=== PATIENT | female | born 1945 | race Caucasian/White ===

== ENCOUNTER → 2016-12-29 | Outpatient (CLI) | payer BC ==
[~2016-12-29] MED LIST: ALBUAER2 INH; ALL180 PO; AMOX; AMOX875T PO; CALC500T83 PO; CHOL100027 PO; CLOT10TR2 MT; CYAN10004 PO; DMD20 PO; DXY100 PO; ENOX1INJ11 SQ; ENOX80IN SQ; FERR1TAB23 PO; GABA-112 PO; GABA1CAP PO; GFNSR600 PO; HYDR-5688 PO; INSDGIPEN SC; IPRA1AER2 INH; IPRASOL4 INH; LEVO75TA5 PO; LEVO88TA3 PO; LSX20 PO; LYSI500C4 PO; MAGNSUS5 PO; MAGNTAB4 PO; MOME100A INH; MOML PO; NORT25CA PO; NRT25 PO; NVLGI/PEN SC; NYSCR15 EXT; NYSS/ PO; OXGN; PANT40TA PO; POTA20TA13 PO; PRED10TA PO; PRT/40 PO; ROPI4TAB3 PO; ROPI4TAB4 PO; SENNTAB23 PO; SIMV-151 PO; SIMV20TA2 PO; SITA50TA5 PO; SITA50TA9 PO; SLWMEC PO; SNG10 PO; TORS20TA2 PO; TRIA1SPR4 NAE; VNTHFA/IN INH; WARF2TAB8 PO; lovenox
[2016-12-29 11:26] LABS: INR 2.8 (0.9-1.1); PROTHROMBIN TIME (PATIENT) 31.8 SECONDS (9.0-12.0)
[2016-12-29 11:32] LABS: ALT/SGPT 50 U/L (12-78); AST/SGOT 42 U/L (15-37); BLOOD UREA NITROGEN 18 mg/dl (7-18); BUN/CREATININE RATIO 17.9 (10-20); CALCIUM 9.8 mg/dl (8.5-10.1); CARBON DIOXIDE 27 mmol/L (21-32); CHLORIDE 104 mmol/L (98-107); GLUCOSE 125 mg/dl (70-99); POTASSIUM 3.4 mmol/L (3.5-5.1); SODIUM 142 mmol/L (136-145)
[2016-12-29 11:42] LABS: ALB/GLOB RATIO 1.1 (0.9-2); ALKALINE PHOSPHATASE 104 U/L (45-117)
[2016-12-29 13:48] LABS: URINE APPEARANCE TURBID (CLEAR); URINE BILIRUBIN NEG (NEG); URINE COLOR YELLOW; URINE EPITHELIAL CELL AUTO >30 /lpf (0-5); URINE NITRITE NEG (NEG); URINE SPECIFIC GRAVITY 1.022 (1.000-1.030); UROBILINOGEN NEG (NEG)
[2016-12-29 13:54] LABS: MANUAL MICROSCOPIC REQUIRED? NO; REVIEW REQ? YES
== END | disposition home or self-care (01) ==
LOC: C.LABBC 07:41
PROVIDERS: ATTEND Internal Medicine Geriatric Medicine
DX: Z86.72 Personal history of thrombophlebitis (principal); E87.6 Hypokalemia; E03.9 Hypothyroidism, unspecified; R39.9 Unspecified symptoms and signs involving the genitourinary system

== ENCOUNTER → 2016-12-31 | Outpatient (CLI) | payer BC ==
--- NOTE | 2016-12-31 08:40 | DIAGNOSTIC IMAGING REPORT ---
KUB CLINICAL HISTORY: R10.9 Abdominal pain dyspnea COMPARISON STUDY: No previous studies for comparison. FINDINGS: Nonobstructive bowel pattern. Postoperative changes low lumbar spine. Bile stimulator in position. IMPRESSION: No acute process. Electronically signed by: Iván Cuevas M.D. 12/31/2016 8:38 AM Dictated Date/Time: 12/31/2016 8:38 AM
== END | disposition home or self-care (01) ==
LOC: C.RADBC 08:17
PROVIDERS: ATTEND Internal Medicine Geriatric Medicine
DX: R10.9 Unspecified abdominal pain (principal)

== ENCOUNTER → 2017-01-02 | Outpatient (CLI) | payer BC ==
--- NOTE | 2017-01-02 10:48 | DIAGNOSTIC IMAGING REPORT ---
LEFT ANKLE 3 VIEWS CLINICAL HISTORY: Left ankle pain. FINDINGS: 3 views of the left ankle are obtained. No prior studies are available for comparison at the time of dictation. The skeletal structures are osteopenic. No fracture is seen. The ankle mortise is intact. Degenerative spurring is noted arising from the medial malleolus. There is a large plantar calcaneal enthesophyte. No joint effusion is identified. Mild soft tissue swelling is present around the ankle. Calcified phleboliths are seen in the distal calf. IMPRESSION: 1. Mild soft tissue swelling with no radiographic evidence of left ankle fracture. 2. Osteopenia mild degenerative change and heel spurs as above. Electronically signed by: Taz Guzman M.D. 01/02/2017 10:46 AM Dictated Date/Time: 01/02/2017 10:45 AM
== END | disposition home or self-care (01) ==
LOC: C.RADBC 10:26
PROVIDERS: ATTEND Internal Medicine Geriatric Medicine
DX: M25.572 Pain in left ankle and joints of left foot (principal); M79.89 Other specified soft tissue disorders; M85.872 Other specified disorders of bone density and structure, left ankle and foot; M77.32 Calcaneal spur, left foot

== ENCOUNTER → 2017-01-09 | Outpatient (CLI) | payer BC ==
--- NOTE | 2017-01-09 13:49 | DIAGNOSTIC IMAGING REPORT ---
RIGHT AXILLARY ULTRASOUND CLINICAL HISTORY: Right axillary lump. COMPARISON STUDY: Chest CT July 28, 2016 FINDINGS: No right axillary mass, enlarged lymph node or other sonographic abnormality was identified. IMPRESSION: No right axillary mass or enlarged lymph node identified. Clinical follow-up to ensure stability is recommended. If interval enlargement, repeat ultrasound is recommended. Electronically signed by: Ajay Hernandez M.D. 01/09/2017 1:48 PM Dictated Date/Time: 01/09/2017 1:44 PM
== END | disposition home or self-care (01) ==
LOC: C.ULTRBC 12:44
PROVIDERS: ATTEND Internal Medicine Geriatric Medicine
DX: R22.31 Localized swelling, mass and lump, right upper limb (principal)

== ENCOUNTER → 2017-01-18 | Outpatient (CLI) | payer BC ==
[2017-01-18 10:46] LABS: HEMATOCRIT 43.5 % (37-47); MEAN CELL VOLUME 89.1 fL (80-100); MEAN CORPUSCULAR HEMOGLOBIN 30.1 pg (25-34); MEAN CORPUSCULAR HGB CONC 33.8 g/dl (32-36); MEAN PLATELET VOLUME 10.4 fL (7.4-10.4); PLATELET COUNT 272 K/uL (130-400); RED BLOOD COUNT 4.88 M/uL (4.2-5.4)
[2017-01-18 10:54] LABS: URINE APPEARANCE CLEAR (CLEAR); URINE BILIRUBIN NEG (NEG); URINE COLOR YELLOW; URINE EPITHELIAL CELL AUTO >30 /lpf (0-5); URINE NITRITE NEG (NEG); URINE SPECIFIC GRAVITY 1.022 (1.000-1.030); UROBILINOGEN NEG (NEG)
[2017-01-18 11:02] LABS: ALT/SGPT 44 U/L (12-78); BLOOD UREA NITROGEN 16 mg/dl (7-18); BUN/CREATININE RATIO 17.1 (10-20); CALCIUM 10.2 mg/dl (8.5-10.1); CARBON DIOXIDE 27 mmol/L (21-32); CHLORIDE 101 mmol/L (98-107); CHOLESTEROL 177 mg/dl (0-200); CREATININE 0.96 mg/dl (0.60-1.20); GLUCOSE 76 mg/dl (70-99); POTASSIUM 3.5 mmol/L (3.5-5.1); SODIUM 140 mmol/L (136-145)
[2017-01-18 11:12] LABS: MANUAL MICROSCOPIC REQUIRED? NO; REVIEW REQ? NO
[2017-01-18 11:13] LABS: ALKALINE PHOSPHATASE 106 U/L (45-117); AST/SGOT 28 U/L (15-37); CHOLESTEROL/HDL RATIO 2.4; HDL CHOLESTEROL 73 mg/dl; LDL CHOLESTEROL CALCULATED 81 mg/dl; THYROID STIMULATING HORMONE 0.338 uIu/ml (0.300-4.500); TRIGLYCERIDES 114 mg/dl (0-150); VERY LOW DENSITY LIPOPROT CALC 23 mg/dl
[2017-01-18 11:24] LABS: BASO % 0.3 %; BASO ABS # 0.05 K/uL (0-0.2); COMPLETE YES; EOS % 0.8 %; IG% 0.9 %; LYMPH % 36.1 %; LYMPH ABS # 5.96 K/uL (1.2-3.4); MONO % 9.6 %; NEUT % 52.3 %
[2017-01-18 11:29] LABS: ESTIMATED AVERAGE GLUCOSE 235 mg/dl; HA1C FLAG Normal (Normal)
== END | disposition home or self-care (01) ==
LOC: C.LABBC 07:39
PROVIDERS: ATTEND Internal Medicine Geriatric Medicine
DX: R39.9 Unspecified symptoms and signs involving the genitourinary system (principal); E03.9 Hypothyroidism, unspecified; M19.90 Unspecified osteoarthritis, unspecified site; I10 Essential (primary) hypertension; K76.0 Fatty (change of) liver, not elsewhere classified; G47.33 Obstructive sleep apnea (adult) (pediatric); E11.65 Type 2 diabetes mellitus with hyperglycemia; E78.5 Hyperlipidemia, unspecified; E55.9 Vitamin D deficiency, unspecified; E53.8 Deficiency of other specified B group vitamins

== ENCOUNTER → 2017-02-08 | Outpatient (CLI) | payer BC ==
[2017-02-08 11:55] LABS: RATIO 34.6 mcg/mg (0-30.0)
[2017-02-08 12:04] LABS: URINE APPEARANCE CLEAR (CLEAR); URINE BILIRUBIN NEG (NEG); URINE COLOR YELLOW; URINE EPITHELIAL CELL AUTO >30 /lpf (0-5); URINE NITRITE NEG (NEG); URINE PH 7.5 (4.5-7.5); UROBILINOGEN NEG (NEG); ZZUR CULT IF INDIC CLEAN CATCH YES
[2017-02-08 12:09] LABS: MANUAL MICROSCOPIC REQUIRED? NO; REVIEW REQ? YES
== END | disposition home or self-care (01) ==
LOC: C.LABBC 08:02
PROVIDERS: ATTEND Nurse Practitioner Family
DX: R32 Unspecified urinary incontinence (principal)

== ENCOUNTER 2017-03-13 18:51 | Inpatient (IN) | payer BC, OTHER ==
[~2017-03-13] VITALS: Ht 149.9 cm; Wt 88.0 kg
[~2017-03-13 18:51] MED LIST changes: -ALL180 PO; -AMOX; -AMOX875T PO; -CALC500T83 PO; -CHOL100027 PO; -CLOT10TR2 MT; -CYAN10004 PO; -DMD20 PO; -DXY100 PO; -ENOX1INJ11 SQ; -FERR1TAB23 PO; -GABA-112 PO; -GFNSR600 PO; -HYDR-5688 PO; -INSDGIPEN SC; -IPRASOL4 INH; -LEVO88TA3 PO; -MOME100A INH; -MOML PO; -NRT25 PO; -NVLGI/PEN SC; -NYSCR15 EXT; -NYSS/ PO; -OXGN; -POTA20TA13 PO; -PRED10TA PO; -PRT/40 PO; -ROPI4TAB3 PO; -ROPI4TAB4 PO; -SENNTAB23 PO; -SIMV-151 PO; -SITA50TA5 PO; -SLWMEC PO; -SNG10 PO; -TORS20TA2 PO; -TRIA1SPR4 NAE; -VNTHFA/IN INH; -lovenox
[2017-03-13] MEDS ORDERED: ROPI4TAB3 PO (18:57)
[2017-03-13] MEDS ORDERED: ONDANSETRON INJ 2 MG/ML 2 ML VIAL IV STA (19:03)
[2017-03-13] MEDS ORDERED: MoRPHine SULFATE 4 MG/ML 1 ML CARP\\VIAL IV STA (19:03)
[2017-03-13] MEDS ORDERED: CEFTRIAXONE SOD INJ 1 GM ADDVIAL IV STA (19:03)
[2017-03-13] MEDS ORDERED: VANCOMYCIN INJ 1,000 MG in SODIUM CHLORIDE 0.9% 250ML 250 ML IV STA (19:03)
--- NOTE | 2017-03-13 19:06 | EMERGENCY ROOM VISIT NOTE ---
History Report prepared by Chaitanya: Mj Lauren Under the Supervision of: Dr. Dominguez Kelley M.D. First contact with patient: 18:58 Chief Complaint: LEG PAIN,LEG INJURY Stated Complaint: PAIN IN RIGHT ANKLE;DOC SENT TO ER History of Present Illness The patient is a 71 year old female who presents to the Emergency Room with complaints of persistent right lower leg pain that started two days ago. 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 She complains of the cut draining blood and clear fluid. Last night while she was sleeping, her right ankle swelled up. She complains of lower leg and foot pain. The patient takes Lasix every day. The patient denies shortness of breath different from baseline. Source of History: patient Onset: two days ago Position: leg (left lower leg) Timing: other (persistent) Associated Symptoms: No SOB Note: Other associated symptoms: ankle swelling, draining blood and clear fluid, lower leg and foot pain Review of Systems See HPI for pertinent positives & negatives. A total of 10 systems reviewed and were otherwise negative. Past Medical & Surgical Medical Problems: (1) Acute bronchitis (2) Altered mental status (3) Altered mental status (4) Benign essential hypertension (5) Blood in stool (6) Cellulitis of right lower extremity (7) Chronic bronchitis (8) Chronic recurrent sinusitis (9) Chronic sinusitis (10) COPD exacerbation (11) Deep venous thrombosis of lower extremity (12) Diabetes mellitus type 2 (13) Dizziness (14) Dyspnea (15) Hyperglycemia (16) Hyperlipidemia (17) Laceration (18) Near syncope (19) Obstructive sleep apnea syndrome (20) Orthostatic hypotension (21) POSSIBLE SEIZURE (22) Pulmonary embolism (23) Restless legs (24) SJOGRENS (25) SOB (shortness of breath) (26) SUBTHERAPEAUTIC INR (27) Supratherapeutic INR (28) Supratherapeutic INR (29) UTI (urinary tract infection) Family History Diabetes mellitus MOTHER Esophageal cancer FATHER FH: cancer FH: gallbladder disease Myocardial infarction MOTHER Social History Smoking Status: Never Smoker Alcohol Use: none Drug Use: none Marital Status: Housing Status: lives with family, lives with significant other Occupation Status: retired Current/Historical Medications Scheduled Calcium (Calcium), 1 TAB PO QPM Cholecalciferol (Vitamin D 1000 Unit), 2,000 INTER.UNIT PO BID Cyanocobalamin (Vitamin B-12 1000 Mcg), 1,000 MCG PO BID Ferrous Sulfate (Iron), 1 TAB PO QPM Gabapentin (Neurontin), 100 MG PO BID Insulin Aspart (Novolog Flexpen), 10 UNITS SC TIDM Insulin Glargine (Lantus Solostar), 18 UNITS SC HS Levothyroxine Sodium (Levothyroxine Sodium), 88 MCG PO DAILY Lysine (L-Lysine), 1 CAP PO QAM Magnesium Chloride (Slow-Mag Tab), 3 TABS PO QAM Magnesium Chloride (Slow-Mag Tab), 2 TABS PO QPM Montelukast Sod (Montelukast Sodium), 10 MG PO HS Nortriptyline (Pamelor), 25 MG PO HS Pantoprazole (Protonix), 40 MG PO QAM Potassium Chloride Microencaps (Potassium Chloride Er), 20 MEQ PO DAILY Ropinirole Hydrochloride (Requip), 4 MG PO HS Sennosides-Docusate Sodium (Stool Softener), 1 TAB PO HS Simvastatin (Zocor), 20 MG PO HS Sitagliptin-Metformin Hcl (Janumet), 1 TAB PO BID Torsemide (Torsemide), 20 MG PO BID Warfarin Sod (Jantoven), 2 MG PO mondays Warfarin Sod (Jantoven), 4 MG PO MONTHLY Warfarin Sod (Jantoven), 4 MG PO [id number] Scheduled PRN Albuterol Hfa (Ventolin Hfa), 2 PUFFS INH Q4 PRN for SOB/Wheezing Ipratropium-Albuterol (Duoneb), 1 TREATMENT INH QID PRN for SOB/Wheezing Magnesium Hydroxide (Milk Of Magnesia), 15 ML PO DAILY PRN for Constipation Mometasone Furoate-Formoterol (Dulera 100/5 Mcg), 2 PUFFS INH BID PRN for SOB/ Wheezing Allergies Coded Allergies: Prochlorperazine (Verified Allergy, Severe, EXTRAPYRAMIDAL S/E, 10/21/16) LOSS OF MUSCLE CONTROL/MUSCLE SPASMS TROUBLE BREATHING "EYES WOULD FLY OPEN AND I COULDN'T CLOSE THEM" Zolpidem (Verified Allergy, Severe, CONFUSION/MEMORY LOSS, 10/21/16) "FOR THREE DAYS I WAS IN OUTER SPACE" Carbamazepine (Verified Allergy, Intermediate, CONFUSION, 10/21/16) Duloxetine (Verified Allergy, Intermediate, LIGHTHEADEDNESS/DIZZINESS, ) Hydrochlorothiazide (Verified Allergy, Intermediate, LIGHTHEADEDNESS/ DIZZINESS, 10/21/16) Indigotindisulfonate (Verified Allergy, Intermediate, LIGHTHEADEDNESS/ DIZZINESS, 10/21/16) Levofloxacin (Verified Allergy, Mild, RASH, 10/21/16) also bloody diarrhea Clonazepam (Verified Allergy, Unknown, UNKNOWN, 10/21/16) Diclofenac (Verified Allergy, Unknown, UNKNOWN, 10/21/16) Hydromorphone (Verified Adverse Reaction, Intermediate, N/V AND NIGHTMARES , 10/21/16) Morphine (Verified Adverse Reaction, Intermediate, HYPOTENSION AND N/V, ) Cyclobenzaprine (Verified Adverse Reaction, Mild, N/V, 10/21/16) Lisinopril (Verified Adverse Reaction, Mild, N/V, 10/21/16) Naproxen (Verified Adverse Reaction, Mild, N/V, 10/21/16) Oxycodone (Verified Adverse Reaction, Mild, N/V, 10/21/16) Tramadol (Verified Adverse Reaction, Unknown, N/V AND ITCHING, 10/21/16) Physical Exam Vital Signs Date Time Temp Pulse Resp B/P Pulse Ox O2 Delivery O2 Flow Rate FiO2 03/13/17 20:10 87 18 139/74 93 Room Air 03/13/17 18:53 36.6 87 20 142/84 93 Room Air Physical Exam GENERAL: Patient is a healthy-appearing well-nourished HEAD: Normocephalic atraumatic EYES: Ocular movements intact pupils equal and react to light OROPHARYNX mucous membranes are moist no exudates present no erythema or edema present NECK: Supple no nuchal rigidity CHEST: Good equal expansion LUNGS: Clear and equal to auscultation CARDIAC: Normal S1 and S2 ABDOMEN: Soft nontender no guarding BACK: No CVA tenderness EXTREMITIES: Cellulitis extending up to right knee, involves right foot, appears to be extending from 2 inch by 2 inch contusion, there is a superficial laceration to the contusion that is openly leaking serous fluid. NEURO: Patient is following commands is answering questions appropriately. Alert and oriented x3 Cranial Nerves 2-12 grossly intact Medical Decision & Procedures ER Provider Diagnostic Interpretation: Radiology results as stated below per my review and radiologist interpretation: ULTRASOUND RIGHT VENOUS DOPP LOWER EXT UNILAT CLINICAL HISTORY: Right leg swelling COMPARISON STUDY: 10/21/2016 FINDINGS: Real-time and color flow Doppler imaging were performed. Flow was seen within the femoral, popliteal and calf veins with no intraluminal thrombus demonstrated. The saphenous vein is patent. IMPRESSION: No evidence of right lower extremity DVT. Electronically signed by: Brijesh Mendoza M.D. 03/13/2017 7:57 PM Dictated Date/Time: 03/13/2017 7:57 PM CHEST ONE VIEW PORTABLE CLINICAL HISTORY: Shortness of breath COMPARISON STUDY: 08/08/2016 FINDINGS: The cardiac and mediastinal contours are normal. There is no evidence of focal pulmonary consolidation. There is no evidence of failure. No pleural effusions are visualized.[ IMPRESSION: No active disease in the chest. Electronically signed by: Brijesh Mendoza M.D. 03/13/2017 7:35 PM Dictated Date/Time: 03/13/2017 7:34 PM Laboratory Results 03/13/17 19:21 Red Blood Count 4.48, Mean Corpuscular Volume 91.7, Mean Corpuscular Hemoglobin 30.8, Mean Corpuscular Hemoglobin Concent 33.6, Mean Platelet Volume 10.4, Neutrophils (%) (Auto) 48.0, Lymphocytes (%) (Auto) 37.5, Monocytes (%) (Auto) 10.7, Eosinophils (%) (Auto) 3.2, Basophils (%) (Auto) 0.4, Neutrophils # (Auto ) 5.17, Lymphocytes # (Auto) 4.04, Monocytes # (Auto) 1.15, Eosinophils # (Auto ) 0.35, Basophils # (Auto) 0.04 03/13/17 19:21 03/13/17 20:55 Test 03/13/17 19:21 03/13/17 20:55 White Blood Count 10.77 K/uL (4.8-10.8) Red Blood Count 4.48 M/uL (4.2-5.4) Hemoglobin 13.8 g/dL (12.0-16.0) Hematocrit 41.1 % (37-47) Mean Corpuscular Volume 91.7 fL (80-100) Mean Corpuscular Hemoglobin 30.8 pg (25-34) Mean Corpuscular Hemoglobin Concent 33.6 g/dl (32-36) Platelet Count 218 K/uL (130-400) Mean Platelet Volume 10.4 fL (7.4-10.4) Neutrophils (%) (Auto) 48.0 % Lymphocytes (%) (Auto) 37.5 % Monocytes (%) (Auto) 10.7 % Eosinophils (%) (Auto) 3.2 % Basophils (%) (Auto) 0.4 % Neutrophils # (Auto) 5.17 K/uL (1.4-6.5) Lymphocytes # (Auto) 4.04 K/uL (1.2-3.4) Monocytes # (Auto) 1.15 K/uL (0.11-0.59) Eosinophils # (Auto) 0.35 K/uL (0-0.5) Basophils # (Auto) 0.04 K/uL (0-0.2) RDW Standard Deviation 50.6 fL (36.4-46.3) RDW Coefficient of Variation 15.1 % (11.5-14.5) Immature Granulocyte % (Auto) 0.2 % Immature Granulocyte # (Auto) 0.02 K/uL (0.00-0.02) Anion Gap 10.0 mmol/L (3-11) Est Creatinine Clear Calc Drug Dose 49.6 ml/min Estimated GFR () 66.0 Estimated GFR (Non- 56.9 BUN/Creatinine Ratio 11.8 (10-20) Calcium Level 8.6 mg/dl (8.5-10.1) Total Bilirubin 0.9 mg/dl (0.2-1) Alanine Aminotransferase (ALT/SGPT) 30 U/L (12-78) Alkaline Phosphatase 104 U/L (45-117) Creatine Kinase MB 2.0 ng/ml (0.5-3.6) Creatine Kinase MB Ratio (0-3.0) Troponin I < 0.015 ng/ml (0-0.045) Pro-B-Type Natriuretic Peptide 121 pg/ml (0-900) Total Protein 7.0 gm/dl (6.4-8.2) Albumin 3.5 gm/dl (3.4-5.0) Lipase 63 U/L (73-393) Chemistry Specimen Hemolysis Prothrombin Time 39.6 SECONDS (9.0-12.0) Prothromb Time International Ratio 3.5 (0.9-1.1) Direct Bilirubin 0.2 mg/dl (0-0.2) Aspartate Amino Transf (AST/SGOT) 22 U/L (15-37) Total Creatine Kinase 147 U/L (26-192) Labs reviewed by ED physician. Medications Administered Medications (Trade) Dose Ordered Sig/Mick Route Start Time Stop Time Status Last Admin Dose Admin Ceftriaxone Sodium 1 gm 1 gm NOW STAT IV 03/13/17 19:03 03/13/17 19:08 DC 03/13/17 20:09 1 GM Vancomycin HCl/ Sodium Chloride (Vancomycin Inj/ Nss 250ml) 270 ml @ 125 mls/hr NOW STAT IV 03/13/17 19:03 03/13/17 21:12 DC 03/13/17 20:45 125 MLS/HR Ondansetron HCl (Zofran Inj) 4 mg NOW STAT IV 03/13/17 19:03 03/13/17 19:08 DC 03/13/17 20:08 4 MG Acetaminophen (Tylenol Tab) 650 mg Q4H PRN PO 03/13/17 21:45 04/12/17 21:44 03/13/17 22:55 650 MG ECG Indication: other Rate (beats per minute): 80 Rhythm: sinus rhythm Findings: no acute ischemic change, no ectopy ED Course 1856: Past medical records reviewed. The patient was evaluated in room C9. A complete history and physical examination was performed. 1902: Ordered Zofran Inj 4 mg IV, Morphine Sulfate 4 mg IV, Vancomycin HCl 1000 mg/ NSS 270 ml @ 125 mls/hr IV, Rocephin Inj 1 gm IV. 2045: At this time, I discussed the patient's case with Dr. Lainez - Hospitalist [facility] and he agreed to accept the patient for further evaluation. Medical Decision Differential diagnosis: Etiologies such as viral syndrome, otitis, pharyngitis, pneumonia, influenza, meningitis, urinary tract infection, sepsis, bacteremia, as well as others were entertained. This is a 71-year-old female who presents emergency department after a injury to her right silvestre. 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 Based on these findings the patient was pancultured up and started on antibiotics. She also has multiple comorbidities including COPD as well as CHF. She also slight elevation in her white blood count therefore discussed the case with the hospitalist service who agreed to admit the patient. Patient family were in agreement with the treatment plan. Consults Time Called: 2038 Consulting Physician: Dr. Lainez - [place] [facility] [place] Call: 2045 At this time, I discussed the patient's case with Dr. Lainez and he agreed to accept the patient for further evaluation. Impression Primary Impression: Cellulitis Scribe Attestation The scribe's documentation has been prepared under my direction and personally reviewed by me in its entirety. I confirm that the note above accurately reflects all work, treatment, procedures, and medical decision making performed by me. Departure Information Dispostion Being Evaluated By Hospitalist Referrals Omar Joshi M.D. (PCP) Problem Qualifiers Primary Impression: Cellulitis Site of cellulitis: extremity Site of cellulitis of extremity: lower extremity Laterality: right Qualified Codes: L03.115 - Cellulitis of right lower limb
[2017-03-13 19:35] LABS: BASO % 0.4 %; BASO ABS # 0.04 K/uL (0-0.2); COMPLETE YES; EOS % 3.2 %; HEMATOCRIT 41.1 % (37-47); IG% 0.2 %; LYMPH % 37.5 %; LYMPH ABS # 4.04 K/uL (1.2-3.4); MEAN CELL VOLUME 91.7 fL (80-100); MEAN CORPUSCULAR HEMOGLOBIN 30.8 pg (25-34); MEAN CORPUSCULAR HGB CONC 33.6 g/dl (32-36); MEAN PLATELET VOLUME 10.4 fL (7.4-10.4); MONO % 10.7 %; PLATELET COUNT 218 K/uL (130-400); RED BLOOD COUNT 4.48 M/uL (4.2-5.4); WHITE BLOOD COUNT 10.77 K/uL (4.8-10.8)
--- NOTE | 2017-03-13 19:37 | DIAGNOSTIC IMAGING REPORT ---
CHEST ONE VIEW PORTABLE CLINICAL HISTORY: Shortness of breath COMPARISON STUDY: 08/08/2016 FINDINGS: The cardiac and mediastinal contours are normal. There is no evidence of focal pulmonary consolidation. There is no evidence of failure. No pleural effusions are visualized.[ IMPRESSION: No active disease in the chest. Electronically signed by: Brijesh Mendoza M.D. 03/13/2017 7:35 PM Dictated Date/Time: 03/13/2017 7:34 PM
--- NOTE | 2017-03-13 19:59 | DIAGNOSTIC IMAGING REPORT ---
ULTRASOUND RIGHT VENOUS DOPP LOWER EXT UNILAT CLINICAL HISTORY: Right leg swelling COMPARISON STUDY: 10/21/2016 FINDINGS: Real-time and color flow Doppler imaging were performed. Flow was seen within the femoral, popliteal and calf veins with no intraluminal thrombus demonstrated. The saphenous vein is patent. IMPRESSION: No evidence of right lower extremity DVT. Electronically signed by: Brijesh Mendoza M.D. 03/13/2017 7:57 PM Dictated Date/Time: 03/13/2017 7:57 PM
[2017-03-13] MEDS ORDERED: LEVO88TA3 PO (20:01)
[2017-03-13] MEDS ORDERED: MOML PO (20:01)
[2017-03-13] MEDS ORDERED: DMD20 PO (20:01)
[2017-03-13] MEDS ORDERED: SLWMEC PO (20:01)
[2017-03-13] MEDS ORDERED: POTA20TA13 PO (20:01)
[2017-03-13 20:47] LABS: ALKALINE PHOSPHATASE 104 U/L (45-117); ALT/SGPT 30 U/L (12-78); BLOOD UREA NITROGEN 12 mg/dl (7-18); BUN/CREATININE RATIO 11.8 (10-20); CALCIUM 8.6 mg/dl (8.5-10.1); CARBON DIOXIDE 27 mmol/L (21-32); CHLORIDE 107 mmol/L (98-107); CREATININE 0.99 mg/dl (0.60-1.20); GLUCOSE 182 mg/dl (70-99); SODIUM 144 mmol/L (136-145)
[2017-03-13 21:16] LABS: INR 3.5 (0.9-1.1); PROTHROMBIN TIME (PATIENT) 39.6 SECONDS (9.0-12.0)
[2017-03-13 21:18] LABS: POTASSIUM 3.5 mmol/L (3.5-5.1)
[2017-03-13] MEDS ORDERED: GLUCOSE 40% GEL 15 GM TUBE PO PRN (21:45)
[2017-03-13] MEDS ORDERED: DEXTROSE 50% 50 ML SYR IV PRN (21:45)
[2017-03-13] MEDS ORDERED: ALBUT/IPRATROP 3MG/0.5MG NEB 3 ML VIAL INH PRN (21:45)
[2017-03-13] MEDS ORDERED: GLUCAGON FOR INJ 1 MG VIAL SQ PRN (21:45)
[2017-03-13] MEDS ORDERED: GLUCOSE 10 TABS/TUBE PO PRN (21:45)
[2017-03-13] MEDS ORDERED: ONDANSETRON INJ 2 MG/ML 2 ML VIAL IV PRN (21:45)
[2017-03-13] MEDS ORDERED: MAGNESIUM HYDROXIDE SUSP 30 ML UDC PO PRN (21:45)
[2017-03-13] MEDS ORDERED: ALBUTEROL HFA 8 GM INHALER INH PRN (21:45)
--- NOTE | 2017-03-13 21:45 | History and Physical ---
History & Physical Date & Time of Service: Mar 13, 2017 at 21:44 Chief Complaint: Pain In Right Ankle;Doc Sent To Er Primary Care Physician: Omar Joshi M.D. 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 Today she noticed progressive redness and pain, which caused her to present to the ED for assessment. Past Medical/Surgical History Medical Problems: (1) Acute bronchitis Status: Resolved (2) Altered mental status Status: Resolved (3) Altered mental status Status: Resolved (4) Benign essential hypertension Status: Chronic (5) Chronic bronchitis Status: Chronic (6) Chronic recurrent sinusitis Status: Chronic (7) Chronic sinusitis Status: Chronic (8) Deep venous thrombosis of lower extremity Status: Resolved (9) Diabetes mellitus type 2 Status: Chronic (10) Dizziness Status: Resolved (11) Hyperglycemia Status: Resolved (12) Hyperlipidemia Status: Chronic (13) Laceration Status: Resolved (14) Near syncope Status: Resolved (15) Obstructive sleep apnea syndrome Status: Chronic (16) Orthostatic hypotension Status: Resolved (17) POSSIBLE SEIZURE Status: Resolved (18) Pulmonary embolism Status: Resolved (19) Restless legs Status: Chronic (20) SJOGRENS Status: Resolved (21) SOB (shortness of breath) Status: Resolved (22) SUBTHERAPEAUTIC INR Status: Resolved (23) Supratherapeutic INR Status: Resolved (24) Supratherapeutic INR Status: Resolved (25) UTI (urinary tract infection) Status: Resolved Family History Diabetes mellitus MOTHER Esophageal cancer FATHER FH: cancer FH: gallbladder disease Myocardial infarction MOTHER Social History Smoking Status: Never Smoker Smokeless Tobacco Use: No Alcohol Use: none Drug Use: none Marital Status: Housing status: lives with family Occupational Status: retired Immunizations History of Influenza Vaccine: Yes Influenza Vaccine Date: Aug 27, 2013 History of Tetanus Vaccine?: No History of Pneumococcal: Yes Pneumococcal Date: Nov 27, 2009 History of Hepatitis B Vaccine: No Multi-Drug Resistant Organisms History of MDRO: No Allergies Coded Allergies: Prochlorperazine (Verified Allergy, Severe, EXTRAPYRAMIDAL S/E, 10/21/16) LOSS OF MUSCLE CONTROL/MUSCLE SPASMS TROUBLE BREATHING "EYES WOULD FLY OPEN AND I COULDN'T CLOSE THEM" Zolpidem (Verified Allergy, Severe, CONFUSION/MEMORY LOSS, 10/21/16) "FOR THREE DAYS I WAS IN OUTER SPACE" Carbamazepine (Verified Allergy, Intermediate, CONFUSION, 10/21/16) Duloxetine (Verified Allergy, Intermediate, LIGHTHEADEDNESS/DIZZINESS, ) Hydrochlorothiazide (Verified Allergy, Intermediate, LIGHTHEADEDNESS/ DIZZINESS, 10/21/16) Indigotindisulfonate (Verified Allergy, Intermediate, LIGHTHEADEDNESS/ DIZZINESS, 10/21/16) Levofloxacin (Verified Allergy, Mild, RASH, 10/21/16) also bloody diarrhea Clonazepam (Verified Allergy, Unknown, UNKNOWN, 10/21/16) Diclofenac (Verified Allergy, Unknown, UNKNOWN, 10/21/16) Hydromorphone (Verified Adverse Reaction, Intermediate, N/V AND NIGHTMARES , 10/21/16) Morphine (Verified Adverse Reaction, Intermediate, HYPOTENSION AND N/V, ) Cyclobenzaprine (Verified Adverse Reaction, Mild, N/V, 10/21/16) Lisinopril (Verified Adverse Reaction, Mild, N/V, 10/21/16) Naproxen (Verified Adverse Reaction, Mild, N/V, 10/21/16) Oxycodone (Verified Adverse Reaction, Mild, N/V, 10/21/16) Tramadol (Verified Adverse Reaction, Unknown, N/V AND ITCHING, 10/21/16) Home Medications Scheduled Calcium (Calcium), 1 TAB PO QPM Cholecalciferol (Vitamin D 1000 Unit), 2,000 INTER.UNIT PO BID Cyanocobalamin (Vitamin B-12 1000 Mcg), 1,000 MCG PO BID Ferrous Sulfate (Iron), 1 TAB PO QPM Gabapentin (Neurontin), 100 MG PO BID Insulin Aspart (Novolog Flexpen), 10 UNITS SC TIDM Insulin Glargine (Lantus Solostar), 18 UNITS SC HS Levothyroxine Sodium (Levothyroxine Sodium), 88 MCG PO DAILY Lysine (L-Lysine), 1 CAP PO QAM Magnesium Chloride (Slow-Mag Tab), 3 TABS PO QAM Magnesium Chloride (Slow-Mag Tab), 2 TABS PO QPM Montelukast Sod (Montelukast Sodium), 10 MG PO HS Nortriptyline (Pamelor), 25 MG PO HS Pantoprazole (Protonix), 40 MG PO QAM Potassium Chloride Microencaps (Potassium Chloride Er), 20 MEQ PO DAILY Ropinirole Hydrochloride (Requip), 4 MG PO HS Sennosides-Docusate Sodium (Stool Softener), 1 TAB PO HS Simvastatin (Zocor), 20 MG PO HS Sitagliptin-Metformin Hcl (Janumet), 1 TAB PO BID Torsemide (Torsemide), 20 MG PO BID Warfarin Sod (Jantoven), 2 MG PO mondays Warfarin Sod (Jantoven), 4 MG PO MONTHLY Warfarin Sod (Jantoven), 4 MG PO 6XWK Scheduled PRN Albuterol Hfa (Ventolin Hfa), 2 PUFFS INH Q4 PRN for SOB/Wheezing Ipratropium-Albuterol (Duoneb), 1 TREATMENT INH QID PRN for SOB/Wheezing Magnesium Hydroxide (Milk Of Magnesia), 15 ML PO DAILY PRN for Constipation Mometasone Furoate-Formoterol (Dulera 100/5 Mcg), 2 PUFFS INH BID PRN for SOB/ Wheezing Review of Systems The patient denies chest pain, palpitations, shortness of breath, cough, vision change, hearing change, sore throat, fevers, chills, sweats, weight change, fatigue, nausea, vomiting, abdominal pain, pelvic pain, blood in urine or stool , dysuria, urinary frequency or urgency, lightheadedness, dizziness, headache, memory loss, rash, imbalance, focal or generalized weakness, numbness or tingling in arms, arthralgias or myalgias, back or neck pain, night sweats, or allergy symptoms. The review of systems is otherwise negative other than for that already noted above, and at least 10 systems have been reviewed. Physical Exam Vital Signs Date Time Temp Pulse Resp B/P Pulse Ox O2 Delivery O2 Flow Rate FiO2 03/13/17 20:10 87 18 139/74 93 Room Air 03/13/17 18:53 36.6 87 20 142/84 93 Room Air The patient is awake, well-developed and adequately nourished, alert and oriented 3, normocephalic and atraumatic, lying in bed and in no acute distress. HEENT--PERRL, EOMI, mucous membranes and oropharynx normal. Neck--supple, no JVD or bruits, thyroid normal, trachea midline, no adenopathy. Heart--normal S1 and S2, no extra beats, no murmurs, rubs or gallops. Lungs--clear bilaterally with good air movement, no respiratory distress, no accessory muscle use. Abdomen--normal bowel sounds and soft, nontender and nondistended, no hernias or masses, no organomegaly. Extremities--no cyanosis, clubbing. There is bilaterally 1+ pretibial pitting Edema. There are good distal pulses b/l. Dermatologic--right silvestre a central laceration well opposed edges, with erythema from the knee to the ankle. Neurologic--cranial nerves II through XII grossly intact, motor and sensory examination normal. Rheumatologic--normal range of motion, nontender, muscles and joints. Psychiatric--normal affect. Diagnostics Laboratory Results Results Past 24 Hours Test 03/13/17 19:21 03/13/17 20:55 Range/Units White Blood Count 10.77 4.8-10.8 K/uL Red Blood Count 4.48 4.2-5.4 M/uL Hemoglobin 13.8 12.0-16.0 g/dL Hematocrit 41.1 37-47 % Mean Corpuscular Volume 91.7 80-100 fL Mean Corpuscular Hemoglobin 30.8 25-34 pg Mean Corpuscular Hemoglobin Concent 33.6 32-36 g/dl Platelet Count 218 130-400 K/uL Mean Platelet Volume 10.4 7.4-10.4 fL Neutrophils (%) (Auto) 48.0 % Lymphocytes (%) (Auto) 37.5 % Monocytes (%) (Auto) 10.7 % Eosinophils (%) (Auto) 3.2 % Basophils (%) (Auto) 0.4 % Neutrophils # (Auto) 5.17 1.4-6.5 K/uL Lymphocytes # (Auto) 4.04 1.2-3.4 K/uL Monocytes # (Auto) 1.15 0.11-0.59 K/uL Eosinophils # (Auto) 0.35 0-0.5 K/uL Basophils # (Auto) 0.04 0-0.2 K/uL RDW Standard Deviation 50.6 36.4-46.3 fL RDW Coefficient of Variation 15.1 11.5-14.5 % Immature Granulocyte % (Auto) 0.2 % Immature Granulocyte # (Auto) 0.02 0.00-0.02 K/uL Sodium Level 144 136-145 mmol/L Potassium Level 3.5 3.5-5.1 mmol/L Chloride Level 107 98-107 mmol/L Carbon Dioxide Level 27 21-32 mmol/L Anion Gap 10.0 3-11 mmol/L Blood Urea Nitrogen 12 7-18 mg/dl Creatinine 0.99 0.60-1.20 mg/dl Est Creatinine Clear Calc Drug Dose 49.6 ml/min Estimated GFR () 66.0 Estimated GFR (Non- 56.9 BUN/Creatinine Ratio 11.8 10-20 Random Glucose 182 70-99 mg/dl Calcium Level 8.6 8.5-10.1 mg/dl Total Bilirubin 0.9 0.2-1 mg/dl Direct Bilirubin 0.2 0-0.2 mg/dl Aspartate Amino Transf (AST/SGOT) 22 15-37 U/L Alanine Aminotransferase (ALT/SGPT) 30 12-78 U/L Alkaline Phosphatase 104 45-117 U/L Total Creatine Kinase 147 26-192 U/L Creatine Kinase MB 2.0 0.5-3.6 ng/ml Creatine Kinase MB Ratio 0-3.0 Troponin I < 0.015 0-0.045 ng/ml Pro-B-Type Natriuretic Peptide 121 0-900 pg/ml Total Protein 7.0 6.4-8.2 gm/dl Albumin 3.5 3.4-5.0 gm/dl Lipase 63 73-393 U/L Chemistry Specimen Hemolysis Prothrombin Time 39.6 9.0-12.0 SECONDS Prothromb Time International Ratio 3.5 0.9-1.1 Microbiology Results 03/13/17 Blood Culture, Received Pending 03/13/17 Blood Culture, Received Pending 03/13/17 Gram Stain, Received Pending 03/13/17 Wound Culture, Received Pending Diagnostic Radiology Patient Name: QUENTIN BUTT Unit Number: [id number] Dictated: 03/13/171956 Transcribed: 03/13/171956 ARG Printed Date/Time: [~ rep prt dt]/[~ rep prt tm] [~ rep ct labl] - [~ rep ct ivnm] [facility] [place] [address] Dictated: 03/13/171956 Transcribed: 03/13/171956 ARG Printed Date/Time: [~ rep prt dt]/[~ rep prt tm] [~ rep ct labl] - [~ rep ct ivnm] ULTRASOUND RIGHT VENOUS DOPP LOWER EXT UNILAT CLINICAL HISTORY: Right leg swelling COMPARISON STUDY: 10/21/2016 FINDINGS: Real-time and color flow Doppler imaging were performed. Flow was seen within the femoral, popliteal and calf veins with no intraluminal thrombus demonstrated. The saphenous vein is patent. IMPRESSION: No evidence of right lower extremity DVT. Electronically signed by: Brijesh Mendoza M.D. 03/13/2017 7:57 PM Dictated Date/Time: 03/13/2017 7:57 PM The status of this report is Signed. Draft = Not yet reviewed or approved by Radiologist. Signed = Reviewed and approved by Radiologist. <AttendingPhy></AttendingPhy> <FamilyPhy>Omar Joshi M.D.</FamilyPhy> < PrimaryPhy>Omar Joshi M.D.</PrimaryPhy> <UnitNumber>[id number]</UnitNumber > <VisitNumber>[id number]</VisitNumber> <PatientName>QUENTIN BUTT</ PatientName> <DateOfBirth>1945</DateOfBirth> <Location>[facility]</Location> < ServiceDate>03/13/17</ServiceDate> <MNE>ESINDI</MNE> <OrderingPhy>Dominguez Kelley MD</OrderingPhy> <OrderingPhyMNE>f rep ord dr paulson</OrderingPhyMNE> < DictatingPhyMNE>f rep dict dr paulson</DictatingPhyMNE> <CCListMNE>f rep ct nemoe</ CCListMNE> <AdmittingPhyMNE>f pt admit dr paulson</AdmittingPhyMNE> <AttendingPhyMNE >f pt attend dr paulson</AttendingPhyMNE> <ConsultingPhyMNE>f pt consult dr paulson</ConsultingPhyMNE> <FamilyPhyMNE>f pt fam dr paulson</FamilyPhyMNE> <OtherPhyMNE>f pt other dr paulson</OtherPhyMNE> < PrimaryPhyMNE>f pt prim care dr paulson</PrimaryPhyMNE> <ReferringPhyMNE>f pt referring dr paulson</ReferringPhyMNE> Patient Name: QUENTIN BUTT Unit Number: [id number] Dictated: 03/13/171933 Transcribed: 03/13/171933 ARG Printed Date/Time: [~ rep prt dt]/[~ rep prt tm] [~ rep ct labl] - [~ rep ct ivnm] [facility] [place] [place] [address] Dictated: 03/13/171933 Transcribed: 03/13/171933 ARG Printed Date/Time: [~ rep prt dt]/[~ rep prt tm] [~ rep ct labl] - [~ rep ct ivnm] [~ rep ct add3]] CHEST ONE VIEW PORTABLE CLINICAL HISTORY: Shortness of breath COMPARISON STUDY: 08/08/2016 FINDINGS: The cardiac and mediastinal contours are normal. There is no evidence of focal pulmonary consolidation. There is no evidence of failure. No pleural effusions are visualized.[ IMPRESSION: No active disease in the chest. Electronically signed by: Brijesh Mendoza M.D. 03/13/2017 7:35 PM Dictated Date/Time: 03/13/2017 7:34 PM The status of this report is Signed. Draft = Not yet reviewed or approved by Radiologist. Signed = Reviewed and approved by Radiologist. <AttendingPhy></AttendingPhy> <FamilyPhy>Omar Joshi M.D.</FamilyPhy> < PrimaryPhy>Omar Joshi M.D.</PrimaryPhy> <UnitNumber>[id number]</UnitNumber > <VisitNumber>[id number]</VisitNumber> <PatientName>QUENTIN BUTT</ PatientName> <DateOfBirth>1945</DateOfBirth> [facility] < ServiceDate>03/13/17</ServiceDate> <MNE>ESINDI</MNE> <OrderingPhy>Dominguez Kelley MD</OrderingPhy> <OrderingPhyMNE>f rep ord dr paulson</OrderingPhyMNE> < DictatingPhyMNE>f rep dict dr paulson</DictatingPhyMNE> <CCListMNE>f rep ct lorene</ CCListMNE> <AdmittingPhyMNE>f pt admit dr paulson</AdmittingPhyMNE> <AttendingPhyMNE >f pt attend dr paulson</AttendingPhyMNE> <ConsultingPhyMNE>f pt consult dr paulson</ConsultingPhyMNE> <FamilyPhyMNE>f pt fam dr paulson</FamilyPhyMNE> <OtherPhyMNE>f pt other dr paulson</OtherPhyMNE> < PrimaryPhyMNE>f pt prim care dr paulson</PrimaryPhyMNE> <ReferringPhyMNE>f pt referring dr paulson</ReferringPhyMNE> EKG EKG shows normal sinus rhythm at 80 bpm, PACs, no acute ST-T changes. Impression Assessment and Plan Right lower extremity cellulitis--the patient was admitted to the medical floor. She'll be placed on vancomycin IV and ceftriaxone IV. We'll follow clinical examination. Diabetes mellitus--continue Lantus insulin 18 units subcutaneous at bedtime, hold usual dosing of NovoLog flex pen, and place on Accu-Cheks before meals and at bedtime with NovoLog coverage scale. Hold Janumet 1 tablet by mouth twice a day. Pulmonary embolism/DVT history-continue warfarin 2 mg by mouth Mondays and 4 mg by mouth 6 times per week, hold for INR greater than 3. Hypothyroidism--continue levothyroxine sodium 88 g by mouth daily. Hypertension/chronic venous insufficiency--continue torsemide 20 mg by mouth twice a day, Slow-Mag 3 tablets by mouth every morning and 2 tablets by mouth every afternoon, and potassium chloride ER 20 mEq by mouth daily. Hypercholesterolemia--continue simvastatin 20 mg by mouth at bedtime. Restless leg syndrome--continue ropinirole 4 mg by mouth at bedtime. GERD--continue pantoprazole 40 mg by mouth every morning. Peripheral neuropathy/insomnia--continue nortriptyline 25 mg by mouth at bedtime and gabapentin 100 mg by mouth twice a day. Vitamin B-12 deficiency--continue supplement 1000 g by mouth twice a day. Chronic sinusitis/seasonality--continue montelukast sodium 10 mg by mouth at bedtime. Level of Care Med/Surg Advanced Directives Existing Advance Directive: No Existing Living Will: No Existing Power of Master Technician: No Resuscitation Status FULL RESUSCITATION VTE Prophylaxis VTE Risk Assessment Done? Y/N: Yes Risk Level: Moderate Given or contraindicated: SCD's
[2017-03-13] MEDS ORDERED: LACTOBACILLUS ACIDOPHILUS (FLORANEX) TAB PO ONE (22:23)
[2017-03-13] MEDS ORDERED: IPRASOL4 INH (22:40)
[2017-03-13 22:52] VITALS: BP 129/63; PULSE 81; TEMP 36.6; O2SAT 92; Ht 149.9 cm; Wt 88.0 kg
[2017-03-13] MEDS: ACETAMINOPHEN 325 MG TAB PO PRN (22:55)
--- NOTE | 2017-03-13 23:02 | Pharmacy Progress Note ---
Pharmacy Antibiotic Consult Date of Service: Mar 13, 2017. Pharmacy Dosing Scope Pharmacy is consulted to initiate vancomycin IV dosing therapy, order appropriate labs and adjust drug dose/frequency. Subjective The patient is a 71 year old female admitted on . Objective Height (Feet): 4 Height (Inches): 11.00 Weight (Kilograms): 88.000 Lab Results (24hrs): Laboratory Tests Test 03/13/17 19:21 BUN/Creatinine Ratio 11.8 Blood Urea Nitrogen 12 mg/dl Creatinine 0.99 mg/dl White Blood Count 10.77 K/uL Red Blood Count 4.48 M/uL Hemoglobin 13.8 g/dL Hematocrit 41.1 % Mean Corpuscular Volume 91.7 fL Mean Corpuscular Hemoglobin 30.8 pg Mean Corpuscular Hemoglobin Concent 33.6 g/dl Platelet Count 218 K/uL Mean Platelet Volume 10.4 fL Neutrophils (%) (Auto) 48.0 % Lymphocytes (%) (Auto) 37.5 % Monocytes (%) (Auto) 10.7 % Eosinophils (%) (Auto) 3.2 % Basophils (%) (Auto) 0.4 % Neutrophils # (Auto) 5.17 K/uL Lymphocytes # (Auto) 4.04 K/uL Monocytes # (Auto) 1.15 K/uL Eosinophils # (Auto) 0.35 K/uL Basophils # (Auto) 0.04 K/uL Assessment & Plan Assessment * 71 yo F w cellulitis 2nd injury to leg 2 days ago. On vancomycin and ceftriaxone. * Vancomycin 1 g given in ED (11.3 mg/kg) * Will continue with 1 g IV q14h ongoing with 1st dose as soon as she gets a room for a loading dose of ~ 22.6 mg/kg * Trough prior to 4th overall dose (counting 1st two 1g doses as a single loading dose) Plan * Vancomycin 1 g IV q14h * Trough ~ 03/15 @ 1730 Pharmacy will continue to follow and will adjust dose/frequency as necessary. Thank you
[2017-03-13 23:17] VITALS: BP 137/79; PULSE 84; TEMP 36.6; O2SAT 93
[2017-03-13] MEDS: VANCOMYCIN INJ 1,000 MG in SODIUM CHLORIDE 0.9% 250ML 250 ML IV SCH (23:39)
[2017-03-14] MEDS ORDERED: VANCOMYCIN CONSULT ACTIVE PRN (00:45)
[2017-03-14] MEDS: LEVOTHYROXINE 88 MCG TAB PO SCH (05:16)
[2017-03-14 05:54] LABS: BASO % 0.4 %; BASO ABS # 0.03 K/uL (0-0.2); COMPLETE YES; EOS % 4.2 %; HEMATOCRIT 40.5 % (37-47); IG% 0.2 %; LYMPH % 39.1 %; LYMPH ABS # 3.26 K/uL (1.2-3.4); MEAN CELL VOLUME 92.5 fL (80-100); MEAN CORPUSCULAR HEMOGLOBIN 30.4 pg (25-34); MEAN CORPUSCULAR HGB CONC 32.8 g/dl (32-36); MEAN PLATELET VOLUME 10.7 fL (7.4-10.4); MONO % 10.9 %; NEUT % 45.2 %; PLATELET COUNT 199 K/uL (130-400); RED BLOOD COUNT 4.38 M/uL (4.2-5.4); WHITE BLOOD COUNT 8.33 K/uL (4.8-10.8)
[2017-03-14 06:06] LABS: INR 3.1 (0.9-1.1); PARTIAL THROMBOPLASTIN RATIO 1.7; PROTHROMBIN TIME (PATIENT) 35.3 SECONDS (9.0-12.0)
[2017-03-14 06:25] LABS: BUN/CREATININE RATIO 14.3 (10-20); CALCIUM 8.2 mg/dl (8.5-10.1); CREATININE 0.87 mg/dl (0.60-1.20); MAGNESIUM 1.5 mg/dl (1.8-2.4); POTASSIUM 3.6 mmol/L (3.5-5.1)
[2017-03-14] MEDS: GABAPENTIN 100 MG CAP PO SCH ×2 (07:58→20:17)
[2017-03-14] MEDS: FERROUS GLUCONATE 324 MG TAB PO SCH (07:59)
[2017-03-14] MEDS: CYANOCOBALAMIN 500 MCG TAB (VIT B-12) PO SCH ×2 (07:59→20:15)
[2017-03-14] MEDS: CHOLECALCIFEROL 1000 INTER.UNIT TAB PO SCH ×2 (07:59→20:19)
[2017-03-14] MEDS: MAGNESIUM CHLORIDE 64MG DELAYED REL TAB PO SCH (08:00)
[2017-03-14] MEDS ORDERED: LYSINE PO SCH (08:00)
[2017-03-14] MEDS: POTASSIUM CHLORIDE 20 MEQ TABCR PO SCH (08:01)
[2017-03-14] MEDS: TORSEMIDE 20 MG TAB PO SCH ×2 (08:01→20:15)
[2017-03-14] MEDS: PANTOprazole SOD 40 MG TAB PO SCH (08:01)
[2017-03-14] MEDS: CALCIUM 600MG + VIT D 400 IU TAB PO SCH ×2 (08:01→20:16)
[2017-03-14] MEDS: LACTOBACILLUS ACIDOPHILUS (FLORANEX) TAB PO SCH ×3 (08:02→16:32)
[2017-03-14] MEDS: INSULIN ASPART 100 UNITS/ML 3 ML PEN SC SCH ×4 (08:08→20:26)
[2017-03-14] MEDS: ACETAMINOPHEN 325 MG TAB PO PRN (08:10)
[2017-03-14] MEDS ORDERED: MAGNESIUM SULFATE 1GM / D5W 1 GM in PREMIXED IN D5W 100 ML IV ONE (08:15)
[2017-03-14 08:27] VITALS: BP 110/71; PULSE 68; TEMP 36.5; O2SAT 93
[2017-03-14] MEDS ORDERED: PIPERACILL/TAZOBAC IV 4.5 GM in DEXTROSE 5% 100ML IV ONE (12:30)
[2017-03-14] MEDS ORDERED: PIPERACILL/TAZOBAC CONSULT ACTIVE PRN (12:30)
[2017-03-14] MEDS: VANCOMYCIN INJ 1,000 MG in SODIUM CHLORIDE 0.9% 250ML 250 ML IV SCH (13:53)
--- NOTE | 2017-03-14 14:26 | Progress Note ---
Subjective Date of Service: Mar 14, 2017. Subjective pt has great improvement in her redness of leg, less pain less swelling Problem List Medical Problems: (1) Abdominal pain Status: Acute (2) Cellulitis Status: Acute (3) Hypomagnesemia Status: Acute (4) Right foot pain Status: Acute (5) Right-sided chest wall pain Status: Acute Review of Systems Constitutional: No chills, No fever, No weakness Respiratory: No cough, No shortness of breath, No sputum Cardiac: No edema Abdomen: No diarrhea, No nausea, No pain, No vomiting Psychiatric: No anhedonism, No depression symptoms Skin: + new/changing skin lesions, + rash Objective Vital Signs Date Time Temp Pulse Resp B/P Pulse Ox O2 Delivery O2 Flow Rate FiO2 03/14/17 00:25 Room Air 03/13/17 23:17 36.6 84 18 137/79 93 Room Air 03/13/17 22:52 36.6 81 18 129/63 92 Room Air 03/13/17 21:53 36.6 81 18 129/63 92 Room Air 03/13/17 20:10 87 18 139/74 93 Room Air 03/13/17 18:53 36.6 87 20 142/84 93 Room Air Physical Exam General Appearance: WD/WN, + obese Neck: supple, no JVD Respiratory/Chest: chest non-tender, lungs clear, normal breath sounds Cardiovascular: regular rate, rhythm, no murmur Abdomen: normal bowel sounds, non tender, soft Extremities: no calf tenderness, + pedal edema, + swelling Neurologic/Psychiatric: alert, oriented x 3 Laboratory Results Last 24 Hours Test 03/13/17 19:21 03/13/17 20:55 03/14/17 05:15 White Blood Count 10.77 K/uL 8.33 K/uL Red Blood Count 4.48 M/uL 4.38 M/uL Hemoglobin 13.8 g/dL 13.3 g/dL Hematocrit 41.1 % 40.5 % Mean Corpuscular Volume 91.7 fL 92.5 fL Mean Corpuscular Hemoglobin 30.8 pg 30.4 pg Mean Corpuscular Hemoglobin Concent 33.6 g/dl 32.8 g/dl Platelet Count 218 K/uL 199 K/uL Mean Platelet Volume 10.4 fL 10.7 fL Neutrophils (%) (Auto) 48.0 % 45.2 % Lymphocytes (%) (Auto) 37.5 % 39.1 % Monocytes (%) (Auto) 10.7 % 10.9 % Eosinophils (%) (Auto) 3.2 % 4.2 % Basophils (%) (Auto) 0.4 % 0.4 % Neutrophils # (Auto) 5.17 K/uL 3.76 K/uL Lymphocytes # (Auto) 4.04 K/uL 3.26 K/uL Monocytes # (Auto) 1.15 K/uL 0.91 K/uL Eosinophils # (Auto) 0.35 K/uL 0.35 K/uL Basophils # (Auto) 0.04 K/uL 0.03 K/uL RDW Standard Deviation 50.6 fL 51.6 fL RDW Coefficient of Variation 15.1 % 15.1 % Immature Granulocyte % (Auto) 0.2 % 0.2 % Immature Granulocyte # (Auto) 0.02 K/uL 0.02 K/uL Sodium Level 144 mmol/L 145 mmol/L Potassium Level mmol/L 3.5 mmol/L 3.6 mmol/L Chloride Level 107 mmol/L 108 mmol/L Carbon Dioxide Level 27 mmol/L 29 mmol/L Anion Gap 10.0 mmol/L 8.0 mmol/L Blood Urea Nitrogen 12 mg/dl 12 mg/dl Creatinine 0.99 mg/dl 0.87 mg/dl Est Creatinine Clear Calc Drug Dose 49.6 ml/min 56.4 ml/min Estimated GFR () 66.0 77.1 Estimated GFR (Non- 56.9 66.6 BUN/Creatinine Ratio 11.8 14.3 Random Glucose 182 mg/dl 207 mg/dl Calcium Level 8.6 mg/dl 8.2 mg/dl Total Bilirubin 0.9 mg/dl Direct Bilirubin mg/dl 0.2 mg/dl Aspartate Amino Transf (AST/SGOT) U/L 22 U/L Alanine Aminotransferase (ALT/SGPT) 30 U/L Alkaline Phosphatase 104 U/L Total Creatine Kinase U/L 147 U/L Creatine Kinase MB 2.0 ng/ml Creatine Kinase MB Ratio Troponin I < 0.015 ng/ml Pro-B-Type Natriuretic Peptide 121 pg/ml Total Protein 7.0 gm/dl Albumin 3.5 gm/dl Lipase 63 U/L Chemistry Specimen Hemolysis Prothrombin Time 39.6 SECONDS 35.3 SECONDS Prothromb Time International Ratio 3.5 3.1 Activated Partial Thromboplast Time 44.3 SECONDS Partial Thromboplastin Ratio 1.7 Magnesium Level 1.5 mg/dl Assessment and Plan Right lower extremity cellulitis-- vancomycin IV and ceftriaxone IV. great improvement will change to zosyn in hopes of transition to augmentin, preliminary gram negative seen on culture Diabetes mellitus-- Lantus insulin 18 units hs, ssi, Hold Janumetm will resume at discharge, reasonable control here Pulmonary embolism/DVT history- 4 mg 6 times per week,2 mg on monday, hold for INR greater than 3. Hypothyroidism--appears clinically stable levothyroxine sodium 88 g Hypertension/chronic venous insufficiency- torsemide 20 mg by, Slow-Mag , and potassium chloride 20 Hypercholesterolemia-- simvastatin 20 mg . Restless leg syndrome-- well controlled ropinirole 4 mg by mouth at bedtime. GERD-- pantoprazole 40 mg Peripheral neuropathy/insomnia-- nortriptyline 25 mg, gabapentin 100 mg .
[2017-03-14 15:31] VITALS: BP 114/74; PULSE 64; TEMP 36.7; O2SAT 96
[2017-03-14] MEDS: WARFARIN SOD 4 MG TAB PO SCH (16:32)
[2017-03-14] MEDS: PIPERACILL/TAZOBAC IV 4.5 GM in DEXTROSE 5% 100ML IV SCH (17:51)
[2017-03-14 20:00] VITALS: O2SAT 96
[2017-03-14] MEDS ORDERED: CEFTRIAXONE SOD INJ 1 GM in DEXTROSE 5% ADD-VANTAGE 50ML 50 ML IV SCH (20:00)
[2017-03-14] MEDS ORDERED: DOCUSATE SODIUM/SENNA 50/8.6MG TAB PO SCH (21:00)
[2017-03-14] MEDS ORDERED: NORTRIPTYLINE HCL 25 MG CAP PO SCH (21:00)
[2017-03-14] MEDS ORDERED: MONTELUKAST SOD 10 MG TAB PO SCH (21:00)
[2017-03-14] MEDS ORDERED: INSULIN GLARGINE SOLOSTAR 100 UNITS/ML 3 ML PEN SC SCH (21:00)
[2017-03-14] MEDS ORDERED: ROPINIROLE HCL 1 MG TAB PO SCH (21:00)
[2017-03-14] MEDS ORDERED: MAGNESIUM CHLORIDE 64MG DELAYED REL TAB PO SCH (21:00)
[2017-03-14] MEDS ORDERED: SIMVASTATIN 20 MG TAB PO SCH (21:00)
[2017-03-14 23:11] VITALS: BP 129/75; PULSE 73; TEMP 36.4; O2SAT 95
[2017-03-15] VITALS: O2SAT 96
[2017-03-15] MEDS: PIPERACILL/TAZOBAC IV 4.5 GM in DEXTROSE 5% 100ML IV SCH ×2 (02:08→10:16)
[2017-03-15] MEDS: VANCOMYCIN INJ 1,000 MG in SODIUM CHLORIDE 0.9% 250ML 250 ML IV SCH (04:21)
[2017-03-15] MEDS: LEVOTHYROXINE 88 MCG TAB PO SCH (05:42)
[2017-03-15 06:19] LABS: BASO % 0.2 %; BASO ABS # 0.02 K/uL (0-0.2); COMPLETE YES; EOS % 3.4 %; HEMATOCRIT 42.2 % (37-47); IG% 0.2 %; LYMPH % 41.9 %; LYMPH ABS # 3.59 K/uL (1.2-3.4); MEAN CELL VOLUME 93.4 fL (80-100); MEAN CORPUSCULAR HEMOGLOBIN 29.4 pg (25-34); MEAN CORPUSCULAR HGB CONC 31.5 g/dl (32-36); MEAN PLATELET VOLUME 10.3 fL (7.4-10.4); MONO % 11.4 %; NEUT % 42.9 %; PLATELET COUNT 204 K/uL (130-400); RED BLOOD COUNT 4.52 M/uL (4.2-5.4); WHITE BLOOD COUNT 8.57 K/uL (4.8-10.8)
[2017-03-15 06:38] LABS: INR 2.4 (0.9-1.1); PARTIAL THROMBOPLASTIN RATIO 1.6; PROTHROMBIN TIME (PATIENT) 26.9 SECONDS (9.0-12.0)
[2017-03-15 07:10] VITALS: BP 117/74; PULSE 75; TEMP 36.6; O2SAT 93
[2017-03-15 07:18] LABS: BUN/CREATININE RATIO 8.6 (10-20); CALCIUM 8.7 mg/dl (8.5-10.1); CREATININE 1.1 mg/dl (0.60-1.20); MAGNESIUM 1.9 mg/dl (1.8-2.4); POTASSIUM 3.6 mmol/L (3.5-5.1)
[2017-03-15 07:45] VITALS: O2SAT 93
[2017-03-15] MEDS: CHOLECALCIFEROL 1000 INTER.UNIT TAB PO SCH (07:45)
[2017-03-15] MEDS: TORSEMIDE 20 MG TAB PO SCH (07:46)
[2017-03-15] MEDS: POTASSIUM CHLORIDE 20 MEQ TABCR PO SCH (07:46)
[2017-03-15] MEDS: CYANOCOBALAMIN 500 MCG TAB (VIT B-12) PO SCH (07:46)
[2017-03-15] MEDS: FERROUS GLUCONATE 324 MG TAB PO SCH (07:47)
[2017-03-15] MEDS: LACTOBACILLUS ACIDOPHILUS (FLORANEX) TAB PO SCH ×2 (07:47→12:48)
[2017-03-15] MEDS: PANTOprazole SOD 40 MG TAB PO SCH (07:47)
[2017-03-15] MEDS: CALCIUM 600MG + VIT D 400 IU TAB PO SCH (07:48)
[2017-03-15] MEDS: MAGNESIUM CHLORIDE 64MG DELAYED REL TAB PO SCH (07:48)
[2017-03-15] MEDS: GABAPENTIN 100 MG CAP PO SCH (07:49)
--- NOTE | 2017-03-15 08:34 | Discharge Instructions ---
Discharge Instructions Date of Service Mar 15, 2017. Admission Reason for Admission: Cellulitis Of Right Lower Extremity Discharge Discharge Diagnosis / Problem: diabetic leg cellulitis Discharge Goals Goal(s): Diagnostic testing, Therapeutic intervention Activity Recommendations Activity Limitations: resume your previous activity . Current Hospital Diet Patient's current hospital diet: AHA Diet (Heart Healthy) Discharge Diet Recommended Diet: Diabetes Type 2 Diet Pending Studies Studies pending at discharge: no Laboratory Results Hemoglobin A1c Test 01/18/17 07:43 Range/Units Estimated Average Glucose 235 mg/dl Hemoglobin A1c 9.8 H 4.5-5.6 % Lipid Panel Test 01/18/17 07:43 Range/Units Triglycerides Level 114 0-150 mg/dl Cholesterol Level 177 0-200 mg/dl HDL Cholesterol 73 mg/dl Cholesterol/HDL Ratio 2.4 LDL Cholesterol, Calculated 81 mg/dl Medical Emergencies . Who to Call and When: Medical Emergencies: If at any time you feel your situation is an emergency, please call 911 immediately. . Non-Emergent Contact Non-Emergency issues call your: Primary Care Provider Call Non-Emergent contact if: temperature is above 101, your pain is worsening . . "Provider Documentation" section prepared by Steven Velazquez. . VTE Core Measure Inpt VTE Proph given/why not?: Warfarin (Coumadin), SCD's
[2017-03-15] MEDS ORDERED: AMOX875T PO (08:35)
[2017-03-15] MEDS: INSULIN ASPART 100 UNITS/ML 3 ML PEN SC SCH ×2 (09:11→12:53)
[2017-03-15] MEDS ORDERED: HYDR-5688 PO (10:24)
[2017-03-15 12:12] VITALS: BP 117/74; PULSE 75; TEMP 36.6; O2SAT 93
--- NOTE | 2017-03-15 15:12 | Discharge Summary ---
Discharge Summary Date of Service Mar 15, 2017. Discharge Summary Admission Date: Mar 13, 2017 at 21:45 Discharge Date: Mar 15, 2017 Discharge Disposition: Home with services Principal Diagnosis: lower leg cellulitis in diabetic female Immunizations: Have You Had Influenza Vaccine: Yes Influenza Vaccine Date: Aug 27, 2013 History of Tetanus Vaccine?: No History of Pneumococcal: Yes Pneumococcal Date: Nov 27, 2009 History of Hepatitis B Vaccine: No Consultations: wound care nurse did see Medication Reconciliation New Medications: Amoxicillin & Pot Clavulanate (Augmentin 875-125 mg) 1 Tab Tab 875 MG PO BID for 12 Days, #24 TAB Hydrocodone/Acetaminophen 5MG/325MG ([place] 5MG/325MG) Tab 2 TABLETS PO Q6H PRN for Pain, #20 TAB Continued Medications: Albuterol Hfa (Ventolin Hfa) 200 Puffs/50475 Mcg Aers 2 PUFFS INH Q4 PRN for SOB/Wheezing, #1 INHALER Calcium (Calcium) 500 Mg Tab 1 TAB PO QPM Cholecalciferol (Vitamin D 1000 Unit) 1,000 Unit Cap 2000 INTER.UNIT PO BID Cyanocobalamin (Vitamin B-12 1000 Mcg) 1,000 Mcg Tab 1000 MCG PO BID, TAB Ferrous Sulfate (Iron) 325 Mg Tab 1 TAB PO QPM Gabapentin (Neurontin) 100 Mg Cap 100 MG PO BID, CAP Insulin Aspart (Novolog Flexpen) 100 Units/Ml Inj 10 UNITS SC TIDM Insulin Glargine (Lantus Solostar) 100 Unit/Ml Inj 18 UNITS SC HS Ipratropium-Albuterol (Duoneb) 3 Ml Nebu 1 TREATMENT INH QID PRN for SOB/Wheezing, INHA Levothyroxine Sodium (Levothyroxine Sodium) 88 Mcg Tab 88 MCG PO DAILY, #30 Lysine (L-Lysine) 500 Mg Cap 1 CAP PO QAM Magnesium Chloride (Slow-Mag Tab) 64 Mg Tabcr 3 TABS PO QAM, TAB Magnesium Chloride (Slow-Mag Tab) 64 Mg Tabcr 2 TABS PO QPM, TAB Magnesium Hydroxide (Milk Of Magnesia) 30 Ml Susp 15 ML PO DAILY PRN for Constipation, ML Mometasone Furoate-Formoterol (Dulera 100/5 Mcg) 1 Aer Aer 2 PUFFS INH BID PRN for SOB/Wheezing Montelukast Sod (Montelukast Sodium) 10 Mg Tab 10 MG PO HS Nortriptyline (Pamelor) 25 Mg Cap 25 MG PO HS Pantoprazole (Protonix) 40 Mg Tab 40 MG PO QAM Potassium Chloride Microencaps (Potassium Chloride Er) 20 Meq Tab 20 MEQ PO DAILY, #90 Ropinirole Hydrochloride (Requip) 4 Mg Tab 4 MG PO HS Sennosides-Docusate Sodium (Stool Softener) 1 Tab Tab 1 TAB PO HS Simvastatin (Zocor) 20 Mg Tab 20 MG PO HS Sitagliptin-Metformin Hcl (Janumet) 1 Tab Tab 1 TAB PO BID Torsemide (Torsemide) 20 Mg Tab 20 MG PO BID, #60 Warfarin Sod (Jantoven) 2 Mg Tab 2 MG PO mondays Warfarin Sod (Jantoven) 2 Mg Tab 4 MG PO MONTHLY Warfarin Sod (Jantoven) 2 Mg Tab 4 MG PO 6XWK, TAB TAKE ALL DAYS BUT MON Discharge Exam Review of Systems: Constitutional: No chills, No fever Respiratory: No cough, No sputum Cardiovascular: + edema, No chest pain, No orthopnea Abdomen: No nausea, No pain, No vomiting Musculoskeletal: + swelling, No joint pain, No muscle pain Genitourinary - Female: No dysuria, No urinary frequency Physical Exam: General Appearance: WD/WN, no apparent distress Neck: supple, no JVD Respiratory/Chest: chest non-tender, lungs clear, normal breath sounds Cardiovascular: regular rate, rhythm, no murmur Extremities: normal range of motion, + pedal edema, + swelling Neurologic/Psychiatric: alert, oriented x 3 Skin: + pertinent finding ( right lower leg) Hospital Course Right lower extremity cellulitis-- great improvement will change to augmentin, klebsiella seen on culture Diabetes mellitus-- Lantus insulin 18 units hs, ssi, restart Janumetm Pulmonary embolism/DVT history- 4 mg 6 times per week,2 mg on monday, Hypothyroidism--appears clinically stable levothyroxine sodium 88 g Hypertension/chronic venous insufficiency- torsemide 20 mg by, Slow-Mag , and potassium chloride 20 Hypercholesterolemia-- simvastatin 20 mg . Restless leg syndrome-- well controlled ropinirole 4 mg by mouth at bedtime. GERD-- pantoprazole 40 mg Peripheral neuropathy/insomnia-- nortriptyline 25 mg, gabapentin 100 mg . Total Time Spent: Greater than 30 minutes This includes examination of the patient, discharge planning, medication reconciliation, and communication with other providers. Discharge Instructions Please refer to the electronic Patient Visit Report (Discharge Instructions) for additional information.
[2017-03-15] MEDS: WARFARIN SOD 4 MG TAB PO SCH (16:52)
[2017-03-15] MEDS ORDERED: VANCOMYCIN TROUGH SCH (17:30)
[2017-03-20] MEDS ORDERED: WARFARIN SOD 2 MG TAB PO SCH (16:00)
[2017-03-21] MEDS ORDERED: CLOT10TR2 MT (08:37)
[2017-03-21] MEDS ORDERED: HYDR-5688 PO (08:44)
[2017-08-03] MEDS ORDERED: IPRA1AER2 INH (08:37)
[2017-08-03] MEDS ORDERED: SITA50TA5 PO (08:41)
[2017-08-03] MEDS ORDERED: OXGN (08:53)
[2017-08-03] MEDS ORDERED: WARF2TAB8 PO ×2 (11:53→20:01)
[2017-08-03] MEDS ORDERED: NVLGI/PEN SC (12:23)
[2017-08-03] MEDS ORDERED: FERR1TAB23 PO (12:23)
[2017-08-03] MEDS ORDERED: INSDGIPEN SC (12:23)
[2017-08-03] MEDS ORDERED: SENNTAB23 PO (12:23)
[2017-08-03] MEDS ORDERED: CYAN10004 PO (12:23)
[2017-08-03] MEDS ORDERED: CALC500T83 PO (12:23)
[2017-08-03] MEDS ORDERED: PANT40TA2 PO (18:49)
== END 2017-03-15 17:30 | disposition home health service (06) | DRG 603 ==
LOC: ENRESERVDT → ENRESERVTM → C.EDB 18:52 → C.4E 21:45
PROVIDERS: ADMIT Hospitalist; ATTEND Internal Medicine
DX: L03.115 Cellulitis of right lower limb (principal); I10 Essential (primary) hypertension; E78.00 Pure hypercholesterolemia, unspecified; E03.9 Hypothyroidism, unspecified; I87.2 Venous insufficiency (chronic) (peripheral); G25.81 Restless legs syndrome; K21.9 Gastro-esophageal reflux disease without esophagitis; G62.9 Polyneuropathy, unspecified; E83.42 Hypomagnesemia; Z79.01 Long term (current) use of anticoagulants; Z86.718 Personal history of other venous thrombosis and embolism; Z83.3 Family history of diabetes mellitus; Z86.711 Personal history of pulmonary embolism

== ENCOUNTER → 2017-04-05 | Outpatient (CLI) | payer BC ==
[~2017-04-05] MED LIST changes: -ALBUAER2 INH; +ALL180 PO; +AMOX; +AMOX875T PO; +CALC500T83 PO; +CHOL100027 PO; +CLOT10TR2 MT; +CYAN10004 PO; +DMD20 PO; +DXY100 PO; +ENOX1INJ11 SQ; -ENOX80IN SQ; +FERR1TAB23 PO; +GABA-112 PO; +GFNSR600 PO; +HYDR-5688 PO; +INSDGIPEN SC; +IPRASOL4 INH; +LEVO88TA3 PO; -LSX20 PO; -MAGNSUS5 PO; -MAGNTAB4 PO; +MOME100A INH; +NRT25 PO; +NVLGI/PEN SC; +NYSCR15 EXT; +NYSS/ PO; +OXGN; +PANT40TA2 PO; +POTA20TA13 PO; +PRED10TA PO; +ROPI4TAB3 PO; +ROPI4TAB4 PO; +SENNTAB23 PO; +SIMV-151 PO; +SITA50TA5 PO; -SITA50TA9 PO; +SLWMEC PO; +SNG10 PO; +TORS20TA2 PO; +TRAM-10 PO; +TRIA1SPR4 NAE; +VNTHFA/IN INH; +lovenox
[2017-04-05 17:45] LABS: BLOOD UREA NITROGEN 11 mg/dl (7-18); BUN/CREATININE RATIO 12.5 (10-20); CALCIUM 9.2 mg/dl (8.5-10.1); CARBON DIOXIDE 31 mmol/L (21-32); CHLORIDE 102 mmol/L (98-107); CREATININE 0.89 mg/dl (0.60-1.20); GLUCOSE 244 mg/dl (70-99); POTASSIUM 3.2 mmol/L (3.5-5.1); SODIUM 140 mmol/L (136-145)
== END | disposition home or self-care (01) ==
LOC: C.LABBC 15:34
PROVIDERS: ATTEND Physician Assistant
DX: I10 Essential (primary) hypertension (principal); E03.9 Hypothyroidism, unspecified

== ENCOUNTER 2017-04-14 06:20 | Observation (INO) | payer BC ==
[2017-03-21 08:48] VITALS: BMI 39.0
--- NOTE | 2017-03-21 09:27 | PAT Medication Instructions ---
Service Date Mar 21, 2017. Current Home Medication List Albuterol Hfa (Ventolin Hfa), 2 PUFFS INH Q4 PRN for SOB/Wheezing Calcium (Calcium), 1 TAB PO QPM Cholecalciferol (Vitamin D 1000 Unit), 2,000 INTER.UNIT PO QAM Clotrimazole (Mycelex), 10 MG MT 5XADAY Cyanocobalamin (Vitamin B-12 1000 Mcg), 1,000 MCG PO BID Ferrous Sulfate (Iron), 1 TAB PO QPM Gabapentin (Neurontin), 100 MG PO BID Hydrocodone/Acetaminophen 5MG/325MG ([place] 5MG/325MG), 1-2 TAB PO Q4-6H PRN for Pain Insulin Aspart (Novolog Flexpen), 10 UNITS SC TIDM Insulin Glargine (Lantus Solostar), 18 UNITS SC HS Ipratropium-Albuterol (Duoneb), 1 TREATMENT INH QID PRN for SOB/Wheezing Ipratropium-Albuterol (Combivent Respimat), 1 PUFFS INH Q8-12H Levothyroxine Sodium (Levothyroxine Sodium), 88 MCG PO QAM Lysine (L-Lysine), 1 CAP PO QAM Magnesium Chloride (Slow-Mag Tab), 3 TABS PO QAM Magnesium Chloride (Slow-Mag Tab), 2 TABS PO QPM Mometasone Furoate-Formoterol (Dulera 100/5 Mcg), 2 PUFFS INH BID PRN for SOB/ Wheezing Montelukast Sod (Montelukast Sodium), 10 MG PO HS Nortriptyline (Pamelor), 25 MG PO HS Oxygen (Oxygen), 2 LITERS NA HS Pantoprazole (Protonix), 40 MG PO QAM Potassium Chloride Microencaps (Potassium Chloride Er), 20 MEQ PO BID Ropinirole Hydrochloride (Requip), 4 MG PO HS Sennosides-Docusate Sodium (Stool Softener), 1 TAB PO PRN Simvastatin (Zocor), 20 MG PO HS Sitagliptin-Metformin Hcl (Janumet), 1 TAB PO BID Torsemide (Torsemide), 20 MG PO BID PRN for FLUID Warfarin Sod (Jantoven), 2 MG PO mondays Warfarin Sod (Jantoven), 4 MG PO 6XWK Medication Instructions For Your Scheduled Surgery - Hold the following medications per Joe Elizabeth's recommendations : Warfarin Sod (Jantoven) *to bridge with lovenox* - Hold the following medications 2 weeks prior to surgery: Lysine (L-Lysine), 1 CAP PO QAM - Hold the following medications 48 hours prior to surgery: Sitagliptin-Metformin Hcl (Janumet), 1 TAB PO BID - Hold the following medications the morning of surgery: Cholecalciferol (Vitamin D 1000 Unit), 2,000 INTER.UNIT PO QAM Cyanocobalamin (Vitamin B-12 1000 Mcg), 1,000 MCG PO BID Insulin Aspart (Novolog Flexpen), 10 UNITS SC TIDM Potassium Chloride Microencaps (Potassium Chloride Er), 20 MEQ PO BID Magnesium Chloride (Slow-Mag Tab), 3 TABS PO QAM Sennosides-Docusate Sodium (Stool Softener), 1 TAB PO PRN Torsemide (Torsemide), 20 MG PO BID PRN for FLUID - Take the following medications the morning of surgery with a sip of water OTHERWISE NOTHING TO EAT OR DRINK AFTER MIDNIGHT: Gabapentin (Neurontin), 100 MG PO BID Hydrocodone/Acetaminophen 5MG/325MG ([place] 5MG/325MG), 1-2 TAB PO Q4-6H PRN for Pain (may take if needed up to 4 hours prior to surgery) Albuterol Hfa (Ventolin Hfa), 2 PUFFS INH Q4 PRN for SOB/Wheezing (use if needed ; BRING TO HOSPITAL) Ipratropium-Albuterol (Duoneb), 1 TREATMENT INH QID PRN for SOB/Wheezing Ipratropium-Albuterol (Combivent Respimat), 1 PUFFS INH Q8-12H Pantoprazole (Protonix), 40 MG PO QAM Mometasone Furoate-Formoterol (Dulera 100/5 Mcg), 2 PUFFS INH BID PRN for SOB/ Wheezing Levothyroxine Sodium (Levothyroxine Sodium), 88 MCG PO QAM - Take the following medications as scheduled the night before surgery: Ferrous Sulfate (Iron), 1 TAB PO QPM Calcium (Calcium), 1 TAB PO QPM Gabapentin (Neurontin), 100 MG PO BID Simvastatin (Zocor), 20 MG PO HS Magnesium Chloride (Slow-Mag Tab), 2 TABS PO QPM Insulin Glargine (Lantus Solostar), 18 UNITS SC HS Cyanocobalamin (Vitamin B-12 1000 Mcg), 1,000 MCG PO BID Insulin Aspart (Novolog Flexpen), 10 UNITS SC TIDM Hydrocodone/Acetaminophen 5MG/325MG ([place] 5MG/325MG), 1-2 TAB PO Q4-6H PRN for Pain Albuterol Hfa (Ventolin Hfa), 2 PUFFS INH Q4 PRN for SOB/Wheezing Ipratropium-Albuterol (Duoneb), 1 TREATMENT INH QID PRN for SOB/Wheezing Ipratropium-Albuterol (Combivent Respimat), 1 PUFFS INH Q8-12H Montelukast Sod (Montelukast Sodium), 10 MG PO HS Nortriptyline (Pamelor), 25 MG PO HS Mometasone Furoate-Formoterol (Dulera 100/5 Mcg), 2 PUFFS INH BID PRN for SOB/ Wheezing Potassium Chloride Microencaps (Potassium Chloride Er), 20 MEQ PO BID Sennosides-Docusate Sodium (Stool Softener), 1 TAB PO PRN Torsemide (Torsemide), 20 MG PO BID PRN for FLUID - Do not take the evening prior to surgery: Ropinirole Hydrochloride (Requip), 4 MG PO HS If you have any questions please call us at [phone] or [phone] or [phone]
[2017-03-21 10:23] LABS: BASO % 0.3 %; BASO ABS # 0.03 K/uL (0-0.2); COMPLETE YES; EOS % 1.7 %; IG% 0.3 %; LYMPH % 26.4 %; LYMPH ABS # 2.48 K/uL (1.2-3.4); MEAN CELL VOLUME 93.1 fL (80-100); MEAN CORPUSCULAR HEMOGLOBIN 30.4 pg (25-34); MEAN CORPUSCULAR HGB CONC 32.6 g/dl (32-36); MONO % 12.2 %; NEUT % 59.1 %; PLATELET COUNT 236 K/uL (130-400); RED BLOOD COUNT 4.94 M/uL (4.2-5.4)
[2017-03-21 10:49] LABS: INR 3.4 (0.9-1.1); PARTIAL THROMBOPLASTIN RATIO 1.8; PROTHROMBIN TIME (PATIENT) 38.1 SECONDS (9.0-12.0)
[2017-03-21 10:57] LABS: BUN/CREATININE RATIO 7.2 (10-20); CALCIUM 9.7 mg/dl (8.5-10.1); CREATININE 0.87 mg/dl (0.60-1.20); POTASSIUM 3.2 mmol/L (3.5-5.1)
--- NOTE | 2017-04-13 12:04 | HISTORY & PHYSICAL EXAMINATION ---
DATE OF ADMISSION: 04/14/2017 CHIEF COMPLAINT: Left shoulder pain. HISTORY OF PRESENT ILLNESS: Landy is a pleasant 71-year-old female who has been dealing with a several-month history of increasing left shoulder pain. It has become quite severe. She is unable to sleep at night and unable to do simple activities away from her body. MRI of her shoulder has shown a medium-sized rotator cuff tear. After failing conservative treatment, she has elected to proceed with arthroscopy. PAST MEDICAL HISTORY: Significant for hypertension, hyperlipidemia, COPD, insulin-dependent diabetes, hypothyroidism, anemia. MEDICATIONS: Include calcium, clotrimazole, Combivent, Dulera, fluconazole, gabapentin, Imdur, iron, Jantoven, Janumet, Lantus, Synthroid, l-lysine, Singulair, nortriptyline, NovoLog pen, Protonix, potassium, ropinirole, simvastatin, torsemide, Ventolin, vitamin B12, and vitamin D. ALLERGIES: INCLUDE AMBIEN, CLONAZEPAM, COMPAZINE, CYMBALTA, DICLOFENAC, DILAUDID, LISINOPRIL, LOSARTAN, MORPHINE, NAPROSYN, PERCOCET, TEGRETOL AND ULTRAM. FAMILY HISTORY: Noncontributory. SOCIAL HISTORY: She ambulates independently. She denies any tobacco, alcohol or IV drug abuse. REVIEW OF SYSTEMS: She complains of shoulder pain. All other pertinent review of systems are negative. PHYSICAL EXAMINATION: GENERAL: She is awake, alert and oriented x3. She is in no apparent distress. She is very pleasant. HEENT: Pupils equal, round and reactive to light. Extraocular movements intact. Oral mucosa is pink and moist. HEART: Regular rate per radial pulse. LUNGS: Nydia symmetrically bilaterally with no audible breath sounds. ABDOMEN: Soft, nontender, nondistended. MUSCULOSKELETAL: On physical examination of the right shoulder, she has decreased range of motion, about 120 degrees of forward elevation and 120 degrees of abduction. She has 4/5 muscle strength to full can testing and 4/5 muscle strength with external rotation. She has diffuse tenderness throughout the shoulder. Most of her pain is located in the subacromial space. She has less pain over the anterior glenohumeral joint line. She also has a lot of pain in the area of the AC joint. IMAGING: MRI of the left shoulder with radiology interpretation does show a medium-sized rotator cuff tear of the entire supraspinatus without retraction. IMPRESSION: Medium-sized rotator cuff tear of the left shoulder. PLAN: We will proceed with a left shoulder arthroscopy to include medium rotator cuff repair, biceps tenotomy, and distal clavicle resection. Postoperatively, she will be given an arm sling and discharged to home on oral pain medications and postoperative instructions.
[~2017-04-14] VITALS: Ht 149.9 cm; Wt 87.2 kg
[2017-04-14] VITALS (18 sets, daily range): BP systolic 93–147; BP diastolic 45–79; PULSE 65–92; TEMP 36.4–36.9; O2SAT 91–100; Ht 149.9 cm; Wt 87.2 kg
[~2017-04-14 06:20] MED LIST changes: -ALL180 PO; -AMOX; -AMOX875T PO; -CALC500T83 PO; +CEFAZOLIN 2000 MG/60 ML D5W 60 ML IV SCH; -CHOL100027 PO; -CYAN10004 PO; -DXY100 PO; -ENOX1INJ11 SQ; -FERR1TAB23 PO; -GABA-112 PO; -GFNSR600 PO; -INSDGIPEN SC; -IPRA1AER2 INH; +LACTATED RINGER'S 1000ML 1,000 ML IV SCH; +LACTATED RINGER'S 1000ML IV SCH; -LEVO75TA5 PO; -MOME100A INH; -NRT25 PO; -NVLGI/PEN SC; -NYSCR15 EXT; -NYSS/ PO; -OXGN; -PANT40TA2 PO; -PRED10TA PO; -ROPI4TAB4 PO; -SENNTAB23 PO; -SIMV-151 PO; -SITA50TA5 PO; -SNG10 PO; -TORS20TA2 PO; -TRAM-10 PO; -TRIA1SPR4 NAE; -VNTHFA/IN INH; -WARF2TAB8 PO; -lovenox
--- NOTE | 2017-04-14 06:28 | History & Physical Bridge Note ---
H&P Re-Evaluation Bridge Note: I have examined the patient, reviewed the History & Physical and in the interval since the performance of the History & Physical I have noted the following changes of clinical significance: No changes noted
[2017-04-14] MEDS ORDERED: ONDANSETRON INJ 2 MG/ML 2 ML VIAL ONE (07:13)
[2017-04-14] MEDS ORDERED: LIDOCAINE HCL 2% 2 ML VIAL (20MG/ML) ONE (07:13)
[2017-04-14] MEDS ORDERED: PROPOFOL IV EMULSION 10 MG/ML 20 ML VIAL IV ONE ×2 (07:13→09:38)
[2017-04-14] MEDS ORDERED: MIDAZOLAM HCL 1 MG/ML 2ML VIAL ONE (07:13)
[2017-04-14] MEDS ORDERED: NEOSTIGMINE METHYLSULFATE 5 MG/5 ML SYR ONE (07:13)
[2017-04-14] MEDS ORDERED: ROCURONIUM BROMIDE 10 MG/ML 5 ML VIAL ONE (07:13)
[2017-04-14] MEDS ORDERED: FENTANYL CITRATE INJ 50 MCG/1 ML 2 ML VIAL ONE ×2 (07:13→09:31)
[2017-04-14] MEDS ORDERED: GLYCOPYRROLATE INJ 0.2 MG/ML VIAL ONE (07:13)
[2017-04-14 07:17] LABS: INR 1.2 (0.9-1.1); PARTIAL THROMBOPLASTIN RATIO 1.2; PROTHROMBIN TIME (PATIENT) 13.3 SECONDS (9.0-12.0)
[2017-04-14] MEDS ORDERED: BUPIVACAINE/EPINEPHRINE 0.5% MPF 1:200,000 30 ML VIAL ONE (07:18)
[2017-04-14] MEDS ORDERED: BUPIVACAINE/EPINEPHRINE 0.25% 1:200,000 30 ML VIAL ONE (07:18)
[2017-04-14] MEDS ORDERED: ROPIVACAINE 0.5% 5 MG/ML 30 ML VIAL ONE (07:19)
[2017-04-14] MEDS ORDERED: lovenox (07:30)
[2017-04-14] MEDS ORDERED: AMOX (07:41)
[2017-04-14] MEDS ORDERED: ALBUTEROL 0.083% NEBU SOLN 3 ML VIAL INH STA (08:06)
[2017-04-14] MEDS ORDERED: ONDANSETRON INJ 2 MG/ML 2 ML VIAL IV PRN ×3 (08:30→13:30)
[2017-04-14] MEDS ORDERED: EpHEDrine SULFATE INJ 50 MG/ML AMP IV PRN (08:30)
[2017-04-14] MEDS ORDERED: ATROPINE SULFATE 0.1 MG/ML 5ML SYR IV PRN (08:30)
--- NOTE | 2017-04-14 10:33 | [facility] Post Operative Brief Note ---
Immediate Operative Summary Operative Date April 14, 2017. Pre-Operative Diagnosis Left shoulder full thickness rotator cuff tear Post-Operative Diagnosis Left shoulder full thickness rotator cuff tear Procedure(s) Performed Left Shoulder Arthroscopy Medium Rotator Cuff Repair Surgeon Dr. Alonso Ortega Lining Inserter Surgeon(s) Venkatesh WILSON Estimated Blood Loss 5ML Findings as above Specimens none Complication(s) None Disposition Recovery Room / PACU
[2017-04-14] MEDS ORDERED: HYDR-5688 PO (10:36)
[2017-04-14] MEDS ORDERED: SODIUM CHLORIDE 0.9% 1000ML 1,000 ML IV SCH (10:40)
--- NOTE | 2017-04-14 10:40 | Discharge Instructions ---
Discharge Instructions Date of Service April 14, 2017. Admission Reason for Admission: Left Shoulder Full Thickness Rotator Cuff Tear Discharge Discharge Diagnosis / Problem: SAME ABOVE Discharge Goals Goal(s): Decrease discomfort, Improve function Activity Recommendations Activity Limitations: as noted below Shower/Bathe: tomorrow . Instructions / Follow-Up Instructions / Follow-Up MEDICATIONS: * Resume previous medications unless instructed otherwise by your surgeon. * Always take pain medication on a full stomach or with food to avoid upset stomach. * Do not drink alcohol or drive while taking narcotics. * Ibuprofen or Tylenol may be taken if narcotic not needed. SPECIAL CARE INSTRUCTIONS: __ None _X_ Keep extremity elevated and iced x 48 hours; apply ice 20-30 minutes 8-10 times/day. May remove at night. __ Sling __24 hrs/day __ Remove at night _X_ Shoulder Immobilizer (MAY REMOVE AFTER 48 HOURS ONLY TO SHOWER AND FOR THERAPY) _X_ 24 hrs/day __ Remove at night _X_ Dressing __ Maintain until seen in office, may shower with plastic over site _X_ Remove dressings in 24-48 hours and then may shower _X_ Cover incisions with band-aids after showering __ Do not remove steri-strips Call physician if chills or temperature rises above 102 degrees or pain unrelieved by prescribed pain medications at . . Current Hospital Diet Patient's current hospital diet: Discharge Diet Recommended Diet: Regular Diet Procedures Procedures Performed: Left Shoulder Arthroscopy Medium Rotator Cuff Repair Pending Studies Studies pending at discharge: no Laboratory Results Hemoglobin A1c Test 01/18/17 07:43 Range/Units Estimated Average Glucose 235 mg/dl Hemoglobin A1c 9.8 H 4.5-5.6 % Lipid Panel Test 01/18/17 07:43 Range/Units Triglycerides Level 114 0-150 mg/dl Cholesterol Level 177 0-200 mg/dl HDL Cholesterol 73 mg/dl Cholesterol/HDL Ratio 2.4 LDL Cholesterol, Calculated 81 mg/dl Work Instructions Return To Work: after follow-up Lifting Limitations: NO LIFTING WITH LEFT ARM Medical Emergencies . Who to Call and When: Medical Emergencies: If at any time you feel your situation is an emergency, please call 911 immediately. . Non-Emergent Contact Non-Emergency issues call your: Primary Care Provider Call Non-Emergent contact if: you have a fever, temperature is above 101.5 . "Provider Documentation" section prepared by Mejia Martinez. . VTE Core Measure Inpt VTE Proph given/why not?: Savgae Lucia, SCD's
[2017-04-14] MEDS ORDERED: HYDROCODONE/ACETAMOPHEN 5/325MG TAB PO PRN (10:45)
[2017-04-14] MEDS: FENTANYL CITRATE INJ 50 MCG/1 ML 2 ML VIAL IV PRN ×2 (10:50→10:55)
[2017-04-14] MEDS ORDERED: ALBUTEROL 0.083% NEBU SOLN 3 ML VIAL INH ONE (11:15)
--- NOTE | 2017-04-14 11:15 | Anesthesiology Progress Note ---
Anesthesia Post Op Note Date & Time April 14, 2017 at 11:15 Vital Signs Pain Intensity: 3 Vital Signs Past 12 Hours Date Time Temp Pulse Resp B/P Pulse Ox O2 Delivery O2 Flow Rate FiO2 04/14/17 11:05 36.6 79 14 112/46 100 Nasal Cannula 3 04/14/17 10:55 80 14 130/57 100 Mask 6 04/14/17 10:45 89 14 117/58 98 Mask 6 04/14/17 10:36 36.9 89 14 130/57 100 Mask 10 04/14/17 08:22 81 16 96 Room Air 04/14/17 07:11 36.8 92 20 147/74 91 Room Air Notes Mental Status: alert / awake / arousable, participated in evaluation Pt Amnestic to Procedure: Yes Nausea / Vomiting: adequately controlled Pain: adequately controlled Airway Patency, RR, SpO2: stable & adequate BP & HR: stable & adequate Hydration State: stable & adequate Anesthetic Complications: no major complications apparent
[2017-04-14] MEDS: HYDROCODONE/ACETAMOPHEN 5/325MG TAB PO PRN (11:47)
--- NOTE | 2017-04-14 12:38 | DIAGNOSTIC IMAGING REPORT ---
CHEST ONE VIEW PORTABLE CLINICAL HISTORY: shortness of breath COMPARISON STUDY: 03/13/2017 FINDINGS: The heart is at the upper limits of normal in size. There is mild central vascular prominence which is likely accentuated due to the patient's body habitus. There is no lobar consolidation. There are no pleural effusions.[ IMPRESSION: Mild vascular prominence without evidence of overt failure. No evidence of focal pulmonary consolidation Electronically signed by: Brijesh Mendoza M.D. 04/14/2017 12:37 PM Dictated Date/Time: 04/14/2017 12:36 PM
[2017-04-14] MEDS ORDERED: METOCLOPRAMIDE HCL INJ 5 MG/ML 2 ML VIAL IV PRN (13:30)
[2017-04-14] MEDS ORDERED: ALBUTEROL HFA 8 GM INHALER INH PRN (13:30)
[2017-04-14] MEDS ORDERED: MoRPHine SULFATE 2 MG/ML CARP IV PRN (13:30)
[2017-04-14] MEDS ORDERED: TORSEMIDE 20 MG TAB PO PRN (13:30)
[2017-04-14] MEDS ORDERED: ALBUT/IPRATROP 3MG/0.5MG NEB 3 ML VIAL INH PRN (13:30)
[2017-04-14] MEDS ORDERED: NALOXONE HCL 0.4 MG/1 ML VIAL/CARP IV PRN (13:30)
[2017-04-14] MEDS ORDERED: DOCUSATE SODIUM/SENNA 50/8.6MG TAB PO PRN (13:30)
[2017-04-14] MEDS ORDERED: IV FLUIDS COMPLETED PRN (14:45)
--- NOTE | 2017-04-14 16:08 | OPERATIVE REPORT ---
DATE OF OPERATION: 04/14/2017 POSTOPERATIVE DIAGNOSES: Severe external impingement with biceps tendinopathy, AC joint arthritis and a medium sized rotator cuff tear of the left shoulder with some chondromalacia of the glenohumeral joint. POSTOPERATIVE DIAGNOSES: Same. PROCEDURE: Left shoulder diagnostic arthroscopy with extensive debridement, distal clavicle resection, acromioplasty, medium size rotator cuff repair and biceps tenotomy. SURGEON: Dr. Alonso Ortega. ASSISTANT PROFESSOR OF GEOGRAPHY: Venkatesh Martinez PA-C, whose assistance was necessary for positioning the arm and helping with instrumentation. ANESTHESIA: General with left interscalene nerve block. COMPLICATIONS: None. CONDITION: Stable to PACU. INDICATIONS: Landy is a 71-year-old female who presented to my office with a rather severe left shoulder pain. MRI and clinical examination were diagnostic for rotator cuff tear. We discussed arthritis in her shoulder as well, which she elected to proceed with arthroscopy. DESCRIPTION OF PROCEDURE: On 04/14/2015, she arrived at [facility] for the above procedure. She was seen in the preoperative holding area and the operative extremity was identified and signed. She was given a preoperative antibiotic and a left interscalene nerve block. She was taken back to the operating room, laid on the table in supine position and put under general anesthesia. She was then put into the beachchair position. The left shoulder was prepped and draped in sterile fashion. Time-out was done and the patient and operative extremity was properly identified. A scope was introduced in the posterior portal. Diagnostic arthroscopy showed grade 3 and grade 4 chondral changes throughout the entire humeral head and the glenoid. This was more arthritis than I was expecting to find. There was no osteophyte formation. The biceps tendon was frayed and there was a tear of the entire supraspinatus. The infraspinatus, teres minor and subscapularis were all checked and intact. An anterior portal was made. A shaver was used to do a debridement of the intraarticular structures and to complete a chondroplasty on the humeral head and the glenoid. The biceps tendon was arthroscopically tenotomized. The scope was then put into the subacromial space. A lateral portal was made. A shaver was used to do a complete subacromial and subdeltoid bursectomy. An ablator was used to tease the coracoacromial ligament off the undersurface of the acromion and a 5-0 shaan was used to complete an acromioplasty of a very large Bigliani type III acromion. A shaver was used to remove any excess debris. Attention was turned to the distal clavicle. There was significant arthritis at the distal clavicle. A 5-0 shaan was then used to resect the distal 7 mm from the clavicle. Complete resection was checked under direct visualization. Attention was then turned to the rotator cuff. An additional anterolateral portal was made and Kady cannulas were placed in each of the lateral portals. The tuberosity was prepared with a ring curette and a microfracture. The rotator cuff was then fixed with an Arthrex SpeedBridge configuration using 4.75 mm BioComposite SwiveLock suture anchors and FiberTapes. This gave a nice knotless SpeedBridge repair. Multiple pictures were taken. The scope was put back into the glenohumeral joint and the articular margin of the rotator cuff had been restored. Pictures were taken. Arthroscopic instruments were removed from the shoulder. Portal sites were closed with 3-0 nylon. She was then placed in a soft dressing and an abduction arm sling. She was then extubated, transferred to a litter and taken to the postanesthesia care unit in stable condition. She tolerated the procedure well. I attest to the content of the Intraoperative Record and any orders documented therein. Any exceptio ns are noted below.
[2017-04-14] MEDS: IPRATROPIUM BROMIDE/ALBUTEROL respimat INH INH SCH (18:51)
[2017-04-14] MEDS: POTASSIUM CHLORIDE INJ 10 MEQ in SODIUM CHLORIDE 0.9% 1000ML 1,000 ML IV SCH (18:53)
[2017-04-14] MEDS: ACETAMINOPHEN IV 1,000 MG in EMPTY BAG 0 ML IV SCH ×2 (18:53→19:45)
[2017-04-14] MEDS: KETOROLAC TROMETHAMINE 15 MG/ML VIAL IV. SCH ×2 (18:54→19:45)
[2017-04-14] MEDS: NORTRIPTYLINE HCL 25 MG CAP PO SCH (21:12)
[2017-04-14] MEDS: ROPINIROLE HCL 1 MG TAB PO SCH (21:12)
[2017-04-14] MEDS: GABAPENTIN 100 MG CAP PO SCH (21:13)
[2017-04-14] MEDS: MONTELUKAST SOD 10 MG TAB PO SCH (21:13)
[2017-04-14] MEDS: MAGNESIUM CHLORIDE 64MG DELAYED REL TAB PO SCH (21:13)
[2017-04-14] MEDS: SIMVASTATIN 20 MG TAB PO SCH (21:13)
[2017-04-14] MEDS: POTASSIUM CHLORIDE 20 MEQ TABCR PO SCH (21:13)
[2017-04-14] MEDS: CYANOCOBALAMIN 500 MCG TAB (VIT B-12) PO SCH (21:13)
[2017-04-14] MEDS: INSULIN GLARGINE SOLOSTAR 100 UNITS/ML 3 ML PEN SC SCH (21:16)
[2017-04-14] MEDS: INSULIN ASPART 100 UNITS/ML 3 ML PEN SC SCH (22:00)
[2017-04-15] VITALS (7 sets, daily range): BP systolic 110–122; BP diastolic 62–82; PULSE 68–85; TEMP 36.5–36.9; O2SAT 90–97
[2017-04-15] MEDS: KETOROLAC TROMETHAMINE 15 MG/ML VIAL IV. SCH ×5 (00:22→23:30)
[2017-04-15] MEDS: ACETAMINOPHEN IV 1,000 MG in EMPTY BAG 0 ML IV SCH (00:26)
[2017-04-15] MEDS: HYDROCODONE/ACETAMOPHEN 5/325MG TAB PO PRN ×3 (00:26→16:05)
[2017-04-15] MEDS: POTASSIUM CHLORIDE INJ 10 MEQ in SODIUM CHLORIDE 0.9% 1000ML 1,000 ML IV SCH ×2 (04:29→13:29)
[2017-04-15] MEDS: LEVOTHYROXINE 88 MCG TAB PO SCH (05:02)
[2017-04-15] MEDS ORDERED: FLUCONAZOLE 50 MG TAB PO ONE (08:45)
--- NOTE | 2017-04-15 09:20 | PROGRESS NOTE ---
DATE: 04/15/2017 DATE: 04/15/2017. CHIEF COMPLAINT: Status post left shoulder rotator cuff repair postop day #1. PROGRESS: Landy was seen and examined at bedside today. She was sitting up comfortably in bed and eating her breakfast. She was not having too much pain. She was having complaints of incontinence. She says she is unable to void and she had to be straight cathed this morning. She is very anxious and concerned about returning to home because she does not have anyone capable of caring for her. PHYSICAL EXAMINATION: LEFT SHOULDER: The dressing is clean and dry. She is wearing her abduction arm sling. Her radial, median and ulnar nerves were checked and intact at her wrist. LABORATORY DATA: She has a glucose of 144. Her vital signs are all stable on room air. She has been voiding on her own, but then she had to be straight cathed this morning for 473. IMPRESSIONS: 1. Status post left rotator cuff repair. Postop day #1. 2. Postoperative urinary retention. PLAN: With regards to her shoulder, she is doing fairly well. She will probably get more pain as the day goes by. She has [place] written for pain as well as IV morphine if necessary. With regards to her urinary retention, it is likely due to the anesthesia. She has already voided on her own, but she had some retention that needed a straight cath. She has a history of UTIs in the past. I will give her Diflucan 100 mg 1 time dose. She is very anxious about going home if she is not able to urinate on her own because she is unable to cath herself. She would feel better staying today and going home tomorrow. I will see her tomorrow morning and likely discharge her to home.
[2017-04-15] MEDS: POTASSIUM CHLORIDE 20 MEQ TABCR PO SCH ×2 (09:29→20:29)
[2017-04-15] MEDS: GABAPENTIN 100 MG CAP PO SCH ×2 (09:29→20:28)
[2017-04-15] MEDS: IPRATROPIUM BROMIDE/ALBUTEROL respimat INH INH SCH ×2 (09:29→16:05)
[2017-04-15] MEDS: CYANOCOBALAMIN 500 MCG TAB (VIT B-12) PO SCH ×2 (09:30→20:29)
[2017-04-15] MEDS: MAGNESIUM CHLORIDE 64MG DELAYED REL TAB PO SCH ×2 (09:30→20:28)
[2017-04-15] MEDS: PANTOprazole SOD 40 MG TAB PO SCH (09:30)
[2017-04-15] MEDS: CHOLECALCIFEROL 1000 INTER.UNIT TAB PO SCH (09:31)
[2017-04-15] MEDS: INSULIN ASPART 100 UNITS/ML 3 ML PEN SC SCH ×4 (09:33→20:23)
[2017-04-15] MEDS ORDERED: NURSING VERBAL MED ORDER ONE ×2 (14:45→15:15)
[2017-04-15] MEDS ORDERED: MICONAZOLE NITRATE POWDER 43 GM EXT PRN (15:00)
[2017-04-15] MEDS ORDERED: WARFARIN SOD 2 MG TAB PO SCH (16:00)
[2017-04-15] MEDS: NORTRIPTYLINE HCL 25 MG CAP PO SCH (20:29)
[2017-04-15] MEDS: SIMVASTATIN 20 MG TAB PO SCH (20:29)
[2017-04-15] MEDS: ROPINIROLE HCL 1 MG TAB PO SCH (20:29)
[2017-04-15] MEDS: MONTELUKAST SOD 10 MG TAB PO SCH (20:29)
[2017-04-15] MEDS: INSULIN GLARGINE SOLOSTAR 100 UNITS/ML 3 ML PEN SC SCH (20:32)
[2017-04-16] MEDS: HYDROCODONE/ACETAMOPHEN 5/325MG TAB PO PRN ×2 (01:35→08:53)
[2017-04-16] MEDS: KETOROLAC TROMETHAMINE 15 MG/ML VIAL IV. SCH (05:29)
[2017-04-16] MEDS: LEVOTHYROXINE 88 MCG TAB PO SCH (05:29)
[2017-04-16 06:50] LABS: INR 1.2 (0.9-1.1); PROTHROMBIN TIME (PATIENT) 12.6 SECONDS (9.0-12.0)
[2017-04-16 07:22] VITALS: BP 113/72; PULSE 76; TEMP 36.7; O2SAT 96
[2017-04-16] MEDS: IPRATROPIUM BROMIDE/ALBUTEROL respimat INH INH SCH (08:50)
[2017-04-16] MEDS: PANTOprazole SOD 40 MG TAB PO SCH (08:51)
[2017-04-16] MEDS: POTASSIUM CHLORIDE 20 MEQ TABCR PO SCH (08:51)
[2017-04-16] MEDS: CHOLECALCIFEROL 1000 INTER.UNIT TAB PO SCH (08:52)
[2017-04-16] MEDS: MAGNESIUM CHLORIDE 64MG DELAYED REL TAB PO SCH (08:52)
[2017-04-16] MEDS: INSULIN ASPART 100 UNITS/ML 3 ML PEN SC SCH (08:58)
[2017-04-16] MEDS: CYANOCOBALAMIN 500 MCG TAB (VIT B-12) PO SCH (09:14)
[2017-04-16] MEDS: GABAPENTIN 100 MG CAP PO SCH (09:14)
--- NOTE | 2017-04-16 10:46 | PROGRESS NOTE ---
DATE: 04/16/2017 CHIEF COMPLAINT: Status post left shoulder arthroscopy post day #2. PROGRESS: Landy is seen and examined at bedside today. Overall, she is feeling better. She is not having too much pain in the shoulder. She is voiding on her own. She has no other complaints. PHYSICAL EXAMINATION: LEFT SHOULDER: The dressing is clean and dry. She is wearing a sling as instructed. She is neurovascularly intact. IMPRESSION: 1. Status post left shoulder arthroscopy post day #1. 2. Postoperative urinary retention. PLAN: At this point, she is doing better. She is voiding on her own and is no longer requiring a straight cath. She has home health set up for her upon discharge. Discharge her to home later this morning.
[2017-04-16 10:51] VITALS: BP 113/72; PULSE 76; TEMP 36.7; O2SAT 96
--- NOTE | 2017-04-16 13:05 | DISCHARGE SUMMARY ---
DISCHARGE DIAGNOSES: 1. Medium sized rotator cuff tear of the left shoulder. 2. Postoperative urinary retention. PROCEDURE: Left shoulder arthroscopy and rotator cuff repair on 04/14/[address] Alonso Ortega. DISCHARGE INSTRUCTIONS: 1. [place] 5/325 every 6 hours as needed for pain. 2. A left arm sling for 4 weeks. 3. Follow up with Dr. Ortega in 2 weeks. 4. Call the office of Dr. Ortega with any questions or concerns. 5. Albuterol 2 puffs every 4 hours as needed. 6. Calcium 1 tab at night. 7. Vitamin D 2000 units daily. 8. Mycelex 10 mg 5 a day. 9. Vitamin B12 at 1000 mg twice a day. 10. Iron 1 tab daily. 11. Neurontin 100 mg twice a day. 12. NovoLog 10 units three times a day. 13. Lantus 18 units at night. 14. DuoNeb treatment four times a day as needed. 15. Combivent one puff every 8-12 hours. 16. Synthroid 88 mcg daily. 17. Lysine 1 tab daily. 18. Magnesium 64 mg tabs two tabs at night. 19. Dulera two puffs twice a day as needed. 20. Singulair 10 mg at night. 21. Pamelor 25 mg at night. 22. Oxygen 2 liters at night. 23. Protonix 40 mg daily. 24. Potassium 20 mg daily. 25. Requip 4 mg at night. 26. Stool softeners, Senokot 1 tab as needed. 27. Zocor 20 mg daily. 28. Janumet 1 tab twice a day. 29. Torsemide 20 mg twice a day as needed. 30. Coumadin 2 mg on Mondays and 4 mg every other day of the week. HOSPITAL COURSE: Landy is a 71-year-old female who presented to my office with complaints of left shoulder pain. MRI and clinical examination were diagnostic for medium rotator cuff tear. After failing conservative treatment, she elected to undergo arthroscopic repair. Given her list of medical issues, she was done at the hospital. On 04/14/2017, she arrived at [facility] and underwent a left shoulder arthroscopy without complications. Postoperatively, she was discharged to general orthopedic floor. She stayed mostly for pain control and for concerns that the family was unable to take care of her. On postop day #1, her shoulder was actually feeling okay, but it was complicated by urinary retention. She was requiring a straight cath and did not feel comfortable going home. She stayed in the hospital on postop day #1. On postop day #2, she was feeling better. She was voiding on her own and no longer requiring catheterization. She has home health set up at home for home care needs. She was discharged to home with oral pain medications and the above instructions. HUSSEIN
[2017-04-17] MEDS ORDERED: WARFARIN SOD 2 MG TAB PO SCH (16:00)
[2017-04-17] MEDS ORDERED: AMOX875T PO (18:56)
[2017-04-17] MEDS ORDERED: NRT25 PO (18:56)
[2017-04-17] MEDS ORDERED: ENOX1INJ11 SQ (18:56)
[2017-08-03] MEDS ORDERED: IPRA1AER2 INH (08:37)
[2017-08-03] MEDS ORDERED: SITA50TA5 PO (08:41)
[2017-08-03] MEDS ORDERED: OXGN (08:53)
[2017-08-03] MEDS ORDERED: WARF2TAB8 PO ×2 (11:53→20:01)
[2017-08-03] MEDS ORDERED: SENNTAB23 PO (12:23)
[2017-08-03] MEDS ORDERED: NVLGI/PEN SC (12:23)
[2017-08-03] MEDS ORDERED: FERR1TAB23 PO (12:23)
[2017-08-03] MEDS ORDERED: INSDGIPEN SC (12:23)
[2017-08-03] MEDS ORDERED: CYAN10004 PO (12:23)
[2017-08-03] MEDS ORDERED: CALC500T83 PO (12:23)
[2017-08-03] MEDS ORDERED: PANT40TA2 PO (18:49)
== END 2017-04-16 11:48 | disposition home or self-care (01) ==
LOC: ENRESERVTM → C.ACU 06:20 → C.3E 06:40 → EDBEDREQ 13:52
PROVIDERS: ADMIT Orthopaedic Surgery; ATTEND Orthopaedic Surgery
DX: M75.42 Impingement syndrome of left shoulder (principal); M75.22 Bicipital tendinitis, left shoulder; M19.012 Primary osteoarthritis, left shoulder; M75.102 Unspecified rotator cuff tear or rupture of left shoulder, not specified as traumatic; M94.212 Chondromalacia, left shoulder; N99.89 Other postprocedural complications and disorders of genitourinary system; E11.9 Type 2 diabetes mellitus without complications; E03.9 Hypothyroidism, unspecified; E78.5 Hyperlipidemia, unspecified; Z79.01 Long term (current) use of anticoagulants; I10 Essential (primary) hypertension; G47.33 Obstructive sleep apnea (adult) (pediatric); J44.9 Chronic obstructive pulmonary disease, unspecified; Z79.4 Long term (current) use of insulin; Z90.89 Acquired absence of other organs; Z98.890 Other specified postprocedural states; Z79.899 Other long term (current) drug therapy; Z68.39 Body mass index [BMI] 39.0-39.9, adult; E66.9 Obesity, unspecified; Z86.718 Personal history of other venous thrombosis and embolism

== ENCOUNTER 2017-04-17 17:10 | Emergency (ER) | payer BC ==
[~2017-04-17] VITALS: Ht 149.9 cm; Wt 99.0 kg
[~2017-04-17 17:10] MED LIST changes: +AMOX; -CEFAZOLIN 2000 MG/60 ML D5W 60 ML IV SCH; -LACTATED RINGER'S 1000ML 1,000 ML IV SCH; -LACTATED RINGER'S 1000ML IV SCH; +lovenox
[2017-04-17 17:26] VITALS: Ht 149.9 cm; Wt 99.0 kg
--- NOTE | 2017-04-17 18:06 | DIAGNOSTIC IMAGING REPORT ---
CHEST ONE VIEW PORTABLE CLINICAL HISTORY: lower leg swelling pain. Edema. COMPARISON STUDY: No previous studies for comparison. FINDINGS: Mild stable cardiomegaly. Diaphragms smooth. Lungs are clear. IMPRESSION: Mild stable cardiomegaly. Lungs currently are considered clear. Electronically signed by: Iván Cuevas M.D. 04/17/2017 6:04 PM Dictated Date/Time: 04/17/2017 6:04 PM
[2017-04-17 18:32] LABS: BASO % 0.3 %; BASO ABS # 0.03 K/uL (0-0.2); COMPLETE YES; EOS % 6.3 %; HEMATOCRIT 41.3 % (37-47); IG% 0.2 %; LYMPH % 37.8 %; MEAN CELL VOLUME 94.1 fL (80-100); MEAN CORPUSCULAR HEMOGLOBIN 30.1 pg (25-34); MEAN PLATELET VOLUME 10.6 fL (7.4-10.4); NEUT % 45.4 %; PLATELET COUNT 213 K/uL (130-400); RED BLOOD COUNT 4.39 M/uL (4.2-5.4); WHITE BLOOD COUNT 8.99 K/uL (4.8-10.8)
[2017-04-17 18:43] LABS: INR 1.3 (0.9-1.1); PROTHROMBIN TIME (PATIENT) 14.3 SECONDS (9.0-12.0)
[2017-04-17 18:52] LABS: ALT/SGPT 80 U/L (12-78); AST/SGOT 150 U/L (15-37); BLOOD UREA NITROGEN 10 mg/dl (7-18); CALCIUM 8.8 mg/dl (8.5-10.1); CARBON DIOXIDE 26 mmol/L (21-32); CHLORIDE 111 mmol/L (98-107); CREATININE 0.83 mg/dl (0.60-1.20); GLUCOSE 145 mg/dl (70-99); SODIUM 145 mmol/L (136-145)
[2017-04-17] MEDS ORDERED: ENOX1INJ11 SQ (18:56)
[2017-04-17] MEDS ORDERED: AMOX875T PO (18:56)
[2017-04-17] MEDS ORDERED: NRT25 PO (18:56)
[2017-04-17 18:57] LABS: ALKALINE PHOSPHATASE 202 U/L (45-117)
--- NOTE | 2017-04-17 19:30 | DIAGNOSTIC IMAGING REPORT ---
BILATERAL LOWER EXTREMITY VENOUS DOPPLER HISTORY: Pain. Edema. swelling bbl legs COMPARISON STUDY: None. FINDINGS: There is normal compressibility, flow, and augmentation within the bilateral lower extremity deep venous systems. Findings of chronic scarring involving the right femoral and popliteal veins. IMPRESSION: No DVT within the right or left lower extremity. Chronic venous scarring. Electronically signed by: Iván Cuevas M.D. 04/17/2017 7:29 PM Dictated Date/Time: 04/17/2017 7:21 PM
[2017-04-17 19:54] VITALS: TEMP 36.7
[2017-04-17 21:25] VITALS: BP 135/82; PULSE 84; O2SAT 95
--- NOTE | 2017-04-17 22:26 | EMERGENCY ROOM VISIT NOTE ---
History Report prepared by Chaitanya: Megan Padilla Under the Supervision of: Dr. Leonidas Mitchell D.O. First contact with patient: 17:31 Chief Complaint: SWELLING TO EXTREMITY Stated Complaint: BOTH LEGS & FEET SWOLLEN History of Present Illness The patient is a 71 year old female who presents to the Emergency Room with complaints of persistent leg swelling starting this morning. She was discharged from the hospital yesterday after having shoulder surgery. She is unable to walk because of the pain from the swelling. She denies any chest pain, SOB, nausea, vomiting, diarrhea, or dysuria. She is urinating normally but more frequently as she took an extra dose of her torsemide. She is on Coumadin after she had a DVT in 2010. She does normally have some swelling in her leg since the DVT. She denies any history of heart failure. She is taking Lovenox examination with her Coumadin as a bridge. Source of History: patient Onset: this morning Position: leg (bilateral) Quality: other (swelling) Timing: other (persistent) Associated Symptoms: No SOB, No chest pain, No diarrhea, No nausea, No vomiting Note: Pt denies dysuria. Review of Systems See HPI for pertinent positives & negatives. A total of 10 systems reviewed and were otherwise negative. Past Medical & Surgical Medical Problems: (1) Acute bronchitis (2) Altered mental status (3) Altered mental status (4) Benign essential hypertension (5) Blood in stool (6) Cellulitis of right lower extremity (7) Chronic bronchitis (8) Chronic recurrent sinusitis (9) Chronic sinusitis (10) COPD exacerbation (11) Deep venous thrombosis of lower extremity (12) Diabetes mellitus type 2 (13) Dizziness (14) Dyspnea (15) Hyperglycemia (16) Hyperlipidemia (17) Laceration (18) Near syncope (19) Obstructive sleep apnea syndrome (20) Orthostatic hypotension (21) POSSIBLE SEIZURE (22) Pulmonary embolism (23) Restless legs (24) Rotator cuff tear (25) SJOGRENS (26) SOB (shortness of breath) (27) SUBTHERAPEAUTIC INR (28) Supratherapeutic INR (29) Supratherapeutic INR (30) UTI (urinary tract infection) Family History Diabetes mellitus MOTHER Esophageal cancer FATHER FH: cancer FH: gallbladder disease Myocardial infarction MOTHER Social History Smoking Status: Never Smoker Alcohol Use: none Drug Use: none Marital Status: Housing Status: lives with family, lives with significant other Occupation Status: retired Current/Historical Medications Scheduled Amoxicillin & Pot Clavulanate (Augmentin 875-125 mg), 1 TAB PO BID Calcium (Calcium), 1 TAB PO QPM Cholecalciferol (Vitamin D 1000 Unit), 2,000 INTER.UNIT PO QAM Clotrimazole (Mycelex), 10 MG MT 5XADAY Cyanocobalamin (Vitamin B-12 1000 Mcg), 1,000 MCG PO BID Enoxaparin Sodium (Lovenox), 1 DOSE SQ UD Ferrous Sulfate (Iron), 1 TAB PO QPM Gabapentin (Neurontin), 100 MG PO BID Insulin Aspart (Novolog Flexpen), 10 UNITS SC TIDM Insulin Glargine (Lantus Solostar), 18 UNITS SC HS Ipratropium-Albuterol (Combivent Respimat), 1 PUFFS INH Q8-12H Levothyroxine Sodium (Levothyroxine Sodium), 88 MCG PO QAM Lysine (L-Lysine), 1 CAP PO QAM Magnesium Chloride (Slow-Mag Tab), 2 TABS PO QPM Montelukast Sod (Montelukast Sodium), 10 MG PO HS Nortriptyline (Pamelor), 25 MG PO HS Oxygen (Oxygen), 2 LITERS NA HS Pantoprazole (Protonix), 40 MG PO QAM Potassium Chloride Microencaps (Potassium Chloride Er), 20 MEQ PO DAILY Ropinirole Hydrochloride (Requip), 4 MG PO HS Sennosides-Docusate Sodium (Stool Softener), 1 TAB PO PRN Simvastatin (Zocor), 20 MG PO HS Sitagliptin-Metformin Hcl (Janumet), 1 TAB PO BID Warfarin Sod (Jantoven), 2 MG PO MWF Warfarin Sod (Jantoven), 4 MG PO 4XWK Scheduled PRN Albuterol Hfa (Ventolin Hfa), 2 PUFFS INH Q4 PRN for SOB/Wheezing Hydrocodone/Acetaminophen 5MG/325MG ([place] 5MG/325MG), 1 TABLET PO Q6 PRN for Pain Ipratropium-Albuterol (Duoneb), 1 TREATMENT INH QID PRN for SOB/Wheezing Mometasone Furoate-Formoterol (Dulera 100/5 Mcg), 2 PUFFS INH BID PRN for SOB/ Wheezing Torsemide (Torsemide), 20 MG PO BID PRN for FLUID Allergies Coded Allergies: Prochlorperazine (Verified Allergy, Severe, EXTRAPYRAMIDAL S/E, 04/14/17) LOSS OF MUSCLE CONTROL/MUSCLE SPASMS TROUBLE BREATHING "EYES WOULD FLY OPEN AND I COULDN'T CLOSE THEM" Zolpidem (Verified Allergy, Severe, CONFUSION/MEMORY LOSS, 04/14/17) "FOR THREE DAYS I WAS IN OUTER SPACE" Carbamazepine (Verified Allergy, Intermediate, CONFUSION, 04/14/17) Duloxetine (Verified Allergy, Intermediate, LIGHTHEADEDNESS/DIZZINESS, ) Hydrochlorothiazide (Verified Allergy, Intermediate, LIGHTHEADEDNESS/ DIZZINESS, 04/14/17) Indigotindisulfonate (Verified Allergy, Intermediate, LIGHTHEADEDNESS/ DIZZINESS, 04/14/17) Levofloxacin (Verified Allergy, Mild, RASH, 04/14/17) also bloody diarrhea Clonazepam (Verified Allergy, Unknown, UNKNOWN, 04/14/17) Diclofenac (Verified Allergy, Unknown, NAUSEA AND VOMITING, 04/14/17) Losartan (Unverified Allergy, Unknown, ELEVATED CREATININE, 04/14/17) Hydromorphone (Verified Adverse Reaction, Intermediate, N/V AND NIGHTMARES , 04/14/17) Morphine (Verified Adverse Reaction, Intermediate, HYPOTENSION AND N/V, ) Cyclobenzaprine (Verified Adverse Reaction, Mild, N/V, 04/14/17) Lisinopril (Verified Adverse Reaction, Mild, N/V, 04/14/17) Naproxen (Verified Adverse Reaction, Mild, N/V, 04/14/17) Oxycodone (Verified Adverse Reaction, Mild, N/V, 04/14/17) Tramadol (Verified Adverse Reaction, Unknown, N/V AND ITCHING, 04/14/17) Physical Exam Vital Signs Date Time Temp Pulse Resp B/P Pulse Ox O2 Delivery O2 Flow Rate FiO2 04/17/17 21:25 84 16 135/82 95 04/17/17 19:54 36.7 77 16 145/84 97 Room Air 04/17/17 17:26 37.1 90 20 155/84 95 Room Air Physical Exam GENERAL: obese, sitting up in bed, disheveled, no acute distress EYE EXAM: normal conjunctiva OROPHARYNX: no exudate, no erythema, lips, buccal mucosa, and tongue normal and mucous membranes are moist NECK: supple, no nuchal rigidity, no adenopathy, non-tender, no JVD LUNGS: Clear to auscultation. Normal chest wall mechanics HEART: no murmurs, S1 normal and S2 normal ABDOMEN: abdomen soft, non-tender, normo-active bowel sounds, no masses, no rebound or guarding. BACK: Back is symmetrical on inspection and there is no deformity, no midline tenderness, no CVA tenderness. SKIN: no rashes and no bruising UPPER EXTREMITIES: Left upper extremity in shoulder immobilizer. LOWER EXTREMITIES: Pitting edema tracking up to hips. Able to ambulate without assist all in the room. NEURO EXAM: Normal sensorium, cranial nerves II-XII grossly intact Medical Decision & Procedures ER Provider Diagnostic Interpretation: Xray results as stated below per my and the radiologist's interpretation. Radiology results as stated below per my review and the radiologist's interpretation: CHEST ONE VIEW PORTABLE CLINICAL HISTORY: lower leg swelling pain. Edema. COMPARISON STUDY: No previous studies for comparison. FINDINGS: Mild stable cardiomegaly. Diaphragms smooth. Lungs are clear. IMPRESSION: Mild stable cardiomegaly. Lungs currently are considered clear. Electronically signed by: Iván Cuevas M.D. 04/17/2017 6:04 PM Dictated Date/Time: 04/17/2017 6:04 PM BILATERAL LOWER EXTREMITY VENOUS DOPPLER HISTORY: Pain. Edema. swelling bbl legs COMPARISON STUDY: None. FINDINGS: There is normal compressibility, flow, and augmentation within the bilateral lower extremity deep venous systems. Findings of chronic scarring involving the right femoral and popliteal veins. IMPRESSION: No DVT within the right or left lower extremity. Chronic venous scarring. Electronically signed by: Iván Cuevas M.D. 04/17/2017 7:29 PM Dictated Date/Time: 04/17/2017 7:21 PM Laboratory Results 04/17/17 18:20 Red Blood Count 4.39, Mean Corpuscular Volume 94.1, Mean Corpuscular Hemoglobin 30.1, Mean Corpuscular Hemoglobin Concent 32.0, Mean Platelet Volume 10.6, Neutrophils (%) (Auto) 45.4, Lymphocytes (%) (Auto) 37.8, Monocytes (%) (Auto) 10.0, Eosinophils (%) (Auto) 6.3, Basophils (%) (Auto) 0.3, Neutrophils # (Auto ) 4.07, Lymphocytes # (Auto) 3.40, Monocytes # (Auto) 0.90, Eosinophils # (Auto ) 0.57, Basophils # (Auto) 0.03 04/17/17 18:20 Test 04/17/17 18:20 White Blood Count 8.99 K/uL (4.8-10.8) Red Blood Count 4.39 M/uL (4.2-5.4) Hemoglobin 13.2 g/dL (12.0-16.0) Hematocrit 41.3 % (37-47) Mean Corpuscular Volume 94.1 fL (80-100) Mean Corpuscular Hemoglobin 30.1 pg (25-34) Mean Corpuscular Hemoglobin Concent 32.0 g/dl (32-36) Platelet Count 213 K/uL (130-400) Mean Platelet Volume 10.6 fL (7.4-10.4) Neutrophils (%) (Auto) 45.4 % Lymphocytes (%) (Auto) 37.8 % Monocytes (%) (Auto) 10.0 % Eosinophils (%) (Auto) 6.3 % Basophils (%) (Auto) 0.3 % Neutrophils # (Auto) 4.07 K/uL (1.4-6.5) Lymphocytes # (Auto) 3.40 K/uL (1.2-3.4) Monocytes # (Auto) 0.90 K/uL (0.11-0.59) Eosinophils # (Auto) 0.57 K/uL (0-0.5) Basophils # (Auto) 0.03 K/uL (0-0.2) RDW Standard Deviation 47.4 fL (36.4-46.3) RDW Coefficient of Variation 13.9 % (11.5-14.5) Immature Granulocyte % (Auto) 0.2 % Immature Granulocyte # (Auto) 0.02 K/uL (0.00-0.02) Prothrombin Time 14.3 SECONDS (9.0-12.0) Prothromb Time International Ratio 1.3 (0.9-1.1) Anion Gap 8.0 mmol/L (3-11) Est Creatinine Clear Calc Drug Dose 63.4 ml/min Estimated GFR () 81.7 Estimated GFR (Non- 70.4 BUN/Creatinine Ratio 12.0 (10-20) Calcium Level 8.8 mg/dl (8.5-10.1) Total Bilirubin 0.9 mg/dl (0.2-1) Direct Bilirubin 0.3 mg/dl (0-0.2) Aspartate Amino Transf (AST/SGOT) 150 U/L (15-37) Alanine Aminotransferase (ALT/SGPT) 80 U/L (12-78) Alkaline Phosphatase 202 U/L (45-117) Troponin I < 0.015 ng/ml (0-0.045) Pro-B-Type Natriuretic Peptide 471 pg/ml (0-900) Total Protein 6.6 gm/dl (6.4-8.2) Albumin 3.1 gm/dl (3.4-5.0) Acetaminophen Level 5 ug/ml (10-30) Laboratory results per my review. ECG Indication: other (edema) Rate (beats per minute): 70 Rhythm: sinus rhythm Findings: other (T-wave flattening inferior leads, normal axis, normal interval ) Comparison ECG Date: 14-Apr-2017 Change: EKG appears improved. ED Course ED COURSE: Vital signs were reviewed and showed normal vitals. The patients medical record was reviewed The above diagnostic studies were performed and reviewed. ED treatments and interventions as stated above. 1735: The patient was evaluated in room C11B. A complete history and physical examination was performed. 1926: I reevaluated the patient. She is ambulating to the bathroom. She reports she is only taking 1 pain pill every 6 hours and has not taken any Tylenol. 2044: I discussed the patient's case with Dr. Saleh, [facility] - Gastroenterology. He believes the patient's symptoms are most likely due to anesthesia and she can follow up as an outpatient. He agrees with the patient being discharged home. 2046: Upon reevaluation, the patient is resting comfortably. She notes that she still has a couple days of Lovenox left. I discussed my findings with the patient and she understands and agrees with the treatment plan. Based on the patients age, coexisting illnesses, exam and lab findings the decision to treat as an outpatient was made. The patient remained stable while under my care. The patient appeared well at the time of discharge. Medical Decision Differential diagnosis: Etiologies such as DVT, musculoskeletal, infection, joint effusion, trauma, lymphedema, idiopathic, CHF, as well as others were entertained. Patient is a 71-year-old female who was just discharged from the hospital following a rotator cuff surgery. She was discharged yesterday who presents today with swelling in her legs which has worsened since yesterday. Swelling is bilateral. She denies any chest pain, shortness breath or abdominal pain. She is currently on Coumadin with a Lovenox bridge. CBC along with BMP was unremarkable. AST and ALTs were slightly elevated at 150 an 80. T bilirubin was normal. Direct bilirubin was elevated by 0.1. Troponin was negative. BNP was unremarkable. Tylenol was 5. She is only taken her pain medication every 6 hours which has Tylenol in it. She has taken no additional Tylenol. With her transaminitis I discussed this with GI. I favor that this is likely secondary to the anesthesia which I agree with. Duplex of the lower extremities were negative. Based on her symptoms I do feel this is most likely secondary to the fluid that she received intravenously while in the hospital. I encouraged her to double up on her furosemide for the next 2 days and follow- up with her PCP in 3 days. Patient was able to ambulate in the room and was discharged follow-up. Discussed with Pt concerning signs and symptoms to watch out for. Pt was instructed to follow up with their PCP and discussed with the patient their option to return to the ED at anytime for persistent or worsening symptoms. The appropriate anticipatory guidance and out-patient management, including indications for return to the emergency department, were explained at length to the patient and understood. Consults Time Called: 2041 Consulting Physician: Dr. Saleh, [facility] - Gastroenterology Returned Call: [phone] I discussed the patient's case with him. He believes the patient's symptoms are most likely due to anesthesia and she can follow up as an outpatient. He agrees with the patient being discharged home. Impression Primary Impression: Bilateral lower extremity edema Additional Impression: Transaminitis Scribe Attestation The scribe's documentation has been prepared under my direction and personally reviewed by me in its entirety. I confirm that the note above accurately reflects all work, treatment, procedures, and medical decision making performed by me. Departure Information Dispostion Home / Self-Care Referrals Omar Joshi M.D. (PCP) Forms HOME CARE DOCUMENTATION FORM, IMPORTANT VISIT INFORMATION, WORK / SCHOOL INSTRUCTIONS Patient Instructions ED Leg Swelling Bilateral, [facility] Additional Instructions Please follow up with your primary care doctor with in the next 24 hours. Any worsening of your symptoms, please return to the ED immediately. This includes chest pain, shortness of breath, passing out, difficulty breathing lying flat or any other concerning signs or symptoms from your standpoint. Please have your liver function test checked within 5 days by your primary care doctor. Please try to remain as active as possible and elevate legs when resting. On Monday and Monday of this week I would double your torsemide and following this follow up with your primary care doctor to help decrease the fluid in your legs. Problem Qualifiers
[2017-08-03] MEDS ORDERED: IPRA1AER2 INH (08:37)
[2017-08-03] MEDS ORDERED: SITA50TA5 PO (08:41)
[2017-08-03] MEDS ORDERED: OXGN (08:53)
[2017-08-03] MEDS ORDERED: WARF2TAB8 PO ×2 (11:53→20:01)
[2017-08-03] MEDS ORDERED: INSDGIPEN SC (12:23)
[2017-08-03] MEDS ORDERED: FERR1TAB23 PO (12:23)
[2017-08-03] MEDS ORDERED: SENNTAB23 PO (12:23)
[2017-08-03] MEDS ORDERED: NVLGI/PEN SC (12:23)
[2017-08-03] MEDS ORDERED: CYAN10004 PO (12:23)
[2017-08-03] MEDS ORDERED: CALC500T83 PO (12:23)
[2017-08-03] MEDS ORDERED: PANT40TA2 PO (18:49)
== END 2017-04-17 21:20 | disposition home or self-care (01) ==
LOC: C.EDB 17:11 → C.EDC 21:20
DX: R60.0 Localized edema (principal); R74.0 Nonspecific elevation of levels of transaminase and lactic acid dehydrogenase [LDH]; I10 Essential (primary) hypertension; J32.9 Chronic sinusitis, unspecified; J44.9 Chronic obstructive pulmonary disease, unspecified; E11.9 Type 2 diabetes mellitus without complications; E78.5 Hyperlipidemia, unspecified; G47.33 Obstructive sleep apnea (adult) (pediatric); Z86.711 Personal history of pulmonary embolism; Z79.899 Other long term (current) drug therapy; G25.81 Restless legs syndrome; E66.9 Obesity, unspecified; Z79.01 Long term (current) use of anticoagulants; Z79.4 Long term (current) use of insulin; Z86.718 Personal history of other venous thrombosis and embolism; Z83.3 Family history of diabetes mellitus; Z80.0 Family history of malignant neoplasm of digestive organs; Z82.49 Family history of ischemic heart disease and other diseases of the circulatory system

== ENCOUNTER → 2017-04-28 | Outpatient (CLI) | payer BC ==
[~2017-04-28] MED LIST changes: +ALL180 PO; -AMOX; +AMOX875T PO; +CALC500T83 PO; +CHOL100027 PO; +CYAN10004 PO; +DXY100 PO; +ENOX1INJ11 SQ; +FERR1TAB23 PO; +GABA-112 PO; +GFNSR600 PO; +INSDGIPEN SC; +IPRA1AER2 INH; +LEVO75TA5 PO; +MOME100A INH; +NRT25 PO; +NVLGI/PEN SC; +NYSCR15 EXT; +NYSS/ PO; +OXGN; +PANT40TA2 PO; +PRED10TA PO; +ROPI4TAB4 PO; +SENNTAB23 PO; +SIMV-151 PO; +SITA50TA5 PO; +SNG10 PO; +TORS20TA2 PO; +TRAM-10 PO; +TRIA1SPR4 NAE; +VNTHFA/IN INH; +WARF2TAB8 PO; -lovenox
[2017-04-28 11:21] LABS: URINE APPEARANCE CLOUDY (CLEAR); URINE BILIRUBIN NEG (NEG); URINE COLOR DK YELLOW; URINE EPITHELIAL CELL AUTO >30 /lpf (0-5); URINE NITRITE NEG (NEG); URINE SPECIFIC GRAVITY 1.018 (1.000-1.030); UROBILINOGEN NEG (NEG); ZZUR CULT IF INDIC CLEAN CATCH YES
[2017-04-28 11:30] LABS: MANUAL MICROSCOPIC REQUIRED? NO; REVIEW REQ? YES
[2017-04-28 11:38] LABS: ESTIMATED AVERAGE GLUCOSE 223 mg/dl; HA1C FLAG Normal (Normal)
== END | disposition home or self-care (01) ==
LOC: C.LABBC 07:52
PROVIDERS: ATTEND Internal Medicine Geriatric Medicine
DX: Z00.00 Encounter for general adult medical examination without abnormal findings (principal); R39.9 Unspecified symptoms and signs involving the genitourinary system; E11.9 Type 2 diabetes mellitus without complications

== ENCOUNTER → 2017-05-03 | Outpatient (CLI) | payer BC ==
[2017-05-03 14:32] LABS: BLOOD UREA NITROGEN 10 mg/dl (7-18); BUN/CREATININE RATIO 10.9 (10-20); CARBON DIOXIDE 27 mmol/L (21-32); CHLORIDE 107 mmol/L (98-107); CREATININE 0.88 mg/dl (0.60-1.20); GLUCOSE 133 mg/dl (70-99); MAGNESIUM 1.9 mg/dl (1.8-2.4); POTASSIUM 3.6 mmol/L (3.5-5.1); SODIUM 143 mmol/L (136-145)
[2017-05-03 14:37] LABS: CALCIUM 9.7 mg/dl (8.5-10.1)
[2017-05-03 14:42] LABS: FERRITIN 45.5 ng/ml (8.0-388.0); THYROID STIMULATING HORMONE 0.153 uIu/ml (0.300-4.500)
--- NOTE | 2017-05-08 13:32 | CODING QUERY MEDICAL NECESSITY ---
CQSUPPORTING DIAGNOSIS NEEDED A supporting diagnosis is required for the test/procedure performed on this patient in order for us to be reimbursed by the patient's insurance. Please provide a supporting diagnosis for the following test/procedure listed below next to the test name along with your signature. *If there is no additional diagnosis for this patient that would support the following test/procedure please document that below next to the test/procedure. Test(s)/Procedure(s) that require a supporting diagnosis: DANE 05/03/17 HEPATITIS PANEL Provider Signature: Date: Thank you Jahaira Gtz Behalf Information Management Once completed, please kindly fax back to [phone] For questions please call [phone]
== END | disposition home or self-care (01) ==
LOC: C.LABBC 12:15
PROVIDERS: ATTEND Internal Medicine Geriatric Medicine
DX: E03.9 Hypothyroidism, unspecified (principal); E83.42 Hypomagnesemia; E11.9 Type 2 diabetes mellitus without complications; E87.6 Hypokalemia; R79.89 Other specified abnormal findings of blood chemistry; Z11.59 Encounter for screening for other viral diseases

== ENCOUNTER → 2017-05-10 | Outpatient (CLI) | payer BC ==
[2017-05-10 13:46] LABS: BASO % 0.5 %; BASO ABS # 0.05 K/uL (0-0.2); COMPLETE YES; EOS % 3.2 %; HEMATOCRIT 45.3 % (37-47); IG% 0.3 %; LYMPH % 43.1 %; LYMPH ABS # 4.33 K/uL (1.2-3.4); MEAN CELL VOLUME 93.4 fL (80-100); MEAN CORPUSCULAR HEMOGLOBIN 30.5 pg (25-34); MEAN CORPUSCULAR HGB CONC 32.7 g/dl (32-36); MEAN PLATELET VOLUME 11.6 fL (7.4-10.4); MONO % 12.3 %; NEUT % 40.6 %; PLATELET COUNT 254 K/uL (130-400); RED BLOOD COUNT 4.85 M/uL (4.2-5.4); WHITE BLOOD COUNT 10.05 K/uL (4.8-10.8)
[2017-05-10 14:22] LABS: BLOOD UREA NITROGEN 9 mg/dl (7-18); BUN/CREATININE RATIO 9.9 (10-20); CALCIUM 9.2 mg/dl (8.5-10.1); CARBON DIOXIDE 30 mmol/L (21-32); CHLORIDE 105 mmol/L (98-107); CREATININE 0.93 mg/dl (0.60-1.20); GLUCOSE 116 mg/dl (70-99); POTASSIUM 3.3 mmol/L (3.5-5.1); SODIUM 142 mmol/L (136-145)
== END | disposition home or self-care (01) ==
LOC: C.LABBC 10:18
PROVIDERS: ATTEND Internal Medicine Geriatric Medicine
DX: I10 Essential (primary) hypertension (principal); D64.9 Anemia, unspecified

== ENCOUNTER → 2017-06-01 | Outpatient (CLI) | payer BC ==
[~2017-06-01] MED LIST changes: +GADAVIST IV PRN; -PANT40TA2 PO; +PRT/40 PO; -TRAM-10 PO
--- NOTE | 2017-06-01 08:33 | DIAGNOSTIC IMAGING REPORT ---
ABDOMEN COMBO HISTORY: 71-year-old female presents for a follow-up exam of nonenhancing cystic lesions scattered throughout the pancreas. COMPARISON: MR of the abdomen 05/20/2016. TECHNIQUE: Multiplanar multisequence MRI of the abdomen was obtained both with and without the use of 9 mL Gadavist. FINDINGS: The imaged lung [place] appear clear. There is artifact in the lower thoracic and lumbar spine from with orthopedic hardware. This limits evaluation of the right kidney. Convex right curvature of the thoracolumbar junction is again noted. Imaged heart appears unremarkable. There are at least four T2 hyperintense circumscribed round lesions within the left hepatic lobe, largest of which measures up to 1.3 cm, unchanged from comparison without associated enhancement compatible with cysts. The smaller lesions are too small to characterize, however also likely reflect cysts. Bilateral kidneys and adrenal glands are within normal limits. Prior Cholecystectomy. The spleen also appears normal. There are multiple circumscribed T2 hyperintense non-enhancing subcentimeter lesions again seen scattered throughout the pancreas, the largest in the region of the pancreatic neck measuring 9 mm. Largest lesion within the pancreatic tail measures 6 mm. No significant change from comparison. There is moderate to severe background pancreatic atrophy. There is no biliary ductal dilatation. No aortic aneurysm. The soft tissues are unremarkable. IMPRESSION: 1. Stable exam with redemonstration of multiple circumscribed subcentimeter T2 hyperintense nonenhancing lesions throughout the pancreas, largest measuring up to 9 mm within the pancreatic neck. These suggest sidebranch intraductal papillary mucinous neoplasms. 2. Prior cholecystectomy. 3. Redemonstration of multiple hepatic cysts of the left hepatic lobe. Electronically signed by: Frankie Gaitan 06/01/2017 8:32 AM Dictated Date/Time: 06/01/2017 8:04 AM
[2017-06-01 11:19] LABS: BLOOD UREA NITROGEN 10 mg/dl (7-18); CREATININE 0.99 mg/dl (0.60-1.20); GLUCOSE 332 mg/dl (70-99)
[2017-06-01 11:20] LABS: ALT/SGPT 58 U/L (12-78); AST/SGOT 64 U/L (15-37); BUN/CREATININE RATIO 9.6 (10-20); CALCIUM 9.6 mg/dl (8.5-10.1); CARBON DIOXIDE 25 mmol/L (21-32); CHLORIDE 106 mmol/L (98-107); POTASSIUM 3.8 mmol/L (3.5-5.1); SODIUM 139 mmol/L (136-145)
[2017-06-01 11:22] LABS: ALKALINE PHOSPHATASE 162 U/L (45-117)
[2017-06-01 11:30] LABS: BETA-HYDROXYBUTYRATE 1.78 mg/dL (0.2-2.81); THYROID STIMULATING HORMONE 0.907 uIu/ml (0.300-4.500)
== END | disposition home or self-care (01) ==
LOC: C.MRIBC 06:35
PROVIDERS: ATTEND Internal Medicine Geriatric Medicine
DX: D49.0 Neoplasm of unspecified behavior of digestive system (principal); E03.9 Hypothyroidism, unspecified; R79.89 Other specified abnormal findings of blood chemistry; Z90.49 Acquired absence of other specified parts of digestive tract

== ENCOUNTER → 2017-06-08 | Outpatient (CLI) | payer BC ==
[~2017-06-08] MED LIST changes: -GADAVIST IV PRN
== END | disposition home or self-care (01) ==
LOC: C.LABBC 11:51
PROVIDERS: ATTEND Internal Medicine Geriatric Medicine
DX: E03.9 Hypothyroidism, unspecified (principal); E11.9 Type 2 diabetes mellitus without complications; E83.42 Hypomagnesemia; E87.6 Hypokalemia; R79.89 Other specified abnormal findings of blood chemistry

== ENCOUNTER → 2017-07-06 | Outpatient (CLI) | payer BC ==
[~2017-07-06] MED LIST changes: +TRAM-10 PO
[2017-07-06 11:32] LABS: URINE APPEARANCE CLEAR (CLEAR); URINE BILIRUBIN NEG (NEG); URINE COLOR YELLOW; URINE NITRITE NEG (NEG); URINE SPECIFIC GRAVITY 1.019 (1.000-1.030); UROBILINOGEN NEG (NEG)
[2017-07-06 11:37] LABS: MANUAL MICROSCOPIC REQUIRED? NO; REVIEW REQ? YES
== END | disposition home or self-care (01) ==
LOC: C.LABBC 07:59
PROVIDERS: ATTEND Internal Medicine Geriatric Medicine
DX: R39.9 Unspecified symptoms and signs involving the genitourinary system (principal)

== ENCOUNTER → 2017-07-11 | Outpatient (CLI) | payer BC ==
[2017-07-11 10:57] LABS: URINE APPEARANCE CLEAR (CLEAR); URINE BILIRUBIN NEG (NEG); URINE COLOR YELLOW; URINE NITRITE NEG (NEG); URINE SPECIFIC GRAVITY 1.015 (1.000-1.030); UROBILINOGEN NEG (NEG); ZZUR CULT IF INDIC CLEAN CATCH YES
[2017-07-11 11:03] LABS: MANUAL MICROSCOPIC REQUIRED? YES; REVIEW REQ? NO
[2017-07-11 11:13] LABS: URINE WBC >30 /hpf (0-5)
[2017-07-11 11:15] LABS: URINE RBC 0-4 /hpf (0-4)
[2017-07-11 11:16] LABS: URINE BACTERIA 1+ (NEG)
== END | disposition home or self-care (01) ==
LOC: C.LABBC 09:00
PROVIDERS: ATTEND Internal Medicine Geriatric Medicine
DX: R39.9 Unspecified symptoms and signs involving the genitourinary system (principal)

== ENCOUNTER → 2017-07-24 | Outpatient (CLI) | payer BC ==
[2017-07-24 14:20] LABS: ESTIMATED AVERAGE GLUCOSE 278 mg/dl; HA1C FLAG Normal (Normal)
[2017-07-24 14:40] LABS: RATIO 9.4 mcg/mg (0-30.0)
== END | disposition home or self-care (01) ==
LOC: C.LABBC 09:20
PROVIDERS: ATTEND Nurse Practitioner Family
DX: E11.65 Type 2 diabetes mellitus with hyperglycemia (principal)

== ENCOUNTER 2017-08-03 16:06 | Inpatient (IN) | payer BC, OTHER ==
[~2017-08-03] VITALS: Ht 149.9 cm; Wt 86.3 kg
[~2017-08-03 16:06] MED LIST changes: -ALL180 PO; -CHOL100027 PO; -DXY100 PO; -GABA-112 PO; -GFNSR600 PO; -LEVO75TA5 PO; -MOME100A INH; -NRT25 PO; -NYSCR15 EXT; -NYSS/ PO; -PRED10TA PO; -PRT/40 PO; -ROPI4TAB4 PO; -SIMV-151 PO; -SLWMEC PO; -SNG10 PO; -TORS20TA2 PO; -TRAM-10 PO; -TRIA1SPR4 NAE; -VNTHFA/IN INH
[2017-08-03] MEDS ORDERED: ACETAMINOPHEN 500 MG TAB PO STA (16:32)
[2017-08-03 16:46] LABS: BASO % 0.3 %; BASO ABS # 0.03 K/uL (0-0.2); COMPLETE YES; EOS % 1.3 %; HEMATOCRIT 45.7 % (37-47); IG% 0.3 %; LYMPH % 23.3 %; LYMPH ABS # 2.78 K/uL (1.2-3.4); MEAN CELL VOLUME 89.8 fL (80-100); MEAN CORPUSCULAR HEMOGLOBIN 29.1 pg (25-34); MEAN CORPUSCULAR HGB CONC 32.4 g/dl (32-36); MEAN PLATELET VOLUME 10.5 fL (7.4-10.4); NEUT % 61.8 %; PLATELET COUNT 209 K/uL (130-400); RED BLOOD COUNT 5.09 M/uL (4.2-5.4); WHITE BLOOD COUNT 11.92 K/uL (4.8-10.8)
[2017-08-03 16:53] LABS: BLOOD UREA NITROGEN 13 mg/dl (7-18); CALCIUM 9.6 mg/dl (8.5-10.1); CARBON DIOXIDE 26 mmol/L (21-32); CHLORIDE 102 mmol/L (98-107); CREATININE 0.97 mg/dl (0.60-1.20); GLUCOSE 217 mg/dl (70-99); POTASSIUM 4.2 mmol/L (3.5-5.1); SODIUM 136 mmol/L (136-145)
[2017-08-03 16:59] LABS: ALB/GLOB RATIO 0.9 (0.9-2); ALKALINE PHOSPHATASE 124 U/L (45-117); ALT/SGPT 44 U/L (12-78); AST/SGOT 31 U/L (15-37); CKMB/CK RATIO 0.8 (0-3.0)
[2017-08-03 17:01] LABS: INR 1.7 (0.9-1.1); PARTIAL THROMBOPLASTIN RATIO 1.6; PROTHROMBIN TIME (PATIENT) 18.4 SECONDS (9.0-12.0)
--- NOTE | 2017-08-03 17:16 | DIAGNOSTIC IMAGING REPORT ---
CHEST ONE VIEW PORTABLE HISTORY: EVALUATE RESPIRATORY DISTRESS.DYSPNEA COMPARISON: Chest 04/17/2017. FINDINGS: There are low lung volumes. No focal lung consolidations to suggest pneumonia. No evidence for pulmonary edema. The heart remains borderline enlarged. Question of a tiny left apical pleural reflection. This favors the overlapping rib rather than a tiny pneumothorax. IMPRESSION: Question of a tiny left apical pleural reflection which favors an overlapping rib. However, a tiny pneumothorax could also have a similar appearance. If the patient is complaining of left-sided chest pain then a follow-up PA and lateral view of the chest is recommended in one to 2 hours for confirmation. Electronically signed by: Link Pérez M.D. 08/03/2017 5:15 PM Dictated Date/Time: 08/03/2017 5:12 PM
[2017-08-03] MEDS ORDERED: SNG10 PO (17:33)
[2017-08-03] MEDS ORDERED: ALBUT/IPRATROP 3MG/0.5MG NEB 3 ML VIAL INH STA ×2 (17:33→18:17)
--- NOTE | 2017-08-03 18:09 | DIAGNOSTIC IMAGING REPORT ---
(CHEST) THORAX WITHOUT CT DOSE: 545.17 mGycm HISTORY: Abnormal chest x-ray. fever, cough, ? Apical pneumo Left TECHNIQUE: Multiaxial CT images of the chest were performed without contrast. A dose lowering technique was utilized adhering to the principles of ALARA. COMPARISON: Chest CT 07/28/2016. FINDINGS: The central airways are patent. No pleural effusions. No pneumothorax. Stable 2 mm nodule within the left upper lobe on image 70. Linear density at the lingula favor subsegmental atelectasis or scarring. This is also unchanged. Stable 3 mm subpleural nodule within the left lower lobe on image 211. Stable tiny nodular densities along the right major fissure. Small electronic stimulator device within the right lower thoracic erector spinae muscles. No suspicious lytic or blastic osseous lesions. The visualized adrenal glands and spleen are unremarkable. Stable 1.5 cm hypodense lesion within the left hepatic lobe. This likely represents a cyst. Stable 9 mm cyst within the neck of the pancreas. This is also likely benign given the stability. The heart is normal in size. Normal caliber thoracic aorta. No mediastinal or hilar lymphadenopathy. IMPRESSION: 1. No significant change compared the prior study. 2. No new focal lung consolidations to suggest pneumonia. 3. A few scattered tiny stable pulmonary nodules with the largest measuring 3 mm. These are also likely benign Electronically signed by: Link Pérez M.D. 08/03/2017 6:08 PM Dictated Date/Time: 08/03/2017 6:00 PM
[2017-08-03] MEDS ORDERED: CEFTRIAXONE SOD INJ 1 GM ADDVIAL IV STA (18:17)
[2017-08-03] MEDS ORDERED: LEVO75TA5 PO (18:49)
[2017-08-03] MEDS ORDERED: NRT25 PO (18:49)
[2017-08-03] MEDS ORDERED: PRT/40 PO (18:49)
[2017-08-03] MEDS ORDERED: SIMV-151 PO (18:49)
[2017-08-03] MEDS ORDERED: ROPI4TAB4 PO (18:49)
[2017-08-03] MEDS ORDERED: TORS20TA2 PO (19:11)
[2017-08-03] MEDS ORDERED: SLWMEC PO ×2 (19:11→20:01)
[2017-08-03] MEDS ORDERED: CHOL100027 PO (19:11)
[2017-08-03] MEDS ORDERED: GABA-112 PO (19:14)
[2017-08-03] MEDS ORDERED: NITROGLYCERIN 0.4 MG SL PER TAB CHARGE SL PRN (19:30)
--- NOTE | 2017-08-03 19:43 | History and Physical ---
History & Physical Date & Time of Service: Aug 03, 2017 at 19:43 Chief Complaint: Sob/Cough Primary Care Physician: Omar Joshi M.D. History of Present Illness Source: patient, hospital records The patient is a 72-year-old female with a PMH including COPD, pneumonia and chronic bronchitis who was brought to the emergency department via EMS due to a worsening illness that began with a sore throat 4 days ago, and then 3 days ago developed a bad cough with chest tightness, elevated temperature, shortness of breath, back pain and a bad headache. She has not had any recent travels or known sick exposures. Past Medical/Surgical History Medical Problems: (1) Acute bronchitis Status: Resolved (2) Altered mental status Status: Resolved (3) Altered mental status Status: Resolved (4) Benign essential hypertension Status: Chronic (5) Chronic bronchitis Status: Chronic (6) Chronic recurrent sinusitis Status: Chronic (7) Chronic sinusitis Status: Chronic (8) Deep venous thrombosis of lower extremity Status: Resolved (9) Diabetes mellitus type 2 Status: Chronic (10) Dizziness Status: Resolved (11) Hyperglycemia Status: Resolved (12) Hyperlipidemia Status: Chronic (13) Laceration Status: Resolved (14) Near syncope Status: Resolved (15) Obstructive sleep apnea syndrome Status: Chronic (16) Orthostatic hypotension Status: Resolved (17) POSSIBLE SEIZURE Status: Resolved (18) Pulmonary embolism Status: Resolved (19) Restless legs Status: Chronic (20) SJOGRENS Status: Resolved (21) SOB (shortness of breath) Status: Resolved (22) SUBTHERAPEAUTIC INR Status: Resolved (23) Supratherapeutic INR Status: Resolved (24) Supratherapeutic INR Status: Resolved (25) UTI (urinary tract infection) Status: Resolved Family History Diabetes mellitus MOTHER Esophageal cancer FATHER FH: cancer FH: gallbladder disease Myocardial infarction MOTHER Social History Smoking Status: Never Smoker Smokeless Tobacco Use: No Alcohol Use: none Drug Use: none Marital Status: Housing status: lives with family Occupational Status: retired Immunizations History of Influenza Vaccine: Yes Influenza Vaccine Date: Aug 27, 2013 History of Tetanus Vaccine?: No History of Pneumococcal: Yes Pneumococcal Date: Nov 27, 2009 History of Hepatitis B Vaccine: No Multi-Drug Resistant Organisms History of MDRO: No Allergies Coded Allergies: Prochlorperazine (Verified Allergy, Severe, EXTRAPYRAMIDAL S/E, 5/19/17) LOSS OF MUSCLE CONTROL/MUSCLE SPASMS TROUBLE BREATHING "EYES WOULD FLY OPEN AND I COULDN'T CLOSE THEM" Zolpidem (Verified Allergy, Severe, CONFUSION/MEMORY LOSS, 04/14/17) "FOR THREE DAYS I WAS IN OUTER SPACE" Carbamazepine (Verified Allergy, Intermediate, CONFUSION, 04/14/17) Duloxetine (Verified Allergy, Intermediate, LIGHTHEADEDNESS/DIZZINESS, ) Hydrochlorothiazide (Verified Allergy, Intermediate, LIGHTHEADEDNESS/ DIZZINESS, 04/14/17) Indigotindisulfonate (Verified Allergy, Intermediate, LIGHTHEADEDNESS/ DIZZINESS, 04/14/17) Levofloxacin (Verified Allergy, Mild, RASH, 04/14/17) also bloody diarrhea Clonazepam (Verified Allergy, Unknown, UNKNOWN, 04/14/17) Diclofenac (Verified Allergy, Unknown, NAUSEA AND VOMITING, 04/14/17) Losartan (Unverified Allergy, Unknown, ELEVATED CREATININE, 04/14/17) Hydromorphone (Verified Adverse Reaction, Intermediate, N/V AND NIGHTMARES , 04/14/17) Morphine (Verified Adverse Reaction, Intermediate, HYPOTENSION AND N/V, ) Cyclobenzaprine (Verified Adverse Reaction, Mild, N/V, 04/14/17) Lisinopril (Verified Adverse Reaction, Mild, N/V, 04/14/17) Naproxen (Verified Adverse Reaction, Mild, N/V, 04/14/17) Oxycodone (Verified Adverse Reaction, Mild, N/V, 04/14/17) Tramadol (Verified Adverse Reaction, Unknown, N/V AND ITCHING, 04/14/17) Home Medications Scheduled Calcium (Calcium), 500 MG PO QPM Cholecalciferol (Vitamin D 1000 Unit), 2,000 INTER.UNIT PO QAM Cyanocobalamin (Vitamin B-12 1000 Mcg), 1,000 MCG PO BID Ferrous Sulfate (Iron), 325 MG PO QPM Gabapentin (Neurontin), 100 MG PO BID Home O2 Therapy (Oxygen), 2 LITERS NA HS Insulin Aspart (Novolog Flexpen), 10 UNITS SC TIDM Insulin Glargine (Lantus Solostar), 23 UNITS SC HS Levothyroxine Sodium (Levothyroxine Sodium), 75 MCG PO QAM Magnesium Chloride (Slow-Mag Tab), 128 MG PO QPM Magnesium Chloride (Slow-Mag Tab), 192 MG PO QAM Mometasone Furoate-Formoterol (Dulera 100/5 Mcg), 2 PUFFS INH BID Montelukast Sod (Montelukast Sodium), 10 MG PO HS Nortriptyline HCl (Nortriptyline HCl), 25 MG PO HS Pantoprazole (Pantoprazole Sodium), 40 MG PO QAM Ropinirole Hydrochloride (Requip), 4 MG PO HS Sennosides-Docusate Sodium (Stool Softener), 1 TAB PO DAILY Simvastatin (Simvastatin), 20 MG PO HS Sitagliptin-Metformin Hcl (Janumet), 1 TAB PO BID Warfarin Sod (Jantoven), 6 MG PO 2XWK Warfarin Sod (Jantoven), 4 MG PO 5XWK Scheduled PRN Albuterol Hfa (Ventolin Hfa), 2 PUFFS INH Q4H PRN for SOB/Wheezing Ipratropium-Albuterol (Combivent Respimat), 1 PUFF INH Q8-12H PRN for Shortness of Breath Torsemide (Demadex), 20 MG PO BID PRN for Fluid Retention Review of Systems The patient denies chest pain, palpitations, lower extremity swelling, vision change, hearing change, chills, sweats, weight change, fatigue, nausea, vomiting , diarrhea or constipation, abdominal pain, pelvic pain, blood in urine, dysuria , urinary frequency or urgency, lightheadedness, dizziness, memory loss, rash, abnormal bruising or bleeding, imbalance, focal or generalized weakness, numbness or tingling in arms or legs, generalized arthralgias or myalgias, neck pain, night sweats. The review of systems is otherwise negative other than for that already noted above, and at least 10 systems have been reviewed. Physical Exam Vital Signs Date Time Temp Pulse Resp B/P (MAP) Pulse Ox O2 Delivery O2 Flow Rate FiO2 08/03/17 18:32 36.8 94 149/74 93 Nasal Cannula 2.0 08/03/17 17:31 101 150/53 95 Room Air 08/03/17 16:48 92 Nasal Cannula 2.0 08/03/17 16:48 105 90 Room Air 9/7/17 16:24 97 08/03/17 16:22 93 Room Air 08/03/17 16:15 38.2 105 33 169/72 95 Room Air 08/03/17 16:15 95 Room Air The patient is awake, well-developed and adequately nourished, alert and oriented 3, normocephalic and atraumatic, looks mildly acutely ill, ihsan cheeks, lying in bed and in no acute distress. HEENT--PERRL, EOMI, mucous membranes and oropharynx dry. Neck--supple, no JVD or bruits, thyroid normal, trachea midline, no adenopathy. Heart--normal S1 and S2, no extra beats, no murmurs, rubs or gallops. Lungs--diffuse wheezes bilaterally with a few coarse breath sounds, no respiratory distress, no accessory muscle use. Abdomen--normal bowel sounds and soft, nontender and nondistended, no hernias or masses, no organomegaly. Extremities--no cyanosis, clubbing or edema. There are good distal pulses b/l. Dermatologic--normal skin turgor, normal color, warm and dry, no abnormal lymph nodes, no rash. Neurologic--cranial nerves II through XII grossly intact. Rheumatologic--normal range of motion, nontender, muscles and joints. Psychiatric--normal affect. Diagnostics Laboratory Results Results Past 24 Hours Test 08/03/17 15:41 Range/Units White Blood Count 11.92 4.8-10.8 K/uL Red Blood Count 5.09 4.2-5.4 M/uL Hemoglobin 14.8 12.0-16.0 g/dL Hematocrit 45.7 37-47 % Mean Corpuscular Volume 89.8 80-100 fL Mean Corpuscular Hemoglobin 29.1 25-34 pg Mean Corpuscular Hemoglobin Concent 32.4 32-36 g/dl Platelet Count 209 130-400 K/uL Mean Platelet Volume 10.5 7.4-10.4 fL Neutrophils (%) (Auto) 61.8 % Lymphocytes (%) (Auto) 23.3 % Monocytes (%) (Auto) 13.0 % Eosinophils (%) (Auto) 1.3 % Basophils (%) (Auto) 0.3 % Neutrophils # (Auto) 7.36 1.4-6.5 K/uL Lymphocytes # (Auto) 2.78 1.2-3.4 K/uL Monocytes # (Auto) 1.55 0.11-0.59 K/uL Eosinophils # (Auto) 0.16 0-0.5 K/uL Basophils # (Auto) 0.03 0-0.2 K/uL RDW Standard Deviation 49.9 36.4-46.3 fL RDW Coefficient of Variation 15.2 11.5-14.5 % Immature Granulocyte % (Auto) 0.3 % Immature Granulocyte # (Auto) 0.04 0.00-0.02 K/uL Prothrombin Time 18.4 9.0-12.0 SECONDS Prothromb Time International Ratio 1.7 0.9-1.1 Activated Partial Thromboplast Time 42.4 21.0-31.0 SECONDS Partial Thromboplastin Ratio 1.6 Sodium Level 136 136-145 mmol/L Potassium Level 4.2 3.5-5.1 mmol/L Chloride Level 102 98-107 mmol/L Carbon Dioxide Level 26 21-32 mmol/L Anion Gap 8.0 3-11 mmol/L Blood Urea Nitrogen 13 7-18 mg/dl Creatinine 0.97 0.60-1.20 mg/dl Est Creatinine Clear Calc Drug Dose 50.5 ml/min Estimated GFR () 67.2 Estimated GFR (Non- 57.9 BUN/Creatinine Ratio 13.0 10-20 Random Glucose 217 70-99 mg/dl Calcium Level 9.6 8.5-10.1 mg/dl Total Bilirubin 0.9 0.2-1 mg/dl Aspartate Amino Transf (AST/SGOT) 31 15-37 U/L Alanine Aminotransferase (ALT/SGPT) 44 12-78 U/L Alkaline Phosphatase 124 45-117 U/L Total Creatine Kinase 119 26-192 U/L Creatine Kinase MB 1.0 0.5-3.6 ng/ml Creatine Kinase MB Ratio 0.8 0-3.0 Troponin I < 0.015 0-0.045 ng/ml Pro-B-Type Natriuretic Peptide 70 0-900 pg/ml Total Protein 7.6 6.4-8.2 gm/dl Albumin 3.5 3.4-5.0 gm/dl Globulin 4.1 2.5-4.0 gm/dl Albumin/Globulin Ratio 0.9 0.9-2 Microbiology Results 08/03/17 Blood Culture, Received Pending 08/03/17 Blood Culture, Received Pending Diagnostic Radiology Patient Name: QUENTIN BUTT Unit Number: [id number] Dictated: 08/03/171711 Transcribed: 08/03/171711 [facility] Printed Date/Time: [~ rep prt dt]/[~ rep prt tm] [~ rep ct labl] - [~ rep ct ivnm] [facility] [place] [place] [address] Dictated: 08/03/171711 Transcribed: 08/03/171711 [facility] Printed Date/Time: [~ rep prt dt]/[~ rep prt tm] [~ rep ct labl] - [~ rep ct ivnm] [~ rep ct add3]] CHEST ONE VIEW PORTABLE HISTORY: EVALUATE RESPIRATORY DISTRESS.DYSPNEA COMPARISON: Chest 04/17/2017. FINDINGS: There are low lung volumes. No focal lung consolidations to suggest pneumonia. No evidence for pulmonary edema. The heart remains borderline enlarged. Question of a tiny left apical pleural reflection. This favors the overlapping rib rather than a tiny pneumothorax. IMPRESSION: Question of a tiny left apical pleural reflection which favors an overlapping rib. However, a tiny pneumothorax could also have a similar appearance. If the patient is complaining of left-sided chest pain then a follow-up PA and lateral view of the chest is recommended in one to 2 hours for confirmation. Electronically signed by: Link Pérez M.D. 08/03/2017 5:15 PM Dictated Date/Time: 08/03/2017 5:12 PM The status of this report is Signed. Draft = Not yet reviewed or approved by Radiologist. Signed = Reviewed and approved by Radiologist. <AttendingPhy></AttendingPhy> <FamilyPhy>Omar Joshi M.D.</FamilyPhy> < PrimaryPhy>Omar Joshi M.D.</PrimaryPhy> <UnitNumber>[id number]</UnitNumber > <VisitNumber>[id number]</VisitNumber> <PatientName>QUENTIN BUTT</ PatientName> <DateOfBirth>1945</DateOfBirth> <Location>[facility]</Location> < ServiceDate>08/03/17</ServiceDate> <MNE>ESINDI</MNE> <OrderingPhy>Ivan Seymour MD</OrderingPhy> <OrderingPhyMNE>f rep ord dr paulson</OrderingPhyMNE> < DictatingPhyMNE>f rep dict dr paulson</DictatingPhyMNE> <CCListMNE>f rep ct mnjoelle</ CCListMNE> <AdmittingPhyMNE>f pt admit dr paulson</AdmittingPhyMNE> <AttendingPhyMNE >f pt attend dr paulson</AttendingPhyMNE> <ConsultingPhyMNE>f pt consult dr paulson</ConsultingPhyMNE> <FamilyPhyMNE>f pt fam dr paulson</FamilyPhyMNE> <OtherPhyMNE>f pt other dr paulson</OtherPhyMNE> < PrimaryPhyMNE>f pt prim care dr paulson</PrimaryPhyMNE> <ReferringPhyMNE>f pt referring dr paulson</ReferringPhyMNE> Patient Name: QUENTIN BUTT Unit Number: [id number] Dictated: 08/03/171799 Transcribed: 08/03/17 1800 [facility] Printed Date/Time: [~ rep prt dt]/[~ rep prt tm] [~ rep ct labl] - [~ rep ct ivnm] [facility] [place] [address] Dictated: 08/03/171799 Transcribed: 08/03/17 1800 [facility] Printed Date/Time: [~ rep prt dt]/[~ rep prt tm] [~ rep ct labl] - [~ rep ct ivnm] (CHEST) THORAX WITHOUT CT DOSE: 545.17 mGycm HISTORY: Abnormal chest x-ray. fever, cough, ? Apical pneumo Left TECHNIQUE: Multiaxial CT images of the chest were performed without contrast. A dose lowering technique was utilized adhering to the principles of ALARA. COMPARISON: Chest CT 07/28/2016. FINDINGS: The central airways are patent. No pleural effusions. No pneumothorax. Stable 2 mm nodule within the left upper lobe on image 70. Linear density at the lingula favor subsegmental atelectasis or scarring. This is also unchanged. Stable 3 mm subpleural nodule within the left lower lobe on image 211. Stable tiny nodular densities along the right major fissure. Small electronic stimulator device within the right lower thoracic erector spinae muscles. No suspicious lytic or blastic osseous lesions. The visualized adrenal glands and spleen are unremarkable. Stable 1.5 cm hypodense lesion within the left hepatic lobe. This likely represents a cyst. Stable 9 mm cyst within the neck of the pancreas. This is also likely benign given the stability. The heart is normal in size. Normal caliber thoracic aorta. No mediastinal or hilar lymphadenopathy. IMPRESSION: 1. No significant change compared the prior study. 2. No new focal lung consolidations to suggest pneumonia. 3. A few scattered tiny stable pulmonary nodules with the largest measuring 3 mm. These are also likely benign Electronically signed by: Link Pérez M.D. 08/03/2017 6:08 PM Dictated Date/Time: 08/03/2017 6:00 PM The status of this report is Signed. Draft = Not yet reviewed or approved by Radiologist. Signed = Reviewed and approved by Radiologist. <AttendingPhy></AttendingPhy> <FamilyPhy>Omar Joshi M.D.</FamilyPhy> < PrimaryPhy>Omar Joshi M.D.</PrimaryPhy> <UnitNumber>[id number]</UnitNumber > <VisitNumber>[id number]</VisitNumber> <PatientName>QUENTIN BUTT</ PatientName> <DateOfBirth>1945</DateOfBirth> <Location>[facility]</Location> < ServiceDate>08/03/17</ServiceDate> <MNE>ESINDI</MNE> <OrderingPhy>Ivan Seymour MD</OrderingPhy> <OrderingPhyMNE>f rep ord dr paulson</OrderingPhyMNE> < DictatingPhyMNE>f rep dict dr paulson</DictatingPhyMNE> <CCListMNE>f rep ct nemoe</ CCListMNE> <AdmittingPhyMNE>f pt admit dr paulson</AdmittingPhyMNE> <AttendingPhyMNE >f pt attend dr paulson</AttendingPhyMNE> <ConsultingPhyMNE>f pt consult dr paulson</ConsultingPhyMNE> <FamilyPhyMNE>f pt fam dr paulson</FamilyPhyMNE> <OtherPhyMNE>f pt other dr paulson</OtherPhyMNE> < PrimaryPhyMNE>f pt prim care dr paulson</PrimaryPhyMNE> <ReferringPhyMNE>f pt referring dr paulson</ReferringPhyMNE> EKG EKG shows sinus tachycardia at 107 bpm, nonspecific ST-T changes in lateral leads. Impression Assessment and Plan COPD exacerbation/acute on chronic bronchitis-- Ceftriaxone 1 g IV daily. Pulmicort Respules 0.5 mg inhaled twice a day. Xopenex/Atrovent nebulizer every 6 hours while awake and every 2 hours when necessary. Nasal cannula 2 L of oxygen, titrated to keep pulse ox greater than or equal to 92%. Continue montelukast sodium 10 mg by mouth at bedtime. Hold Dulera. DVT right lower extremity-- Continue current warfarin dosing with serial PT/INR. Diabetes mellitus-- Continue Lantus 23 units subcutaneous at bedtime. Hold Janumet. Hyperlipidemia--continue simvastatin 20 mg by mouth at bedtime. GERD--continue pantoprazole 40 mg by mouth every morning. Hypothyroidism--continue levothyroxine sodium at 75 g by mouth every morning. Restless leg syndrome--continue Requip 4 mg by mouth at bedtime. GPN--continue gabapentin 100 mg by mouth twice a day and nortriptyline 25 mg by mouth at bedtime. Vitamin B12 deficiency--continue supplement 1000 g by mouth twice a day. Level of Care Telemetry Advanced Directives Existing Advance Directive: No Existing Living Will: No Existing Power of Pan Devulcanizer Helper: No Resuscitation Status FULL RESUSCITATION VTE Prophylaxis VTE Risk Assessment Done? Y/N: Yes Risk Level: Moderate Given or contraindicated: Warfarin (Coumadin) Social Service Consult None Apply
[2017-08-03] MEDS ORDERED: GLUCAGON FOR INJ 1 MG VIAL SQ PRN (19:45)
[2017-08-03] MEDS ORDERED: GLUCOSE 40% GEL 15 GM TUBE PO PRN (19:45)
[2017-08-03] MEDS ORDERED: ONDANSETRON INJ 2 MG/ML 2 ML VIAL IV PRN (19:45)
[2017-08-03] MEDS ORDERED: GLUCOSE 10 TABS/TUBE PO PRN (19:45)
[2017-08-03] MEDS ORDERED: DEXTROSE 50% 50 ML SYR IV PRN (19:45)
[2017-08-03] MEDS ORDERED: WARF2TAB8 PO (20:01)
[2017-08-03] MEDS ORDERED: VNTHFA/IN INH (20:01)
--- NOTE | 2017-08-03 20:07 | EMERGENCY ROOM VISIT NOTE ---
History Report prepared by Chaitanya: Nasir Schroeder Under the Supervision of: Dr. Ivan Seymour M.D. First contact with patient: 16:09 Stated Complaint: SOB/COUGH History of Present Illness The patient is a 72 year old female with a history of COPD, pneumonia, and chronic bronchitis who presents to the Emergency Room via EMS with complaints of a worsening illness that started 4 days ago. She says that she started off with a sore throat, and then 3 days ago, it settled into her chest with a bad cough as well as chest tightness. Per the nursing staff, the patient has had a fever. The patient notes that she has been a bit short of breath. She says that she had a really bad headache early this morning, so she took Tylenol. The patient states that her chest tightness is different than her tightness with COPD. She adds that she has back pain as well, which she does not have with bronchitis. She says that her symptoms worsened today, so she came here. Per the nursing staff, the patient's initial oxygen saturation was around 92%, and went up to 95% after being given a DuoNeb, albuterol, and Solu-Medrol. The patient says that she does follow up with a biomedical engineer. She notes that she has chronic blood in her stool due to internal hemorrhoids. The patient has a history of diverticulosis. She is on medication for blood pressure. Pt denies LOC, diaphoresis, visual changes, neck pain, nausea, vomiting, abdominal pain, melena, urinary symptoms, numbness, weakness, lymphadenopathy, rash, or other complaints. Source of History: patient, nursing staff Onset: 4 days ago Position: other (global - illness) Timing: worsening Modifying Factors (Relieving): other (breathing treatments) Associated Symptoms: + fevers, + headache, + sorethroat, + cough, + chest pain (tightness), + SOB, + back pain Review of Systems See HPI for pertinent positives and negatives. A total of ten systems were reviewed and were otherwise negative. Past Medical & Surgical Medical Problems: (1) Acute bronchitis (2) Altered mental status (3) Altered mental status (4) Benign essential hypertension (5) Blood in stool (6) Cellulitis of right lower extremity (7) Chronic bronchitis (8) Chronic recurrent sinusitis (9) Chronic sinusitis (10) COPD exacerbation (11) Deep venous thrombosis of lower extremity (12) Diabetes mellitus type 2 (13) Dizziness (14) Dyspnea (15) Hyperglycemia (16) Hyperlipidemia (17) Laceration (18) Near syncope (19) Obstructive sleep apnea syndrome (20) Orthostatic hypotension (21) POSSIBLE SEIZURE (22) Pulmonary embolism (23) Restless legs (24) Rotator cuff tear (25) SJOGRENS (26) SOB (shortness of breath) (27) SUBTHERAPEAUTIC INR (28) Supratherapeutic INR (29) Supratherapeutic INR (30) UTI (urinary tract infection) Family History Diabetes mellitus MOTHER Esophageal cancer FATHER FH: cancer FH: gallbladder disease Myocardial infarction MOTHER Social History Smoking Status: Never Smoker Alcohol Use: none Drug Use: none Marital Status: Housing Status: lives with family, lives with significant other Occupation Status: retired Current/Historical Medications Scheduled Calcium (Calcium), 500 MG PO QPM Cholecalciferol (Vitamin D 1000 Unit), 2,000 INTER.UNIT PO QAM Cyanocobalamin (Vitamin B-12 1000 Mcg), 1,000 MCG PO BID Ferrous Sulfate (Iron), 325 MG PO QPM Gabapentin (Neurontin), 100 MG PO BID Home O2 Therapy (Oxygen), 2 LITERS NA HS Insulin Aspart (Novolog Flexpen), 10 UNITS SC TIDM Insulin Glargine (Lantus Solostar), 23 UNITS SC HS Levothyroxine Sodium (Levothyroxine Sodium), 75 MCG PO QAM Magnesium Chloride (Slow-Mag Tab), 128 MG PO QPM Magnesium Chloride (Slow-Mag Tab), 192 MG PO QAM Mometasone Furoate-Formoterol (Dulera 100/5 Mcg), 2 PUFFS INH BID Montelukast Sod (Montelukast Sodium), 10 MG PO HS Nortriptyline HCl (Nortriptyline HCl), 25 MG PO HS Pantoprazole (Pantoprazole Sodium), 40 MG PO QAM Ropinirole Hydrochloride (Requip), 4 MG PO HS Sennosides-Docusate Sodium (Stool Softener), 1 TAB PO DAILY Simvastatin (Simvastatin), 20 MG PO HS Sitagliptin-Metformin Hcl (Janumet), 1 TAB PO BID Warfarin Sod (Jantoven), 6 MG PO 2XWK Warfarin Sod (Péreztoven), 4 MG PO 5XWK Scheduled PRN Albuterol Hfa (Ventolin Hfa), 2 PUFFS INH Q4H PRN for SOB/Wheezing Ipratropium-Albuterol (Combivent Respimat), 1 PUFF INH Q8-12H PRN for Shortness of Breath Torsemide (Demadex), 20 MG PO BID PRN for Fluid Retention Allergies Coded Allergies: Prochlorperazine (Verified Allergy, Severe, EXTRAPYRAMIDAL S/E, 04/14/17) LOSS OF MUSCLE CONTROL/MUSCLE SPASMS TROUBLE BREATHING "EYES WOULD FLY OPEN AND I COULDN'T CLOSE THEM" Zolpidem (Verified Allergy, Severe, CONFUSION/MEMORY LOSS, 04/14/17) "FOR THREE DAYS I WAS IN OUTER SPACE" Carbamazepine (Verified Allergy, Intermediate, CONFUSION, 04/14/17) Duloxetine (Verified Allergy, Intermediate, LIGHTHEADEDNESS/DIZZINESS, ) Hydrochlorothiazide (Verified Allergy, Intermediate, LIGHTHEADEDNESS/ DIZZINESS, 04/14/17) Indigotindisulfonate (Verified Allergy, Intermediate, LIGHTHEADEDNESS/ DIZZINESS, 04/14/17) Levofloxacin (Verified Allergy, Mild, RASH, 04/14/17) also bloody diarrhea Clonazepam (Verified Allergy, Unknown, UNKNOWN, 04/14/17) Diclofenac (Verified Allergy, Unknown, NAUSEA AND VOMITING, 04/14/17) Losartan (Unverified Allergy, Unknown, ELEVATED CREATININE, 04/14/17) Hydromorphone (Verified Adverse Reaction, Intermediate, N/V AND NIGHTMARES , 04/14/17) Morphine (Verified Adverse Reaction, Intermediate, HYPOTENSION AND N/V, ) Cyclobenzaprine (Verified Adverse Reaction, Mild, N/V, 04/14/17) Lisinopril (Verified Adverse Reaction, Mild, N/V, 04/14/17) Naproxen (Verified Adverse Reaction, Mild, N/V, 04/14/17) Oxycodone (Verified Adverse Reaction, Mild, N/V, 04/14/17) Tramadol (Verified Adverse Reaction, Unknown, N/V AND ITCHING, 04/14/17) Physical Exam Vital Signs Date Time Temp Pulse Resp B/P (MAP) Pulse Ox O2 Delivery O2 Flow Rate FiO2 08/03/17 18:32 36.8 94 149/74 93 Nasal Cannula 2.0 08/03/17 17:31 101 150/53 95 Room Air 08/03/17 16:48 92 Nasal Cannula 2.0 08/03/17 16:48 105 90 Room Air 08/03/17 16:24 97 08/03/17 16:22 93 Room Air 08/03/17 16:15 38.2 105 33 169/72 95 Room Air 08/03/17 16:15 95 Room Air Physical Exam GENERAL: Awake, alert, mildly ill-appearing, in no distress HENT: Normocephalic, atraumatic. Oropharynx unremarkable. EYES: Normal conjunctiva. Sclera non-icteric. NECK: Supple. No nuchal rigidity. FROM. No JVD. RESPIRATORY: Scant wheezing. CARDIAC: Tachycardic rate, normal rhythm. Extremities warm and well perfused. Pulses equal. ABDOMEN: Soft, non-distended. No tenderness to palpation. No rebound or guarding. No masses. RECTAL: Deferred. MUSCULOSKELETAL: Chest examination reveals no tenderness. The back is symmetrical on inspection without obvious abnormality. There is no CVA tenderness to palpation. No joint edema. LOWER EXTREMITIES: Calves are equal size bilaterally and non-tender. Trace lower extremity edema. No discoloration. NEURO: Normal sensorium. No sensory or motor deficits noted. SKIN: No rash or jaundice noted. Medical Decision & Procedures ER Provider Diagnostic Interpretation: Radiology results as stated below per my review and radiologist interpretation: CHEST ONE VIEW PORTABLE HISTORY: EVALUATE RESPIRATORY DISTRESS.DYSPNEA COMPARISON: Chest 04/17/2017. FINDINGS: There are low lung volumes. No focal lung consolidations to suggest pneumonia. No evidence for pulmonary edema. The heart remains borderline enlarged. Question of a tiny left apical pleural reflection. This favors the overlapping rib rather than a tiny pneumothorax. IMPRESSION: Question of a tiny left apical pleural reflection which favors an overlapping rib. However, a tiny pneumothorax could also have a similar appearance. If the patient is complaining of left-sided chest pain then a follow-up PA and lateral view of the chest is recommended in one to 2 hours for confirmation. Electronically signed by: Link Pérez M.D. 08/03/2017 5:15 PM Dictated Date/Time: 08/03/2017 5:12 PM (CHEST) THORAX WITHOUT CT DOSE: 545.17 mGycm HISTORY: Abnormal chest x-ray. fever, cough, ? Apical pneumo Left TECHNIQUE: Multiaxial CT images of the chest were performed without contrast. A dose lowering technique was utilized adhering to the principles of ALARA. COMPARISON: Chest CT 07/28/2016. FINDINGS: The central airways are patent. No pleural effusions. No pneumothorax. Stable 2 mm nodule within the left upper lobe on image 70. Linear density at the lingula favor subsegmental atelectasis or scarring. This is also unchanged. Stable 3 mm subpleural nodule within the left lower lobe on image 211. Stable tiny nodular densities along the right major fissure. Small electronic stimulator device within the right lower thoracic erector spinae muscles. No suspicious lytic or blastic osseous lesions. The visualized adrenal glands and spleen are unremarkable. Stable 1.5 cm hypodense lesion within the left hepatic lobe. This likely represents a cyst. Stable 9 mm cyst within the neck of the pancreas. This is also likely benign given the stability. The heart is normal in size. Normal caliber thoracic aorta. No mediastinal or hilar lymphadenopathy. IMPRESSION: 1. No significant change compared the prior study. 2. No new focal lung consolidations to suggest pneumonia. 3. A few scattered tiny stable pulmonary nodules with the largest measuring 3 mm. These are also likely benign Electronically signed by: Lnik Pérez M.D. 08/03/2017 6:08 PM Dictated Date/Time: 08/03/2017 6:00 PM Laboratory Results 08/03/17 15:41 Red Blood Count 5.09, Mean Corpuscular Volume 89.8, Mean Corpuscular Hemoglobin 29.1, Mean Corpuscular Hemoglobin Concent 32.4, Mean Platelet Volume 10.5, Neutrophils (%) (Auto) 61.8, Lymphocytes (%) (Auto) 23.3, Monocytes (%) (Auto) 13.0, Eosinophils (%) (Auto) 1.3, Basophils (%) (Auto) 0.3, Neutrophils # (Auto ) 7.36, Lymphocytes # (Auto) 2.78, Monocytes # (Auto) 1.55, Eosinophils # (Auto ) 0.16, Basophils # (Auto) 0.03 08/03/17 15:41 Test 08/03/17 15:41 White Blood Count 11.92 K/uL (4.8-10.8) Red Blood Count 5.09 M/uL (4.2-5.4) Hemoglobin 14.8 g/dL (12.0-16.0) Hematocrit 45.7 % (37-47) Mean Corpuscular Volume 89.8 fL (80-100) Mean Corpuscular Hemoglobin 29.1 pg (25-34) Mean Corpuscular Hemoglobin Concent 32.4 g/dl (32-36) Platelet Count 209 K/uL (130-400) Mean Platelet Volume 10.5 fL (7.4-10.4) Neutrophils (%) (Auto) 61.8 % Lymphocytes (%) (Auto) 23.3 % Monocytes (%) (Auto) 13.0 % Eosinophils (%) (Auto) 1.3 % Basophils (%) (Auto) 0.3 % Neutrophils # (Auto) 7.36 K/uL (1.4-6.5) Lymphocytes # (Auto) 2.78 K/uL (1.2-3.4) Monocytes # (Auto) 1.55 K/uL (0.11-0.59) Eosinophils # (Auto) 0.16 K/uL (0-0.5) Basophils # (Auto) 0.03 K/uL (0-0.2) RDW Standard Deviation 49.9 fL (36.4-46.3) RDW Coefficient of Variation 15.2 % (11.5-14.5) Immature Granulocyte % (Auto) 0.3 % Immature Granulocyte # (Auto) 0.04 K/uL (0.00-0.02) Prothrombin Time 18.4 SECONDS (9.0-12.0) Prothromb Time International Ratio 1.7 (0.9-1.1) Activated Partial Thromboplast Time 42.4 SECONDS (21.0-31.0) Partial Thromboplastin Ratio 1.6 Anion Gap 8.0 mmol/L (3-11) Est Creatinine Clear Calc Drug Dose 50.5 ml/min Estimated GFR () 67.2 Estimated GFR (Non- 57.9 BUN/Creatinine Ratio 13.0 (10-20) Calcium Level 9.6 mg/dl (8.5-10.1) Total Bilirubin 0.9 mg/dl (0.2-1) Aspartate Amino Transf (AST/SGOT) 31 U/L (15-37) Alanine Aminotransferase (ALT/SGPT) 44 U/L (12-78) Alkaline Phosphatase 124 U/L (45-117) Total Creatine Kinase 119 U/L (26-192) Creatine Kinase MB 1.0 ng/ml (0.5-3.6) Creatine Kinase MB Ratio 0.8 (0-3.0) Troponin I < 0.015 ng/ml (0-0.045) Pro-B-Type Natriuretic Peptide 70 pg/ml (0-900) Total Protein 7.6 gm/dl (6.4-8.2) Albumin 3.5 gm/dl (3.4-5.0) Globulin 4.1 gm/dl (2.5-4.0) Albumin/Globulin Ratio 0.9 (0.9-2) Laboratory results reviewed by me Medications Administered Medications (Trade) Dose Ordered Sig/Mick Route Start Time Stop Time Status Last Admin Dose Admin Acetaminophen (Tylenol Tab) 1,000 mg NOW STAT PO 08/03/17 16:32 08/03/17 16:35 DC 08/03/17 16:46 1,000 MG Albuterol/ Ipratropium (Duoneb) 3 ml NOW STAT INH 08/03/17 17:33 08/03/17 17:35 DC 08/03/17 18:04 3 ML Ceftriaxone Sodium (Rocephin Inj) 1 gm NOW STAT IV 08/03/17 18:17 08/03/17 18:18 DC 08/03/17 18:29 1 GM Albuterol/ Ipratropium (Duoneb) 3 ml NOW STAT INH 08/03/17 18:17 08/03/17 18:18 DC 08/03/17 18:48 3 ML ECG Indication: SOB/dyspnea Rate (beats per minute): 107 Rhythm: sinus tachycardia Findings: no acute ischemic change, no ectopy, other (poor R-wave progression) ED Course 161: The patient was evaluated in room B3B. A complete history and physical exam was performed. 1632: Ordered Tylenol Tab 1000 mg PO. 173: Ordered Duoneb 3 ml INH. 1740: I reevaluated the patient and she feels great. 1816: Ordered Rocephin Inj 1 gm IV. 182: I reevaluated the patient and she still has increased work of breathing and her temperature is now 98.7. With the patient's increased work of breathing , her fever, and blood work, I talked to her about staying in the hospital for further evaluation, and she agrees. The patient will be evaluated for further treatment. 1824: I discussed the patient with Dr. Osorio Tinsley school librarian - she will evaluate the patient for further treatment. Medical Decision Prior records/ancillary studies reviewed. Triage Nursing notes reviewed and agree them. The patient's history was concerning for shortness of breath. Differential diagnosis: Etiologies such as pneumonia, COPD, reactive airway disease, CHF, cardiac ischemia, pulmonary embolism, pneumothorax, musculoskeletal, infections, gastrointestinal, as well as others were entertained. Physical examination: As above wheezing. Tachycardia. ER treatment provided: oral Tylenol DuoNeb 2 IV Rocephin On reassessment the patient felt better. Diagnostic interpretation by me: The electrocardiogram was negative for pathologic change. The labs revealed a mild leukocytosis. Lactate negative. Chemistry panel cardiac markers unremarkable. Imaging studies: Chest x-ray and CT scan as above. The patient has continued increased work of breathing. She is feeling somewhat better. Her wheezing has improved. I suspect she has a bronchitis causing a COPD exacerbation. Given her increased work or breathing and Tonya of 4 nebulizer treatments further evaluation and management in the hospital is necessary. Consultation: A consultation was placed with the hospitalist. The case was discussed and diagnostics were reviewed. The patient was evaluated in the ER for further treatment. Medication Reconcilliation Current Medication List: was personally reviewed by me Blood Pressure Screening Patient's blood pressure: Elevated blood pressure Referred to school librarian. Consults Time Called: 1821 Consulting Physician: Dr. Osorio Tinsley school librarian Returned Call: 1824 (in person) I discussed the patient with Dr. Osorio Tinsley school librarian - she will evaluate the patient for further treatment. Impression Primary Impression: COPD exacerbation Additional Impressions: Fever SOB (shortness of breath) Scribe Attestation The scribe's documentation has been prepared under my direction and personally reviewed by me in its entirety. I confirm that the note above accurately reflects all work, treatment, procedures, and medical decision making performed by me. Departure Information Dispostion Being Evaluated By Hospitalist Referrals Omar Joshi M.D. (PCP) Problem Qualifiers
[2017-08-03 20:25] LABS: URINE APPEARANCE CLOUDY (CLEAR); URINE BILIRUBIN NEG (NEG); URINE COLOR YELLOW; URINE EPITHELIAL CELL AUTO >30 /lpf (0-5); URINE NITRITE NEG (NEG); URINE PH 6.5 (4.5-7.5); URINE SPECIFIC GRAVITY 1.026 (1.000-1.030); UROBILINOGEN NEG (NEG)
[2017-08-03 20:35] LABS: MANUAL MICROSCOPIC REQUIRED? NO; REVIEW REQ? YES
[2017-08-03 20:54] VITALS: BP 151/73; PULSE 87; TEMP 36.7; O2SAT 96; BMI 39.0
[2017-08-03] MEDS ORDERED: LEVALBUTEROL/IPRATROPIUM NEB INH SCH (21:00)
[2017-08-03] MEDS: CYANOCOBALAMIN 500 MCG TAB (VIT B-12) PO SCH (21:31)
[2017-08-03] MEDS: SIMVASTATIN 20 MG TAB PO SCH (21:32)
[2017-08-03] MEDS: GABAPENTIN 100 MG CAP PO SCH (21:32)
[2017-08-03] MEDS: ROPINIROLE HCL 1 MG TAB PO SCH (21:32)
[2017-08-03] MEDS: MONTELUKAST SOD 10 MG TAB PO SCH (21:33)
[2017-08-03] MEDS: NORTRIPTYLINE HCL 25 MG CAP PO SCH (21:33)
[2017-08-03] MEDS: MAGNESIUM CHLORIDE 64MG DELAYED REL TAB PO SCH (21:33)
[2017-08-03] MEDS: GUAIFENESIN 600 MG TABCR PO SCH (21:34)
[2017-08-03] MEDS: CALCIUM 600MG + VIT D 400 IU TAB PO SCH (21:34)
[2017-08-03] MEDS: WARFARIN SOD 4 MG TAB PO SCH (21:36)
[2017-08-03] MEDS: FERROUS SULFATE 325 MG TAB PO SCH (21:37)
[2017-08-03] MEDS: ACETAMINOPHEN 325 MG TAB PO PRN (21:40)
[2017-08-03] MEDS: INSULIN GLARGINE SOLOSTAR 100 UNITS/ML 3 ML PEN SC SCH (21:47)
[2017-08-03] MEDS: INSULIN ASPART 100 UNITS/ML 3 ML PEN SC SCH (21:47)
[2017-08-03] MEDS ORDERED: MOME100A INH (22:40)
[2017-08-03 23:45] VITALS: BP 158/75; PULSE 82; TEMP 36.4; O2SAT 97
[2017-08-04] VITALS (15 sets, daily range): BP systolic 96–168; BP diastolic 64–82; PULSE 71–88; TEMP 36.5–36.7; O2SAT 93–97; Ht 149.9 cm; Wt 86.3 kg
[2017-08-04] MEDS ORDERED: NURSING VERBAL MED ORDER ONE ×3 (01:30→10:45)
[2017-08-04] MEDS ORDERED: INSULIN ASPART 100 UNITS/ML 3 ML PEN SC STA (01:45)
[2017-08-04] MEDS: IPRATROPIUM BROMIDE NEB SOLN 0.02% 2.5 ML VIAL INH SCH ×4 (02:00→20:15)
[2017-08-04] MEDS: LEVALBUTEROL 1.25MG/0.5ML NEB INH SCH ×4 (02:00→20:15)
[2017-08-04 03:27] LABS: BASO % 0.1 %; BASO ABS # 0.01 K/uL (0-0.2); COMPLETE YES; HEMATOCRIT 41.2 % (37-47); IG% 0.4 %; LYMPH % 11.8 %; LYMPH ABS # 1.38 K/uL (1.2-3.4); MEAN CELL VOLUME 88.6 fL (80-100); MEAN CORPUSCULAR HEMOGLOBIN 29.5 pg (25-34); MEAN CORPUSCULAR HGB CONC 33.3 g/dl (32-36); MONO % 2.7 %; PLATELET COUNT 188 K/uL (130-400); RED BLOOD COUNT 4.65 M/uL (4.2-5.4); WHITE BLOOD COUNT 11.69 K/uL (4.8-10.8)
[2017-08-04 03:37] LABS: INR 1.4 (0.9-1.1); PARTIAL THROMBOPLASTIN RATIO 1.6; PROTHROMBIN TIME (PATIENT) 15.5 SECONDS (9.0-12.0)
[2017-08-04 03:45] LABS: BLOOD UREA NITROGEN 18 mg/dl (7-18); BUN/CREATININE RATIO 15.2 (10-20); CALCIUM 9.2 mg/dl (8.5-10.1); CARBON DIOXIDE 21 mmol/L (21-32); CHLORIDE 105 mmol/L (98-107); GLUCOSE 312 mg/dl (70-99); POTASSIUM 3.9 mmol/L (3.5-5.1); SODIUM 137 mmol/L (136-145)
[2017-08-04 03:56] LABS: BETA-HYDROXYBUTYRATE 1.06 mg/dL (0.2-2.81); CKMB/CK RATIO 1.5 (0-3.0)
[2017-08-04] MEDS: ACETAMINOPHEN 325 MG TAB PO PRN (04:00)
[2017-08-04] MEDS: LEVOTHYROXINE 75 MCG TAB PO SCH (05:52)
[2017-08-04] MEDS: TRAMADOL HCL 50 MG TAB PO PRN ×2 (05:53→23:28)
[2017-08-04] MEDS: BUDESONIDE 0.5 MG/2 ML VIAL (PULMICORT) INH SCH ×2 (07:17→20:16)
[2017-08-04] MEDS: DOCUSATE SODIUM/SENNA 50/8.6MG TAB PO SCH (07:58)
[2017-08-04] MEDS: PANTOprazole SOD 40 MG TAB PO SCH (07:59)
[2017-08-04] MEDS: CHOLECALCIFEROL 1000 INTER.UNIT TAB PO SCH (07:59)
[2017-08-04] MEDS: GABAPENTIN 100 MG CAP PO SCH ×2 (07:59→21:02)
[2017-08-04] MEDS: CYANOCOBALAMIN 500 MCG TAB (VIT B-12) PO SCH ×2 (07:59→21:02)
[2017-08-04] MEDS: GUAIFENESIN 600 MG TABCR PO SCH ×2 (07:59→21:03)
[2017-08-04] MEDS: MAGNESIUM CHLORIDE 64MG DELAYED REL TAB PO SCH ×2 (07:59→21:04)
[2017-08-04] MEDS: INSULIN ASPART 100 UNITS/ML 3 ML PEN SC SCH ×4 (08:05→21:09)
[2017-08-04] MEDS ORDERED: NYSTATIN POWDER 15GM BTL EXT PRN (10:45)
[2017-08-04 12:40] LABS: CKMB/CK RATIO 1.9 (0-3.0)
--- NOTE | 2017-08-04 12:40 | CONSULTATION REPORT ---
DATE OF CONSULTATION: 08/04/2017 DATE OF CONSULTATION: 08/04/2017 This patient was seen in room 238, bed 1. REASON FOR CONSULTATION: COPD exacerbation. HISTORY OF PRESENT ILLNESS: The patient is a 72-year-old female well known to myself and our service having followed her for several years for chronic bronchitis, COPD, stable pulmonary nodules, history of DVT with PE. The patient started developing respiratory symptoms about 6-7 days ago. She started with a sore throat. The sore throat progressed into a cough. She states that she did have increasing shortness of breath as well but it was not too bad. She eventually went to urgent care after about 3-4 days and was told that it was probably viral and to do [id number] conservative treatment. The patient states that she remained stable for another 2-3 days and then states yesterday she progressively got much worse. The cough became very harsh. She is coughing up a very thick yellow mucus. She has not had any hemoptysis with this. She states that she is wheezing more. She is more short of breath. She is using her oxygen at home, but it does not seem to be helping. She has been using her nebulizer and inhalers at home, but again she did not seem to be providing much relief. She did contact the office yesterday to come in for an acute outpatient, unfortunately there were some difficulties with according travel to the office so she ended up just going to the Emergency Room. The patient reports that she has felt fevers for several days. She has no documented temperature. She denies any chills. She denies any sweats. She states that her ribs are sore from coughing. She has no true chest pain. She has some soreness in the ribs. She also reports that she has a rash on her right breast that has been there for about 2 weeks or so. She states it is burning sensation. She has not had any blisters with it. She states that it actually does seem to be improving. She states it has not spread around into her back. It is just under the right breast. Otherwise, she denies any other problems. She denies any nausea or vomiting. She states her appetite is normal. She is not having any difficulty swallowing. She has not had any diarrhea. She denies any voiding difficulties. She states that she does void frequently, but there is no burning. There is no hesitancy or urgency. She denies any difficulties with increased swelling in her legs. She states her legs do swell, but it is no different than her normal. She denies any numbness, tingling or weakness in her legs. There is no redness or soreness. Of note, is that she did have a steroid knee injection about 2 weeks ago by orthopedics. She states that she had no difficulty with this and is doing well. She is on chronic anticoagulation and does get her INR checked regularly and her most recent INRs have been borderline subtherapeutic in the 1.7-2.0 range. She does note that her sugars have been increased in the 300-400 range, but she feels that it is from a combination of having the knee injection and being sick as well. In the ER, she did have a chest x-ray done which was essentially unremarkable. She also had a CAT scan of her chest done which showed stable pulmonary nodules. No other abnormalities. She was started on Rocephin on admission, she was also started on pulmonary toilet in the form of DuoNeb every 6 hours. She has not been placed on any steroids yet. No other concerns or problems at this time. PAST MEDICAL HISTORY: Includes COPD, stable pulmonary nodules, chronic bronchitis, nocturnal hypoxia, hypertension, chronic sinusitis, history of DVT. She is on chronic anticoagulation, history of PE, type 2 diabetes, hyperlipidemia, near syncopal episodes of unknown etiology, obstructive sleep apnea, restless leg syndrome, Sjogren's, recurrent UTIs, hypothyroidism, TMJ. PAST SURGICAL HISTORY: Includes bronchoscopy, sinus surgery, appendectomy, cholecystectomy, colonoscopy, D&C, lumbar fusion, hysterectomy. FAMILY HISTORY: Includes diabetes mellitus, esophageal cancer, gallbladder disease and myocardial infarction. SOCIAL HISTORY: The patient is a lifelong nonsmoker, nondrinker. She is . She is retired and lives in the area, does not travel. HOME MEDICATIONS: Include calcium 500 mg nightly, vitamin D 2000 international units in the morning, vitamin B12 1000 mcg p.o. b.i.d., ferrous sulfate 325 mg nightly, gabapentin 100 mg b.i.d., oxygen 2 liters via nasal cannula at bedtime, NovoLog FlexPen 10 units subcutaneously t.i.d., Lantus 23 units subcutaneous at bedtime, levothyroxine 75 mcg in the morning, Slow-Mag 128 mg in the p.m., 192 in the a.m., Dulera 2 puffs b.i.d., Singulair 10 mg nightly, Nortriptyline 25 mg daily, pantoprazole 40 mg in a.m., Requip 4 mg nightly, Senokot 1 tablet daily, simvastatin 20 mg nightly, Janumet 1 tablet b.i.d., Coumadin as directed, albuterol HFA 2 puffs q. 4 hours as needed, Combivent Respimat 1 puff 3-4 times daily as needed, Torsemide 20 mg twice daily as needed. ALLERGIES: PROCHLORPERAZINE, ZOLPIDEM, CARBAMAZEPINE, DULOXETINE, HYDROCHLOROTHIAZIDE, LEVOFLOXACIN, CLONAZEPAM, DICLOFENAC, LOSARTAN, HYDROMORPHONE, MORPHINE, CYCLOBENZAPRINE, LISINOPRIL, NAPROXEN, OXYCODONE, AND TRAZODONE. REVIEW OF SYSTEMS: As above, otherwise unremarkable. PHYSICAL EXAMINATION: GENERAL: The patient is a 72-year-old female lying in bed in no acute distress. She is alert and oriented x3. Mood is good. Affect is good. She does have a very harsh barky cough. She is able to complete sentences without difficulty. No exhibited respiratory distress. She is alert and oriented x3. Mood is good. Affect is good. VITAL SIGNS: Temp 36.5, pulse 71, respirations 18, blood pressure is 125/75, pulse ox 93-94% on 3 liters. HEAD, EYES, EARS, NOSE, AND THROAT: Normocephalic, atraumatic. Pupils equal, round and reactive to light and accommodation. Extraocular movements are intact. Boyds moist gingival and buccal mucosa. No evidence of any plaques or erythema. NECK: Short, thick. There is no mass, no adenopathy, no bruit, no JVD, or thyromegaly. CHEST: The patient has coarse breath sounds bilaterally. She does have wheezing bilaterally in the bases. No rale or rhonchi. CARDIOVASCULAR: Regular rate and rhythm. No murmurs, gallops or rubs. ABDOMEN: Obese, soft, nontender. No guarding, rigidity or organomegaly. CHEST WALL: The patient does have some tenderness to palpation over the lower ribcage. Most of it is in the cartilage between the ribs. ' SKIN: The patient has an approximately 2 cm x 4 cm oval under the right breast which is mildly erythematous, does not really appear to be moist. There are no vesicles, no pustules. EXTREMITIES: The patient has +1 edema bilaterally. No tenderness. No cyanosis or clubbing noted. NEUROLOGIC: Cranial nerves II through XII are intact. No focal deficit noted. LABORATORY DATA: Shows a white count of 11,000, H&H 13.7 and 41.2, platelets 188,000. INR this morning is 1.4, BUN 18, creatinine 1.2. Influenza negative for A and B. Urine culture is pending. Blood culture pending. IMAGING: As described above. Stable pulmonary nodules. No focal lung consolidations to suggest pneumonia. No significant change compared to the prior CT of 2016. IMPRESSION: This is a 72-year-old female who presented with acute exacerbation to her breathing. The patient does have known chronic bronchitis and COPD. This does appear to be an exacerbation of the chronic bronchitis with shortness of breath and hypoxia. At this time, patient is on Rocephin, which I agree with. I will start the patient on some Solu-Medrol. We will start her on 30 mg q. 8 hours to see how she does with this. We can adjust after 24 hours and reassessment. I want to make sure we are aggressively clearing secretions. The patient currently is on Xopenex and Atrovent q. 6 hours routinely. I think this is fine for right now. We may increase to q. 4 hours, but will be reevaluate in 24 hours. We may need to consider vibration vest although will hold off for right now. We will also order a sputum culture to evaluate. Otherwise, continue oxygen and maintain saturations of 90-95% range. We will continue to follow through hospitalization. Thank you for allowing us to participate in the care of this patient. HUSSEIN
--- NOTE | 2017-08-04 15:05 | Progress Note ---
Subjective Date of Service: Aug 04, 2017. Subjective Pt evaluation today including: conversation w/ patient, physical exam, chart review, lab review, review of studies, review of inpatient medication list Pt reports feeling about the same No worsening shortness of breath Productive cough of clear sputum Problem List Medical Problems: (1) Abdominal pain Status: Acute (2) Cellulitis Status: Acute (3) Fever Status: Acute (4) Hypomagnesemia Status: Acute (5) Right foot pain Status: Acute (6) Right-sided chest wall pain Status: Acute (7) Swelling of both lower extremities Status: Acute (8) Transaminitis Status: Acute Review of Systems Constitutional: No fever, No chills, No weight loss, No weakness, No fatigue Eyes: No worsening of vision, No eye pain, No redness, No discharge Respiratory: + cough, + sputum, + shortness of breath, No wheezing, No dyspnea on exertion Cardiac: No chest pain, No orthopnea, No PND, No edema, No claudication Abdomen: No pain, No nausea, No vomiting, No diarrhea, No constipation Musculoskeletal: No joint pain, No muscle pain, No swelling, No calf pain Female : No dysuria, No urinary frequency, No hematuria, No incontinence Neurologic: No memory loss, No paralysis, No weakness, No numbness/tingling Psychiatric: No depression symptoms, No anhedonism, No anxiety, No insomnia Endo: No fatigue, No excessive thirst Skin: No rash, No itch Objective Vital Signs Date Time Temp Pulse Resp B/P (MAP) Pulse Ox O2 Delivery O2 Flow Rate FiO2 08/04/17 14:08 81 18 96 Nasal Cannula 3.0 08/04/17 12:00 Nasal Cannula 08/04/17 11:28 36.6 82 19 146/75 (98) 95 Nasal Cannula 3.0 08/04/17 08:00 96/64 (75) 08/04/17 08:00 Nasal Cannula 08/04/17 07:17 85 18 93 Nasal Cannula 3.0 08/04/17 07:00 36.5 71 18 145/75 (98) 94 Nasal Cannula 3.0 08/04/17 04:00 93 Nasal Cannula 4.0 08/04/17 03:38 36.6 76 18 135/69 (91) 93 Nasal Cannula 4.0 08/04/17 02:03 77 16 97 Nasal Cannula 4.0 08/04/17 00:00 97 Nasal Cannula 4.0 08/03/17 23:45 36.4 82 20 158/75 (102) 97 Nasal Cannula 4.0 08/03/17 20:54 36.7 87 32 151/73 96 Nasal Cannula 4.0 08/03/17 19:18 175/96 08/03/17 19:06 97 32 94 08/03/17 19:02 171/75 08/03/17 18:45 149/74 08/03/17 18:36 96 39 95 08/03/17 18:32 149/74 08/03/17 18:32 36.8 94 149/74 93 Nasal Cannula 2.0 08/03/17 18:06 99 32 94 08/03/17 17:36 96 27 95 08/03/17 17:31 101 150/53 95 Room Air 08/03/17 17:26 150/53 08/03/17 17:06 100 27 94 08/03/17 16:48 92 Nasal Cannula 2.0 08/03/17 16:48 105 90 Room Air 08/03/17 16:36 100 23 91 08/03/17 16:24 97 08/03/17 16:22 93 Room Air 08/03/17 16:15 38.2 105 33 169/72 95 Room Air 08/03/17 16:15 95 Room Air 08/03/17 16:13 169/72 Physical Exam General Appearance: WD/WN, no apparent distress Eyes: normal inspection, PERRL, EOMI, sclerae normal Neck: supple, no adenopathy, thyroid normal, no JVD Respiratory/Chest: no accessory muscle use, + decreased breath sounds, + accessory muscle use, + wheezing Cardiovascular: no edema, no gallop, no JVD, no murmur Abdomen: normal bowel sounds, non tender, soft, no organomegaly Extremities: normal range of motion, non-tender, normal inspection, no pedal edema Neurologic/Psychiatric: no motor/sensory deficits, alert, normal mood/affect, oriented x 3 Laboratory Results Last 24 Hours Test 08/03/17 15:41 08/03/17 16:51 08/03/17 19:28 08/03/17 20:05 White Blood Count 11.92 K/uL Red Blood Count 5.09 M/uL Hemoglobin 14.8 g/dL Hematocrit 45.7 % Mean Corpuscular Volume 89.8 fL Mean Corpuscular Hemoglobin 29.1 pg Mean Corpuscular Hemoglobin Concent 32.4 g/dl Platelet Count 209 K/uL Mean Platelet Volume 10.5 fL Neutrophils (%) (Auto) 61.8 % Lymphocytes (%) (Auto) 23.3 % Monocytes (%) (Auto) 13.0 % Eosinophils (%) (Auto) 1.3 % Basophils (%) (Auto) 0.3 % Neutrophils # (Auto) 7.36 K/uL Lymphocytes # (Auto) 2.78 K/uL Monocytes # (Auto) 1.55 K/uL Eosinophils # (Auto) 0.16 K/uL Basophils # (Auto) 0.03 K/uL RDW Standard Deviation 49.9 fL RDW Coefficient of Variation 15.2 % Immature Granulocyte % (Auto) 0.3 % Immature Granulocyte # (Auto) 0.04 K/uL Prothrombin Time 18.4 SECONDS Prothromb Time International Ratio 1.7 Activated Partial Thromboplast Time 42.4 SECONDS Partial Thromboplastin Ratio 1.6 Sodium Level 136 mmol/L Potassium Level 4.2 mmol/L Chloride Level 102 mmol/L Carbon Dioxide Level 26 mmol/L Anion Gap 8.0 mmol/L Blood Urea Nitrogen 13 mg/dl Creatinine 0.97 mg/dl Est Creatinine Clear Calc Drug Dose 50.5 ml/min Estimated GFR () 67.2 Estimated GFR (Non- 57.9 BUN/Creatinine Ratio 13.0 Random Glucose 217 mg/dl Calcium Level 9.6 mg/dl Total Bilirubin 0.9 mg/dl Aspartate Amino Transf (AST/SGOT) 31 U/L Alanine Aminotransferase (ALT/SGPT) 44 U/L Alkaline Phosphatase 124 U/L Total Creatine Kinase 119 U/L Creatine Kinase MB 1.0 ng/ml Creatine Kinase MB Ratio 0.8 Troponin I < 0.015 ng/ml Pro-B-Type Natriuretic Peptide 70 pg/ml Total Protein 7.6 gm/dl Albumin 3.5 gm/dl Globulin 4.1 gm/dl Albumin/Globulin Ratio 0.9 Bedside Lactic Acid Venous 2.07 mmol/L Bedside Glucose 311 mg/dl Urine Color YELLOW Urine Appearance CLOUDY Urine pH 6.5 Urine Specific [place] 1.026 Urine Protein TRACE Urine Glucose (UA) 3+ Urine Ketones 1+ Urine Occult Blood NEG Urine Nitrite NEG Urine Bilirubin NEG Urine Urobilinogen NEG Urine Leukocyte Esterase SMALL Urine WBC (Auto) >30 /hpf Urine RBC (Auto) 0-4 /hpf Urine Hyaline Casts (Auto) 1-5 /lpf Urine Epithelial Cells (Auto) >30 /lpf Urine Bacteria (Auto) NEG Urine Renal Epithelial Cells /lpf Urine Yeast (Auto) BUDDING Test 08/03/17 20:39 08/03/17 20:41 08/03/17 23:59 08/04/17 03:16 Bedside Glucose 427 mg/dl 380 mg/dl 409 mg/dl White Blood Count 11.69 K/uL Red Blood Count 4.65 M/uL Hemoglobin 13.7 g/dL Hematocrit 41.2 % Mean Corpuscular Volume 88.6 fL Mean Corpuscular Hemoglobin 29.5 pg Mean Corpuscular Hemoglobin Concent 33.3 g/dl Platelet Count 188 K/uL Mean Platelet Volume 10.0 fL Neutrophils (%) (Auto) 85.0 % Lymphocytes (%) (Auto) 11.8 % Monocytes (%) (Auto) 2.7 % Eosinophils (%) (Auto) 0.0 % Basophils (%) (Auto) 0.1 % Neutrophils # (Auto) 9.94 K/uL Lymphocytes # (Auto) 1.38 K/uL Monocytes # (Auto) 0.31 K/uL Eosinophils # (Auto) 0.00 K/uL Basophils # (Auto) 0.01 K/uL RDW Standard Deviation 48.9 fL RDW Coefficient of Variation 15.2 % Immature Granulocyte % (Auto) 0.4 % Immature Granulocyte # (Auto) 0.05 K/uL Prothrombin Time 15.5 SECONDS Prothromb Time International Ratio 1.4 Activated Partial Thromboplast Time 41.5 SECONDS Partial Thromboplastin Ratio 1.6 Sodium Level 137 mmol/L Potassium Level 3.9 mmol/L Chloride Level 105 mmol/L Carbon Dioxide Level 21 mmol/L Anion Gap 11.0 mmol/L Blood Urea Nitrogen 18 mg/dl Creatinine 1.20 mg/dl Est Creatinine Clear Calc Drug Dose 40.2 ml/min Estimated GFR () 51.9 Estimated GFR (Non- 44.8 BUN/Creatinine Ratio 15.2 Random Glucose 312 mg/dl Calcium Level 9.2 mg/dl Magnesium Level 2.0 mg/dl Total Creatine Kinase 105 U/L Creatine Kinase MB 1.6 ng/ml Creatine Kinase MB Ratio 1.5 Troponin I < 0.015 ng/ml Beta-Hydroxybutyric Acid 1.06 mg/dL Test 08/04/17 03:55 08/04/17 06:52 08/04/17 08:00 08/04/17 11:17 Bedside Glucose 226 mg/dl 205 mg/dl 202 mg/dl Influenza Type A Antigen Neg for Influ A Influenza Type B Antigen Neg for Influ B Test 08/04/17 12:05 Total Creatine Kinase 96 U/L Creatine Kinase MB 1.8 ng/ml Creatine Kinase MB Ratio 1.9 Troponin I < 0.015 ng/ml Assessment and Plan COPD exacerbation/acute on chronic bronchitis-- Continue ceftriaxone 1 g IV daily. Mild leukocytosis noted Pulmicort Respules 0.5 mg inhaled twice a day. Xopenex/Atrovent nebulizer every 6 hours while awake and every 2 hours when necessary. Pulmonary consulted Nasal cannula 2 L of oxygen, titrated to keep pulse ox greater than or equal to 92%. Continue montelukast sodium 10 mg by mouth at bedtime. Hold Dulera. DVT right lower extremity-- Continue current warfarin dosing with serial PT/INR. Diabetes mellitus-- Continue Lantus 23 units subcutaneous at bedtime. Hold Janumet. Hyperlipidemia--continue simvastatin 20 mg by mouth at bedtime. GERD--continue pantoprazole 40 mg by mouth every morning. Hypothyroidism--continue levothyroxine sodium at 75 g by mouth every morning. Restless leg syndrome--continue Requip 4 mg by mouth at bedtime. GPN--continue gabapentin 100 mg by mouth twice a day and nortriptyline 25 mg by mouth at bedtime. Vitamin B12 deficiency--continue supplement 1000 g by mouth twice a day.
[2017-08-04] MEDS: WARFARIN SOD 6 MG TAB PO SCH (15:48)
[2017-08-04] MEDS: CEFTRIAXONE SOD INJ 1 GM in DEXTROSE 5% ADD-VANTAGE 50ML 50 ML IV SCH (17:31)
[2017-08-04] MEDS: MONTELUKAST SOD 10 MG TAB PO SCH (21:01)
[2017-08-04] MEDS: NORTRIPTYLINE HCL 25 MG CAP PO SCH (21:01)
[2017-08-04] MEDS: CALCIUM 600MG + VIT D 400 IU TAB PO SCH (21:02)
[2017-08-04] MEDS: SIMVASTATIN 20 MG TAB PO SCH (21:03)
[2017-08-04] MEDS: FERROUS SULFATE 325 MG TAB PO SCH (21:03)
[2017-08-04] MEDS: ROPINIROLE HCL 1 MG TAB PO SCH (21:04)
[2017-08-04] MEDS: INSULIN GLARGINE SOLOSTAR 100 UNITS/ML 3 ML PEN SC SCH (21:08)
[2017-08-05] VITALS (16 sets, daily range): BP systolic 109–169; BP diastolic 75–93; PULSE 65–92; TEMP 36.4–36.9; O2SAT 92–98
[2017-08-05] MEDS: IPRATROPIUM BROMIDE NEB SOLN 0.02% 2.5 ML VIAL INH SCH ×4 (01:49→19:41)
[2017-08-05] MEDS: LEVALBUTEROL 1.25MG/0.5ML NEB INH SCH ×4 (01:49→19:42)
[2017-08-05] MEDS ORDERED: COUGH DROP (SUGAR FREE) LOZ 24 LOZ/1 BOX ONE (04:51)
[2017-08-05] MEDS: LEVOTHYROXINE 75 MCG TAB PO SCH (04:54)
[2017-08-05] MEDS ORDERED: COUGH DROP (SUGAR FREE) LOZ 24 LOZ/1 BOX PO PRN (05:00)
[2017-08-05] MEDS ORDERED: NURSING DECISION MEDICATION ORDER SCH (05:00)
[2017-08-05 06:44] LABS: BASO % 0.1 %; BASO ABS # 0.02 K/uL (0-0.2); COMPLETE YES; EOS % 0.6 %; HEMATOCRIT 40.1 % (37-47); IG% 0.4 %; LYMPH % 25.4 %; LYMPH ABS # 3.79 K/uL (1.2-3.4); MEAN CELL VOLUME 89.1 fL (80-100); MEAN CORPUSCULAR HEMOGLOBIN 28.9 pg (25-34); MEAN CORPUSCULAR HGB CONC 32.4 g/dl (32-36); MEAN PLATELET VOLUME 9.8 fL (7.4-10.4); MONO % 11.3 %; NEUT % 62.2 %; PLATELET COUNT 195 K/uL (130-400); WHITE BLOOD COUNT 14.93 K/uL (4.8-10.8)
[2017-08-05 07:03] LABS: INR 1.7 (0.9-1.1); PARTIAL THROMBOPLASTIN RATIO 1.5
[2017-08-05] MEDS: BUDESONIDE 0.5 MG/2 ML VIAL (PULMICORT) INH SCH ×2 (07:03→19:42)
[2017-08-05 07:20] LABS: BUN/CREATININE RATIO 24.1 (10-20); CALCIUM 8.8 mg/dl (8.5-10.1)
[2017-08-05] MEDS: DOCUSATE SODIUM/SENNA 50/8.6MG TAB PO SCH (07:44)
[2017-08-05] MEDS: GABAPENTIN 100 MG CAP PO SCH ×2 (07:44→21:02)
[2017-08-05] MEDS: GUAIFENESIN 600 MG TABCR PO SCH ×2 (07:44→21:02)
[2017-08-05] MEDS: CHOLECALCIFEROL 1000 INTER.UNIT TAB PO SCH (07:44)
[2017-08-05] MEDS: CYANOCOBALAMIN 500 MCG TAB (VIT B-12) PO SCH ×2 (07:44→21:03)
[2017-08-05] MEDS: MAGNESIUM CHLORIDE 64MG DELAYED REL TAB PO SCH ×2 (07:45→21:05)
[2017-08-05] MEDS: PANTOprazole SOD 40 MG TAB PO SCH (07:45)
[2017-08-05] MEDS: INSULIN ASPART 100 UNITS/ML 3 ML PEN SC SCH ×4 (08:22→21:11)
[2017-08-05] MEDS: METHYLPREDNISOLONE IV 30 MG in SYRINGE 0 ML IV SCH ×3 (08:37→23:11)
--- NOTE | 2017-08-05 11:47 | Progress Note ---
Subjective Date of Service: Aug 05, 2017. Subjective Pt evaluation today including: conversation w/ patient, physical exam, chart review, lab review, review of studies, review of inpatient medication list Resting comfortably in bed States couldn't sleep last night due to room-mate No worsening chest pain or shortness of breath Cough productive of yellow sputum Problem List Medical Problems: (1) Abdominal pain Status: Acute (2) Cellulitis Status: Acute (3) Fever Status: Acute (4) Hypomagnesemia Status: Acute (5) Right foot pain Status: Acute (6) Right-sided chest wall pain Status: Acute (7) Swelling of both lower extremities Status: Acute (8) Transaminitis Status: Acute Review of Systems Constitutional: No fever, No chills, No sweats, No weakness ENT: No hearing loss, No unusual epistaxis, No nasal symptoms, No sore throat Respiratory: + cough, + sputum, + shortness of breath, + dyspnea at rest, No wheezing Cardiac: No chest pain, No orthopnea, No PND, No edema Abdomen: No pain, No nausea, No vomiting, No diarrhea Musculoskeletal: No joint pain, No muscle pain, No swelling, No calf pain Female : No dysuria, No urinary frequency, No hematuria, No incontinence Neurologic: No memory loss, No paralysis, No weakness, No numbness/tingling Psychiatric: No depression symptoms, No anhedonism, No anxiety, No insomnia Endo: No fatigue, No excessive thirst, No excessive urination Skin: No rash, No itch Objective Vital Signs Date Time Temp Pulse Resp B/P (MAP) Pulse Ox O2 Delivery O2 Flow Rate FiO2 08/05/17 11:43 36.9 79 18 152/80 (104) 96 3.0 08/05/17 08:00 95 Nasal Cannula 3.0 08/05/17 07:04 77 18 95 Nasal Cannula 3.0 08/05/17 06:59 36.8 73 20 169/93 (118) 96 Nasal Cannula 3.0 08/05/17 04:00 95 Nasal Cannula 4.0 08/05/17 04:00 20 97 Nasal Cannula 3.0 08/05/17 02:54 36.5 75 20 149/75 (99) 97 Nasal Cannula 3.0 08/05/17 01:49 88 18 97 Nasal Cannula 3.0 08/05/17 00:00 95 Nasal Cannula 4.0 08/04/17 23:58 36.6 88 20 155/74 (101) 97 Nasal Cannula 3.0 08/04/17 20:15 83 18 97 Nasal Cannula 4.0 08/04/17 20:00 94 Nasal Cannula 4.0 08/04/17 19:48 36.7 79 20 147/82 (103) 94 Nasal Cannula 4.0 08/04/17 16:00 96 Nasal Cannula 4.0 08/04/17 15:45 36.6 88 20 168/80 (109) 96 Nasal Cannula 4.0 08/04/17 14:08 81 18 96 Nasal Cannula 3.0 08/04/17 12:00 Nasal Cannula Physical Exam General Appearance: WD/WN, + mild distress Eyes: normal inspection, PERRL, EOMI, sclerae normal Neck: supple, no adenopathy, thyroid normal, no JVD Respiratory/Chest: chest non-tender, no accessory muscle use, + decreased breath sounds Cardiovascular: no edema, no gallop, no JVD, no murmur Abdomen: normal bowel sounds, non tender, soft, no organomegaly Extremities: normal range of motion, non-tender, normal inspection, no pedal edema Neurologic/Psychiatric: no motor/sensory deficits, alert, normal mood/affect, oriented x 3 Laboratory Results Last 24 Hours Test 08/04/17 12:05 08/04/17 16:33 08/04/17 20:31 08/05/17 05:59 Total Creatine Kinase 96 U/L Creatine Kinase MB 1.8 ng/ml Creatine Kinase MB Ratio 1.9 Troponin I < 0.015 ng/ml Bedside Glucose 125 mg/dl 182 mg/dl 151 mg/dl Test 08/05/17 06:17 White Blood Count 14.93 K/uL Red Blood Count 4.50 M/uL Hemoglobin 13.0 g/dL Hematocrit 40.1 % Mean Corpuscular Volume 89.1 fL Mean Corpuscular Hemoglobin 28.9 pg Mean Corpuscular Hemoglobin Concent 32.4 g/dl Platelet Count 195 K/uL Mean Platelet Volume 9.8 fL Neutrophils (%) (Auto) 62.2 % Lymphocytes (%) (Auto) 25.4 % Monocytes (%) (Auto) 11.3 % Eosinophils (%) (Auto) 0.6 % Basophils (%) (Auto) 0.1 % Neutrophils # (Auto) 9.29 K/uL Lymphocytes # (Auto) 3.79 K/uL Monocytes # (Auto) 1.68 K/uL Eosinophils # (Auto) 0.09 K/uL Basophils # (Auto) 0.02 K/uL RDW Standard Deviation 49.8 fL RDW Coefficient of Variation 15.4 % Immature Granulocyte % (Auto) 0.4 % Immature Granulocyte # (Auto) 0.06 K/uL Prothrombin Time 19.0 SECONDS Prothromb Time International Ratio 1.7 Activated Partial Thromboplast Time 39.1 SECONDS Partial Thromboplastin Ratio 1.5 Sodium Level 139 mmol/L Potassium Level 4.0 mmol/L Chloride Level 106 mmol/L Carbon Dioxide Level 27 mmol/L Anion Gap 6.0 mmol/L Blood Urea Nitrogen 24 mg/dl Creatinine 1.00 mg/dl Est Creatinine Clear Calc Drug Dose 48.5 ml/min Estimated GFR () 64.7 Estimated GFR (Non- 55.8 BUN/Creatinine Ratio 24.1 Random Glucose 159 mg/dl Calcium Level 8.8 mg/dl Magnesium Level 2.0 mg/dl Assessment and Plan COPD exacerbation/acute on chronic bronchitis-- Continue ceftriaxone 1 g IV daily. WBC 11-->14 Pulmicort Respules 0.5 mg inhaled twice a day. Started on solumedorl 30 mg IV q 8 hrs Xopenex/Atrovent nebulizer every 6 hours while awake and every 2 hours when necessary. Pulmonary consulted Nasal cannula 2 L of oxygen, titrated to keep pulse ox greater than or equal to 92%. Continue montelukast sodium 10 mg by mouth at bedtime. Hold Dulera. DVT right lower extremity-- Continue current warfarin dosing with serial PT/INR. Diabetes mellitus-- Continue Lantus 23 units subcutaneous at bedtime. Hold Janumet. Hyperlipidemia--continue simvastatin 20 mg by mouth at bedtime. GERD--continue pantoprazole 40 mg by mouth every morning. Hypothyroidism--continue levothyroxine sodium at 75 g by mouth every morning. Restless leg syndrome--continue Requip 4 mg by mouth at bedtime. GPN--continue gabapentin 100 mg by mouth twice a day and nortriptyline 25 mg by mouth at bedtime. Vitamin B12 deficiency--continue supplement 1000 g by mouth twice a day.
[2017-08-05] MEDS: WARFARIN SOD 4 MG TAB PO SCH (15:30)
[2017-08-05] MEDS: CEFTRIAXONE SOD INJ 1 GM in DEXTROSE 5% ADD-VANTAGE 50ML 50 ML IV SCH (17:49)
[2017-08-05] MEDS: TRAMADOL HCL 50 MG TAB PO PRN ×2 (18:26→23:11)
[2017-08-05] MEDS: ACETAMINOPHEN 325 MG TAB PO PRN (19:43)
--- NOTE | 2017-08-05 19:53 | Pulmonology Progress Note ---
Pulmonary Progress Note Date of Service Aug 05, 2017. Attending Dr. Hayward Subjective Patient notes she is having overall improvement respiratory status but continues to note dyspnea with exertion and intermittent productive cough Objective During our conversation the patient was doing well showing no signs of increased respiratory distress such as tachypnea or any accessory muscle use. She was able to sit up in in bed without any assistance. She was noting a history of sore throat prior to admission and did note that her grandson was recently treated for strep throat. She also noted she got a nasal or throat swallow up at [facility] on Monday when she was initially evaluated. VS: I/O: Temp: 36.9 RR: 18-24 SaO2: 92-90% FiO2: 3-4 L RESP: Mild rhonchi on the right lower lobe with minimal expiratory wheezing CARD: S1-S2 regular rate and rhythm ABD: Positive bowel sounds soft nontender EXT: 2+ pitting edema in the dependent regions Labs: WBC: 11K---15K PLT: 195K INR: 1.7 BUN: 24 Cr: 1.00 Radiology: Chest x-ray 08/03/2017: No signs of consolidative/infiltrative process CT chest 08/03/2017: No focal lung consolidation, small subpleural nodules largest 3 mm Medications: 1. Methylprednisolone 30 mg IV q.8 2. Ceftriaxone 1 g Q 24 hours 3. Warfarin 6 mg daily 4. Protonix 40 mg daily 5. Montelukast 10 mg daily 6. Mucinex 600 mg b.i.d. 7. Xopenex/Atrovent nebulizer q.6 hours 8. Budesonide 0.5 mg nebulized b.i.d. Spirometry 04/05/2017: Within normal limits Pulmonary function studies 03/03/2015: Spirometry: Within normal limits Bronchodilator: No significant response Lung volumes: Total lung capacity within normal limits but decreased residual volume at 31% Diffusion: Mildly reduced at 67% but corrected off alveolar volume to 118% Microbiology history: Expectorated sputum 06/19/2013: Normal randa Expectorated sputum 06/22/2013: Within normal limits Bronchial washing 06/26/2013: Normal randa Bronchial washing 02/16/2016: Normal growth Urine 01/13/2014: Enterococcus faecalis Urine 01/17/2014: Klebsiella pneumonia(ampicillin resistant) Urine 07/08/2016: Enterococcus faecalis Urine 02/08/2017: Vasquez well a/lactobacillus species Urine 01/18/2017: Lactobacillus species Right lower extremity leg ulcer 03/13/2017: Klebsiella oxytoca Cardiac echocardiogram 08/09/2016 LV: EF=60-65%, borderline left ventricular hypertrophy RV: Within normal limits Atria: Within normal limits Valves: Mild tricuspid regurgitation Grade 1 diastolic dysfunction Assessment & Plan 72-year-old female admitted for shortness of breath with bronchitic flare: 1. Sore throat: I have asked for the team to obtain the previous records of the throat are nasal swab performed of our patient Aureliano. Her history nor physical exam currently fit the diagnosis of strep throat but she does have sick contacts noted. Also she did have subjective fevers, and a headache ( which is her normal headache) as well as rhinitis associated with this cough. This time I will perform a swab for influenza a and B evaluation. She is not currently looking toxic in is responding well to her antibiotic treatment will not initiate respiratory isolation or Tamiflu at this time. 2. Hypoxia: Patient's pulmonary function test, previous microbiologic respiratory evaluations even bronchial washings and CT scans do not show signs of severe bronchitis. The patient has had a DVT PE in the past she also has bilateral lower extremity swelling. At this time I would like to have evaluate for possible other etiologies for hypoxia such as CTEPH or cardiac diastolic dysfunction At this time will order echocardiogram for initial evaluation. 3. ID: Patient currently being treated with ceftriaxone but no atypical coverage at this time will initiate azithromycin. 4. Chronic Bronchitis: Are patient has not had a bronchoscopy for re- evaluation of significant respiratory floor since 06/26/2013. As an outpatient we might consider perform bronchoscopy for further evaluation. 5. Chronic rhinitis: Patient has notable in severe chronic rhinitis which will continue exacerbated her cough. Will initiate on Flonase at this time. Data Medications: Current Inpatient Medications Medications (Trade) Dose Ordered Sig/Mick Route Start Time Stop Time Status Last Admin Dose Admin Acetaminophen (Tylenol Tab) 650 mg Q4H PRN PO 08/03/17 19:30 09/02/17 19:29 08/04/17 04:00 650 MG Nitroglycerin (Nitrostat Tab) 0.4 mg UD PRN SL 08/03/17 19:30 09/02/17 19:29 Cholecalciferol (Vitamin D Tab) 2,000 inter.unit QAM PO 08/04/17 09:00 09/03/17 08:59 08/05/17 07:44 2,000 INTER.UNIT Cyanocobalamin (Vitamin B-12 Tab) 1,000 mcg BID PO 08/03/17 21:00 09/02/17 20:59 08/05/17 07:44 1,000 MCG Gabapentin (Neurontin Cap) 100 mg BID PO 08/03/17 21:00 09/02/17 20:59 08/05/17 07:44 100 MG Insulin Glargine (Lantus Solostar Pen) 23 units HS SC 08/03/17 21:00 09/02/17 20:59 08/04/17 21:08 23 UNITS Levothyroxine Sodium (Synthroid Tab) 75 mcg DAILYBB PO 08/04/17 06:00 09/03/17 06:59 08/05/17 04:54 75 MCG Magnesium Chloride (Slow-Mag Tab) 128 mg QPM PO 08/03/17 21:00 09/02/17 20:59 08/04/17 21:04 128 MG Magnesium Chloride (Slow-Mag Tab) 192 mg QAM PO 08/04/17 09:00 09/03/17 08:59 08/05/17 07:45 192 MG Montelukast Sodium (Singulair Tab) 10 mg HS PO 08/03/17 21:00 09/02/17 20:59 08/04/17 21:01 10 MG Nortriptyline HCl (Pamelor Cap) 25 mg HS PO 08/03/17 21:00 09/02/17 20:59 08/04/17 21:01 25 MG Pantoprazole Sodium (Protonix Tab) 40 mg QAM PO 08/04/17 09:00 09/03/17 08:59 08/05/17 07:45 40 MG Ropinirole HCl (Requip Tab) 4 mg HS PO 08/03/17 21:00 09/02/17 20:59 08/04/17 21:04 4 MG Senna/Docusate Sodium (Senokot S Tab) 1 tab DAILY PO 08/04/17 09:00 09/03/17 08:59 08/05/17 07:44 1 TAB Simvastatin (Zocor Tab) 20 mg HS PO 08/03/17 21:00 09/02/17 20:59 08/04/17 21:03 20 MG Warfarin Sodium (Coumadin Tab) 4 mg SuTuWeThSa@1600 PO 08/03/17 19:30 09/02/17 19:29 08/05/17 15:30 4 MG Warfarin Sodium (Coumadin Tab) 6 mg MoFr@1600 PO 08/04/17 16:00 09/03/17 15:59 08/04/17 15:48 6 MG Calcium/Vitamin D (Caltrate Plus Tab) 1 tab QPM PO 08/03/17 21:00 09/02/17 20:59 08/04/17 21:02 1 TAB Ferrous Sulfate (Feosol Tab) 325 mg QPM PO 08/03/17 21:00 09/02/17 20:59 08/04/17 21:03 325 MG Ondansetron HCl (Zofran Inj) 4 mg Q6H PRN IV 08/03/17 19:45 09/02/17 19:44 Insulin Aspart (novoLOG ASPART) SLIDING SCALE If C... ACHS SC 08/03/17 21:00 09/02/17 20:59 08/05/17 16:15 10 UNITS Glucose (Glucose 40% Gel) UD PRN PO 08/03/17 19:45 09/02/17 19:44 Glucose (Glucose Chew Tab) 1 tabs UD PRN PO 08/03/17 19:45 09/02/17 19:44 Dextrose (Dextrose 50% 50ML Syringe) 50 ml UD PRN IV 08/03/17 19:45 09/02/17 19:44 Glucagon (Glucagon Inj) 1 mg UD PRN SQ 08/03/17 19:45 09/02/17 19:44 Ceftriaxone Sodium 1 gm/ Dextrose 50 ml @ 100 mls/hr Q24H IV 08/04/17 18:00 08/10/17 17:59 08/05/17 17:49 100 MLS/HR Guaifenesin (Mucinex Contr Rel Tab) 600 mg Q12 PO 08/03/17 21:00 09/02/17 20:59 08/05/17 07:44 600 MG Budesonide (Pulmicort Respules 0.5MG/ 2ML Neb Soln) 0.5 mg BIDR INH 08/03/17 20:00 09/02/17 19:59 08/05/17 19:42 0.5 MG Ipratropium [place] (Atrovent 0.02% 0.5MG/2.5ML Neb) 0.5 mg Q6R INH 08/03/17 21:00 09/02/17 20:59 08/05/17 19:41 0.5 MG Levalbuterol (Xopenex 1.25MG/ 0.5ML Neb) 1.25 mg Q6R INH 08/03/17 21:00 09/02/17 20:59 08/05/17 19:42 1.25 MG Tramadol HCl (Ultram Tab) 50 mg Q4H PRN PO 08/04/17 05:45 09/03/17 05:44 08/05/17 18:26 50 MG Nystatin (Mycostatin Powder) 1 appln BID PRN EXT 08/04/17 10:45 09/03/17 10:44 Menthol (Nice [place]ordo) 1 gordo PRN PRN PO 08/05/17 05:00 09/04/17 04:59 Methylprednisolone Sodium Succinate 30 mg/Syringe 0.48 ml @ 1.5 mls/min Q8H IV 08/05/17 08:00 09/04/17 07:59 08/05/17 15:30 1.5 MLS/MIN I & O: 24-Hour Column 08/06/17 07:59 Intake Total 895 ml Output Total 325 ml Balance 570 ml Vital Signs: Date Time Temp Pulse Resp B/P (MAP) Pulse Ox O2 Delivery O2 Flow Rate FiO2 08/05/17 19:42 36.6 76 20 145/80 (101) 94 Nasal Cannula 3.0 08/05/17 16:40 36.6 72 18 154/82 (106) 92 Nasal Cannula 3.0 08/05/17 16:02 36.9 83 24 109/77 (88) 98 Nasal Cannula 4.0 08/05/17 16:01 Nasal Cannula 3.0 08/05/17 14:49 92 96 08/05/17 14:11 83 18 98 Nasal Cannula 3.0 08/05/17 12:00 95 Nasal Cannula 3.0 08/05/17 11:43 36.9 79 18 152/80 (104) 96 3.0 08/05/17 08:00 95 Nasal Cannula 3.0 08/05/17 07:04 77 18 95 Nasal Cannula 3.0 08/05/17 06:59 36.8 73 20 169/93 (118) 96 Nasal Cannula 3.0 08/05/17 04:00 95 Nasal Cannula 4.0 08/05/17 04:00 20 97 Nasal Cannula 3.0 08/05/17 02:54 36.5 75 20 149/75 (99) 97 Nasal Cannula 3.0 08/05/17 01:49 88 18 97 Nasal Cannula 3.0 08/05/17 00:00 95 Nasal Cannula 4.0 08/04/17 23:58 36.6 88 20 155/74 (101) 97 Nasal Cannula 3.0 08/04/17 20:15 83 18 97 Nasal Cannula 4.0 08/04/17 20:00 94 Nasal Cannula 4.0 08/04/17 19:48 36.7 79 20 147/82 (103) 94 Nasal Cannula 4.0 Laboratory Results: Last 24 Hours Test 08/04/17 20:31 08/05/17 05:59 08/05/17 06:17 08/05/17 11:29 Bedside Glucose 182 mg/dl 151 mg/dl 107 mg/dl White Blood Count 14.93 K/uL Red Blood Count 4.50 M/uL Hemoglobin 13.0 g/dL Hematocrit 40.1 % Mean Corpuscular Volume 89.1 fL Mean Corpuscular Hemoglobin 28.9 pg Mean Corpuscular Hemoglobin Concent 32.4 g/dl Platelet Count 195 K/uL Mean Platelet Volume 9.8 fL Neutrophils (%) (Auto) 62.2 % Lymphocytes (%) (Auto) 25.4 % Monocytes (%) (Auto) 11.3 % Eosinophils (%) (Auto) 0.6 % Basophils (%) (Auto) 0.1 % Neutrophils # (Auto) 9.29 K/uL Lymphocytes # (Auto) 3.79 K/uL Monocytes # (Auto) 1.68 K/uL Eosinophils # (Auto) 0.09 K/uL Basophils # (Auto) 0.02 K/uL RDW Standard Deviation 49.8 fL RDW Coefficient of Variation 15.4 % Immature Granulocyte % (Auto) 0.4 % Immature Granulocyte # (Auto) 0.06 K/uL Prothrombin Time 19.0 SECONDS Prothromb Time International Ratio 1.7 Activated Partial Thromboplast Time 39.1 SECONDS Partial Thromboplastin Ratio 1.5 Sodium Level 139 mmol/L Potassium Level 4.0 mmol/L Chloride Level 106 mmol/L Carbon Dioxide Level 27 mmol/L Anion Gap 6.0 mmol/L Blood Urea Nitrogen 24 mg/dl Creatinine 1.00 mg/dl Est Creatinine Clear Calc Drug Dose 48.5 ml/min Estimated GFR () 64.7 Estimated GFR (Non- 55.8 BUN/Creatinine Ratio 24.1 Random Glucose 159 mg/dl Calcium Level 8.8 mg/dl Magnesium Level 2.0 mg/dl Test 08/05/17 16:35 Bedside Glucose 260 mg/dl
[2017-08-05] MEDS ORDERED: AZITHROMYCIN 250 MG TAB PO ONE (20:00)
[2017-08-05] MEDS: FLUTICASONE PROPIONATE NA SPR 16 GM BTL SCH (21:00)
[2017-08-05] MEDS: CALCIUM 600MG + VIT D 400 IU TAB PO SCH (21:01)
[2017-08-05] MEDS: NORTRIPTYLINE HCL 25 MG CAP PO SCH (21:02)
[2017-08-05] MEDS: FERROUS SULFATE 325 MG TAB PO SCH (21:02)
[2017-08-05] MEDS: ROPINIROLE HCL 1 MG TAB PO SCH (21:03)
[2017-08-05] MEDS: MONTELUKAST SOD 10 MG TAB PO SCH (21:03)
[2017-08-05] MEDS: SIMVASTATIN 20 MG TAB PO SCH (21:04)
[2017-08-05] MEDS: INSULIN GLARGINE SOLOSTAR 100 UNITS/ML 3 ML PEN SC SCH (21:10)
[2017-08-06] VITALS (9 sets, daily range): BP systolic 154–169; BP diastolic 80–83; PULSE 63–87; TEMP 36.4–36.5; O2SAT 94–98
[2017-08-06] MEDS: IPRATROPIUM BROMIDE NEB SOLN 0.02% 2.5 ML VIAL INH SCH ×4 (01:29→20:12)
[2017-08-06] MEDS: LEVALBUTEROL 1.25MG/0.5ML NEB INH SCH ×4 (01:29→20:12)
[2017-08-06] MEDS: LEVOTHYROXINE 75 MCG TAB PO SCH (06:03)
[2017-08-06 06:09] LABS: BASO % 0.1 %; BASO ABS # 0.01 K/uL (0-0.2); COMPLETE YES; HEMATOCRIT 43.1 % (37-47); IG% 0.5 %; LYMPH % 14.2 %; LYMPH ABS # 1.93 K/uL (1.2-3.4); MEAN CORPUSCULAR HEMOGLOBIN 28.1 pg (25-34); MEAN CORPUSCULAR HGB CONC 31.6 g/dl (32-36); MEAN PLATELET VOLUME 10.1 fL (7.4-10.4); MONO % 4.7 %; NEUT % 80.5 %; PLATELET COUNT 224 K/uL (130-400); RED BLOOD COUNT 4.84 M/uL (4.2-5.4); WHITE BLOOD COUNT 13.58 K/uL (4.8-10.8)
[2017-08-06 06:23] LABS: PARTIAL THROMBOPLASTIN RATIO 1.5
[2017-08-06 06:40] LABS: BUN/CREATININE RATIO 20.3 (10-20); CALCIUM 9.8 mg/dl (8.5-10.1); CREATININE 1.1 mg/dl (0.60-1.20); MAGNESIUM 2.5 mg/dl (1.8-2.4); POTASSIUM 4.5 mmol/L (3.5-5.1)
[2017-08-06] MEDS: BUDESONIDE 0.5 MG/2 ML VIAL (PULMICORT) INH SCH ×2 (07:16→20:12)
[2017-08-06] MEDS: METHYLPREDNISOLONE IV 30 MG in SYRINGE 0 ML IV SCH ×3 (08:16→23:16)
[2017-08-06] MEDS: PANTOprazole SOD 40 MG TAB PO SCH (08:22)
[2017-08-06] MEDS: INSULIN ASPART 100 UNITS/ML 3 ML PEN SC SCH ×4 (08:22→20:48)
[2017-08-06] MEDS: CYANOCOBALAMIN 500 MCG TAB (VIT B-12) PO SCH ×2 (08:23→20:40)
[2017-08-06] MEDS: DOCUSATE SODIUM/SENNA 50/8.6MG TAB PO SCH (08:23)
[2017-08-06] MEDS: CHOLECALCIFEROL 1000 INTER.UNIT TAB PO SCH (08:23)
[2017-08-06] MEDS: GABAPENTIN 100 MG CAP PO SCH ×2 (08:23→20:39)
[2017-08-06] MEDS: GUAIFENESIN 600 MG TABCR PO SCH ×2 (08:23→20:40)
[2017-08-06] MEDS: MAGNESIUM CHLORIDE 64MG DELAYED REL TAB PO SCH ×2 (08:24→20:40)
[2017-08-06] MEDS: FLUTICASONE PROPIONATE NA SPR 16 GM BTL SCH ×2 (08:24→20:40)
--- NOTE | 2017-08-06 13:40 | ECHOCARDIOGRAM REPORT ---
*NOTICE TO RECEIVING LIBERTARIAN AGENCY This information is strictly Confidential and protected under [place] law. [place] law prohibits you from making any further disclosure of this information unless further disclosure is expressly permitted by the written consent of the person to whom it pertains or is authorized by law. A general authorization for the release of medical or other information is not sufficient for this purpose. Hospital accepts no responsibility if the information is made available to any other person, INCLUDING THE PATIENT. Interpretation Summary * Name: QUENITN BUTT Study Date: 08/06/2017 09:34 AM BP: 154/80 mmHg * Patient Location: C.2T\S\S237\S\1 HR: 83 * : 1945 (M/d/yyy) Gender: Female Height: 59 in * Age: 72 yrs Ethnicity: [place] Weight: 194 lb * Ordering Physician: Steven Hayward * Referring Physician: Self, Referred * Performed By: Timothy Knutson RDCS * * Reason For Study: Subendocardial SC * BSA: 1.8 m2 * -- Conclusions -- * 1. Normal LV size. Borderline concentric LVH. * 2. Normal LV systolic function. LVEF 60-65%. No regional wall motion abnormalities. * 3. Normal RV size and function. * 4. No significant valvular pathology. * 5. Normal estimated RA and PA pressures. * 6. Compared with prior study on 08/09/2016: No significant changes. Procedure Details * A complete two-dimensional transthoracic echocardiogram was performed (2D, M-mode, Doppler and color flow Doppler). * The study was technically adequate. Left Ventricle * The left ventricle is grossly normal size. * There is borderline concentric left ventricular hypertrophy. * Ejection Fraction = 60-65%. * No regional wall motion abnormalities noted. Right Ventricle * The right ventricle is grossly normal size. * The right ventricular systolic function is normal as assessed by tricuspid annular plane systolic excursion (TAPSE) (normal >1.5 cm). Atria * Borderline left atrial enlargement. * Right atrial size is normal. * No ASD detected; PFO is not assessed. Mitral Valve * The mitral valve is grossly normal. * There is no mitral valve stenosis. * There is trace mitral regurgitation. Tricuspid Valve * The tricuspid valve is not well visualized, but is grossly normal. * There is no tricuspid stenosis. * There is trace tricuspid regurgitation. * Right ventricular systolic pressure is normal. Aortic Valve * The aortic valve opens well. * The aortic valve is trileaflet. * No hemodynamically significant valvular aortic stenosis. * There is no significant aortic regurgitation. Pulmonic Valve * The pulmonary valve is not well seen, but the Doppler examination is normal without significant regurgitation or stenosis. Great Vessels * The aortic root and proximal ascending aorta are normal sized. Pericardium/Pleural * There is no pericardial effusion. Great Vessels * Normal inferior vena cava size and collapsability with sniff indicates a normal right atrial pressure of 3 mmHg MMode 2D Measurements and Calculations IVSd 1.2 cm IVSs 1.6 cm LVIDd 4.7 cm LVIDs 2.6 cm LVPWd 0.99 cm LVPWs 1.6 cm IVS/LVPW 1.2 FS 43.3 % EDV(Teich) 100.0 ml ESV(Teich) 25.5 ml EF(Teich) 74.5 % EDV(cubed) 100.8 ml ESV(cubed) 18.4 ml EF(cubed) 81.8 % % IVS thick 29.2 % % LVPW thick 61.6 % LV mass(C)d 184.8 grams LV mass(C)dI 101.5 grams/m\S\2 LV mass(C)s 148.0 grams LV mass(C)sI 81.3 grams/m\S\2 SV(Teich) 74.5 ml SI(Teich) 40.9 ml/m\S\2 SV(cubed) 82.4 ml SI(cubed) 45.3 ml/m\S\2 Ao root diam 2.9 cm Ao root area 6.5 cm\S\2 LA dimension 3.7 cm asc Aorta Diam 3.2 cm LA/Ao 1.3 LVOT diam 1.9 cm LVOT area 3.0 cm\S\2 LVAd ap4 24.6 cm\S\2 LVLd ap4 7.9 cm EDV(MOD-sp4) 63.6 ml LVAs ap4 11.7 cm\S\2 LVLs ap4 6.1 cm ESV(MOD-sp4) 19.5 ml EF(MOD-sp4) 69.3 % LVAd ap2 25.6 cm\S\2 LVLd ap2 7.7 cm EDV(MOD-sp2) 70.1 ml LVAs ap2 12.4 cm\S\2 LVLs ap2 6.0 cm ESV(MOD-sp2) 21.4 ml EF(MOD-sp2) 69.5 % SV(MOD-sp4) 44.1 ml SI(MOD-sp4) 24.2 ml/m\S\2 SV(MOD-sp2) 48.7 ml SI(MOD-sp2) 26.8 ml/m\S\2 Doppler Measurements and Calculations MV E max rosales 78.3 cm/sec MV A max rosales 85.1 cm/sec MV E/A 0.92 MV dec time 0.27 sec Ao V2 max 166.1 cm/sec Ao max PG 11.0 mmHg Ao max PG (full) 3.8 mmHg LETY(V,A) 2.4 cm\S\2 LETY(V,D) 2.4 cm\S\2 LV V1 max PG 7.2 mmHg LV V1 max 134.3 cm/sec PA V2 max 129.2 cm/sec PA max PG 6.7 mmHg PA acc slope 774.4 cm/sec\S\2 PA acc time 0.12 sec PA pr(Accel) 26.7 mmHg
--- NOTE | 2017-08-06 13:51 | Progress Note ---
Subjective Date of Service: Aug 06, 2017. Subjective Pt evaluation today including: conversation w/ patient, physical exam, chart review, lab review, review of studies, review of inpatient medication list Reports shortness of breath about the same Decreased productive cough No fevers or chills No acute events overnight Problem List Medical Problems: (1) Abdominal pain Status: Acute (2) Cellulitis Status: Acute (3) Fever Status: Acute (4) Hypomagnesemia Status: Acute (5) Right foot pain Status: Acute (6) Right-sided chest wall pain Status: Acute (7) Swelling of both lower extremities Status: Acute (8) Transaminitis Status: Acute Review of Systems Constitutional: No fever, No chills, No sweats, No weight loss, No weakness Eyes: No worsening of vision, No eye pain, No redness, No discharge ENT: No hearing loss, No unusual epistaxis Respiratory: + cough, + shortness of breath, + dyspnea at rest, No sputum, No wheezing Cardiac: No chest pain, No orthopnea, No PND, No edema Abdomen: No pain, No nausea, No vomiting, No diarrhea Musculoskeletal: No joint pain, No muscle pain, No swelling, No calf pain Female : No dysuria, No urinary frequency, No hematuria, No incontinence Neurologic: No memory loss, No paralysis, No weakness, No numbness/tingling Psychiatric: No depression symptoms, No anhedonism, No anxiety, No insomnia Endo: No fatigue, No excessive thirst Skin: No rash, No itch Objective Vital Signs Date Time Temp Pulse Resp B/P (MAP) Pulse Ox O2 Delivery O2 Flow Rate FiO2 08/06/17 11:33 36.5 81 20 161/83 (109) 95 2.0 08/06/17 08:00 Nasal Cannula 3.0 Humidified Oxygen 08/06/17 07:47 36.5 82 18 169/82 (111) 95 2.0 08/06/17 07:15 83 18 94 Nasal Cannula 3.0 08/06/17 04:00 96 Nasal Cannula 3.0 08/06/17 03:41 36.4 71 18 154/80 (104) 96 Nasal Cannula 3.0 08/06/17 01:30 63 18 95 Nasal Cannula 3.0 08/05/17 23:59 Nasal Cannula 3.0 08/05/17 23:20 36.4 65 20 151/76 (101) 97 Nasal Cannula 3.0 08/05/17 20:00 95 Nasal Cannula 3.0 08/05/17 19:42 71 18 95 Nasal Cannula 3.0 08/05/17 19:42 36.6 76 20 145/80 (101) 94 Nasal Cannula 3.0 08/05/17 16:40 36.6 72 18 154/82 (106) 92 Nasal Cannula 3.0 08/05/17 16:02 36.9 83 24 109/77 (88) 98 Nasal Cannula 4.0 08/05/17 16:01 Nasal Cannula 3.0 08/05/17 14:49 92 96 08/05/17 14:11 83 18 98 Nasal Cannula 3.0 Physical Exam General Appearance: WD/WN, + mild distress Eyes: normal inspection, PERRL, EOMI, sclerae normal Neck: supple, no adenopathy, thyroid normal, no JVD, no carotid bruits Respiratory/Chest: chest non-tender, normal breath sounds, no respiratory distress, + wheezing Cardiovascular: no edema, no gallop, no JVD, no murmur Abdomen: normal bowel sounds, non tender, soft, no organomegaly Extremities: normal range of motion, non-tender, normal inspection, + pedal edema Neurologic/Psychiatric: no motor/sensory deficits, alert, normal mood/affect, oriented x 3 Laboratory Results Last 24 Hours Test 08/05/17 16:35 08/05/17 19:46 08/06/17 05:54 08/06/17 06:36 Bedside Glucose 260 mg/dl 265 mg/dl 265 mg/dl White Blood Count 13.58 K/uL Red Blood Count 4.84 M/uL Hemoglobin 13.6 g/dL Hematocrit 43.1 % Mean Corpuscular Volume 89.0 fL Mean Corpuscular Hemoglobin 28.1 pg Mean Corpuscular Hemoglobin Concent 31.6 g/dl Platelet Count 224 K/uL Mean Platelet Volume 10.1 fL Neutrophils (%) (Auto) 80.5 % Lymphocytes (%) (Auto) 14.2 % Monocytes (%) (Auto) 4.7 % Eosinophils (%) (Auto) 0.0 % Basophils (%) (Auto) 0.1 % Neutrophils # (Auto) 10.93 K/uL Lymphocytes # (Auto) 1.93 K/uL Monocytes # (Auto) 0.64 K/uL Eosinophils # (Auto) 0.00 K/uL Basophils # (Auto) 0.01 K/uL RDW Standard Deviation 49.2 fL RDW Coefficient of Variation 15.1 % Immature Granulocyte % (Auto) 0.5 % Immature Granulocyte # (Auto) 0.07 K/uL Prothrombin Time 22.0 SECONDS Prothromb Time International Ratio 2.0 Activated Partial Thromboplast Time 39.8 SECONDS Partial Thromboplastin Ratio 1.5 Sodium Level 136 mmol/L Potassium Level 4.5 mmol/L Chloride Level 103 mmol/L Carbon Dioxide Level 24 mmol/L Anion Gap 9.0 mmol/L Blood Urea Nitrogen 22 mg/dl Creatinine 1.10 mg/dl Est Creatinine Clear Calc Drug Dose 44.1 ml/min Estimated GFR () 57.7 Estimated GFR (Non- 49.8 BUN/Creatinine Ratio 20.3 Random Glucose 300 mg/dl Calcium Level 9.8 mg/dl Magnesium Level 2.5 mg/dl Test 08/06/17 11:18 Bedside Glucose 204 mg/dl Assessment and Plan Shortness of breath likely multifactorial, COPD exacerbation/acute on chronic bronchitis Continue ceftriaxone 1 g IV daily, added azithromycin for atypical coverage WBC 11-->14-->13 Pulmicort Respules 0.5 mg inhaled twice a day. Started on solumedrol 30 mg IV q 8 hrs Xopenex/Atrovent nebulizer every 6 hours while awake and every 2 hours when necessary. Pulmonary consulted Nasal cannula 2 L of oxygen, titrated to keep pulse ox greater than or equal to 92%. Continue montelukast sodium 10 mg by mouth at bedtime. Hold Dulera. ECHO ordered as well to eval other cardiac etiology of shortness of breath/edema DVT right lower extremity-- Continue current warfarin dosing with serial PT/INR. INR therapeutic Diabetes mellitus-- Continue Lantus 23 units subcutaneous at bedtime. Hold Janumet. Hyperlipidemia--continue simvastatin 20 mg by mouth at bedtime. GERD--continue pantoprazole 40 mg by mouth every morning. Hypothyroidism--continue levothyroxine sodium at 75 g by mouth every morning. Restless leg syndrome--continue Requip 4 mg by mouth at bedtime. GPN--continue gabapentin 100 mg by mouth twice a day and nortriptyline 25 mg by mouth at bedtime. Vitamin B12 deficiency--continue supplement 1000 g by mouth twice a day.
[2017-08-06] MEDS: ACETAMINOPHEN 325 MG TAB PO PRN (14:07)
--- NOTE | 2017-08-06 15:35 | Pulmonology Progress Note ---
Pulmonary Progress Note Date of Service Aug 06, 2017. Attending Dr. Hayward Subjective Patient notes she is not improved over last 24 hour via her pulmonary standards. She still notes episodes of coughing in shortness of breath. Objective During my interview the patient was sitting up in bed showing no signs of respiratory insufficiency and did not cough a single time. She also is not using accessory muscles are becoming tachypneic during speaking. She did continue to note dyspnea on exertion/dyspnea at rest. VS: I/O: -680cc Tmax: 36.5 RR: 18-20 SaO2: 94-96% FiO2: 2-3L RESP: Minimal rhonchi at the bases CARD: S1-S2 regular rate and rhythm ABD: Positive bowel sounds soft nontender EXT: 1+ pitting edema in the dependent regions Labs: WBC: 11K---15K14K PLT: 224K INR: 2.0 BUN: 22 Cr: 1.10 Influenza a and B: Negative Radiology: Chest x-ray 08/03/2017: No signs of consolidative/infiltrative process CT chest 08/03/2017: No focal lung consolidation, small subpleural nodules largest 3 mm Medications: 1. Methylprednisolone 30 mg IV q.8 2. Ceftriaxone 1 g Q 24 hours 3. Warfarin 6 mg daily 4. Protonix 40 mg daily 5. Montelukast 10 mg daily 6. Mucinex 600 mg b.i.d. 7. Xopenex/Atrovent nebulizer q.6 hours 8. Budesonide 0.5 mg nebulized b.i.d. Spirometry 04/05/2017: Within normal limits Pulmonary function studies 03/03/2015: Spirometry: Within normal limits Bronchodilator: No significant response Lung volumes: Total lung capacity within normal limits but decreased residual volume at 31% Diffusion: Mildly reduced at 67% but corrected off alveolar volume to 118% Microbiology history: Expectorated sputum 06/19/2013: Normal randa Expectorated sputum 06/22/2013: Within normal limits Bronchial washing 06/26/2013: Normal randa Bronchial washing 02/16/2016: Normal growth Urine 01/13/2014: Enterococcus faecalis Urine 01/17/2014: Klebsiella pneumonia(ampicillin resistant) Urine 07/08/2016: Enterococcus faecalis Urine 02/08/2017: Vsaquez well a/lactobacillus species Urine 01/18/2017: Lactobacillus species Right lower extremity leg ulcer 03/13/2017: Klebsiella oxytoca Cardiac echocardiogram 08/09/2016 LV: EF=60-65%, borderline left ventricular hypertrophy RV: Within normal limits Atria: Within normal limits Valves: Mild tricuspid regurgitation Grade 1 diastolic dysfunction Cardiac echocardiogram 08/06/2017 LV: EF=60-65%, borderline left ventricular hypertrophy RV: Within normal limits, TAPSE > 1.5cm Atria: Borderline left atrial enlargement Valves: trace tricuspid regurgitation Assessment & Plan 72-year-old female admitted for shortness of breath with bronchitic flare: 1. Sore Throat: Her influenza swab was negative and there does not appear to be a throat swab performed at [facility]. Of note the patient is not actively complaining of fevers, myalgias, headaches or sore throat at this time. Neither does her physical exam suggest acute pharyngitis. 2. Hypoxia: The etiology of this patient's hypoxemia appears to be out of proportion to her pulmonary function test as well as CT of the thorax and previous and recent echocardiograms. Reviewing the patient's 6 minutes walk study from 06/17/2011 there is no signs of desaturation and 6 minutes walk study performed 02/10/2016 also showed no desaturation but the study was discontinued prior to the 1st minute of ambulation secondary to poor patient tolerance. Once again the etiology is patient's hypoxemia is poorly understood at this time requires further evaluation as an outpatient. 3. ID: Patient doing well currently treated with ceftriaxone and azithromycin. She continues to progress suggest we discontinue the ceftriaxone and switch to Augmentin and continue the azithromycin for 5 day window. 4. Chronic Bronchitis: On physical exam as well as watching vital signs of patient does appear to be responding to the therapy nicely. At this time I will continue on her current methylprednisolone dosing but switch her to p.o. prednisone on 08/07/2017. Once again as an outpatient we may we addressed the issue of performing bronchoscopy for evaluation of chronic indolent infection. 5. Chronic rhinitis: Patient has notable in severe chronic rhinitis which will continue exacerbated her cough. Will initiate on Flonase at this time. Data Medications: Current Inpatient Medications Medications (Trade) Dose Ordered Sig/Mick Route Start Time Stop Time Status Last Admin Dose Admin Acetaminophen (Tylenol Tab) 650 mg Q4H PRN PO 08/03/17 19:30 09/02/17 19:29 08/06/17 14:07 650 MG Nitroglycerin (Nitrostat Tab) 0.4 mg UD PRN SL 08/03/17 19:30 09/02/17 19:29 Cholecalciferol (Vitamin D Tab) 2,000 inter.unit QAM PO 08/04/17 09:00 09/03/17 08:59 08/06/17 08:23 2,000 INTER.UNIT Cyanocobalamin (Vitamin B-12 Tab) 1,000 mcg BID PO 08/03/17 21:00 09/02/17 20:59 08/06/17 08:23 1,000 MCG Gabapentin (Neurontin Cap) 100 mg BID PO 08/03/17 21:00 09/02/17 20:59 08/06/17 08:23 100 MG Insulin Glargine (Lantus Solostar Pen) 23 units HS SC 08/03/17 21:00 09/02/17 20:59 08/05/17 21:10 23 UNITS Levothyroxine Sodium (Synthroid Tab) 75 mcg DAILYBB PO 08/04/17 06:00 09/03/17 06:59 08/06/17 06:03 75 MCG Magnesium Chloride (Slow-Mag Tab) 128 mg QPM PO 08/03/17 21:00 09/02/17 20:59 08/05/17 21:05 128 MG Magnesium Chloride (Slow-Mag Tab) 192 mg QAM PO 08/04/17 09:00 09/03/17 08:59 08/06/17 08:24 192 MG Montelukast Sodium (Singulair Tab) 10 mg HS PO 08/03/17 21:00 09/02/17 20:59 08/05/17 21:03 10 MG Nortriptyline HCl (Pamelor Cap) 25 mg HS PO 08/03/17 21:00 09/02/17 20:59 08/05/17 21:02 25 MG Pantoprazole Sodium (Protonix Tab) 40 mg QAM PO 08/04/17 09:00 09/03/17 08:59 08/06/17 08:22 40 MG Ropinirole HCl (Requip Tab) 4 mg HS PO 08/03/17 21:00 09/02/17 20:59 08/05/17 21:03 4 MG Senna/Docusate Sodium (Senokot S Tab) 1 tab DAILY PO 08/04/17 09:00 09/03/17 08:59 08/06/17 08:23 1 TAB Simvastatin (Zocor Tab) 20 mg HS PO 08/03/17 21:00 09/02/17 20:59 08/05/17 21:04 20 MG Warfarin Sodium (Coumadin Tab) 4 mg SuTuWeThSa@1600 PO 08/03/17 19:30 09/02/17 19:29 08/05/17 15:30 4 MG Warfarin Sodium (Coumadin Tab) 6 mg MoFr@1600 PO 08/04/17 16:00 09/03/17 15:59 08/04/17 15:48 6 MG Calcium/Vitamin D (Caltrate Plus Tab) 1 tab QPM PO 08/03/17 21:00 09/02/17 20:59 08/05/17 21:01 1 TAB Ferrous Sulfate (Feosol Tab) 325 mg QPM PO 08/03/17 21:00 09/02/17 20:59 08/05/17 21:02 325 MG Ondansetron HCl (Zofran Inj) 4 mg Q6H PRN IV 08/03/17 19:45 09/02/17 19:44 Insulin Aspart (novoLOG ASPART) SLIDING SCALE If C... ACHS SC 08/03/17 21:00 09/02/17 20:59 08/06/17 11:53 9 UNITS Glucose (Glucose 40% Gel) UD PRN PO 08/03/17 19:45 09/02/17 19:44 Glucose (Glucose Chew Tab) 1 tabs UD PRN PO 08/03/17 19:45 09/02/17 19:44 Dextrose (Dextrose 50% 50ML Syringe) 50 ml UD PRN IV 08/03/17 19:45 09/02/17 19:44 Glucagon (Glucagon Inj) 1 mg UD PRN SQ 08/03/17 19:45 09/02/17 19:44 Ceftriaxone Sodium 1 gm/ Dextrose 50 ml @ 100 mls/hr Q24H IV 08/04/17 18:00 08/10/17 17:59 08/05/17 17:49 100 MLS/HR Guaifenesin (Mucinex Contr Rel Tab) 600 mg Q12 PO 08/03/17 21:00 09/02/17 20:59 08/06/17 08:23 600 MG Budesonide (Pulmicort Respules 0.5MG/ 2ML Neb Soln) 0.5 mg BIDR INH 08/03/17 20:00 09/02/17 19:59 08/06/17 07:16 0.5 MG Ipratropium [place] (Atrovent 0.02% 0.5MG/2.5ML Neb) 0.5 mg Q6R INH 08/03/17 21:00 09/02/17 20:59 08/06/17 14:08 0.5 MG Levalbuterol (Xopenex 1.25MG/ 0.5ML Neb) 1.25 mg Q6R INH 08/03/17 21:00 09/02/17 20:59 08/06/17 14:08 1.25 MG Tramadol HCl (Ultram Tab) 50 mg Q4H PRN PO 08/04/17 05:45 09/03/17 05:44 08/05/17 23:11 50 MG Nystatin (Mycostatin Powder) 1 appln BID PRN EXT 08/04/17 10:45 09/03/17 10:44 Menthol (Nice Gordo) 1 gordo PRN PRN PO 08/05/17 05:00 09/04/17 04:59 Methylprednisolone Sodium Succinate 30 mg/Syringe 0.48 ml @ 1.5 mls/min Q8H IV 08/05/17 08:00 09/04/17 07:59 08/06/17 08:16 1.5 MLS/MIN Azithromycin (Zithromax Tab) 250 mg Q24H ONCE PO 08/06/17 20:00 08/06/17 20:01 Fluticasone Propionate (Flonase Nasal [place]) 1 sprays BID NA 08/05/17 21:00 09/04/17 20:59 08/06/17 08:24 1 SPRAYS I & O: 24-Hour Column 08/07/17 07:59 Intake Total 1050 ml Output Total 850 ml Balance 200 ml Vital Signs: Date Time Temp Pulse Resp B/P (MAP) Pulse Ox O2 Delivery O2 Flow Rate FiO2 08/06/17 14:10 87 18 96 Nasal Cannula 3.0 08/06/17 12:00 Nasal Cannula 3.0 Humidified Oxygen 08/06/17 11:33 36.5 81 20 161/83 (109) 95 2.0 08/06/17 08:00 Nasal Cannula 3.0 Humidified Oxygen 08/06/17 07:47 36.5 82 18 169/82 (111) 95 2.0 08/06/17 07:15 83 18 94 Nasal Cannula 3.0 08/06/17 04:00 96 Nasal Cannula 3.0 08/06/17 03:41 36.4 71 18 154/80 (104) 96 Nasal Cannula 3.0 08/06/17 01:30 63 18 95 Nasal Cannula 3.0 08/05/17 23:59 Nasal Cannula 3.0 08/05/17 23:20 36.4 65 20 151/76 (101) 97 Nasal Cannula 3.0 08/05/17 20:00 95 Nasal Cannula 3.0 08/05/17 19:42 71 18 95 Nasal Cannula 3.0 08/05/17 19:42 36.6 76 20 145/80 (101) 94 Nasal Cannula 3.0 08/05/17 16:40 36.6 72 18 154/82 (106) 92 Nasal Cannula 3.0 08/05/17 16:02 36.9 83 24 109/77 (88) 98 Nasal Cannula 4.0 08/05/17 16:01 Nasal Cannula 3.0 Laboratory Results: Last 24 Hours Test 08/05/17 16:35 08/05/17 19:46 08/06/17 05:54 08/06/17 06:36 Bedside Glucose 260 mg/dl 265 mg/dl 265 mg/dl White Blood Count 13.58 K/uL Red Blood Count 4.84 M/uL Hemoglobin 13.6 g/dL Hematocrit 43.1 % Mean Corpuscular Volume 89.0 fL Mean Corpuscular Hemoglobin 28.1 pg Mean Corpuscular Hemoglobin Concent 31.6 g/dl Platelet Count 224 K/uL Mean Platelet Volume 10.1 fL Neutrophils (%) (Auto) 80.5 % Lymphocytes (%) (Auto) 14.2 % Monocytes (%) (Auto) 4.7 % Eosinophils (%) (Auto) 0.0 % Basophils (%) (Auto) 0.1 % Neutrophils # (Auto) 10.93 K/uL Lymphocytes # (Auto) 1.93 K/uL Monocytes # (Auto) 0.64 K/uL Eosinophils # (Auto) 0.00 K/uL Basophils # (Auto) 0.01 K/uL RDW Standard Deviation 49.2 fL RDW Coefficient of Variation 15.1 % Immature Granulocyte % (Auto) 0.5 % Immature Granulocyte # (Auto) 0.07 K/uL Prothrombin Time 22.0 SECONDS Prothromb Time International Ratio 2.0 Activated Partial Thromboplast Time 39.8 SECONDS Partial Thromboplastin Ratio 1.5 Sodium Level 136 mmol/L Potassium Level 4.5 mmol/L Chloride Level 103 mmol/L Carbon Dioxide Level 24 mmol/L Anion Gap 9.0 mmol/L Blood Urea Nitrogen 22 mg/dl Creatinine 1.10 mg/dl Est Creatinine Clear Calc Drug Dose 44.1 ml/min Estimated GFR () 57.7 Estimated GFR (Non- 49.8 BUN/Creatinine Ratio 20.3 Random Glucose 300 mg/dl Calcium Level 9.8 mg/dl Magnesium Level 2.5 mg/dl Test 08/06/17 11:18 Bedside Glucose 204 mg/dl
[2017-08-06] MEDS: WARFARIN SOD 4 MG TAB PO SCH (16:03)
[2017-08-06] MEDS: CEFTRIAXONE SOD INJ 1 GM in DEXTROSE 5% ADD-VANTAGE 50ML 50 ML IV SCH (17:36)
[2017-08-06] MEDS ORDERED: AZITHROMYCIN 250 MG TAB PO ONE (20:00)
[2017-08-06] MEDS: ROPINIROLE HCL 1 MG TAB PO SCH (20:40)
[2017-08-06] MEDS: FERROUS SULFATE 325 MG TAB PO SCH (20:40)
[2017-08-06] MEDS: CALCIUM 600MG + VIT D 400 IU TAB PO SCH (20:40)
[2017-08-06] MEDS: MONTELUKAST SOD 10 MG TAB PO SCH (20:40)
[2017-08-06] MEDS: NORTRIPTYLINE HCL 25 MG CAP PO SCH (20:41)
[2017-08-06] MEDS: SIMVASTATIN 20 MG TAB PO SCH (20:41)
[2017-08-06] MEDS: INSULIN GLARGINE SOLOSTAR 100 UNITS/ML 3 ML PEN SC SCH (20:48)
[2017-08-06] MEDS: TRAMADOL HCL 50 MG TAB PO PRN (23:16)
[2017-08-07] VITALS (8 sets, daily range): BP systolic 135–174; BP diastolic 78–82; PULSE 69–95; TEMP 36.5–36.8; O2SAT 91–97
[2017-08-07] MEDS: IPRATROPIUM BROMIDE NEB SOLN 0.02% 2.5 ML VIAL INH SCH ×4 (02:09→20:02)
[2017-08-07] MEDS: LEVALBUTEROL 1.25MG/0.5ML NEB INH SCH ×4 (02:09→20:02)
[2017-08-07] MEDS: LEVOTHYROXINE 75 MCG TAB PO SCH (06:00)
[2017-08-07] MEDS: BUDESONIDE 0.5 MG/2 ML VIAL (PULMICORT) INH SCH ×2 (07:17→20:01)
[2017-08-07] MEDS: GUAIFENESIN 600 MG TABCR PO SCH ×2 (08:15→21:12)
[2017-08-07] MEDS: FLUTICASONE PROPIONATE NA SPR 16 GM BTL SCH ×2 (08:15→21:12)
[2017-08-07] MEDS: DOCUSATE SODIUM/SENNA 50/8.6MG TAB PO SCH (08:16)
[2017-08-07] MEDS: CHOLECALCIFEROL 1000 INTER.UNIT TAB PO SCH (08:17)
[2017-08-07] MEDS: MAGNESIUM CHLORIDE 64MG DELAYED REL TAB PO SCH ×2 (08:17→21:17)
[2017-08-07] MEDS: GABAPENTIN 100 MG CAP PO SCH ×2 (08:17→21:14)
[2017-08-07] MEDS: PANTOprazole SOD 40 MG TAB PO SCH (08:18)
[2017-08-07] MEDS: METHYLPREDNISOLONE IV 30 MG in SYRINGE 0 ML IV SCH (08:18)
[2017-08-07] MEDS: CYANOCOBALAMIN 500 MCG TAB (VIT B-12) PO SCH ×2 (08:18→21:20)
[2017-08-07] MEDS: INSULIN ASPART 100 UNITS/ML 3 ML PEN SC SCH ×4 (08:23→21:28)
[2017-08-07] MEDS ORDERED: AZITHROMYCIN 250 MG TAB PO ONE (10:43)
[2017-08-07] MEDS: WARFARIN SOD 6 MG TAB PO SCH (16:03)
[2017-08-07] MEDS: AMOXICILLIN/CLAVULANATE TAB 875 MG TAB PO SCH (16:58)
[2017-08-07] MEDS ORDERED: MAGIC MOUTHWASH PO SCH (17:15)
--- NOTE | 2017-08-07 18:30 | Progress Note ---
Subjective Date of Service: Aug 07, 2017. Subjective Pt evaluation today including: conversation w/ patient, physical exam, chart review, lab review Pain: mouth - irritation of lips PO Intake: normal Voiding: no voiding problems feels good "I want to go home tomorrow" dyspnea resolved minimal cough Problem List Medical Problems: (1) Abdominal pain Status: Acute (2) Cellulitis Status: Acute (3) Fever Status: Acute (4) Hypomagnesemia Status: Acute (5) Right foot pain Status: Acute (6) Right-sided chest wall pain Status: Acute (7) Swelling of both lower extremities Status: Acute (8) Transaminitis Status: Acute Review of Systems Constitutional: No fever Respiratory: No shortness of breath, No dyspnea on exertion Cardiac: No chest pain Abdomen: No pain Objective Vital Signs Date Time Temp Pulse Resp B/P (MAP) Pulse Ox O2 Delivery O2 Flow Rate FiO2 08/07/17 17:08 36.5 81 18 150/81 (104) 92 Room Air 08/07/17 14:02 95 16 97 Room Air 08/07/17 10:07 93 Room Air 08/07/17 08:55 36.6 91 161/81 (107) 93 Room Air 90 174/82 (112) 08/07/17 07:54 36.8 69 20 135/80 (98) 96 Room Air 08/07/17 07:17 80 18 93 Room Air 08/07/17 00:55 36.6 78 18 142/78 (99) 94 Room Air 08/07/17 00:01 Nasal Cannula 2.0 08/06/17 20:12 85 18 98 Nasal Cannula 3.0 08/06/17 20:00 Room Air 08/06/17 17:30 95 Room Air Physical Exam General Appearance: no apparent distress ENT: + pharyngeal erythema Neck: no JVD Respiratory/Chest: lungs clear, no respiratory distress, no accessory muscle use, + wheezing (scant b/l ) Cardiovascular: regular rate, rhythm, no gallop, no murmur Abdomen: normal bowel sounds, non tender, soft, no organomegaly Extremities: no pedal edema Neurologic/Psychiatric: alert, oriented x 3 Laboratory Results Last 24 Hours Test 08/06/17 20:46 08/07/17 07:35 08/07/17 11:49 08/07/17 16:43 Bedside Glucose 244 mg/dl 200 mg/dl 248 mg/dl 273 mg/dl Assessment and Plan 72yo female with: 1. acute hypoxic respiratory failure 2nd to COPD exacerbation - resolved. Cont oral prednisone taper & abx. nebs/inhalers. overall feels much better with stable O2 sats. 2. RLE DVT - cont coumadin, INR in am. 3. T2DM - glycemic control per pharmacy. Resume po meds at discharge. 4. GERD - PPI. 5. Hypothyroidism - cont synthroid. 6. restless legs - continue requip at HS. anticipate d/c home in AM Discharge planning: home
[2017-08-07] MEDS ORDERED: NURSING VERBAL MED ORDER ONE (19:00)
[2017-08-07] MEDS ORDERED: INSULIN ASPART 100 UNITS/ML 3 ML PEN SC ONE (19:15)
[2017-08-07] MEDS: DEXAMETHASONE CONC SOLN 3.75 MG, NYSTATIN SUSP 30 ML, DiphenhydrAMINE HCL SYRUP 300 MG,... PO SCH ×5 (21:11)
[2017-08-07] MEDS: FERROUS SULFATE 325 MG TAB PO SCH (21:13)
[2017-08-07] MEDS: CALCIUM 600MG + VIT D 400 IU TAB PO SCH (21:15)
[2017-08-07] MEDS: ROPINIROLE HCL 1 MG TAB PO SCH (21:16)
[2017-08-07] MEDS: SIMVASTATIN 20 MG TAB PO SCH (21:17)
[2017-08-07] MEDS: NORTRIPTYLINE HCL 25 MG CAP PO SCH (21:18)
[2017-08-07] MEDS: MONTELUKAST SOD 10 MG TAB PO SCH (21:19)
[2017-08-07] MEDS: INSULIN GLARGINE SOLOSTAR 100 UNITS/ML 3 ML PEN SC SCH (21:30)
[2017-08-08] VITALS (8 sets, daily range): BP systolic 136–157; BP diastolic 74–84; PULSE 65–84; TEMP 36.7; O2SAT 91–96
[2017-08-08] MEDS: LEVALBUTEROL 1.25MG/0.5ML NEB INH SCH ×3 (01:54→14:34)
[2017-08-08] MEDS: IPRATROPIUM BROMIDE NEB SOLN 0.02% 2.5 ML VIAL INH SCH ×3 (01:54→14:34)
[2017-08-08] MEDS: LEVOTHYROXINE 75 MCG TAB PO SCH (06:37)
[2017-08-08] MEDS: DEXAMETHASONE CONC SOLN 3.75 MG, NYSTATIN SUSP 30 ML, DiphenhydrAMINE HCL SYRUP 300 MG,... PO SCH ×15 (06:38→16:13)
[2017-08-08] MEDS: BUDESONIDE 0.5 MG/2 ML VIAL (PULMICORT) INH SCH (07:22)
[2017-08-08 07:37] LABS: INR 2.7 (0.9-1.1); PROTHROMBIN TIME (PATIENT) 30.1 SECONDS (9.0-12.0)
[2017-08-08 08:13] LABS: BUN/CREATININE RATIO 26.6 (10-20); CALCIUM 9.9 mg/dl (8.5-10.1); FERRITIN 138.6 ng/ml (8.0-388.0); POTASSIUM 3.3 mmol/L (3.5-5.1)
[2017-08-08] MEDS: CYANOCOBALAMIN 500 MCG TAB (VIT B-12) PO SCH (08:44)
[2017-08-08] MEDS: GABAPENTIN 100 MG CAP PO SCH (08:45)
[2017-08-08] MEDS: MAGNESIUM CHLORIDE 64MG DELAYED REL TAB PO SCH (08:45)
[2017-08-08] MEDS: GUAIFENESIN 600 MG TABCR PO SCH (08:46)
[2017-08-08] MEDS: PANTOprazole SOD 40 MG TAB PO SCH (08:46)
[2017-08-08] MEDS: AMOXICILLIN/CLAVULANATE TAB 875 MG TAB PO SCH ×2 (08:46→16:44)
[2017-08-08] MEDS: CHOLECALCIFEROL 1000 INTER.UNIT TAB PO SCH (08:46)
[2017-08-08] MEDS: FLUTICASONE PROPIONATE NA SPR 16 GM BTL SCH (08:47)
[2017-08-08] MEDS: DOCUSATE SODIUM/SENNA 50/8.6MG TAB PO SCH (08:47)
[2017-08-08] MEDS ORDERED: POTASSIUM CHLORIDE 10 MEQ TABCR PO STA (08:56)
[2017-08-08] MEDS: INSULIN ASPART 100 UNITS/ML 3 ML PEN SC SCH ×3 (09:00→17:49)
[2017-08-08] MEDS ORDERED: AZITHROMYCIN 250 MG TAB PO SCH (09:00)
[2017-08-08] MEDS ORDERED: TRIAMCINOLONE ACET NASAL SPRAY 10.8ML BTL NAE SCH (13:45)
[2017-08-08] MEDS ORDERED: FEXOFENADINE HCL 180 MG TAB PO SCH (13:45)
[2017-08-08] MEDS ORDERED: NYSTATIN CR 15 GM TUBE EXT SCH (14:00)
[2017-08-08] MEDS: WARFARIN SOD 4 MG TAB PO SCH (16:12)
[2017-08-08] MEDS ORDERED: TRIA1SPR4 NAE (16:47)
[2017-08-08] MEDS ORDERED: NYSCR15 EXT (16:47)
[2017-08-08] MEDS ORDERED: ALL180 PO (16:47)
[2017-08-08] MEDS ORDERED: NYSS/ PO (16:47)
[2017-08-08] MEDS ORDERED: DXY100 PO (16:47)
[2017-08-08] MEDS ORDERED: PRED10TA PO (16:47)
[2017-08-08] MEDS ORDERED: GFNSR600 PO (16:47)
--- NOTE | 2017-08-08 16:55 | Discharge Instructions ---
Discharge Instructions Date of Service Aug 08, 2017. Admission Reason for Admission: Copd Exacerbation Discharge Discharge Diagnosis / Problem: COPD exacerbation Discharge Goals Goal(s): Learn about illness, Diagnostic testing, Therapeutic intervention Activity Recommendations Activity Limitations: as noted below Take it easy over the next few days as you recover from your illness. No heavy exertional activities both indoors and outdoors. Can gradually build up your activity level in the next week. . Instructions / Follow-Up Instructions / Follow-Up From Dr. Trujillo - 1. for your COPD "exacerbation" / bronchitis do the following - * take a course of doxycycline 100mg twice daily for 4 more days; begin this TONIGHT * if you go out in the sun in the next 5 days cover up and use sunscreen as the doxycycline can cause a rash * take a course of prednisone; start this TOMORROW * use your inhaler (combivent or albuterol) every 6 hours SCHEDULED for the next 4-5 days as you recover from your illness * use mucinex (can purchase nqxh-urf-[id number]) every 12 hours as needed for cough 2. for sinus congestion - * use nasacort nasal spray - 2 squirts in each nostril once daily * use cvkq-dut-nlslmfb maribel (fexofenadine) 180mg once daily * also can use saline spray, etc 3. for rash under the right breast - * nystatin cream 3 times a day for 7-10 days 4. for gum irritation / sore throat - * nystatin solution - 5 ml 4 times a day for 10 days * recommend that you swish and swallow this 5. diabetes - * resume your metformin as previous * resume your prior lantus and novolog insulin regimen * note that your sugars may run higher for a few more days due to the prednisone you are on for the breathing * if your blood sugars run higher than 250 consistently please contact your family doctor for guidance * check blood sugars before meals & at bedtime 6. Check your INR at home TOMORROW. If you are 3 or higher please HOLD the warfarin (coumadin) and call your family doctor or coumadin provider for guidance. If it is 2-3 (in range) simply continue your coumadin dosing as previous. 7. Return to [facility] if - * you have fever over 100.4 degrees * you have worsening cough, shortness of breath, etc * you find yourself using your oxygen vlxqym-edh-ddwxp rather than just at night * you have blood sugars greater than 250 or more consistently * any other concerns 8. See your family doctor THIS WEEK as scheduled. Current Hospital Diet Patient's current hospital diet: Diabetes Type 2 Diet Discharge Diet Recommended Diet: Diabetes Type 2 Diet Procedures Procedures Performed: CAT scan of lungs showing no pneumonia Pending Studies Studies pending at discharge: no Laboratory Results Hemoglobin A1c Test 07/24/17 09:21 Range/Units Estimated Average Glucose 278 mg/dl Hemoglobin A1c 11.3 H 4.5-5.6 % Medical Emergencies . Who to Call and When: Medical Emergencies: If at any time you feel your situation is an emergency, please call 911 immediately. . Non-Emergent Contact Non-Emergency issues call your: Primary Care Provider Call Non-Emergent contact if: temperature is above 100.5, you have any medication questions . . "Provider Documentation" section prepared by Neri Trujillo. . VTE Core Measure Inpt VTE Proph given/why not?: Warfarin (Coumadin)
--- NOTE | 2017-08-15 11:05 | Discharge Summary ---
Discharge Summary Date of Service Aug 15, 2017. Discharge Summary Admission Date: Aug 03, 2017 at 19:35 Discharge Date: Aug 08, 2017 Discharge Disposition: Home Principal Diagnosis: acute hypoxic respiratory failure 2nd to COPD exacerbation Problems/Secondary Diagnoses: 1. RLE DVT 2. T2DM 3. thrush 4. chronic sinusitis 5. GERD 6. hypothyroidism 7. restless legs syndrome 8. CKD stage 2 9. hypokalemia 10. h/o Sjogren's syndrome 11. HTN 12. h/o GABY Immunizations: Have You Had Influenza Vaccine: Yes Influenza Vaccine Date: Aug 27, 2013 History of Tetanus Vaccine?: No History of Pneumococcal: Yes Pneumococcal Date: Nov 27, 2009 History of Hepatitis B Vaccine: No Procedures: 1. CT chest, noncontrast: IMPRESSION: 1. No significant change compared the prior study. 2. No new focal lung consolidations to suggest pneumonia. 3. A few scattered tiny stable pulmonary nodules with the largest measuring 3mm. These are also likely benign. 2. echocardiogram: * -- Conclusions -- * 1. Normal LV size. Borderline concentric LVH. * 2. Normal LV systolic function. LVEF 60-65%. No regional wall motion abnormalities. * 3. Normal RV size and function. * 4. No significant valvular pathology. * 5. Normal estimated RA and PA pressures. * 6. Compared with prior study on 08/09/2016: No significant changes. Consultations: pulmonary - STEVE Galicia PT, OT Medication Reconciliation New Medications: Doxycycline Hyclate (Doxycycline Hyclate) 100 Mg Cap 100 MG PO BID for 4 Days, #8 CAP 0 Refills Nystatin (Nystatin Suspension) 1 Ml Susp 5 ML PO QID for 10 Days, #200 ML 0 Refills swish & swallow Prednisone Tab (Prednisone) 10 Mg Tab 10 MG PO DIRECTED, #19 TAB 0 Refills start 08/09/17: take 4 tabs days 1/2, 3 tabs days 3/4, 2 tabs days 5/6, then 1 tab day 7, then stop. Take with food. Fexofenadine HCl (Fexofenadine HCl) 180 Mg Tab 180 MG PO QAM, #30 TAB 0 Refills can purchase yanr-zka-oxdikrc Guaifenesin Ext Rel (Mucinex Ext Rel) 600 Mg Tabcr 600 MG PO Q12 PRN for cough/congestion, #30 TABS 0 Refills can purchase vgez-oyv-lapptxx Nystatin (Nystatin) 45 Appln/15 Gm Cr 1 APPLN EXT TID, #1 TUBE 0 Refills apply to areas of irritation under right breast for 7-10 days Triamcinolone Acetonide (Nasal (Nasacort Allergy 24Hr) 55 Mcg/Act Spr 2 SPRAYS AMI DAILY, #1 INHALER 1 Refill Continued Medications: Albuterol Hfa (Ventolin Hfa) 200 Puffs/67789 Mcg Aers 2 PUFFS INH Q4H PRN for SOB/Wheezing, INHALER Calcium (Calcium) 500 Mg Tab 500 MG PO QPM Cholecalciferol (Vitamin D 1000 Unit) 1,000 Unit Cap 2000 INTER.UNIT PO QAM Cyanocobalamin (Vitamin B-12 1000 Mcg) 1,000 Mcg Tab 1000 MCG PO BID, TAB Ferrous Sulfate (Iron) 325 Mg Tab 325 MG PO QPM Gabapentin (Neurontin) 100 Mg Cap 100 MG PO BID, CAP Home O2 Therapy (Oxygen) Gas 2 LITERS NA HS Insulin Aspart (Novolog Flexpen) 100 Units/Ml Inj 10 UNITS SC TIDM Insulin Glargine (Lantus Solostar) 100 Unit/Ml Inj 23 UNITS SC HS Ipratropium-Albuterol (Combivent Respimat) 1 Aer Aer 1 PUFF INH Q8-12H PRN for Shortness of Breath, INH Levothyroxine Sodium (Levothyroxine Sodium) 75 Mcg Tab 75 MCG PO QAM Magnesium Chloride (Slow-Mag Tab) 64 Mg Tabcr 128 MG PO QPM, TAB Magnesium Chloride (Slow-Mag Tab) 64 Mg Tabcr 192 MG PO QAM, TAB Mometasone Furoate-Formoterol (Dulera 100/5 Mcg) 1 Aer Aer 2 PUFFS INH BID Montelukast Sod (Montelukast Sodium) 10 Mg Tab 10 MG PO HS Nortriptyline HCl (Nortriptyline HCl) 25 Mg Cap 25 MG PO HS Pantoprazole (Pantoprazole Sodium) 40 Mg Tab 40 MG PO QAM Ropinirole Hydrochloride (Requip) 4 Mg Tab 4 MG PO HS Sennosides-Docusate Sodium (Stool Softener) 1 Tab Tab 1 TAB PO DAILY Simvastatin (Simvastatin) 20 Mg Tab 20 MG PO HS Sitagliptin-Metformin Hcl (Janumet) 1 Tab Tab 1 TAB PO BID, TAB MG Torsemide (Demadex) 20 Mg Tab 20 MG PO BID PRN for Fluid Retention, TAB Warfarin Sod (Jantoven) 2 Mg Tab 6 MG PO 2XWK TAKE 6 MG EVERY MONDAY AND MONDAY OR OTHERWISE DIRECTED TO TAKE BY ANTICOAGULATION CLINIC/MD Warfarin Sod (Jantoven) 2 Mg Tab 4 MG PO 5XWK, TAB TAKE 4 MG EVERY MONDAY,MONDAY,MONDAY,MONDAY AND MONDAY OR OTHERWISE DIRECTED TO TAKE BY ANTICOAGULATION CLINIC/MD Discharge Exam Physical Exam: General Appearance: no apparent distress, + obese ENT: pharynx normal (resolved thrush) Neck: no JVD Respiratory/Chest: lungs clear, no respiratory distress, no accessory muscle use Cardiovascular: regular rate, rhythm, no gallop, no murmur, normal peripheral pulses Abdomen / GI: normal bowel sounds, non tender, soft, no organomegaly Extremities: no pedal edema Neurologic/Psychiatric: alert, normal mood/affect, oriented x 3 Skin: + pertinent finding (intertrigo under right breast ) Hospital Course HISTORY OF PRESENT ILLNESS: The patient is a 72-year-old female with a PMH including COPD, pneumonia and chronic bronchitis who was brought to the emergency department via EMS due to a worsening illness that began with a sore throat 4 days ago, and then 3 days ago developed a bad cough with chest tightness, elevated temperature, shortness of breath, back pain and a bad headache. She has not had any recent travels or known sick exposures. HOSPITAL COURSE: The patient was treated for her COPD exacerbation / acute hypoxic respiratory failure with steroids, antibiotics, nebs, and supportive care. Her respiratory status gradually improved with these measures and O2 was weaned off. CT chest failed to show pneumonia. Several tiny nodules were seen. She never had complicating CHF. Pulmonary was consulted who assisted in her management. She will complete a course of steroids and antibiotics after discharge. Other issues addressed while here included uncontrolled T2DM with episodes of hypoglycemia, allergies/sinus troubles, and thrush. All other medical problems remained stable while here. Total Time Spent: Greater than 30 minutes This includes examination of the patient, discharge planning, medication reconciliation, and communication with other providers. Discharge Instructions Please refer to the electronic Patient Visit Report (Discharge Instructions) for additional information. Follow-Up Gillian Nogueira PA-C on MondayAugust 11 at 11:00 am. Additional Copies To Omar Joshi M.D.; Joe Elizabeth PA-C
== END 2017-08-08 18:37 | disposition home or self-care (01) | DRG 190 ==
LOC: EDBD 16:06 → C.EDB 16:08 → C.2T 19:35 → ENRESERV 19:46 → C.2T 08-04 20:03 → ENRESERV 08-06 14:49 → C.MS2W 08-06 16:42
PROVIDERS: ADMIT Hospitalist; ATTEND Family Medicine
DX: J44.1 Chronic obstructive pulmonary disease with (acute) exacerbation (principal); I82.421 Acute embolism and thrombosis of right iliac vein; J96.01 Acute respiratory failure with hypoxia; B37.0 Candidal stomatitis; E11.21 Type 2 diabetes mellitus with diabetic nephropathy; I12.9 Hypertensive chronic kidney disease with stage 1 through stage 4 chronic kidney disease, or unspecified chronic kidney disease; G47.33 Obstructive sleep apnea (adult) (pediatric); M35.00 Sjogren syndrome, unspecified; Z79.4 Long term (current) use of insulin; G25.81 Restless legs syndrome; Z98.1 Arthrodesis status; E78.5 Hyperlipidemia, unspecified; K21.9 Gastro-esophageal reflux disease without esophagitis; E53.8 Deficiency of other specified B group vitamins; E83.42 Hypomagnesemia; R09.02 Hypoxemia; J02.9 Acute pharyngitis, unspecified; N18.2 Chronic kidney disease, stage 2 (mild)

== ENCOUNTER → 2017-08-28 | Outpatient (CLI) | payer BC ==
[~2017-08-28] MED LIST changes: +ALL180 PO; -AMOX875T PO; +CHOL100027 PO; -CLOT10TR2 MT; -DMD20 PO; +DXY100 PO; -ENOX1INJ11 SQ; +GABA-112 PO; -GABA1CAP PO; +GFNSR600 PO; -HYDR-5688 PO; -IPRASOL4 INH; +LEVO75TA5 PO; -LEVO88TA3 PO; -LYSI500C4 PO; +MOME100A INH; -NORT25CA PO; +NRT25 PO; +NYSCR15 EXT; +NYSS/ PO; -PANT40TA PO; -POTA20TA13 PO; +PRED10TA PO; +PRT/40 PO; -ROPI4TAB3 PO; +ROPI4TAB4 PO; +SIMV-151 PO; -SIMV20TA2 PO; +SLWMEC PO; +SNG10 PO; +TORS20TA2 PO; +TRIA1SPR4 NAE; +VNTHFA/IN INH
[2017-08-28 13:58] LABS: MANUAL MICROSCOPIC REQUIRED? NO; REVIEW REQ? YES; URINE APPEARANCE CLEAR (CLEAR); URINE BILIRUBIN NEG (NEG); URINE COLOR YELLOW; URINE EPITHELIAL CELL AUTO >30 /lpf (0-5); URINE NITRITE NEG (NEG); URINE SPECIFIC GRAVITY 1.021 (1.000-1.030); UROBILINOGEN NEG (NEG)
== END | disposition home or self-care (01) ==
LOC: C.LABBC 10:19
PROVIDERS: ATTEND Internal Medicine Geriatric Medicine
DX: R39.9 Unspecified symptoms and signs involving the genitourinary system (principal)

== ENCOUNTER → 2017-08-30 | Outpatient (CLI) | payer BC ==
[2017-08-30 14:13] LABS: URINE APPEARANCE CLEAR (CLEAR); URINE BILIRUBIN NEG (NEG); URINE COLOR YELLOW; URINE NITRITE NEG (NEG); URINE SPECIFIC GRAVITY 1.037 (1.000-1.030); UROBILINOGEN NEG (NEG)
[2017-08-30 14:25] LABS: MANUAL MICROSCOPIC REQUIRED? NO; REVIEW REQ? NO
== END ==
LOC: C.LABBC 11:50
PROVIDERS: ATTEND Internal Medicine Geriatric Medicine
DX: R39.9 Unspecified symptoms and signs involving the genitourinary system (principal)

== ENCOUNTER 2017-09-08 16:48 | Emergency (ER) | payer BC ==
[2017-09-08 16:52] VITALS: BP 162/68; PULSE 76; TEMP 36.8; O2SAT 95; Ht 149.9 cm
[2017-09-08] MEDS ORDERED: ACETAMINOPHEN 500 MG TAB PO STA (17:08)
--- NOTE | 2017-09-08 17:15 | EMERGENCY ROOM VISIT NOTE ---
ED Visit Note First contact with patient: 17:00 CHIEF COMPLAINT: Right Rib injury and left wrist contusion after fall HISTORY OF PRESENT ILLNESS: This 72-year-old female patient presents to the emergency department, ambulatory, from within the hospital, complaining of pain in the right ribs and left wrist after a mechanical fall from standing. The patient states about 30 minutes ago, she was walking to the bathroom, when she believes her foot got caught on the floor. She states she fell forward, landing on her right breast, but believes she had her left hand out to try to catch herself from the fall. There is increased pain with deep breathing or coughing. Attempting to sit up from a lying position is painful. Denies shortness of breath or coughing up blood. There is pain in the left wrist on the medial aspect. There is also an overlying contusion. Patient states she does have increased pain with movement of the wrist, however she does have full range of motion. The patient rates the pain as sharp and 9/10 at its worst. The patient has taken nothing relief of the pain. No previous fractures to the ribs or wrist. The patient denies any other injury. The patient denies any abdominal pain, nausea, or vomiting. REVIEW OF SYSTEMS: A 6 system review of systems was completed with positives and pertinent negatives listed in the HPI. ALLERGIES: Please see list. MEDICATIONS: Please see list. PMH: COPD, diabetes, hypothyroidism, restless leg syndrome, GERD, hyperlipidemia SOCIAL HISTORY: Lives locally with family. She denies drug, alcohol, tobacco use. PHYSICAL EXAM: VITALS: Vitals are noted on the nurse's note and reviewed by myself. Vital signs stable. GENERAL: This is a 72-year-old white female, in no acute distress, nondiaphoretic, well-developed well-nourished. LUNGS: Clear to auscultation and breath sounds equal, no wheezes, rales, or rhonchi. HEART: Heart sounds are regular without murmurs, ectopy, gallop, or rub. CHEST: The right chest wall is tender to palpation over the fourth through 10th ribs but there is no fracture crepitus and no ecchymosis. There is no tachypnea or dyspnea. ABDOMEN : Positive bowel sounds x 4. Normal tympanic percussion. Soft, nontender, without masses or organomegaly. No guarding or rebound tenderness. NEURO: Patient was alert and oriented to person place and time. MUSCULOSKELETAL: There is no deformity of the left wrist. There is tenderness and edema over the medial aspect of the left wrist. There is no snuff box tenderness. Range of motion is full, however painful. There is no tenderness of the elbow, hand or fingers. Research Methods Instructor strength 5/5. Radial pulse 2+. RADIOLOGY: X-Ray Right Ribs with PA Chest: R RIBS UNILATERAL WITH PA CHEST CLINICAL HISTORY: 72 years-old Female presenting with fall, right chest wall pain. TECHNIQUE: Frontal and oblique views of the right ribs as well as PA view of the chest were obtained. COMPARISON: Chest x-ray from 08/03/2017. FINDINGS: No displaced right rib fracture. Atherosclerosis of aortic arch. Cardiac silhouette mildly enlarged. Lungs and pleural spaces clear. Partially visualized posterior lumbar fusion hardware as well as a implanted stimulator device and multiple surgical clips. Degenerative changes of the spine. IMPRESSION: 1. No evidence of displaced right rib fracture. 2. No acute cardiopulmonary disease. 3. Mild cardiomegaly. Electronically signed by: Jesús Lambert M.D. 09/08/2017 5:46 PM Dictated Date/Time: 09/08/2017 5:44 PM X-Ray Left Wrist: LEFT WRIST 5 VIEWS CLINICAL HISTORY: Fall with left wrist injury. FINDINGS: 5 views of the left wrist are obtained. No prior studies are available for comparison at the time of dictation. The skeletal structures are osteopenic. There is a nonspecific ossific density seen along the dorsal aspect of the wrist at the level of the proximal carpal row. This is indeterminant and may represent an age indeterminant triquetral avulsion fracture. No additional findings are concerning for acute fracture. There is degenerative narrowing at the radiocarpal articulation. Moderate arthritic change is seen at the first tarsometatarsal joint with there is bony sclerosis, subchondral cyst rotation, and subluxation. Only mild arthritic change is seen throughout the remainder of the wrist. Mild soft tissue swelling is suggested. IMPRESSION: 1. There is an indeterminant ossific density seen along the dorsal aspect of the wrist. Age indeterminate triquetral avulsion is not excluded. Correlate for point tenderness at this site. 2. No additional findings are concerning for acute fracture. 3. Osteopenia and arthritic change as above. EMERGENCY DEPARTMENT COURSE: I examined the patient. The patient was given 1000 mg Tylenol by mouth. X-rays of the chest with right rib detail as well as x-ray of the left wrist was reviewed by myself and radiologist and show rib abnormality, however there is a possible triquetral fracture of the left wrist. Films were reviewed by Dr. Bailey, who also saw and evaluated the patient. The patient was placed in a wrist lacer splint and advised to follow-up with orthopedics. She was given a short course of tramadol to help with symptoms if needed at home. She was e encouraged to follow up with her PCP early next week as well as orthopedics next week. DIFFERENTIAL DIAGNOSIS: Contusion, fracture, pneumothorax, pleural effusion, hemothorax, scaphoid fracture, and others DIAGNOSIS: Rib contusion, left wrist contusion, possible triquetral fracture Problem List Medical Problems: (1) Acute bronchitis Status: Resolved (2) Altered mental status Status: Resolved (3) Altered mental status Status: Resolved (4) Benign essential hypertension Status: Chronic (5) Chronic bronchitis Status: Chronic (6) Chronic recurrent sinusitis Status: Chronic (7) Chronic sinusitis Status: Chronic (8) Deep venous thrombosis of lower extremity Status: Resolved (9) Diabetes mellitus type 2 Status: Chronic (10) Dizziness Status: Resolved (11) Hyperglycemia Status: Resolved (12) Hyperlipidemia Status: Chronic (13) Laceration Status: Resolved (14) Near syncope Status: Resolved (15) Obstructive sleep apnea syndrome Status: Chronic (16) Orthostatic hypotension Status: Resolved (17) POSSIBLE SEIZURE Status: Resolved (18) Pulmonary embolism Status: Resolved (19) Restless legs Status: Chronic (20) SJOGRENS Status: Resolved (21) SOB (shortness of breath) Status: Resolved (22) SUBTHERAPEAUTIC INR Status: Resolved (23) Supratherapeutic INR Status: Resolved (24) Supratherapeutic INR Status: Resolved (25) UTI (urinary tract infection) Status: Resolved Current/Historical Medications Scheduled Calcium (Calcium), 500 MG PO QPM Cholecalciferol (Vitamin D 1000 Unit), 2,000 INTER.UNIT PO QAM Cyanocobalamin (Vitamin B-12 1000 Mcg), 1,000 MCG PO BID Ferrous Sulfate (Iron), 325 MG PO QPM Gabapentin (Neurontin), 100 MG PO BID Home O2 Therapy (Oxygen), 2 LITERS NA HS Insulin Aspart (Novolog Flexpen), 10 UNITS SC TIDM Insulin Glargine (Lantus Solostar), 23 UNITS SC QAM Levothyroxine Sodium (Levothyroxine Sodium), 75 MCG PO QAM Magnesium Chloride (Slow-Mag Tab), 128 MG PO QPM Magnesium Chloride (Slow-Mag Tab), 192 MG PO QAM Mometasone Furoate-Formoterol (Dulera 100/5 Mcg), 2 PUFFS INH BID Montelukast Sod (Montelukast Sodium), 10 MG PO HS Nortriptyline HCl (Nortriptyline HCl), 25 MG PO HS Nystatin (Nystatin), 1 APPLN EXT TID Nystatin (Nystatin Suspension), 5 ML PO QID Pantoprazole (Pantoprazole Sodium), 40 MG PO QAM Ropinirole Hydrochloride (Requip), 4 MG PO HS Sennosides-Docusate Sodium (Stool Softener), 1 TAB PO DAILY Simvastatin (Simvastatin), 20 MG PO HS Sitagliptin-Metformin Hcl (Janumet), 1 TAB PO BID Triamcinolone Acetonide (Nasal (Nasacort Allergy 24Hr), 2 SPRAYS AMI DAILY Warfarin Sod (Jantoven), 6 MG PO 2XWK Warfarin Sod (Jantoven), 4 MG PO 5XWK Scheduled PRN Albuterol Hfa (Ventolin Hfa), 2 PUFFS INH Q4H PRN for SOB/Wheezing Ipratropium-Albuterol (Combivent Respimat), 1 PUFF INH Q8-12H PRN for Shortness of Breath Torsemide (Demadex), 20 MG PO BID PRN for Fluid Retention Tramadol (Ultram), 50 MG PO Q8H PRN for Pain Allergies Coded Allergies: Prochlorperazine (Verified Allergy, Severe, EXTRAPYRAMIDAL S/E, 09/08/17) LOSS OF MUSCLE CONTROL/MUSCLE SPASMS TROUBLE BREATHING "EYES WOULD FLY OPEN AND I COULDN'T CLOSE THEM" Zolpidem (Verified Allergy, Severe, CONFUSION/MEMORY LOSS, 09/08/17) "FOR THREE DAYS I WAS IN OUTER SPACE" Carbamazepine (Verified Allergy, Intermediate, CONFUSION, 09/08/17) Duloxetine (Verified Allergy, Intermediate, LIGHTHEADEDNESS/DIZZINESS, ) Hydrochlorothiazide (Verified Allergy, Intermediate, LIGHTHEADEDNESS/ DIZZINESS, 09/08/17) Indigotindisulfonate (Verified Allergy, Intermediate, LIGHTHEADEDNESS/ DIZZINESS, 09/08/17) Levofloxacin (Verified Allergy, Mild, RASH, 09/08/17) also bloody diarrhea Clonazepam (Verified Allergy, Unknown, UNKNOWN, 09/08/17) Diclofenac (Verified Allergy, Unknown, NAUSEA AND VOMITING, 09/08/17) Losartan (Unverified Allergy, Unknown, ELEVATED CREATININE, 09/08/17) Hydromorphone (Verified Adverse Reaction, Intermediate, N/V AND NIGHTMARES , 09/08/17) Morphine (Verified Adverse Reaction, Intermediate, HYPOTENSION AND N/V, ) Cyclobenzaprine (Verified Adverse Reaction, Mild, N/V, 09/08/17) Lisinopril (Verified Adverse Reaction, Mild, N/V, 09/08/17) Naproxen (Verified Adverse Reaction, Mild, N/V, 09/08/17) Oxycodone (Verified Adverse Reaction, Mild, N/V, 09/08/17) Tramadol (Verified Adverse Reaction, Unknown, N/V AND ITCHING, 04/14/17) Vital Signs Date Time Temp Pulse Resp B/P (MAP) Pulse Ox O2 Delivery O2 Flow Rate FiO2 09/08/17 16:52 36.8 76 18 162/68 95 Medications Administered Medications (Trade) Dose Ordered Sig/Mick Route Start Time Stop Time Status Last Admin Dose Admin Acetaminophen (Tylenol Tab) 1,000 mg NOW STAT PO 09/08/17 17:08 09/08/17 17:11 DC 09/08/17 17:44 1,000 MG Departure Information Impression Primary Impression: Fall Additional Impressions: Contusion of rib on right side Wrist contusion Fx triquetral, wrist-closed Dispostion Home / Self-Care Condition GOOD Prescriptions Tramadol (Ultram) 50 Mg Tab 50 MG PO Q8H Y for Pain, #9 TAB Prov: Gretta Williamson, CHELSIE 09/08/17 Referrals Omar Joshi M.D. (PCP) Alonso Ortega, DO Patient Instructions ED Contusion Chest Wall, ED Contusion Vs Minor Fx Rib, ED Fx Wrist General, [facility] Additional Instructions ORTHOPEDIC INSTRUCTIONS: Tramadol: Take 1 pills every eight hours as needed for breakthrough pain. Avoid alcohol, operating machinery or dangerous equipment, working on ladders or roofs, DRIVING, or situations where being under the influence may be dangerous. It is recommended to use an kffg-ory-[id number] stool softener such as Colace, 100mg twice daily while taking this medication to avoid constipation. Acetaminophen(Tylenol) may be used for fever or pain. Use 1000mg every six hours as needed. Avoid using more than 4000mg in a 24 hour period. Ice compresses for 20 minutes at a time four times daily for 2-3 days. Rest and elevate your injury. Wear the wrist splint for comfort. This is to help stabilize the wrist in case of a fracture. You should follow-up with orthopedics next week regarding re- check of the injury. To minimize your discomfort, you can hug a pillow while coughing or sneezing. Additionally, you should continue to force yourself to take nice, deep breaths. Full expansion of the lungs is necessary to prevent the accumulation of fluid in the lung tissue and development of pneumonia. Return to the ER immediately for any numbness, tingling, severe pain, extreme swelling in the extremity or as needed. Return to the Emergency Department if your current symptoms worsen despite treatment course outlined above, or if you develop any of the following symptoms : intractable pain despite aforementioned treatment course, development of a wet cough, bloody cough, fever, chills, or increased shortness of breath. Call [facility], [phone], in 1-2 days to arrange follow up for your injury. Follow-up with your primary care physician in 2 to 3 days for a recheck of your current condition. Problem Qualifiers Primary Impression: Fall Encounter type: initial encounter Qualified Codes: W19.XXXA - Unspecified fall, initial encounter Additional Impressions: Contusion of rib on right side Encounter type: initial encounter Qualified Codes: S20.211A - Contusion of right front wall of thorax, initial encounter Wrist contusion Encounter type: initial encounter Laterality: left Qualified Codes: S60.212A - Contusion of left wrist, initial encounter Fx triquetral, wrist-closed Encounter type: initial encounter Fracture alignment: nondisplaced Laterality: left Qualified Codes: S62.115A - Nondisplaced fracture of triquetrum [cuneiform] bone, left wrist, initial encounter for closed fracture
--- NOTE | 2017-09-08 17:48 | DIAGNOSTIC IMAGING REPORT ---
R RIBS UNILATERAL WITH PA CHEST CLINICAL HISTORY: 72 years-old Female presenting with fall, right chest wall pain. TECHNIQUE: Frontal and oblique views of the right ribs as well as PA view of the chest were obtained. COMPARISON: Chest x-ray from 08/03/2017. FINDINGS: No displaced right rib fracture. Atherosclerosis of aortic arch. Cardiac silhouette mildly enlarged. Lungs and pleural spaces clear. Partially visualized posterior lumbar fusion hardware as well as a implanted stimulator device and multiple surgical clips. Degenerative changes of the spine. IMPRESSION: 1. No evidence of displaced right rib fracture. 2. No acute cardiopulmonary disease. 3. Mild cardiomegaly. Electronically signed by: Jesús Lambert M.D. 09/08/2017 5:46 PM Dictated Date/Time: 09/08/2017 5:44 PM
--- NOTE | 2017-09-08 17:50 | DIAGNOSTIC IMAGING REPORT ---
LEFT WRIST 5 VIEWS CLINICAL HISTORY: Fall with left wrist injury. FINDINGS: 5 views of the left wrist are obtained. No prior studies are available for comparison at the time of dictation. The skeletal structures are osteopenic. There is a nonspecific ossific density seen along the dorsal aspect of the wrist at the level of the proximal carpal row. This is indeterminant and may represent an age indeterminant triquetral avulsion fracture. No additional findings are concerning for acute fracture. There is degenerative narrowing at the radiocarpal articulation. Moderate arthritic change is seen at the first tarsometatarsal joint with there is bony sclerosis, subchondral cyst rotation, and subluxation. Only mild arthritic change is seen throughout the remainder of the wrist. Mild soft tissue swelling is suggested. IMPRESSION: 1. There is an indeterminant ossific density seen along the dorsal aspect of the wrist. Age indeterminate triquetral avulsion is not excluded. Correlate for point tenderness at this site. 2. No additional findings are concerning for acute fracture. 3. Osteopenia and arthritic change as above. Electronically signed by: Taz Guzman M.D. 09/08/2017 5:49 PM Dictated Date/Time: 09/08/2017 5:45 PM
--- NOTE | 2017-09-08 18:09 | EMERGENCY ROOM VISIT NOTE ---
ED Visit Note First contact with patient: 17:00 Patient was seen by our PA/SEAWEED HARVESTER. I was involved in the patient's care and did evaluate the patient myself. I was involved in the care throughout the ER stay. The patient has a possible chip fracture to the wrist. No rib fracture or pneumothorax. She is being discharged with orthopedic follow-up and conservative care.
[2017-09-08] MEDS ORDERED: TRAM-10 PO (18:24)
== END 2017-09-08 18:48 | disposition home or self-care (01) ==
LOC: C.EDB 16:50 → C.EDD 18:48
DX: S20.211A Contusion of right front wall of thorax, initial encounter (principal); S60.212A Contusion of left wrist, initial encounter; S62.115A Nondisplaced fracture of triquetrum [cuneiform] bone, left wrist, initial encounter for closed fracture; E11.9 Type 2 diabetes mellitus without complications; E03.9 Hypothyroidism, unspecified; E78.5 Hyperlipidemia, unspecified; I10 Essential (primary) hypertension; G25.81 Restless legs syndrome; K21.9 Gastro-esophageal reflux disease without esophagitis; J44.9 Chronic obstructive pulmonary disease, unspecified; Z79.01 Long term (current) use of anticoagulants; Z79.4 Long term (current) use of insulin; Z79.899 Other long term (current) drug therapy; Z87.09 Personal history of other diseases of the respiratory system; W01.0XXA Fall on same level from slipping, tripping and stumbling without subsequent striking against object, initial encounter

== ENCOUNTER → 2017-10-24 | Outpatient (CLI) | payer BC ==
[~2017-10-24] MED LIST changes: -ALL180 PO; -DXY100 PO; -GFNSR600 PO; +PANT40TA2 PO; -PRED10TA PO; -PRT/40 PO; +TRAM-10 PO
--- NOTE | 2017-10-24 16:47 | DIAGNOSTIC IMAGING REPORT ---
CHEST 2 VIEWS ROUTINE CLINICAL HISTORY: CHRONIC OBSTRUCTIVE PULMONARY DISEASE COMPARISON STUDY: 08/03/2017 FINDINGS: The bones soft tissues and hemidiaphragms are normal. The cardiomediastinal silhouette is normal. The lungs are clear. The pulmonary vasculature is normal. IMPRESSION: Negative chest. The above report was generated using voice recognition software. It may contain grammatical, syntax or spelling errors. Electronically signed by: Iván Cuevas M.D. 10/24/2017 4:45 PM Dictated Date/Time: 10/24/2017 4:45 PM
== END | disposition home or self-care (01) ==
LOC: C.RAD1850 16:25
PROVIDERS: ATTEND Physician Assistant
DX: J44.9 Chronic obstructive pulmonary disease, unspecified (principal)

== ENCOUNTER → 2017-11-07 | Outpatient (CLI) | payer BC ==
[2017-11-07 16:52] LABS: HEMATOCRIT 47.9 % (37-47); MEAN CELL VOLUME 91.1 fL (80-100); MEAN CORPUSCULAR HEMOGLOBIN 30.2 pg (25-34); MEAN CORPUSCULAR HGB CONC 33.2 g/dl (32-36); MEAN PLATELET VOLUME 10.8 fL (7.4-10.4); PLATELET COUNT 246 K/uL (130-400); RED BLOOD COUNT 5.26 M/uL (4.2-5.4); WHITE BLOOD COUNT 18.33 K/uL (4.8-10.8)
[2017-11-07 17:02] LABS: INR 1.4 (0.9-1.1); PROTHROMBIN TIME (PATIENT) 14.7 SECONDS (9.0-12.0)
[2017-11-07 17:45] LABS: ALT/SGPT 77 U/L (12-78); AST/SGOT 46 U/L (15-37); BLOOD UREA NITROGEN 21 mg/dl (7-18); BUN/CREATININE RATIO 21.4 (10-20); CALCIUM 9.4 mg/dl (8.5-10.1); CARBON DIOXIDE 26 mmol/L (21-32); CHLORIDE 100 mmol/L (98-107); CHOLESTEROL 239 mg/dl (0-200); GLUCOSE 269 mg/dl (70-99); MAGNESIUM 1.8 mg/dl (1.8-2.4); POTASSIUM 3.9 mmol/L (3.5-5.1); SODIUM 132 mmol/L (136-145)
[2017-11-07 17:51] LABS: BASO % 0.2 %; BASO ABS # 0.03 K/uL (0-0.2); EOS % 0.6 %; IG% 0.6 %; LYMPH % 30.1 %; LYMPH ABS # 5.51 K/uL (1.2-3.4); MONO % 9.5 %
[2017-11-07 17:52] LABS: COMPLETE YES
[2017-11-07 17:53] LABS: ALB/GLOB RATIO 0.9 (0.9-2); ALKALINE PHOSPHATASE 127 U/L (45-117); CHOLESTEROL/HDL RATIO 3.1; HDL CHOLESTEROL 78 mg/dl; LDL CHOLESTEROL CALCULATED 132 mg/dl; TRIGLYCERIDES 147 mg/dl (0-150); VERY LOW DENSITY LIPOPROT CALC 29 mg/dl
[2017-11-08 08:24] LABS: ESTIMATED AVERAGE GLUCOSE 329 mg/dl; HA1C FLAG Normal (Normal)
== END | disposition home or self-care (01) ==
LOC: C.LABBC 14:43
PROVIDERS: ATTEND Physician Assistant
DX: E03.9 Hypothyroidism, unspecified (principal); I10 Essential (primary) hypertension; E78.5 Hyperlipidemia, unspecified; E11.65 Type 2 diabetes mellitus with hyperglycemia; E83.42 Hypomagnesemia; Z79.01 Long term (current) use of anticoagulants; Z51.81 Encounter for therapeutic drug level monitoring; E55.9 Vitamin D deficiency, unspecified; E53.8 Deficiency of other specified B group vitamins; R51 Headache

== ENCOUNTER 2017-12-04 12:27 | Inpatient (IN) | payer BC, OTHER ==
[~2017-12-04] VITALS: Ht 149.9 cm; Wt 85.2 kg
[2017-12-04] MEDS ORDERED: SODIUM CHLORIDE 0.9% 1000ML 500 ML IV STA (12:44)
--- NOTE | 2017-12-04 13:06 | DIAGNOSTIC IMAGING REPORT ---
CHEST ONE VIEW PORTABLE HISTORY: EVALUATE ALTERED MENTAL STATUS/WEAKNESS COMPARISON: Chest 10/24/2017. FINDINGS: The lungs are clear. Cardiac silhouette is normal in size. No pleural effusions. No pneumothorax. IMPRESSION: No acute process. Electronically signed by: Link Pérez M.D. 12/04/2017 1:05 PM Dictated Date/Time: 12/04/2017 1:03 PM
[2017-12-04] MEDS ORDERED: CEFTRIAXONE SOD INJ 1 GM ADDVIAL IV STA (13:34)
[2017-12-04 13:38] LABS: BASO % 0.2 %; BASO ABS # 0.02 K/uL (0-0.2); EOS % 0.9 %; EOS ABS # 0.12 K/uL (0-0.5); HEMATOCRIT 51.2 % (37-47); HEMOGLOBIN 17.6 g/dL (12.0-16.0); IG# 0.07 K/uL (0.00-0.02); LYMPH % 30.8 %; LYMPH ABS # 4.09 K/uL (1.2-3.4); MEAN CELL VOLUME 90.3 fL (80-100); MEAN CORPUSCULAR HGB CONC 34.4 g/dl (32-36); MEAN PLATELET VOLUME 11.3 fL (7.4-10.4); MONO % 10.6 %; NEUT ABS # 7.57 K/uL (1.4-6.5); PLATELET COUNT 192 K/uL (130-400); RED CELL DISTRIBUTION WIDTH CV 13.4 % (11.5-14.5); RED CELL DISTRIBUTION WIDTH SD 43.9 fL (36.4-46.3); WHITE BLOOD COUNT 13.27 K/uL (4.8-10.8)
[2017-12-04] MEDS ORDERED: SODIUM CHLORIDE 0.9% 1000ML 1,000 ML IV STA (13:44)
--- NOTE | 2017-12-04 13:54 | EMERGENCY ROOM VISIT NOTE ---
History Report prepared by Chaitanya: Megan Padilla Under the Supervision of: Dr. Taz Bailey M.D. First contact with patient: 12:35 Chief Complaint: OTHER COMPLAINT Stated Complaint: GEBERALIZED WEAKNESS History of Present Illness The patient is a 72 year old female who presents to the Emergency Room with complaints of persistent generalized weakness starting 2-3 days ago. The patient has also noticed some blood mixed in with her stool starting yesterday. She has noticed some pressure with urination. She has a history of UTIs. She is SOB, but not more than usual. She has a history of COPD. She denies any abdominal pain, fever, cough, nausea, or chest pain. She has not been eating or drinking well. She denies any recent falls. 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 4 days ago, her INR was 8.1. Her Coumadin was not adjusted. She denies any history of GI bleeds. She has a history of hemorrhoids , but they have not been bothering her recently. Source of History: patient Onset: 2-3 days ago Position: other (global) Quality: other (generalized weakness) Timing: other (persistent) Associated Symptoms: + hematochezia, + urinary symptoms, No fevers, No cough , No chest pain, No nausea, No abdominal pain Review of Systems See HPI for pertinent positives & negatives. A total of 10 systems reviewed and were otherwise negative. Past Medical & Surgical Medical Problems: (1) Acute bronchitis (2) Altered mental status (3) Altered mental status (4) Benign essential hypertension (5) Blood in stool (6) Cellulitis of right lower extremity (7) Chronic bronchitis (8) Chronic recurrent sinusitis (9) Chronic sinusitis (10) COPD exacerbation (11) Deep venous thrombosis of lower extremity (12) Diabetes mellitus type 2 (13) Dizziness (14) Dyspnea (15) Hyperglycemia (16) Hyperlipidemia (17) Laceration (18) Near syncope (19) Obstructive sleep apnea syndrome (20) Orthostatic hypotension (21) POSSIBLE SEIZURE (22) Pulmonary embolism (23) Restless legs (24) Rotator cuff tear (25) SJOGRENS (26) SOB (shortness of breath) (27) SUBTHERAPEAUTIC INR (28) Supratherapeutic INR (29) Supratherapeutic INR (30) Urinary tract infection (31) UTI (urinary tract infection) (32) Weakness Family History Diabetes mellitus MOTHER Esophageal cancer FATHER FH: cancer FH: gallbladder disease Myocardial infarction MOTHER Social History Smoking Status: Never Smoker Alcohol Use: none Drug Use: none Marital Status: Housing Status: lives with significant other Occupation Status: retired Current/Historical Medications Scheduled Calcium (Calcium), 500 MG PO QPM Cholecalciferol (Vitamin D 1000 Unit), 2,000 INTER.UNIT PO QAM Cyanocobalamin (Vitamin B-12 1000 Mcg), 1,000 MCG PO BID Ferrous Sulfate (Iron), 325 MG PO QPM Gabapentin (Neurontin), 100 MG PO BID Home O2 Therapy (Oxygen), 2 LITERS NA HS Insulin Aspart (Novolog Flexpen), 1 DOSE SC TIDM Insulin Glargine (Lantus Solostar), 23 UNITS SC QPM Levothyroxine Sodium (Levothyroxine Sodium), 75 MCG PO QAM Magnesium Chloride (Slow-Mag Tab), 128 MG PO QPM Magnesium Chloride (Slow-Mag Tab), 192 MG PO QAM Mometasone Furoate-Formoterol (Dulera 100/5 Mcg), 2 PUFFS INH BID Montelukast Sod (Montelukast Sodium), 10 MG PO HS Nortriptyline HCl (Nortriptyline HCl), 25 MG PO HS Pantoprazole (Pantoprazole Sodium), 40 MG PO QAM Ropinirole Hydrochloride (Requip), 4 MG PO HS Sennosides-Docusate Sodium (Stool Softener), 1 TAB PO DAILY Simvastatin (Simvastatin), 20 MG PO HS Sitagliptin-Metformin Hcl (Janumet), 1 TAB PO BID Warfarin Sod (Jantoven), 6 MG PO 2XWK Warfarin Sod (Jantoven), 4 MG PO 5XWK Scheduled PRN Albuterol Hfa (Ventolin Hfa), 2 PUFFS INH Q4H PRN for SOB/Wheezing Ipratropium-Albuterol (Combivent Respimat), 1 PUFF INH Q8-12H PRN for Shortness of Breath Torsemide (Demadex), 20 MG PO BID PRN for Fluid Retention Allergies Coded Allergies: Prochlorperazine (Verified Allergy, Severe, EXTRAPYRAMIDAL S/E, 12/04/17) LOSS OF MUSCLE CONTROL/MUSCLE SPASMS TROUBLE BREATHING "EYES WOULD FLY OPEN AND I COULDN'T CLOSE THEM" Zolpidem (Verified Allergy, Severe, CONFUSION/MEMORY LOSS, 12/04/17) "FOR THREE DAYS I WAS IN OUTER SPACE" Carbamazepine (Verified Allergy, Intermediate, CONFUSION, 12/04/17) Duloxetine (Verified Allergy, Intermediate, LIGHTHEADEDNESS/DIZZINESS, 12/04) Hydrochlorothiazide (Verified Allergy, Intermediate, LIGHTHEADEDNESS/ DIZZINESS, 12/04/17) Indigotindisulfonate (Verified Allergy, Intermediate, LIGHTHEADEDNESS/ DIZZINESS, 12/04/17) Levofloxacin (Verified Allergy, Mild, RASH, 12/04/17) also bloody diarrhea Clonazepam (Verified Allergy, Unknown, UNKNOWN, 12/04/17) Diclofenac (Verified Allergy, Unknown, NAUSEA AND VOMITING, 12/04/17) Losartan (Unverified Allergy, Unknown, ELEVATED CREATININE, 12/04/17) Hydromorphone (Verified Adverse Reaction, Intermediate, N/V AND NIGHTMARES , 12/04/17) Morphine (Verified Adverse Reaction, Intermediate, HYPOTENSION AND N/V, 12/04/17) Cyclobenzaprine (Verified Adverse Reaction, Mild, N/V, 12/04/17) Lisinopril (Verified Adverse Reaction, Mild, N/V, 12/04/17) Naproxen (Verified Adverse Reaction, Mild, N/V, 12/04/17) Oxycodone (Verified Adverse Reaction, Mild, N/V, 12/04/17) Tramadol (Verified Adverse Reaction, Unknown, N/V AND ITCHING, 12/04/17) Physical Exam Vital Signs Date Time Temp Pulse Resp B/P (MAP) Pulse Ox O2 Delivery O2 Flow Rate FiO2 12/04/17 15:19 69 20 150/73 95 Room Air 12/04/17 13:24 72 20 149/79 75 159/92 97 151/85 12/04/17 13:24 72 20 149/79 97 Room Air 12/04/17 12:48 97 Room Air 12/04/17 12:48 36.6 69 24 159/83 97 Room Air 12/04/17 12:45 70 Physical Exam GENERAL: Patient is in no acute distress. HEENT: No acute trauma, normocephalic atraumatic, mucous membranes moist, no nasal congestion, no scleral icterus. NECK: No stridor, no adenopathy, no meningismus, trachea is midline. LUNGS: Clear to auscultation bilaterally, no wheeze, no rhonchi, breath sounds equal. HEART: Without murmurs gallops or rubs, regular rate and rhythm. ABDOMEN: Soft, nontender, bowel sounds positive, no hernias, no peritonitis. RECTAL: No external areas of bleeding seen. No hemorrhoids. Brown stool heme negative. EXTREMITIES: No cyanosis or edema, full range of motion of all the joints without pain or difficulty, no signs for acute trauma. NEUROLOGIC: Oriented x 3, no acute motor or sensory deficits, no focal weakness. SKIN: No rash, no jaundice, no diaphoresis. Medical Decision & Procedures ER Provider Diagnostic Interpretation: X-ray results as stated below per interpretation by me and the radiologist: CHEST ONE VIEW PORTABLE HISTORY: EVALUATE ALTERED MENTAL STATUS/WEAKNESS COMPARISON: Chest 10/24/2017. FINDINGS: The lungs are clear. Cardiac silhouette is normal in size. No pleural effusions. No pneumothorax. IMPRESSION: No acute process. Electronically signed by: Link Pérez M.D. 12/04/2017 1:05 PM Dictated Date/Time: 12/04/2017 1:03 PM Orthostatic vital signs show increase in heart rate with standing consistent with dehydration. Laboratory Results 12/04/17 13:05 Red Blood Count 5.67, Mean Corpuscular Volume 90.3, Mean Corpuscular Hemoglobin 31.0, Mean Corpuscular Hemoglobin Concent 34.4, Mean Platelet Volume 11.3, Neutrophils (%) (Auto) 57.0, Lymphocytes (%) (Auto) 30.8, Monocytes (%) (Auto) 10.6, Eosinophils (%) (Auto) 0.9, Basophils (%) (Auto) 0.2, Neutrophils # (Auto ) 7.57, Lymphocytes # (Auto) 4.09, Monocytes # (Auto) 1.40, Eosinophils # (Auto ) 0.12, Basophils # (Auto) 0.02 12/04/17 13:05 Test 12/04/17 12:35 12/04/17 13:05 12/04/17 14:17 Urine Color YELLOW Urine Appearance CLOUDY (CLEAR) Urine pH 6.0 (4.5-7.5) Urine Specific [place] 1.039 (1.000-1.030) Urine Protein NEG (NEG) Urine Glucose (UA) 3+ (NEG) Urine Ketones NEG (NEG) Urine Occult Blood NEG (NEG) Urine Nitrite NEG (NEG) Urine Bilirubin NEG (NEG) Urine Urobilinogen NEG (NEG) Urine Leukocyte Esterase NEG (NEG) Urine WBC (Auto) >30 /hpf (0-5) Urine RBC (Auto) 5-10 /hpf (0-4) Urine Hyaline Casts (Auto) 0 /lpf (0-5) Urine Epithelial Cells (Auto) 20-30 /lpf (0-5) Urine Bacteria (Auto) 4+ (NEG) White Blood Count 13.27 K/uL (4.8-10.8) Red Blood Count 5.67 M/uL (4.2-5.4) Hemoglobin 17.6 g/dL (12.0-16.0) Hematocrit 51.2 % (37-47) Mean Corpuscular Volume 90.3 fL (80-100) Mean Corpuscular Hemoglobin 31.0 pg (25-34) Mean Corpuscular Hemoglobin Concent 34.4 g/dl (32-36) Platelet Count 192 K/uL (130-400) Mean Platelet Volume 11.3 fL (7.4-10.4) Neutrophils (%) (Auto) 57.0 % Lymphocytes (%) (Auto) 30.8 % Monocytes (%) (Auto) 10.6 % Eosinophils (%) (Auto) 0.9 % Basophils (%) (Auto) 0.2 % Neutrophils # (Auto) 7.57 K/uL (1.4-6.5) Lymphocytes # (Auto) 4.09 K/uL (1.2-3.4) Monocytes # (Auto) 1.40 K/uL (0.11-0.59) Eosinophils # (Auto) 0.12 K/uL (0-0.5) Basophils # (Auto) 0.02 K/uL (0-0.2) RDW Standard Deviation 43.9 fL (36.4-46.3) RDW Coefficient of Variation 13.4 % (11.5-14.5) Immature Granulocyte % (Auto) 0.5 % Immature Granulocyte # (Auto) 0.07 K/uL (0.00-0.02) Anion Gap 12.0 mmol/L (3-11) Est Creatinine Clear Calc Drug Dose 47.0 ml/min Estimated GFR () 64.0 Estimated GFR (Non- 55.2 BUN/Creatinine Ratio 12.9 (10-20) Calcium Level 9.5 mg/dl (8.5-10.1) Magnesium Level 1.8 mg/dl (1.8-2.4) Total Bilirubin 1.3 mg/dl (0.2-1) Aspartate Amino Transf (AST/SGOT) 29 U/L (15-37) Alanine Aminotransferase (ALT/SGPT) 41 U/L (12-78) Alkaline Phosphatase 113 U/L (45-117) Troponin I < 0.015 ng/ml (0-0.045) Total Protein 7.7 gm/dl (6.4-8.2) Albumin 3.9 gm/dl (3.4-5.0) Globulin 3.8 gm/dl (2.5-4.0) Albumin/Globulin Ratio 1.0 (0.9-2) Beta-Hydroxybutyric Acid 2.81 mg/dL (0.2-2.81) Thyroid Stimulating Hormone (TSH) 2.700 uIu/ml (0.300-4.500) Free Thyroxine 1.37 ng/dl (0.80-1.60) Prothrombin Time 26.3 SECONDS (9.0-12.0) Prothromb Time International Ratio 2.6 (0.9-1.1) Activated Partial Thromboplast Time 38.5 SECONDS (21.0-31.0) Partial Thromboplastin Ratio 1.5 Laboratory results reviewed by me. Medications Administered Medications (Trade) Dose Ordered Sig/Mick Route Start Time Stop Time Status Last Admin Dose Admin Sodium Chloride 500 ml @ 999 mls/hr Q31M STAT IV 12/04/17 12:44 12/04/17 13:14 DC 12/04/17 13:26 999 MLS/HR Ceftriaxone Sodium (Rocephin Inj) 1 gm NOW STAT IV 12/04/17 13:34 12/04/17 13:37 DC 12/04/17 13:44 1 GM Sodium Chloride 1,000 ml @ 999 mls/hr Q1H1M STAT IV 12/04/17 13:44 12/04/17 14:44 DC 12/04/17 13:47 999 MLS/HR Insulin Human Regular (novoLIN-R U-100 PER UNIT) 10 units NOW STAT IV 12/04/17 14:05 12/04/17 14:06 DC 12/04/17 14:15 10 UNITS ECG Indication: weakness Rate (beats per minute): 69 Rhythm: normal sinus Findings: no acute ischemic change, no ectopy ED Course 1237: The patient was evaluated in room A10. A complete history and physical exam was performed. 1244: NSS 500 ml @ 999 mls/hr IV. 1334: Rocephin Inj 1 gm IV. 1343: I reevaluated the patient. She is doing well. I updated her on the results. 1344: NSS 1000 ml @ 999 mls/hr IV. 1405: Insulin Human Regular 10 units IV. 1500: Upon reexamination the patient is resting comfortably. I discussed results and treatment plan with the patient. She verbalizes agreement and understanding. The patient will be evaluated for further management. 1505: I discussed the patient's case with DAN[facility] hospitalist. The patient will be evaluated for further management. Medical Decision Differential diagnoses considered include GI bleed, UTI, electrolyte imbalance, anemia, pneumonia, dehydration. There is a mild leukocytosis at 13,000, this could be consistent with infection. The patient's hemoglobin is high, likely consistent with dehydration. Renal panel testing shows evidence for hyperglycemia. There was no kidney failure. There was no hepatitis. The patient appeared to be in a euthyroid state. EKG shows a normal sinus rhythm, no acute ischemia. Cardiac enzyme testing times one is not consistent with acute cardiac injury. Chest film does not show pneumonia or CHF. Urinalysis does suggest infection. Urine culture is pending. The patient received IV saline, IV insulin. She was given IV ceftriaxone. She is resting comfortably. The patient is dehydrated and hyperglycemic with a white count elevation and a UTI. I suspect this has caused her fatigue and weakness. I do think a hospital stay is warranted. I spoke to the patient and case management. The on -call hospitalist was consulted. Medication Reconcilliation Current Medication List: was personally reviewed by me Blood Pressure Screening Patient's blood pressure: Elevated blood pressure Blood pressure disposition: Referred to PCP Consults Time Called: 1501 Consulting Physician: WHITNEY WestG hospitalist Returned Call: [phone] Discussed the patient's case. The patient will be evaluated for further management. Impression Primary Impression: Weakness Additional Impressions: Orthostasis Dehydration UTI (urinary tract infection) Scribe Attestation The scribe's documentation has been prepared under my direction and personally reviewed by me in its entirety. I confirm that the note above accurately reflects all work, treatment, procedures, and medical decision making performed by me. Departure Information Dispostion Being Evaluated By Hospitalist Referrals Omar Joshi M.D. (PCP) Patient Instructions My [facility] Problem Qualifiers
[2017-12-04 14:02] LABS: ALBUMIN 3.9 gm/dl (3.4-5.0); ALT/SGPT 41 U/L (12-78); AST/SGOT 29 U/L (15-37); BLOOD UREA NITROGEN 13 mg/dl (7-18); CALCIUM 9.5 mg/dl (8.5-10.1); CARBON DIOXIDE 25 mmol/L (21-32); CREATININE 1.01 mg/dl (0.60-1.20); GLUCOSE 384 mg/dl (70-99); POTASSIUM 3.7 mmol/L (3.5-5.1); SODIUM 134 mmol/L (136-145)
[2017-12-04] MEDS ORDERED: NovoLIN-R INSULIN PER UNIT CHARGE IV STA (14:05)
[2017-12-04 14:16] LABS: ALKALINE PHOSPHATASE 113 U/L (45-117); TOTAL PROTEIN 7.7 gm/dl (6.4-8.2)
[2017-12-04 14:40] LABS: INR 2.6 (0.9-1.1); PTT PATIENT 38.5 SECONDS (21.0-31.0)
[2017-12-04] MEDS ORDERED: GLUCOSE 10 TABS/TUBE PO PRN (15:45)
[2017-12-04] MEDS ORDERED: ENOXAPARIN 40 MG/0.4 ML SYR SQ SCH (15:45)
[2017-12-04] MEDS ORDERED: ALUMINUM/MAGNESIUM/SIMETH (MAALOX MAX) 30 ML UDC PO PRN (15:45)
[2017-12-04] MEDS ORDERED: GLUCAGON FOR INJ 1 MG VIAL SQ PRN (15:45)
[2017-12-04] MEDS ORDERED: GLUCOSE 40% GEL 15 GM TUBE PO PRN (15:45)
[2017-12-04] MEDS ORDERED: ONDANSETRON INJ 2 MG/ML 2 ML VIAL IV PRN (15:45)
[2017-12-04] MEDS ORDERED: POLYETHYLENE (MIRALAX) 17 GM PACK PO PRN (15:45)
[2017-12-04] MEDS ORDERED: MAGNESIUM HYDROXIDE SUSP 30 ML UDC PO PRN (15:45)
[2017-12-04] MEDS ORDERED: DEXTROSE 50% 50 ML SYR IV PRN (15:45)
[2017-12-04] MEDS ORDERED: IPRATROPIUM BROMIDE/ALBUTEROL respimat INH INH PRN (15:45)
[2017-12-04] MEDS ORDERED: ALBUTEROL HFA 8 GM INHALER INH PRN (15:45)
[2017-12-04 15:59] VITALS: O2SAT 95; BMI 37.9
--- NOTE | 2017-12-04 16:22 | History and Physical ---
History & Physical Date & Time of Service: Dec 04, 2017 at 15:56 Chief Complaint: Geberalized Weakness Primary Care Physician: Omar Joshi M.D. History of Present Illness Source: patient, clinic records, hospital records This is a 72 y/o female with a history of HTN, HLD, COPD, h/o chronic PE/DVT, DM II, hypothyroidism, CKD stage III, BALWINDER, RLS, fibromyalgia and radiculopathy who presented to the ED on 12/04 with generalized weakness and dysuria. The patient notes that she has been feeling generally weak and fatigued for the last 2-3 days. She also complains of dysuria, urinary frequency and urgency, and lower abdominal pressure while urinating. The patient also reports slightly decreased appetite at home. The patient has a history of chronic PE/ DVT for which she takes warfarin. Her last INR check on 11/30 was 8.1. She was instructed to hold her warfarin. She noted some hematochezia this morning. The patient denies fevers, chills, sweats, chest pain, palpitations, claudication, cough, wheezing, shortness of breath, nausea, vomiting, hematuria , urinary retention, paralysis, weakness, numbness and tingling. Past Medical/Surgical History Medical Problems: (1) Acute bronchitis Status: Resolved (2) Altered mental status Status: Resolved (3) Altered mental status Status: Resolved (4) Benign essential hypertension Status: Chronic (5) Chronic bronchitis Status: Chronic (6) Chronic recurrent sinusitis Status: Chronic (7) Chronic sinusitis Status: Chronic (8) Deep venous thrombosis of lower extremity Status: Resolved (9) Diabetes mellitus type 2 Status: Chronic (10) Dizziness Status: Resolved (11) Hyperglycemia Status: Resolved (12) Hyperlipidemia Status: Chronic (13) Laceration Status: Resolved (14) Near syncope Status: Resolved (15) Obstructive sleep apnea syndrome Status: Chronic (16) Orthostatic hypotension Status: Resolved (17) POSSIBLE SEIZURE Status: Resolved (18) Pulmonary embolism Status: Resolved (19) Restless legs Status: Chronic (20) SJOGRENS Status: Resolved (21) SOB (shortness of breath) Status: Resolved (22) SUBTHERAPEAUTIC INR Status: Resolved (23) Supratherapeutic INR Status: Resolved (24) Supratherapeutic INR Status: Resolved (25) UTI (urinary tract infection) Status: Resolved Family History Diabetes mellitus MOTHER Esophageal cancer FATHER FH: cancer FH: gallbladder disease Hypertension Myocardial infarction MOTHER Social History Smoking Status: Never Smoker Smokeless Tobacco Use: No Alcohol Use: none Drug Use: none Marital Status: Housing status: lives with significant other Occupational Status: retired Immunizations History of Influenza Vaccine: Yes Influenza Vaccine Date: Aug 27, 2013 History of Tetanus Vaccine?: No History of Pneumococcal: Yes Pneumococcal Date: Nov 27, 2009 History of Hepatitis B Vaccine: No Multi-Drug Resistant Organisms History of MDRO: No Allergies Coded Allergies: Prochlorperazine (Verified Allergy, Severe, EXTRAPYRAMIDAL S/E, 12/04/17) LOSS OF MUSCLE CONTROL/MUSCLE SPASMS TROUBLE BREATHING "EYES WOULD FLY OPEN AND I COULDN'T CLOSE THEM" Zolpidem (Verified Allergy, Severe, CONFUSION/MEMORY LOSS, 12/04/17) "FOR THREE DAYS I WAS IN OUTER SPACE" Carbamazepine (Verified Allergy, Intermediate, CONFUSION, 12/04/17) Duloxetine (Verified Allergy, Intermediate, LIGHTHEADEDNESS/DIZZINESS, 12/04) Hydrochlorothiazide (Verified Allergy, Intermediate, LIGHTHEADEDNESS/ DIZZINESS, 12/04/17) Indigotindisulfonate (Verified Allergy, Intermediate, LIGHTHEADEDNESS/ DIZZINESS, 12/04/17) Levofloxacin (Verified Allergy, Mild, RASH, 12/04/17) also bloody diarrhea Clonazepam (Verified Allergy, Unknown, UNKNOWN, 12/04/17) Diclofenac (Verified Allergy, Unknown, NAUSEA AND VOMITING, 12/04/17) Losartan (Unverified Allergy, Unknown, ELEVATED CREATININE, 12/04/17) Hydromorphone (Verified Adverse Reaction, Intermediate, N/V AND NIGHTMARES , 12/04/17) Morphine (Verified Adverse Reaction, Intermediate, HYPOTENSION AND N/V, 12/04/17) Cyclobenzaprine (Verified Adverse Reaction, Mild, N/V, 12/04/17) Lisinopril (Verified Adverse Reaction, Mild, N/V, 12/04/17) Naproxen (Verified Adverse Reaction, Mild, N/V, 12/04/17) Oxycodone (Verified Adverse Reaction, Mild, N/V, 12/04/17) Tramadol (Verified Adverse Reaction, Unknown, N/V AND ITCHING, 12/04/17) Home Medications Scheduled Calcium (Calcium), 500 MG PO QPM Cholecalciferol (Vitamin D 1000 Unit), 2,000 INTER.UNIT PO QAM Cyanocobalamin (Vitamin B-12 1000 Mcg), 1,000 MCG PO BID Ferrous Sulfate (Iron), 325 MG PO QPM Gabapentin (Neurontin), 100 MG PO BID Home O2 Therapy (Oxygen), 2 LITERS NA HS Insulin Aspart (Novolog Flexpen), 1 DOSE SC TIDM Insulin Glargine (Lantus Solostar), 25 UNITS SC QPM Levothyroxine Sodium (Levothyroxine Sodium), 75 MCG PO QAM Magnesium Chloride (Slow-Mag Tab), 128 MG PO QPM Magnesium Chloride (Slow-Mag Tab), 192 MG PO QAM Mometasone Furoate-Formoterol (Dulera 100/5 Mcg), 2 PUFFS INH BID Montelukast Sod (Montelukast Sodium), 10 MG PO HS Nitrofurantoin Monohyd Macrocr (Macrobid), 100 MG PO BID Nortriptyline HCl (Nortriptyline HCl), 25 MG PO HS Pantoprazole (Pantoprazole Sodium), 40 MG PO QAM Ropinirole Hydrochloride (Requip), 4 MG PO HS Sennosides-Docusate Sodium (Stool Softener), 1 TAB PO DAILY Simvastatin (Simvastatin), 20 MG PO HS Sitagliptin-Metformin Hcl (Janumet), 1 TAB PO BID Warfarin Sod (Jantoven), 6 MG PO 2XWK Warfarin Sod (Jantoven), 4 MG PO 5XWK Scheduled PRN Albuterol Hfa (Ventolin Hfa), 2 PUFFS INH Q4H PRN for SOB/Wheezing Ipratropium-Albuterol (Combivent Respimat), 1 PUFF INH Q8-12H PRN for Shortness of Breath Torsemide (Demadex), 20 MG PO BID PRN for Fluid Retention Review of Systems Constitutional: No fever, No chills, No sweats Eyes: No worsening of vision, No eye pain, No diplopia ENT: No hearing loss, No nasal symptoms, No trouble swallowing Respiratory: No cough, No wheezing, No shortness of breath Cardiovascular: No chest pain, No claudication, No palpitations Abdomen: +Lower abdominal pressure while urinating. Hematochezia. No nausea, No vomiting Musculoskeletal: No joint pain, No muscle pain, No swelling Genitourinary - Female: +Dysuria, urinary frequency, urinary urgency. No hematuria Neurologic: No paralysis, No weakness, No numbness/tingling Integumentary: No rash, No itch, No color change Physical Exam Vital Signs Date Time Temp Pulse Resp B/P (MAP) Pulse Ox O2 Delivery O2 Flow Rate FiO2 12/04/17 15:19 69 20 150/73 95 Room Air 12/04/17 13:24 72 20 149/79 75 159/92 97 151/85 12/04/17 13:24 72 20 149/79 97 Room Air 12/04/17 12:48 97 Room Air 12/04/17 12:48 36.6 69 24 159/83 97 Room Air 12/04/17 12:45 70 General appearance: +Obese. Well-developed, well-nourished, no apparent distress Head: Normocephalic, atraumatic Eyes: Normal inspection, PERRL, EOMI ENT: +Very dry oral mucosa. Normal ENT inspection, hearing grossly normal, pharynx normal Neck: Supple, no JVD, trachea midline Respiratory/Chest: Lungs clear to auscultation, normal breath sounds, no respiratory distress Cardiovascular: Regular rate & rhythm, no gallop, no murmur Abdomen/GI: +Suprapubic area TTP. Normal bowel sounds, soft Extremities/Musculoskeletal: Normal inspection, no calf tenderness, no pedal edema Neurological/Psych: Alert, normal mood/affect, oriented x 3 Skin: +Skin very dry. Normal color, warm/dry, no rash Diagnostics Laboratory Results Results Past 24 Hours Test 12/04/17 12:35 12/04/17 13:05 12/04/17 14:17 Range/Units Urine Color YELLOW Urine Appearance CLOUDY CLEAR Urine pH 6.0 4.5-7.5 Urine Specific [place] 1.039 1.000-1.030 Urine Protein NEG NEG Urine Glucose (UA) 3+ NEG Urine Ketones NEG NEG Urine Occult Blood NEG NEG Urine Nitrite NEG NEG Urine Bilirubin NEG NEG Urine Urobilinogen NEG NEG Urine Leukocyte Esterase NEG NEG Urine WBC (Auto) >30 0-5 /hpf Urine RBC (Auto) 5-10 0-4 /hpf Urine Hyaline Casts (Auto) 0 0-5 /lpf Urine Epithelial Cells (Auto) 20-30 0-5 /lpf Urine Bacteria (Auto) 4+ NEG White Blood Count 13.27 4.8-10.8 K/uL Red Blood Count 5.67 4.2-5.4 M/uL Hemoglobin 17.6 12.0-16.0 g/dL Hematocrit 51.2 37-47 % Mean Corpuscular Volume 90.3 80-100 fL Mean Corpuscular Hemoglobin 31.0 25-34 pg Mean Corpuscular Hemoglobin Concent 34.4 32-36 g/dl Platelet Count 192 130-400 K/uL Mean Platelet Volume 11.3 7.4-10.4 fL Neutrophils (%) (Auto) 57.0 % Lymphocytes (%) (Auto) 30.8 % Monocytes (%) (Auto) 10.6 % Eosinophils (%) (Auto) 0.9 % Basophils (%) (Auto) 0.2 % Neutrophils # (Auto) 7.57 1.4-6.5 K/uL Lymphocytes # (Auto) 4.09 1.2-3.4 K/uL Monocytes # (Auto) 1.40 0.11-0.59 K/uL Eosinophils # (Auto) 0.12 0-0.5 K/uL Basophils # (Auto) 0.02 0-0.2 K/uL RDW Standard Deviation 43.9 36.4-46.3 fL RDW Coefficient of Variation 13.4 11.5-14.5 % Immature Granulocyte % (Auto) 0.5 % Immature Granulocyte # (Auto) 0.07 0.00-0.02 K/uL Sodium Level 134 136-145 mmol/L Potassium Level 3.7 3.5-5.1 mmol/L Chloride Level 97 98-107 mmol/L Carbon Dioxide Level 25 21-32 mmol/L Anion Gap 12.0 3-11 mmol/L Blood Urea Nitrogen 13 7-18 mg/dl Creatinine 1.01 0.60-1.20 mg/dl Est Creatinine Clear Calc Drug Dose 47.0 ml/min Estimated GFR () 64.0 Estimated GFR (Non- 55.2 BUN/Creatinine Ratio 12.9 10-20 Random Glucose 384 70-99 mg/dl Calcium Level 9.5 8.5-10.1 mg/dl Magnesium Level 1.8 1.8-2.4 mg/dl Total Bilirubin 1.3 0.2-1 mg/dl Aspartate Amino Transf (AST/SGOT) 29 15-37 U/L Alanine Aminotransferase (ALT/SGPT) 41 12-78 U/L Alkaline Phosphatase 113 45-117 U/L Troponin I < 0.015 0-0.045 ng/ml Total Protein 7.7 6.4-8.2 gm/dl Albumin 3.9 3.4-5.0 gm/dl Globulin 3.8 2.5-4.0 gm/dl Albumin/Globulin Ratio 1.0 0.9-2 Beta-Hydroxybutyric Acid 2.81 0.2-2.81 mg/dL Thyroid Stimulating Hormone (TSH) 2.700 0.300-4.500 uIu/ml Free Thyroxine 1.37 0.80-1.60 ng/dl Prothrombin Time 26.3 9.0-12.0 SECONDS Prothromb Time International Ratio 2.6 0.9-1.1 Activated Partial Thromboplast Time 38.5 21.0-31.0 SECONDS Partial Thromboplastin Ratio 1.5 Microbiology Results 12/04/17 Blood Culture, Ordered Pending 12/04/17 Blood Culture, Ordered Pending 12/04/17 Urine Culture, Received Pending Diagnostic Radiology Reviewed the following studies and agree with interpretation as follows: CHEST ONE VIEW PORTABLE HISTORY: EVALUATE ALTERED MENTAL STATUS/WEAKNESS COMPARISON: Chest 10/24/2017. FINDINGS: The lungs are clear. Cardiac silhouette is normal in size. No pleural effusions. No pneumothorax. IMPRESSION: No acute process. EKG Reviewed EKG and agree with interpretation as follows: 69 bpm, NSR Impression Assessment and Plan 72 y/o female with a history of HTN, HLD, COPD, h/o chronic PE/DVT, DM II, hypothyroidism, CKD stage III, BALWINDER, RLS, fibromyalgia and radiculopathy who presented to the ED on 12/04 with generalized weakness and dysuria. Pt arrived afebrile, VSS. CXR no acute disease. EKG no ischemic changes. WBC 13.27. INR 2.6. Stool negative for occult blood per ED physician. BSG 384 on admission, given 10 units regular insulin in ED. Repeat BSG 270. Pt given 1.5L of NSS boluses in Rocephin in ED. Weakness, urinary tract infection -Admit to med/surg -UA positive for 4+ bacteria, urine culture pending -Will order blood cultures, although pt had already received abx in ED -Continue Rocephin 1 gm IV qd for now pending culture -NSS 1L bolus now, then NSS at 100 cc/hr -Check renal ultrasound to assess for pyelo -Pyridium contraindicated given CrCl <50 -Weakness likely secondary to UTI but will order PT/OT HTN, HLD--stable -Continue Zocor 20 mg PO hs COPD--stable, no exacerbation -Convert Dulera to Advair BID -Continue Singulair 10 mg PO qd and albuterol and Combivent prn H/o chronic PE/DVT--stable, recently had supratherapeutic INR at 8.1 on 11/30, now down to 2.6 on admission. Stool heme negative -Continue warfarin at 4 mg PO qd for now -Continue to monitor INR, adjust prn DM II--last HgbA1c was 13.1 on 11/07/17 -Hold Janumet -Lantus 23 units SC hs -Insulin sliding scale -Check BSGs q ac and qhs Hypothyroidism--stable -TSH 2.7 on admission -Continue Synthroid 75 mcg PO qd CKD stage III--stable -Creatinine at baseline 0.9-1.1 RLS -Continue Requip 4 mg PO hs Fibromyalgia, radiculopathy -Continue nortriptyline 25 mg PO hs, gabapentin 100 mg PO BID DVT prophylaxis -Warfarin therapeutic -FUAD hose and SCDs Code Status -Level I, FULL RESUSCITATION STATUS VTE Prophylaxis VTE Risk Assessment Done? Y/N: Yes Risk Level: Moderate Note Supervising Note Dr. Rucker I performed a history and physical examination on the patient. I reviewed above note and agree with it. I discussed plan with APC and patient. During my face to face encounter with the patient, I answered all of the patient's questions.
[2017-12-04 17:00] VITALS: BP 132/80; PULSE 66; TEMP 36.4; O2SAT 95
[2017-12-04] MEDS ORDERED: SODIUM CHLORIDE 0.9% 1000ML 1,000 ML IV SCH (17:30)
[2017-12-04] MEDS: WARFARIN SOD 4 MG TAB PO SCH (18:28)
--- NOTE | 2017-12-04 18:31 | DIAGNOSTIC IMAGING REPORT ---
ULTRASOUND KIDNEYS AND BLADDER CLINICAL HISTORY: Right costovertebral angle tenderness. COMPARISON STUDY: Abdominal CT dated 12/14/2015. TECHNIQUE: Real-time, grayscale, and color flow sonography of the kidneys and bladder is performed. Images are reviewed in the transverse and longitudinal planes. FINDINGS: Kidneys: The kidneys demonstrate cortical atrophy. The right kidney measures 8.7 x 4.2 x 4.3 cm and the left kidney measures 9.3 x 5.3 x 5.3 cm. There is no hydronephrosis. No shadowing renal calculi are identified. There is no sonographic evidence of contour deforming renal mass lesion. No perinephric fluid is identified. Bladder: The bladder is decompressed and grossly unremarkable. Ureteral jets were not seen. IMPRESSION: 1. The kidneys demonstrate cortical atrophy and are without hydronephrosis. 2. The bladder was decompressed and not well evaluated. Electronically signed by: Taz Guzman M.D. 12/04/2017 6:30 PM Dictated Date/Time: 12/04/2017 6:29 PM
[2017-12-04] MEDS ORDERED: INSULIN GLARGINE SOLOSTAR 100 UNITS/ML 3 ML PEN SC SCH (21:00)
[2017-12-04] MEDS: MAGNESIUM CHLORIDE 64MG DELAYED REL TAB PO SCH (21:05)
[2017-12-04] MEDS: SIMVASTATIN 20 MG TAB PO SCH (21:05)
[2017-12-04] MEDS: CYANOCOBALAMIN 500 MCG TAB (VIT B-12) PO SCH (21:05)
[2017-12-04] MEDS: ROPINIROLE HCL 1 MG TAB PO SCH (21:09)
[2017-12-04] MEDS: FLUTICASONE/SALMETEROL 100/50 (ADVAIR) 14 PUFF/1 INHALER INH SCH (21:10)
[2017-12-04] MEDS: NORTRIPTYLINE HCL 25 MG CAP PO SCH (21:10)
[2017-12-04] MEDS: MONTELUKAST SOD 10 MG TAB PO SCH (21:10)
[2017-12-04] MEDS: GABAPENTIN 100 MG CAP PO SCH (21:12)
[2017-12-04] MEDS: INSULIN ASPART 100 UNITS/ML 3 ML PEN SC SCH (21:15)
[2017-12-04] MEDS: SODIUM CHLORIDE 0.9% 1000ML 1,000 ML IV SCH (21:16)
[2017-12-05 00:45] VITALS: BP 151/83; PULSE 68; TEMP 36.7; O2SAT 93
[2017-12-05] MEDS: LEVOTHYROXINE 75 MCG TAB PO SCH (04:56)
[2017-12-05] MEDS: SODIUM CHLORIDE 0.9% 1000ML 1,000 ML IV SCH ×2 (04:57→13:34)
[2017-12-05 07:34] VITALS: BP 135/78; PULSE 69; TEMP 36.6; O2SAT 95
[2017-12-05 07:41] LABS: HEMOGLOBIN 14.9 g/dL (12.0-16.0); MEAN CELL VOLUME 91.8 fL (80-100); MEAN CORPUSCULAR HEMOGLOBIN 30.4 pg (25-34); MEAN CORPUSCULAR HGB CONC 33.1 g/dl (32-36); MEAN PLATELET VOLUME 11.2 fL (7.4-10.4); PLATELET COUNT 166 K/uL (130-400); RED CELL DISTRIBUTION WIDTH CV 13.7 % (11.5-14.5); RED CELL DISTRIBUTION WIDTH SD 45.4 fL (36.4-46.3); WHITE BLOOD COUNT 12.02 K/uL (4.8-10.8)
[2017-12-05 07:51] LABS: INR 1.8 (0.9-1.1)
[2017-12-05] MEDS: FLUTICASONE/SALMETEROL 100/50 (ADVAIR) 14 PUFF/1 INHALER INH SCH ×2 (09:29→21:10)
[2017-12-05] MEDS: GABAPENTIN 100 MG CAP PO SCH ×2 (09:30→21:12)
[2017-12-05] MEDS: CYANOCOBALAMIN 500 MCG TAB (VIT B-12) PO SCH ×2 (09:30→21:11)
[2017-12-05] MEDS: CHOLECALCIFEROL 1000 INTER.UNIT TAB PO SCH (09:30)
[2017-12-05] MEDS: PANTOprazole SOD 40 MG TAB PO SCH (09:30)
[2017-12-05] MEDS: MAGNESIUM CHLORIDE 64MG DELAYED REL TAB PO SCH ×2 (09:31→21:12)
[2017-12-05] MEDS: DOCUSATE SODIUM/SENNA 50/8.6MG TAB PO SCH (09:31)
[2017-12-05 09:34] LABS: CREATININE 0.89 mg/dl (0.60-1.20); POTASSIUM 3.7 mmol/L (3.5-5.1)
[2017-12-05] MEDS: INSULIN ASPART 100 UNITS/ML 3 ML PEN SC SCH ×4 (09:36→21:20)
--- NOTE | 2017-12-05 11:37 | Hospitalist Progress Note ---
Hospitalist Progress Note Date of Service Dec 05, 2017. Subjective Pt evaluation today including: conversation w/ patient, physical exam, chart review, lab review, review of studies, review of inpatient medication list Patient seen and evaluated. No acute events overnight. Growing E. coli in her urine. Reporting improvement in symptoms. Still feels weak but improving and was able to walk around the halls this AM. Reporting painful urination has resolved but still with some bladder pressure after urination. She denies abdominal pain but is mildly tender on palpation of b/l lower quadrants and more specifically in the suprapubic region. Constitutional: + weakness (improving), No fever, No chills Respiratory: No cough, No shortness of breath Cardiovascular: No chest pain Abdomen: + pain (suprapubic), No nausea, No vomiting, No diarrhea, No constipation, No GI bleeding Musculoskeletal: No swelling, No calf pain Female : No dysuria, No urinary frequency, No hematuria Heme: No abnormal bleeding/bruising Skin: No rash Medications Current Inpatient Medications Medications (Trade) Dose Ordered Sig/Mick Route Start Time Stop Time Status Last Admin Dose Admin Acetaminophen (Tylenol Tab) 650 mg Q4H PRN PO 12/04/17 15:45 01/03/18 15:44 Al Hydrox/Mg Hydrox/Simethicone (Maalox Max Susp) 15 ml Q4H PRN PO 12/04/17 15:45 01/03/18 15:44 12/05/17 10:42 15 ML Magnesium Hydroxide (Milk Of Magnesia Susp) 30 ml Q6H PRN PO 12/04/17 15:45 01/03/18 15:44 Polyethylene (Miralax Powder Packet) 17 gm DAILY PRN PO 12/04/17 15:45 01/03/18 15:44 Ondansetron HCl (Zofran Inj) 4 mg Q6H PRN IV 12/04/17 15:45 01/03/18 15:44 Albuterol (Ventolin Hfa Inhaler) 2 puffs Q4H PRN INH 12/04/17 15:45 01/03/18 15:44 Cholecalciferol (Vitamin D Tab) 2,000 inter.unit QAM PO 12/05/17 09:00 01/04/18 08:59 12/05/17 09:30 2,000 INTER.UNIT Cyanocobalamin (Vitamin B-12 Tab) 1,000 mcg BID PO 12/04/17 21:00 01/03/18 20:59 12/05/17 09:30 1,000 MCG Gabapentin (Neurontin Cap) 100 mg BID PO 12/04/17 21:00 01/03/18 20:59 12/05/17 09:30 100 MG Insulin Glargine (Lantus Solostar Pen) 23 units QPM SC 12/04/17 21:00 01/03/18 20:59 12/04/17 21:15 23 UNITS Albuterol/ Ipratropium (Combivent Respimat Inh) 1 puffs TID PRN INH 12/04/17 15:45 01/03/18 15:44 Levothyroxine Sodium (Synthroid Tab) 75 mcg DAILYBB PO 12/05/17 06:30 01/04/18 06:59 12/05/17 04:56 75 MCG Magnesium Chloride (Slow-Mag Tab) 128 mg QPM PO 12/04/17 21:00 01/03/18 20:59 12/04/17 21:05 128 MG Magnesium Chloride (Slow-Mag Tab) 192 mg QAM PO 12/05/17 09:00 01/04/18 08:59 12/05/17 09:31 192 MG Montelukast Sodium (Singulair Tab) 10 mg HS PO 12/04/17 21:00 01/03/18 20:59 12/04/17 21:10 10 MG Nortriptyline HCl (Pamelor Cap) 25 mg HS PO 12/04/17 21:00 01/03/18 20:59 12/04/17 21:10 25 MG Pantoprazole Sodium (Protonix Tab) 40 mg QAM PO 12/05/17 09:00 01/04/18 08:59 12/05/17 09:30 40 MG Ropinirole HCl (Requip Tab) 4 mg HS PO 12/04/17 21:00 01/03/18 20:59 12/04/17 21:09 4 MG Senna/Docusate Sodium (Senokot S Tab) 1 tab DAILY PO 12/05/17 09:00 01/04/18 08:59 12/05/17 09:31 1 TAB Simvastatin (Zocor Tab) 20 mg HS PO 12/04/17 21:00 01/03/18 20:59 12/04/17 21:05 20 MG Salmeterol Xinafoate/ Fluticasone (Advair Diskus 100/50 Inh) 1 puff BID INH 12/04/17 21:00 01/03/18 20:59 12/05/17 09:29 1 PUFF Warfarin Sodium (Coumadin Tab) 4 mg DAILY@16 PO 12/04/17 18:00 01/03/18 17:59 12/04/17 18:28 4 MG Ceftriaxone Sodium 1 gm/ Dextrose 50 ml @ 100 mls/hr Q24H IV 12/05/17 14:00 12/10/17 13:59 Insulin Aspart (novoLOG ASPART) SLIDING SCALE If C... ACHS SC 12/04/17 21:00 01/03/18 20:59 12/05/17 09:36 5 UNITS Glucose (Glucose 40% Gel) 15-30 GRAMS 15 GRAMS... UD PRN PO 12/04/17 15:45 01/03/18 15:44 Glucose (Glucose Chew Tab) 4-8 Tablets 4 Tabl... UD PRN PO 12/04/17 15:45 01/03/18 15:44 Dextrose (Dextrose 50% 50ML Syringe) 25-50ML OF 50% DW IV FOR... UD PRN IV 12/04/17 15:45 01/03/18 15:44 Glucagon (Glucagon Inj) 1 mg UD PRN SQ 12/04/17 15:45 01/03/18 15:44 Sodium Chloride 1,000 ml @ 100 mls/hr Q10H IV 12/04/17 17:30 01/03/18 17:29 12/05/17 04:57 100 MLS/HR Objective Vital Signs Date Time Temp Pulse Resp B/P (MAP) Pulse Ox O2 Delivery O2 Flow Rate FiO2 12/05/17 08:00 Room Air 12/05/17 07:34 36.6 69 18 135/78 (97) 95 Room Air 12/05/17 00:45 36.7 68 20 151/83 (105) 93 Room Air 12/05/17 00:00 Room Air 12/04/17 20:00 Room Air 12/04/17 17:00 95 Room Air 12/04/17 17:00 36.4 66 16 132/80 (97) 95 Room Air 12/04/17 15:59 95 Room Air 12/04/17 15:19 69 20 150/73 95 Room Air 12/04/17 13:24 72 20 149/79 75 159/92 97 151/85 12/04/17 13:24 72 20 149/79 97 Room Air 12/04/17 12:48 97 Room Air 12/04/17 12:48 36.6 69 24 159/83 97 Room Air 12/04/17 12:45 70 Physical Exam General Appearance: WD/WN, no apparent distress Eyes: sclerae normal ENT: hearing grossly normal Neck: supple, no JVD, trachea midline Respiratory/Chest: lungs clear, normal breath sounds, no respiratory distress, no accessory muscle use Cardiovascular: regular rate, rhythm, no gallop, no murmur Abdomen: normal bowel sounds, soft, + tenderness (reported with palpation of suprapubic region without guarding or rigidity) Neurologic/Psychiatric: alert, oriented x 3 Skin: normal color, warm/dry Laboratory Results Last 24 Hours Test 12/04/17 12:35 12/04/17 13:05 12/04/17 14:17 12/04/17 14:37 Urine Color YELLOW Urine Appearance CLOUDY Urine pH 6.0 Urine Specific [place] 1.039 Urine Protein NEG Urine Glucose (UA) 3+ Urine Ketones NEG Urine Occult Blood NEG Urine Nitrite NEG Urine Bilirubin NEG Urine Urobilinogen NEG Urine Leukocyte Esterase NEG Urine WBC (Auto) >30 /hpf Urine RBC (Auto) 5-10 /hpf Urine Hyaline Casts (Auto) 0 /lpf Urine Epithelial Cells (Auto) 20-30 /lpf Urine Bacteria (Auto) 4+ White Blood Count 13.27 K/uL Red Blood Count 5.67 M/uL Hemoglobin 17.6 g/dL Hematocrit 51.2 % Mean Corpuscular Volume 90.3 fL Mean Corpuscular Hemoglobin 31.0 pg Mean Corpuscular Hemoglobin Concent 34.4 g/dl Platelet Count 192 K/uL Mean Platelet Volume 11.3 fL Neutrophils (%) (Auto) 57.0 % Lymphocytes (%) (Auto) 30.8 % Monocytes (%) (Auto) 10.6 % Eosinophils (%) (Auto) 0.9 % Basophils (%) (Auto) 0.2 % Neutrophils # (Auto) 7.57 K/uL Lymphocytes # (Auto) 4.09 K/uL Monocytes # (Auto) 1.40 K/uL Eosinophils # (Auto) 0.12 K/uL Basophils # (Auto) 0.02 K/uL RDW Standard Deviation 43.9 fL RDW Coefficient of Variation 13.4 % Immature Granulocyte % (Auto) 0.5 % Immature Granulocyte # (Auto) 0.07 K/uL Sodium Level 134 mmol/L Potassium Level 3.7 mmol/L Chloride Level 97 mmol/L Carbon Dioxide Level 25 mmol/L Anion Gap 12.0 mmol/L Blood Urea Nitrogen 13 mg/dl Creatinine 1.01 mg/dl Est Creatinine Clear Calc Drug Dose 47.0 ml/min Estimated GFR () 64.0 Estimated GFR (Non- 55.2 BUN/Creatinine Ratio 12.9 Random Glucose 384 mg/dl Calcium Level 9.5 mg/dl Magnesium Level 1.8 mg/dl Total Bilirubin 1.3 mg/dl Aspartate Amino Transf (AST/SGOT) 29 U/L Alanine Aminotransferase (ALT/SGPT) 41 U/L Alkaline Phosphatase 113 U/L Troponin I < 0.015 ng/ml Total Protein 7.7 gm/dl Albumin 3.9 gm/dl Globulin 3.8 gm/dl Albumin/Globulin Ratio 1.0 Beta-Hydroxybutyric Acid 2.81 mg/dL Thyroid Stimulating Hormone (TSH) 2.700 uIu/ml Free Thyroxine 1.37 ng/dl Prothrombin Time 26.3 SECONDS Prothromb Time International Ratio 2.6 Activated Partial Thromboplast Time 38.5 SECONDS Partial Thromboplastin Ratio 1.5 Bedside Glucose 270 mg/dl Test 12/04/17 17:02 12/04/17 20:07 12/05/17 07:23 12/05/17 07:27 Bedside Glucose 211 mg/dl 267 mg/dl 227 mg/dl Prothrombin Time 18.8 SECONDS Prothromb Time International Ratio 1.8 Sodium Level 136 mmol/L Potassium Level 3.7 mmol/L Chloride Level 107 mmol/L Carbon Dioxide Level 21 mmol/L Anion Gap 8.0 mmol/L Blood Urea Nitrogen 13 mg/dl Creatinine 0.89 mg/dl Est Creatinine Clear Calc Drug Dose 53.3 ml/min Estimated GFR () 74.5 Estimated GFR (Non- 64.3 BUN/Creatinine Ratio 14.3 Random Glucose 244 mg/dl Calcium Level 9.0 mg/dl Test 12/05/17 07:28 White Blood Count 12.02 K/uL Red Blood Count 4.90 M/uL Hemoglobin 14.9 g/dL Hematocrit 45.0 % Mean Corpuscular Volume 91.8 fL Mean Corpuscular Hemoglobin 30.4 pg Mean Corpuscular Hemoglobin Concent 33.1 g/dl RDW Standard Deviation 45.4 fL RDW Coefficient of Variation 13.7 % Platelet Count 166 K/uL Mean Platelet Volume 11.2 fL Assessment and Plan 72 y/o female with a history of HTN, HLD, COPD, h/o chronic PE/DVT, DM II, hypothyroidism, CKD stage III, BALWINDER, RLS, fibromyalgia and radiculopathy who presented to the ED on 12/04 with generalized weakness and dysuria. Pt arrived afebrile, VSS. CXR no acute disease. EKG no ischemic changes. WBC 13.27. INR 2.6. Stool negative for occult blood per ED physician. BSG 384 on admission, given 10 units regular insulin in ED. Repeat BSG 270. Pt given 1.5L of NSS boluses in Rocephin in ED. Generalized Weakness with E. Coli UTI: - Final cx and sensitivities pending - reporting some improvement at this time and will continue Ceftriaxone and de-escalate pending cx - Will back down fluids to NSS at 75 mL/hr COPD without Exacerbation: STABLE - Convert Dulera to Advair BID - Continue Singulair 10 mg daily and Ventoloin/Combivent PRN H/O Chronic PE/DVT: STABLE - Recent supratherapeutic INR with Coumadin held - reinstituted on 12/04 with now INR 1.8 and will continue current dosing as likely will increase tomorrow - will need F/U with anticoagulation clinic on D/C - Continue warfarin 4 mg daily T2DM - IDDM - Uncontrolled with Hyperglycemia: A1c 13.1 - On admission glucose 300+ with a mildly elevated anion gap of 12 - current improving and anion gap WNL - Hold Janumet at this time - Will increase Lantus to 25 units SC HS and continue SSI with correction and carb coverage CKD stage III: Baseline 0.9-1.1 - Continue to monitor DVT Prophylaxis: Warfarin Code Status: FULL RESUSCITATION Disposition: PT/OT evaluations - Pending Cx and oral conversion - possible D/C 1-2 days Continued [facility] stay due to: multiple IV medications needed Discharge planning: home
[2017-12-05] MEDS ORDERED: CEFTRIAXONE SOD INJ 1 GM in DEXTROSE 5% ADD-VANTAGE 50ML 50 ML IV SCH (14:00)
[2017-12-05 14:06] VITALS: Ht 149.9 cm; Wt 85.2 kg
[2017-12-05 14:55] VITALS: BP 148/81; PULSE 75; TEMP 36.8; O2SAT 94
[2017-12-05 16:00] VITALS: O2SAT 94
[2017-12-05] MEDS: WARFARIN SOD 4 MG TAB PO SCH (16:09)
[2017-12-05] MEDS: MONTELUKAST SOD 10 MG TAB PO SCH (21:11)
[2017-12-05] MEDS: ROPINIROLE HCL 1 MG TAB PO SCH (21:12)
[2017-12-05] MEDS: NORTRIPTYLINE HCL 25 MG CAP PO SCH (21:13)
[2017-12-05] MEDS: SIMVASTATIN 20 MG TAB PO SCH (21:13)
[2017-12-05] MEDS: INSULIN GLARGINE SOLOSTAR 100 UNITS/ML 3 ML PEN SC SCH (21:21)
[2017-12-06] VITALS: BP 119/69; PULSE 63; TEMP 36.5; O2SAT 94
[2017-12-06] MEDS: SODIUM CHLORIDE 0.9% 1000ML 1,000 ML IV SCH (06:37)
[2017-12-06] MEDS: LEVOTHYROXINE 75 MCG TAB PO SCH (06:37)
[2017-12-06 06:58] VITALS: BP 144/82; PULSE 59; TEMP 36.6; O2SAT 97
[2017-12-06] MEDS: FLUTICASONE/SALMETEROL 100/50 (ADVAIR) 14 PUFF/1 INHALER INH SCH ×2 (07:52→20:25)
[2017-12-06] MEDS: GABAPENTIN 100 MG CAP PO SCH ×2 (07:52→20:27)
[2017-12-06] MEDS: CYANOCOBALAMIN 500 MCG TAB (VIT B-12) PO SCH ×2 (07:52→20:29)
[2017-12-06] MEDS: DOCUSATE SODIUM/SENNA 50/8.6MG TAB PO SCH (07:52)
[2017-12-06 07:53] LABS: HEMATOCRIT 42.4 % (37-47); HEMOGLOBIN 14.4 g/dL (12.0-16.0); MEAN CORPUSCULAR HEMOGLOBIN 30.9 pg (25-34); PLATELET COUNT 155 K/uL (130-400); RED CELL DISTRIBUTION WIDTH CV 13.6 % (11.5-14.5); RED CELL DISTRIBUTION WIDTH SD 45.2 fL (36.4-46.3)
[2017-12-06] MEDS: MAGNESIUM CHLORIDE 64MG DELAYED REL TAB PO SCH ×2 (07:53→20:26)
[2017-12-06] MEDS: CHOLECALCIFEROL 1000 INTER.UNIT TAB PO SCH (07:53)
[2017-12-06 08:02] LABS: INR 1.9 (0.9-1.1)
[2017-12-06] MEDS: INSULIN ASPART 100 UNITS/ML 3 ML PEN SC SCH ×4 (08:10→20:28)
[2017-12-06] MEDS: PANTOprazole SOD 40 MG TAB PO SCH (08:27)
[2017-12-06 08:28] LABS: CALCIUM 8.7 mg/dl (8.5-10.1); CREATININE 0.79 mg/dl (0.60-1.20); POTASSIUM 3.9 mmol/L (3.5-5.1)
[2017-12-06] MEDS ORDERED: SULFAMETHOXAZOLE/TRIMETHOPRIM DS 800/160MG TAB PO ONE (10:00)
[2017-12-06] MEDS: ERTAPENEM IV 1 GM in SODIUM CHLOR 0.9% AD-VAN 50ML 50 ML IV SCH (11:27)
--- NOTE | 2017-12-06 15:30 | Hospitalist Progress Note ---
Hospitalist Progress Note Date of Service Dec 06, 2017. (Catalina Montez PA-C) Subjective Pt evaluation today including: conversation w/ patient, physical exam, chart review, lab review, review of studies, review of inpatient medication list Patient seen and evaluated. Cx sensitivities show resistance to Ceftriaxone but clinically is improving and leukocytosis is resolved. Unfortunately most oral Abx are resistant who she has an allergy. Bactrim is an option but there is a concern for impact on Coumadin. Did switch to Ertapenem today and discussed with ID. Could still consider Bactrim with close INR f/u as a short course could be utilized with minimal effect. She states her urinary symptoms are almost completely resolved but still has mild pressure after urination. No abd pain/N/V. Reporting weakness is somewhat improved but not at baseline. Per PT she does ambulate better with a walker but patient states her home does not have space to maneuver a walker. Also states he would not be fully able to help her at home and is nervous about returning home. Was asking about possible SNF at [facility]. Also states her INR machine broke and she is awaiting a new one but currently does not have the ability to check her INR at home. Patient also reports intermittent R rib pain that is tender on palpation. She reports she sustained a fall "few weeks ago" and states this just comes and goes. Constitutional: + weakness, No fever, No chills Respiratory: No shortness of breath Cardiovascular: No chest pain Abdomen: No pain, No nausea, No vomiting (Catalina Montez PA-C) Objective Vital Signs Date Time Temp Pulse Resp B/P (MAP) Pulse Ox O2 Delivery O2 Flow Rate FiO2 12/06/17 08:00 Room Air 12/06/17 06:58 36.6 59 18 144/82 (102) 97 Room Air 12/06/17 00:00 Room Air 12/06/17 00:00 36.5 63 18 119/69 (86) 94 Room Air 12/05/17 16:00 94 Room Air (Catalina Montez PA-C) Laboratory Results Last 24 Hours Test 12/05/17 19:50 12/06/17 07:32 12/06/17 07:34 12/06/17 11:34 Bedside Glucose 251 mg/dl 215 mg/dl 298 mg/dl White Blood Count 10.80 K/uL Red Blood Count 4.66 M/uL Hemoglobin 14.4 g/dL Hematocrit 42.4 % Mean Corpuscular Volume 91.0 fL Mean Corpuscular Hemoglobin 30.9 pg Mean Corpuscular Hemoglobin Concent 34.0 g/dl RDW Standard Deviation 45.2 fL RDW Coefficient of Variation 13.6 % Platelet Count 155 K/uL Mean Platelet Volume 11.0 fL Prothrombin Time 19.2 SECONDS Prothromb Time International Ratio 1.9 Sodium Level 136 mmol/L Potassium Level 3.9 mmol/L Chloride Level 108 mmol/L Carbon Dioxide Level 20 mmol/L Anion Gap 8.0 mmol/L Blood Urea Nitrogen 13 mg/dl Creatinine 0.79 mg/dl Est Creatinine Clear Calc Drug Dose 60.1 ml/min Estimated GFR () 86.1 Estimated GFR (Non- 74.3 BUN/Creatinine Ratio 16.6 Random Glucose 258 mg/dl Calcium Level 8.7 mg/dl (Catalina Montez, PA-C) Assessment and Plan 72 y/o female with a history of HTN, HLD, COPD, h/o chronic PE/DVT, DM II, hypothyroidism, CKD stage III, BALWINDER, RLS, fibromyalgia and radiculopathy who presented to the ED on 12/04 with generalized weakness and dysuria. Pt arrived afebrile, VSS. CXR no acute disease. EKG no ischemic changes. WBC 13.27. INR 2.6. Stool negative for occult blood per ED physician. BSG 384 on admission, given 10 units regular insulin in ED. Repeat BSG 270. Pt given 1.5L of NSS boluses in Rocephin in ED. Generalized Weakness with E. Coli UTI: - Sensitivities show MDR including Rocephin - however appears some clinical improvement was obtained - Will convert to Ertapenem while in the hospital; Did discuss with ID that Bactrim could be used with attention to INR but a short course should be ok -- Currently patient reports her INR machine is broken at home COPD without Exacerbation: STABLE - Convert Dulera to Advair BID - Continue Singulair 10 mg daily and Ventolin/Combivent PRN H/O Chronic PE/DVT: STABLE - Recent supratherapeutic INR but remains subtherapeutic at this time - Continue warfarin 4 mg daily and trend INR especially if Bactrim to be utilized T2DM - IDDM - Uncontrolled with Hyperglycemia: A1c 13.1 - On admission glucose 300+ with a mildly elevated anion gap of 12 - current improving and anion gap WNL - Hold Janumet at this time - Will increase Lantus to 25 units SC HS and continue SSI with correction and carb coverage - likely increased Lantus on D/C CKD stage III: Baseline 0.9-1.1 - Continue to monitor DVT Prophylaxis: Warfarin Code Status: FULL RESUSCITATION Disposition: PT/OT evaluations - Patient is unsure about home return after hospital stay; states she does not know if her can help much when she returns - Ambulates better with a walker but reports her home is so narrow that a walker is hard to maneuver - Was curious about possibility of SNF - requesting Kristin Reardon [facility]ued [facility] stay due to: multiple IV medications needed Discharge planning: uncertain (Catalina Montez, PA-C) Attending Attestation: Pt seen/examined, chart reviewed, care plan d/w STEVE Montez. I agree w/ the menjivar components of her documentation. Pt still with poor appetite and dysuria. But no abd pain, fever, or chills. VSS no fever gen - obese, NAD neck - no JVD heart - RRR lungs - CTA b/l abd - soft, NT, ND, BS+ ext - no edema A/P: MDR e. coli UTI - change rocephin to ertapenem, then can ultimately transition to macrobid or bactrim. uncontrolled T2DM - adjust medications. CKD stage 3 - creatinine stable. h/o DVT/PE - cont daily INR checks and coumadin as is for now. dispo - SNF vs Home with HH Neri Trujillo MD (Neri Trujillo MD)
[2017-12-06 15:32] VITALS: BP 110/66; PULSE 83; TEMP 36.6; O2SAT 95
[2017-12-06 16:00] VITALS: O2SAT 95
[2017-12-06] MEDS: WARFARIN SOD 4 MG TAB PO SCH (16:33)
[2017-12-06] MEDS: INSULIN GLARGINE SOLOSTAR 100 UNITS/ML 3 ML PEN SC SCH (20:25)
[2017-12-06] MEDS: MONTELUKAST SOD 10 MG TAB PO SCH (20:26)
[2017-12-06] MEDS: ROPINIROLE HCL 1 MG TAB PO SCH (20:26)
[2017-12-06] MEDS: NORTRIPTYLINE HCL 25 MG CAP PO SCH (20:27)
[2017-12-06] MEDS: SIMVASTATIN 20 MG TAB PO SCH (20:28)
[2017-12-06] MEDS ORDERED: SULFAMETHOXAZOLE/TRIMETHOPRIM DS 800/160MG TAB PO SCH (21:00)
[2017-12-06 23:27] VITALS: BP 134/83; PULSE 70; TEMP 36.6; O2SAT 91
[2017-12-07] MEDS: ACETAMINOPHEN 325 MG TAB PO PRN (00:38)
[2017-12-07] MEDS: LEVOTHYROXINE 75 MCG TAB PO SCH (05:58)
[2017-12-07 07:05] VITALS: BP 154/85; PULSE 80; TEMP 36.7; O2SAT 94
[2017-12-07 07:32] LABS: HEMOGLOBIN 14.4 g/dL (12.0-16.0); MEAN CELL VOLUME 91.9 fL (80-100); MEAN CORPUSCULAR HEMOGLOBIN 30.8 pg (25-34); MEAN CORPUSCULAR HGB CONC 33.5 g/dl (32-36); MEAN PLATELET VOLUME 10.8 fL (7.4-10.4); PLATELET COUNT 151 K/uL (130-400); RED CELL DISTRIBUTION WIDTH SD 46.8 fL (36.4-46.3); WHITE BLOOD COUNT 11.13 K/uL (4.8-10.8)
[2017-12-07 07:36] LABS: INR 2.1 (0.9-1.1)
[2017-12-07 07:56] LABS: CALCIUM 8.7 mg/dl (8.5-10.1); CREATININE 0.82 mg/dl (0.60-1.20); POTASSIUM 3.7 mmol/L (3.5-5.1)
[2017-12-07] MEDS: CYANOCOBALAMIN 500 MCG TAB (VIT B-12) PO SCH ×2 (08:23→21:25)
[2017-12-07] MEDS: CHOLECALCIFEROL 1000 INTER.UNIT TAB PO SCH (08:23)
[2017-12-07] MEDS: FLUTICASONE/SALMETEROL 100/50 (ADVAIR) 14 PUFF/1 INHALER INH SCH ×2 (08:24→21:23)
[2017-12-07] MEDS: MAGNESIUM CHLORIDE 64MG DELAYED REL TAB PO SCH ×2 (08:24→21:24)
[2017-12-07] MEDS: GABAPENTIN 100 MG CAP PO SCH ×2 (08:24→21:26)
[2017-12-07] MEDS: PANTOprazole SOD 40 MG TAB PO SCH (08:24)
[2017-12-07] MEDS: DOCUSATE SODIUM/SENNA 50/8.6MG TAB PO SCH (08:25)
[2017-12-07] MEDS: INSULIN ASPART 100 UNITS/ML 3 ML PEN SC SCH ×4 (08:30→21:00)
[2017-12-07] MEDS: ERTAPENEM IV 1 GM in SODIUM CHLOR 0.9% AD-VAN 50ML 50 ML IV SCH (10:12)
[2017-12-07] MEDS ORDERED: ACETAMINOPHEN 500 MG TAB PO STA (14:03)
[2017-12-07] MEDS ORDERED: SENNA 8.6 MG TAB PO ONE (14:15)
[2017-12-07] MEDS: POLYETHYLENE (MIRALAX) 17 GM PACK PO SCH (14:30)
[2017-12-07] MEDS ORDERED: INSDGIPEN SC (14:50)
[2017-12-07] MEDS ORDERED: NITR-5 PO (14:50)
--- NOTE | 2017-12-07 14:53 | Discharge Instructions ---
Discharge Instructions Date of Service Dec 07, 2017. Admission Reason for Admission: Urinary Tract Infection, Weakness Discharge Discharge Diagnosis / Problem: E. Coli Urinary Tract Infection Discharge Goals Goal(s): Decrease discomfort, Improve function, Increase independence Activity Recommendations Activity Limitations: resume your previous activity . Instructions / Follow-Up Instructions / Follow-Up E. Coli Urinary Tract Infection: - Continue your Macrobid (this is your antibiotic) you will take this twice a day until all the pills are gone - Continue to stay hydrated. The best way to determine this is to keep your urine a light yellow color - Some ways to help prevent urinary tract infections is to make sure you stay dry if you use briefs/pads for incontinence and maintain good hygiene -- Can drink SUGAR FREE Cranberry juice if you like this to help Yeast Infection and Hemorrhoids/Pain with Bowel Movements: - You will be given a prescription for Diflucan to take as needed for further yeast issues while on antibiotics - Recommend to use Sitz baths daily x 5 days - A prescription will be given for Anusol cream to use on your rectum. Recommend to use every 6 hours Diabetes: - You A1c is 13 - this is an estimate of how your sugars run over the course of a 3 month period - this means on average your sugars run in the 300 range and higher - Good diabetes control will definitely help prevent infections (as bacteria likes sugar) - Maintain a low-carbohydrate diet. For drinks make sure these are SUGAR FREE. Be mindful that juice and soda that are not diet are extremely high in sugar that will make your diabetes harder to control - We did increase your Lantus (long acting insulin). Please take Lantus 30 units daily - TAKE YOUR SHORT ACTING INSULIN WITH 10 UNITS WITH BREAKFAST, LUNCH, AND DINNER History of DVT/Pulmonary Embolism: - HOLD YOUR COUMADIN TONIGHT then you may resume it on MONDAY and check your INR (Coumadin level) in next 2 days and have your Coumadin adjusted. You will be provided a prescription for this. Follow-Up Appointment: Follow up appt made at Dr. Joshi's office with Gillian Nogueira PA-C on MondayDecember 11 at 11:00 am. Current Hospital Diet Patient's current hospital diet: Diabetes Type 2 Diet, AHA Diet (Heart Healthy) Discharge Diet Recommended Diet: AHA Diet (Heart Healthy), Diabetes Type 2 Diet Pending Studies Studies pending at discharge: no Laboratory Results Hemoglobin A1c Test 11/07/17 14:48 Range/Units Estimated Average Glucose 329 mg/dl Hemoglobin A1c 13.1 H 4.5-5.6 % Lipid Panel Test 11/07/17 14:48 Range/Units Triglycerides Level 147 0-150 mg/dl Cholesterol Level 239 H 0-200 mg/dl HDL Cholesterol 78 mg/dl Cholesterol/HDL Ratio 3.1 LDL Cholesterol, Calculated 132 mg/dl Medical Emergencies . Who to Call and When: Medical Emergencies: If at any time you feel your situation is an emergency, please call 911 immediately. . Non-Emergent Contact Non-Emergency issues call your: Primary Care Provider Call Non-Emergent contact if: you have a fever, your pain is concerning you, you have any medication questions . . "Provider Documentation" section prepared by Catalina Montez. . VTE Core Measure Inpt VTE Proph given/why not?: Warfarin (Coumadin)
[2017-12-07 15:38] VITALS: BP 153/82; PULSE 72; TEMP 36.4; O2SAT 93
[2017-12-07] MEDS: WARFARIN SOD 4 MG TAB PO SCH (17:13)
--- NOTE | 2017-12-07 17:32 | Hospitalist Progress Note ---
Hospitalist Progress Note Date of Service Dec 07, 2017. (Catalina Montez PA-C) Subjective Pt evaluation today including: conversation w/ patient, physical exam, chart review, lab review, review of studies, review of inpatient medication list Patient seen and evaluated. No acute events overnight. Reporting some improvement with her weakness but reporting not at baseline. Has been doing well with PT and does not qualify for SNF. Discussed with her last night and he states she mostly lays in bed all day. He reports she had home PT services but would turn them away more than have them visit. He thinks she would benefit from SNF strictly to force her to participate. Patient concerned that she will not have the strength to go home as her cannot help her. Per case management note, daughter is concerned for both her parents due to cognitive decline and forgetfulness. Discussed with her daughter Sandra with patient consent. She is concerned that both her parents have some cognitive decline and is concerned about her overall functioning at home. She feels that her mother is not taking her medications as prescribed due to forgetfulness as her glucose and INRs have been out of control. Also states her diet at home consists of high sugars and regular soda and her sugars tend to trend in the 600s intermittently. Thinks home nursing may be beneficial and will discuss with case management for possible OOA assistance? Constitutional: + weakness (generalized - improving compared to yesterday), No fever, No chills Respiratory: No cough, No shortness of breath Abdomen: No pain, No nausea, No vomiting, No diarrhea, No constipation Female : + problem reported (mild bladder pressure after urination - minimal), No dysuria Heme: No abnormal bleeding/bruising (Catalina Montez, OSWALDC) Medications Current Inpatient Medications Medications (Trade) Dose Ordered Sig/Mick Route Start Time Stop Time Status Last Admin Dose Admin Acetaminophen (Tylenol Tab) 650 mg Q4H PRN PO 12/04/17 15:45 01/03/18 15:44 12/07/17 00:38 650 MG Al Hydrox/Mg Hydrox/Simethicone (Maalox Max Susp) 15 ml Q4H PRN PO 12/04/17 15:45 01/03/18 15:44 12/05/17 10:42 15 ML Magnesium Hydroxide (Milk Of Magnesia Susp) 30 ml Q6H PRN PO 12/04/17 15:45 01/03/18 15:44 Ondansetron HCl (Zofran Inj) 4 mg Q6H PRN IV 12/04/17 15:45 01/03/18 15:44 Albuterol (Ventolin Hfa Inhaler) 2 puffs Q4H PRN INH 12/04/17 15:45 01/03/18 15:44 Cholecalciferol (Vitamin D Tab) 2,000 inter.unit QAM PO 12/05/17 09:00 01/04/18 08:59 12/07/17 08:23 2,000 INTER.UNIT Cyanocobalamin (Vitamin B-12 Tab) 1,000 mcg BID PO 12/04/17 21:00 01/03/18 20:59 12/07/17 08:23 1,000 MCG Gabapentin (Neurontin Cap) 100 mg BID PO 12/04/17 21:00 01/03/18 20:59 12/07/17 08:24 100 MG Albuterol/ Ipratropium (Combivent Respimat Inh) 1 puffs TID PRN INH 12/04/17 15:45 01/03/18 15:44 Levothyroxine Sodium (Synthroid Tab) 75 mcg DAILYBB PO 12/05/17 06:30 01/04/18 06:59 12/07/17 05:58 75 MCG Magnesium Chloride (Slow-Mag Tab) 128 mg QPM PO 12/04/17 21:00 01/03/18 20:59 12/06/17 20:26 128 MG Magnesium Chloride (Slow-Mag Tab) 192 mg QAM PO 12/05/17 09:00 01/04/18 08:59 12/07/17 08:24 192 MG Montelukast Sodium (Singulair Tab) 10 mg HS PO 12/04/17 21:00 01/03/18 20:59 12/06/17 20:26 10 MG Nortriptyline HCl (Pamelor Cap) 25 mg HS PO 12/04/17 21:00 01/03/18 20:59 12/06/17 20:27 25 MG Pantoprazole Sodium (Protonix Tab) 40 mg QAM PO 12/05/17 09:00 01/04/18 08:59 1/11/18 08:24 40 MG Ropinirole HCl (Requip Tab) 4 mg HS PO 12/04/17 21:00 01/03/18 20:59 12/06/17 20:26 4 MG Senna/Docusate Sodium (Senokot S Tab) 1 tab DAILY PO 12/05/17 09:00 01/04/18 08:59 12/07/17 08:25 1 TAB Simvastatin (Zocor Tab) 20 mg HS PO 12/04/17 21:00 01/03/18 20:59 12/06/17 20:28 20 MG Salmeterol Xinafoate/ Fluticasone (Advair Diskus 100/50 Inh) 1 puff BID INH 12/04/17 21:00 01/03/18 20:59 12/07/17 08:24 1 PUFF Warfarin Sodium (Coumadin Tab) 4 mg DAILY@16 PO 12/04/17 18:00 01/03/18 17:59 12/06/17 16:33 4 MG Insulin Aspart (novoLOG ASPART) SLIDING SCALE If C... ACHS SC 12/04/17 21:00 01/03/18 20:59 12/07/17 13:32 7 UNITS Glucose (Glucose 40% Gel) 15-30 GRAMS 15 GRAMS... UD PRN PO 12/04/17 15:45 01/03/18 15:44 Glucose (Glucose Chew Tab) 4-8 Tablets 4 Tabl... UD PRN PO 12/04/17 15:45 01/03/18 15:44 Dextrose (Dextrose 50% 50ML Syringe) 25-50ML OF 50% DW IV FOR... UD PRN IV 12/04/17 15:45 01/03/18 15:44 Glucagon (Glucagon Inj) 1 mg UD PRN SQ 12/04/17 15:45 01/03/18 15:44 Insulin Glargine (Lantus Solostar Pen) 25 units QPM SC 12/05/17 21:00 01/03/18 20:59 12/06/17 20:25 25 UNITS Polyethylene (Miralax Powder Packet) 17 gm DAILY PO 12/07/17 14:30 01/03/18 14:29 Nitrofurantoin Macrocrystals (Macrobid Cap) 100 mg BID PO 12/08/17 09:00 12/12/17 23:00 (Catalina Montez PA-C) Objective Vital Signs Date Time Temp Pulse Resp B/P (MAP) Pulse Ox O2 Delivery O2 Flow Rate FiO2 12/07/17 16:00 Room Air 12/07/17 15:38 36.4 72 20 153/82 (105) 93 Room Air 12/07/17 08:00 Room Air 12/07/17 07:05 36.7 80 20 154/85 (108) 94 Room Air 12/07/17 00:00 Room Air 12/06/17 23:27 36.6 70 20 134/83 (100) 91 Room Air 12/06/17 20:00 Room Air (Catalina Montez PA-C) Physical Exam General Appearance: WD/WN, no apparent distress Eyes: sclerae normal ENT: hearing grossly normal Neck: supple, no JVD, trachea midline Respiratory/Chest: lungs clear, normal breath sounds, no respiratory distress, no accessory muscle use Cardiovascular: regular rate, rhythm, no gallop, no murmur Abdomen: normal bowel sounds, non tender, soft Extremities: no pedal edema, no calf tenderness Neurologic/Psychiatric: alert Skin: normal color, warm/dry (Catalina Montez PA-C) Laboratory Results Last 24 Hours Test 12/06/17 20:01 12/07/17 06:54 12/07/17 07:27 12/07/17 11:30 Bedside Glucose 164 mg/dl 205 mg/dl 222 mg/dl White Blood Count 11.13 K/uL Red Blood Count 4.68 M/uL Hemoglobin 14.4 g/dL Hematocrit 43.0 % Mean Corpuscular Volume 91.9 fL Mean Corpuscular Hemoglobin 30.8 pg Mean Corpuscular Hemoglobin Concent 33.5 g/dl RDW Standard Deviation 46.8 fL RDW Coefficient of Variation 14.0 % Platelet Count 151 K/uL Mean Platelet Volume 10.8 fL Prothrombin Time 22.1 SECONDS Prothromb Time International Ratio 2.1 Sodium Level 136 mmol/L Potassium Level 3.7 mmol/L Chloride Level 106 mmol/L Carbon Dioxide Level 22 mmol/L Anion Gap 8.0 mmol/L Blood Urea Nitrogen 15 mg/dl Creatinine 0.82 mg/dl Est Creatinine Clear Calc Drug Dose 57.9 ml/min Estimated GFR () 82.3 Estimated GFR (Non- 71.0 BUN/Creatinine Ratio 18.4 Random Glucose 234 mg/dl Calcium Level 8.7 mg/dl Test 12/07/17 16:08 Bedside Glucose 264 mg/dl (Catalina Montez, CHELSIE) Assessment and Plan 72 y/o female with a history of HTN, HLD, COPD, h/o chronic PE/DVT, DM II, hypothyroidism, CKD stage III, BALWINDER, RLS, fibromyalgia and radiculopathy who presented to the ED on 12/04 with generalized weakness and dysuria. Pt arrived afebrile, VSS. CXR no acute disease. EKG no ischemic changes. WBC 13.27. INR 2.6. Stool negative for occult blood per ED physician. BSG 384 on admission, given 10 units regular insulin in ED. Repeat BSG 270. Pt given 1.5L of NSS boluses in Rocephin in ED. Generalized Weakness with MDR E. Coli UTI: - Stop Ertapenem and continue Macrobid 100 mg BID to complete a 7 day course - finish course on 12/12 COPD without Exacerbation: STABLE - Convert Dulera to Advair BID - Continue Singulair 10 mg daily and Ventolin/Combivent PRN H/O Chronic PE/DVT: STABLE - Recent supratherapeutic INR prior to admission but is currently therapeutic - Continue warfarin 4 mg daily and trend INR T2DM - IDDM - Uncontrolled with Hyperglycemia: A1c 13.1 - On admission glucose 300+ with a mildly elevated anion gap of 12 - current improving and anion gap WNL - Hold Janumet at this time - Will increase Lantus to 28 units SC HS and continue SSI with correction and carb coverage - likely increased Lantus on D/C -- Discussed with daughter as patient has 600+ sugars at home as daughter reports she drink a lot of regular soda and daughter questions compliance with medications CKD stage III: Baseline 0.9-1.1 - Continue to monitor DVT Prophylaxis: Warfarin Code Status: FULL RESUSCITATION Disposition: PT/OT evaluations - Doing well with PT and would not qualify for SNF placement - Daughter reports concern for both her parents as they present with some progressive cognitive decline; in regards to her mother she thinks she is non- compliant with meds and sometimes possibly taking them wrong - resultant INR 8+ and glucose 600+; will get home nursing to see the patient and assist with medications and evaluation in the home. Discharge planning: home with home health (Catalina Montez, PA-C) Attending Attestation: Pt seen/examined, chart reviewed, care plan d/w STEVE Montez. I agree w/ the menjivar components of her documentation. Pt overall feeling better. no bowel movement in several days. c/o mild b/l flank pain. PT has cleared her for home. VSS no fever gen - obese, NAD neck - no JVD heart - RRR lungs - CTA b/l except for scant end-exp wheeze b/l abd - soft, NT, ND, BS+ ext - no edema A/P: MDR e. coli UTI - day #2 of ertapenem with clinical improvement/stability. Can likely transition to PO macrobid tomorrow and complete another 5 days of such. uncontrolled T2DM - improved but not at goal; agree w/ increase in lantus. CKD stage 3 - creatinine stable. h/o DVT/PE - cont daily INR checks; INR 2.1 today and at goal. dispo - home with HH/home PT Neri Trujillo MD (Neri Trujillo MD)
[2017-12-07] MEDS ORDERED: INSULIN GLARGINE SOLOSTAR 100 UNITS/ML 3 ML PEN SC SCH (21:00)
[2017-12-07] MEDS: ROPINIROLE HCL 1 MG TAB PO SCH (21:24)
[2017-12-07] MEDS: MONTELUKAST SOD 10 MG TAB PO SCH (21:24)
[2017-12-07] MEDS: SIMVASTATIN 20 MG TAB PO SCH (21:26)
[2017-12-07] MEDS: NORTRIPTYLINE HCL 25 MG CAP PO SCH (21:26)
[2017-12-07 23:09] VITALS: BP 125/68; PULSE 69; TEMP 36.4; O2SAT 96
[2017-12-08] MEDS: LEVOTHYROXINE 75 MCG TAB PO SCH (05:39)
[2017-12-08 07:51] VITALS: BP 149/78; PULSE 86; TEMP 36.6; O2SAT 93
[2017-12-08 07:52] LABS: INR 2.3 (0.9-1.1)
[2017-12-08 08:11] LABS: CALCIUM 9.2 mg/dl (8.5-10.1); CREATININE 0.83 mg/dl (0.60-1.20); POTASSIUM 3.9 mmol/L (3.5-5.1)
[2017-12-08] MEDS ORDERED: NITROFURANTOIN MONOHYDRATE 100 MG CAP PO SCH (09:00)
[2017-12-08] MEDS: FLUTICASONE/SALMETEROL 100/50 (ADVAIR) 14 PUFF/1 INHALER INH SCH (09:01)
[2017-12-08] MEDS: GABAPENTIN 100 MG CAP PO SCH (09:01)
[2017-12-08] MEDS: CHOLECALCIFEROL 1000 INTER.UNIT TAB PO SCH (09:02)
[2017-12-08] MEDS: CYANOCOBALAMIN 500 MCG TAB (VIT B-12) PO SCH (09:02)
[2017-12-08] MEDS: MAGNESIUM CHLORIDE 64MG DELAYED REL TAB PO SCH (09:02)
[2017-12-08] MEDS: DOCUSATE SODIUM/SENNA 50/8.6MG TAB PO SCH (09:02)
[2017-12-08] MEDS: PANTOprazole SOD 40 MG TAB PO SCH (09:02)
[2017-12-08] MEDS: POLYETHYLENE (MIRALAX) 17 GM PACK PO SCH (09:03)
[2017-12-08] MEDS: INSULIN ASPART 100 UNITS/ML 3 ML PEN SC SCH ×3 (09:07→17:25)
[2017-12-08] MEDS ORDERED: NVLGI/PEN SC (09:23)
[2017-12-08] MEDS ORDERED: INSDGIPEN SC (09:23)
[2017-12-08] MEDS: ACETAMINOPHEN 325 MG TAB PO PRN (11:23)
[2017-12-08] MEDS ORDERED: FLUC150T PO (13:51)
[2017-12-08] MEDS ORDERED: HYDR2.5C37 TOP (13:51)
[2017-12-08] MEDS ORDERED: FLUCONAZOLE 100 MG TAB PO ONE (14:00)
[2017-12-08 15:11] VITALS: BP 143/83; PULSE 86; TEMP 36.6; O2SAT 91
[2017-12-08] MEDS: WARFARIN SOD 4 MG TAB PO SCH (15:49)
[2017-12-08 16:27] VITALS: BP 143/83; PULSE 86; TEMP 36.6; O2SAT 91
--- NOTE | 2017-12-08 16:37 | Discharge Summary ---
Discharge Summary Date of Service Dec 08, 2017. Discharge Summary Admission Date: Dec 04, 2017 at 15:53 Discharge Date: Dec 08, 2017 Discharge Disposition: Home with services Principal Diagnosis: MDR E. Coli UTI Problems/Secondary Diagnoses: 1. HTN 2. HLD 3. COPD 4. H/O PE/DVT 5. T2DM, Uncontrolled - A1c 13 6. Hypothyroidism 7. CKD Stage III 8. 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 RLS 10. Fibromyalgia 11. candidal vaginitis 12. external hemorrhoid Immunizations: Have You Had Influenza Vaccine: Yes Influenza Vaccine Date: Aug 27, 2013 History of Tetanus Vaccine?: No History of Pneumococcal: Yes Pneumococcal Date: Nov 27, 2009 History of Hepatitis B Vaccine: No Procedures: CHEST ONE VIEW PORTABLE FINDINGS: The lungs are clear. Cardiac silhouette is normal in size. No pleural effusions. No pneumothorax. IMPRESSION: No acute process. ULTRASOUND KIDNEYS AND BLADDER FINDINGS: Kidneys: The kidneys demonstrate cortical atrophy. The right kidney measures 8.7 x 4.2 x 4.3 cm and the left kidney measures 9.3 x 5.3 x 5.3 cm. There is no hydronephrosis. No shadowing renal calculi are identified. There is no sonographic evidence of contour deforming renal mass lesion. No perinephric fluid is identified. Bladder: The bladder is decompressed and grossly unremarkable. Ureteral jets were not seen. IMPRESSION: 1. The kidneys demonstrate cortical atrophy and are without hydronephrosis. 2. The bladder was decompressed and not well evaluated. Consultations: 1. PT/OT Medication Reconciliation New Medications: Fluconazole (Diflucan) 150 Mg Tab 150 MG PO DAILY PRN for Vaginal Yeast Infection, #1 TAB Hydrocortisone 2.5% (Rectal) (Anusol-Hc 2.5%) 2.5 % Cre 1 APPLN TOP Q6H for 7 Days, #1 TUBE 1 Refill Nitrofurantoin Monohyd Macrocr (Macrobid) 100 Mg Cap 100 MG PO BID for 5 Days, #10 CAP Start on 12/08/16. Changed Medications: Insulin Aspart (Novolog Flexpen) 100 Units/Ml Inj 10 UNITS SC TIDM for 30 Days (Changed from: 1 DOSE; Removed Instructions) Insulin Glargine (Lantus Solostar) 100 Unit/Ml Inj 30 UNITS SC QPM for 30 Days (Changed from: 25 UNITS) Continued Medications: Albuterol Hfa (Ventolin Hfa) 200 Puffs/72189 Mcg Aers 2 PUFFS INH Q4H PRN for SOB/Wheezing, INHALER Calcium (Calcium) 500 Mg Tab 500 MG PO QPM Cholecalciferol (Vitamin D 1000 Unit) 1,000 Unit Cap 2000 INTER.UNIT PO QAM Cyanocobalamin (Vitamin B-12 1000 Mcg) 1,000 Mcg Tab 1000 MCG PO BID, TAB Ferrous Sulfate (Iron) 325 Mg Tab 325 MG PO QPM Gabapentin (Neurontin) 100 Mg Cap 100 MG PO BID, CAP Home O2 Therapy (Oxygen) Gas 2 LITERS NA HS Ipratropium-Albuterol (Combivent Respimat) 1 Aer Aer 1 PUFF INH Q8-12H PRN for Shortness of Breath, INH Levothyroxine Sodium (Levothyroxine Sodium) 75 Mcg Tab 75 MCG PO QAM Magnesium Chloride (Slow-Mag Tab) 64 Mg Tabcr 128 MG PO QPM, TAB Magnesium Chloride (Slow-Mag Tab) 64 Mg Tabcr 192 MG PO QAM, TAB Mometasone Furoate-Formoterol (Dulera 100/5 Mcg) 1 Aer Aer 2 PUFFS INH BID Montelukast Sod (Montelukast Sodium) 10 Mg Tab 10 MG PO HS Nortriptyline HCl (Nortriptyline HCl) 25 Mg Cap 25 MG PO HS Pantoprazole (Pantoprazole Sodium) 40 Mg Tab 40 MG PO QAM Ropinirole Hydrochloride (Requip) 4 Mg Tab 4 MG PO HS Sennosides-Docusate Sodium (Stool Softener) 1 Tab Tab 1 TAB PO DAILY Simvastatin (Simvastatin) 20 Mg Tab 20 MG PO HS Sitagliptin-Metformin Hcl (Janumet) 1 Tab Tab 1 TAB PO BID, TAB MG Torsemide (Demadex) 20 Mg Tab 20 MG PO BID PRN for Fluid Retention, TAB Warfarin Sod (Jantoven) 2 Mg Tab 6 MG PO 2XWK TAKE 6 MG EVERY MONDAY AND MONDAY OR OTHERWISE DIRECTED TO TAKE BY ANTICOAGULATION CLINIC/MD Warfarin Sod (Jantoven) 2 Mg Tab 4 MG PO 5XWK, TAB TAKE 4 MG EVERY MONDAY,MONDAY,MONDAY,MONDAY AND MONDAY OR OTHERWISE DIRECTED TO TAKE BY ANTICOAGULATION CLINIC/MD Discharge Exam Review of Systems: Constitutional: + weakness (generalized - improving), No fever, No chills Respiratory: No cough, No shortness of breath Cardiovascular: No chest pain, No palpitations Abdomen: + GI bleeding (BRBPR - H/O hemorrhoids after constipating/ straining BM x 1 episode), No pain, No nausea, No vomiting, No diarrhea, No constipation Genitourinary - Female: No dysuria Hematologic / Lymphatic: No abnormal bleeding/bruising Physical Exam: General Appearance: WD/WN, no apparent distress Eyes: sclerae normal ENT: hearing grossly normal Neck: supple, no JVD, trachea midline Respiratory/Chest: lungs clear, normal breath sounds, no respiratory distress, no accessory muscle use Cardiovascular: regular rate, rhythm, no gallop, no murmur Abdomen / GI: normal bowel sounds, non tender, soft Neurologic/Psychiatric: alert, oriented x 3 Skin: normal color, warm/dry Hospital Course ADMISSION: This is a 72 y/o female with a history of HTN, HLD, COPD, h/o chronic PE/DVT, DM II, hypothyroidism, CKD stage III, BALWINDER, RLS, fibromyalgia and radiculopathy who presented to the ED on 12/04 with generalized weakness and dysuria. The patient notes that she has been feeling generally weak and fatigued for the last 2-3 days. She also complains of dysuria, urinary frequency and urgency, and lower abdominal pressure while urinating. The patient also reports slightly decreased appetite at home. The patient has a history of chronic PE/DVT for which she takes warfarin. Her last INR check on was 8.1. She was instructed to hold her warfarin. She noted some hematochezia this morning. The patient denies fevers, chills, sweats, chest pain, palpitations, claudication, cough, wheezing, shortness of breath, nausea, vomiting, hematuria, urinary retention, paralysis, weakness, numbness and tingling. HOSPITAL COURSE: Ms. Bobby was admitted for MDR E. Coli UTI. She was initially placed on Ceftriaxone and did have clinical response as well as resolution of leukocytosis. However, cx reveals resistance and was temporarily changed to Ertapenem. Discussed with ID due to patient's allergy to Levaquin and being on Coumadin she was converted to Macrobid to complete a 7 day course which will finish on 12/12. Discussed with daughter who does state the patient is showing signs of cognitive decline. Daughter is unsure if patient is taking her medications appropriately and is forgetful. Daughter states her glucose is 400-600 most of the time as she drinks a lot of regular soda. Her INRs have been in the 8s as well. On admission, patient was hyperglycemic with a mild anion gap of 12 which resolved. A1c is 13.1. Plan to continue Janumet as prescribed. Made the following adjustments - Lantus 30 units SC daily and fixed Novolog of 10 units with each meal. Hopefully with home nursing this will help better control glucose and help manage medications. Per family patient largely sleeps in bed most of the day. PT/OT shows good overall function and did not meet criteria for SNF rehab. On day of D/C patient finally had a BM which required a lot of straining and was painful with associated BRBPR. Hemoglobin is stable. Rectal exam shows pain on palpation and a possible hemorrhoid. However significant asymptomatic vaginal yeast infection and will treat with Diflucan 150 mg x 1 dose and have her hold her Warfarin today (12/08) then resume tomorrow. Rx provided for INR check in next couple days and further Warfarin adjustments pending this. Recommend outpatient F/U for glucose management however, per daughter, non- compliance is a significant issue. Did discuss the importance of diabetes control in setting of prevention of UTI given risk of further MDR strains. Attending Attestation and Discharge Note: Pt seen/examined, chart reviewed, discharge care plan d/w STEVE Montez on day of discharge. I agree w/ the menjivar components of her discharge summary. 72yo female with uncontrolled T2DM, CKD stage 3, HTN, and COPD who presented with weakness due to UTI. Urine culture ultimately showed a MDR e. coli strain. She received rocephin initially but due to resistance was changed to ertapenem. She received 2 doses of the latter, and then was transitioned to macrobid 100mg BID for 5 additional days. She remained hemodynamically stable during her hospitalization and UTI symptoms improved with Rx. Most other medical problems remained stable except for T2DM. Multiple adjustments were made to her lantus/novolog regimen (see Ms. Montez's recommendations above) to gain better glycemic control. She was counseled on better compliance with diet. On day of discharge the patient noted a small amount of blood after straining at stool. She likely has a small external hemorrhoid and will be treated with anusol HC cream. She was also noted to have a severe candidal vaginitis and received diflucan prior to discharge. Discharge INR was 2.3. Discharge exam - gen - NAD, obese neck - no JVD heart - RRR, s1, s2 lungs - scant end-exp wheeze b/l, no rales abd - soft, ND, BS+ chest - she reports tenderness with palpation of both lower costal margins, present for several months rectal (chaperoned by nursing staff) - intertrigo in the gluteal cleft; rectum - tiny amount of gross blood present; no fissure seen, probable small ext hemorrhoid; tender with rectal exam - (again chaperoned by nursing staff) - vulvar erythema (severe) with white discharge ext - no edema She was advised to hold her coumadin on 12/08/17 but resume on 12/09/17 and then have a repeat INR on 12/11/17 given her antibiotic usage. Neri Trujillo MD Total Time Spent: Greater than 30 minutes This includes examination of the patient, discharge planning, medication reconciliation, and communication with other providers. Discharge Instructions Please refer to the electronic Patient Visit Report (Discharge Instructions) for additional information. Follow-Up Gillian Nogueira PA-C on MondayDecember 11 at 11:00 am. Additional Copies To Omar Joshi M.D.; Elizabeth Hurt.CEDRICK; Gillian Nogueira,P.A.
== END 2017-12-08 17:56 | disposition home health service (06) | DRG 690 ==
LOC: EDBD 12:27 → C.EDA 12:29 → C.MS2W 15:53 → ENRESERV 16:15
PROVIDERS: ADMIT Internal Medicine Sports Medicine; ATTEND Internal Medicine
DX: N39.0 Urinary tract infection, site not specified (principal); B96.20 Unspecified Escherichia coli [E. coli] as the cause of diseases classified elsewhere; Z16.24 Resistance to multiple antibiotics; B37.3 Candidiasis of vulva and vagina; E11.65 Type 2 diabetes mellitus with hyperglycemia; K64.4 Residual hemorrhoidal skin tags; E86.0 Dehydration; E11.22 Type 2 diabetes mellitus with diabetic chronic kidney disease; N18.3 Chronic kidney disease, stage 3 (moderate); I12.9 Hypertensive chronic kidney disease with stage 1 through stage 4 chronic kidney disease, or unspecified chronic kidney disease; E03.9 Hypothyroidism, unspecified; D50.9 Iron deficiency anemia, unspecified; J44.9 Chronic obstructive pulmonary disease, unspecified; E78.5 Hyperlipidemia, unspecified; M79.7 Fibromyalgia; M54.10 Radiculopathy, site unspecified; G25.81 Restless legs syndrome; Z79.899 Other long term (current) drug therapy; Z79.01 Long term (current) use of anticoagulants; Z79.4 Long term (current) use of insulin; Z86.718 Personal history of other venous thrombosis and embolism; Z86.711 Personal history of pulmonary embolism; Z83.3 Family history of diabetes mellitus; Z82.49 Family history of ischemic heart disease and other diseases of the circulatory system; Z80.0 Family history of malignant neoplasm of digestive organs

== ENCOUNTER → 2017-12-12 | Outpatient (CLI) | payer BC ==
[~2017-12-12] MED LIST changes: +FLUC150T PO; +HYDR2.5C37 TOP; +NITR-5 PO; -NYSCR15 EXT; -NYSS/ PO; -TRAM-10 PO; -TRIA1SPR4 NAE
== END | disposition home or self-care (01) ==
LOC: C.LABBC 14:24
PROVIDERS: ATTEND Physician Assistant Medical
DX: E11.65 Type 2 diabetes mellitus with hyperglycemia (principal); R39.9 Unspecified symptoms and signs involving the genitourinary system

== ENCOUNTER → 2017-12-14 | Outpatient (CLI) | payer BC ==
[~2017-12-14] MED LIST changes: -NITR-5 PO
== END | disposition home or self-care (01) ==
LOC: C.LABBC 09:36
PROVIDERS: ATTEND Physician Assistant
DX: Z79.01 Long term (current) use of anticoagulants (principal)

== ENCOUNTER → 2017-12-27 | Outpatient (CLI) | payer BC ==
[~2017-12-27] MED LIST changes: +CEPH500C PO; -FLUC150T PO; +NVLGI/PEN SQ; +OSEL75CA23 PO; +PRED20TA PO; +SULF800T23 PO
[2017-12-27 14:37] LABS: BASO % 0.2 %; BASO ABS # 0.02 K/uL (0-0.2); EOS % 3.7 %; EOS ABS # 0.33 K/uL (0-0.5); HEMATOCRIT 43.9 % (37-47); HEMOGLOBIN 14.6 g/dL (12.0-16.0); IG# 0.03 K/uL (0.00-0.02); LYMPH % 39.3 %; LYMPH ABS # 3.52 K/uL (1.2-3.4); MEAN CELL VOLUME 91.6 fL (80-100); MEAN CORPUSCULAR HEMOGLOBIN 30.5 pg (25-34); MEAN CORPUSCULAR HGB CONC 33.3 g/dl (32-36); MONO % 11.6 %; MONO ABS # 1.04 K/uL (0.11-0.59); NEUT % 44.9 %; NEUT ABS # 4.01 K/uL (1.4-6.5); PLATELET COUNT 222 K/uL (130-400); RED CELL DISTRIBUTION WIDTH CV 13.9 % (11.5-14.5); RED CELL DISTRIBUTION WIDTH SD 46.6 fL (36.4-46.3); WHITE BLOOD COUNT 8.95 K/uL (4.8-10.8)
[2017-12-27 14:52] LABS: ALBUMIN 3.6 gm/dl (3.4-5.0); ALT/SGPT 33 U/L (12-78); BLOOD UREA NITROGEN 10 mg/dl (7-18); CALCIUM 9.4 mg/dl (8.5-10.1); CARBON DIOXIDE 25 mmol/L (21-32); CREATININE 0.82 mg/dl (0.60-1.20); GLUCOSE 150 mg/dl (70-99); POTASSIUM 3.2 mmol/L (3.5-5.1); SODIUM 139 mmol/L (136-145)
[2017-12-27 15:02] LABS: ALKALINE PHOSPHATASE 107 U/L (45-117); AST/SGOT 19 U/L (15-37); TOTAL PROTEIN 7.4 gm/dl (6.4-8.2)
== END | disposition home or self-care (01) ==
LOC: C.LAB1850 13:06
PROVIDERS: ATTEND Physician Assistant
DX: E03.9 Hypothyroidism, unspecified (principal); I10 Essential (primary) hypertension; R79.89 Other specified abnormal findings of blood chemistry; D64.9 Anemia, unspecified; E11.65 Type 2 diabetes mellitus with hyperglycemia; E55.9 Vitamin D deficiency, unspecified; Z79.01 Long term (current) use of anticoagulants

== ENCOUNTER 2017-12-31 08:40 | Emergency (ER) | payer BC ==
[~2017-12-31] VITALS: Ht 149.9 cm; Wt 87.6 kg
[~2017-12-31 08:40] MED LIST changes: -CEPH500C PO; -NVLGI/PEN SQ; -OSEL75CA23 PO; -PRED20TA PO; -SULF800T23 PO
[2017-12-31 08:47] VITALS: TEMP 36.7; Ht 149.9 cm; Wt 87.6 kg
--- NOTE | 2017-12-31 09:21 | DIAGNOSTIC IMAGING REPORT ---
CHEST ONE VIEW PORTABLE CLINICAL HISTORY: 72 years-old Female presenting with CHEST PAIN. TECHNIQUE: Portable upright AP view of the chest was obtained. COMPARISON: 12/04/2017. FINDINGS: Atherosclerosis of aortic arch. Cardiac silhouette enlarged. Lungs and pleural spaces clear. Osseous structures normal. Upper abdomen normal. IMPRESSION: 1. Cardiomegaly. Otherwise no acute cardiopulmonary disease. Electronically signed by: Jesús Lambert M.D. 12/31/2017 9:19 AM Dictated Date/Time: 12/31/2017 9:18 AM
[2017-12-31 09:30] VITALS: O2SAT 99
--- NOTE | 2017-12-31 09:37 | EMERGENCY ROOM VISIT NOTE ---
History Report prepared by Chaitanya: Kandice Coto Under the Supervision of: Dr. Edwar Michelle M.D. First contact with patient: 09:02 Chief Complaint: SHORTNESS OF BREATH Stated Complaint: DIZZINESS AND PRODUCTIVE COUGH Nursing Triage Summary: Pt presents with c/o sob, cough of yellow sputum, lightheaded/dizzy, pain in right shoulder/back x 3 days. Reports that she takes Coumadin for hx of DVT and PE several years ago. Hx of pnx. History of Present Illness The patient is a 72 year old female who presents to the Emergency Room with complaints of worsening shortness of breath that began 4 days ago. The patient states that she has been coughing up yellow mucous, nasal congestion, chills, headaches, and dizziness. She reports that she had a right sided sore throat a few days ago that resolved itself. She denies any fevers, diarrhea, or abdominal pain. The patient states that she is on oxygen at home for COPD, noting she only uses it as needed. She reports she has inhalers at home. She notes that she was diagnosed with a urinary tract infection one month ago. The patient states that she is on Coumadin for a blood clot that was removed from her leg several years ago. Source of History: patient Onset: few days ago Position: other (global) Quality: other (shortness of breath) Timing: worsening Associated Symptoms: + chills, + headache, No fevers, No abdominal pain, No diarrhea Note: Associated symptoms include nasal congestion and dizziness. Review of Systems See HPI for pertinent positives and negatives. A total of ten systems were reviewed and were otherwise negative. Past Medical & Surgical Medical Problems: (1) Acute bronchitis (2) Altered mental status (3) Altered mental status (4) Benign essential hypertension (5) Blood in stool (6) Cellulitis of right lower extremity (7) Chronic bronchitis (8) Chronic recurrent sinusitis (9) Chronic sinusitis (10) COPD exacerbation (11) Deep venous thrombosis of lower extremity (12) Diabetes mellitus type 2 (13) Dizziness (14) Dyspnea (15) Hyperglycemia (16) Hyperlipidemia (17) Laceration (18) Near syncope (19) Obstructive sleep apnea syndrome (20) Orthostatic hypotension (21) POSSIBLE SEIZURE (22) Pulmonary embolism (23) Restless legs (24) Rotator cuff tear (25) SJOGRENS (26) SOB (shortness of breath) (27) SUBTHERAPEAUTIC INR (28) Supratherapeutic INR (29) Supratherapeutic INR (30) Urinary tract infection (31) UTI (urinary tract infection) (32) Weakness Family History Diabetes mellitus MOTHER Esophageal cancer FATHER FH: cancer FH: gallbladder disease Hypertension Myocardial infarction MOTHER Social History Smoking Status: Never Smoker Alcohol Use: none Drug Use: none Marital Status: Housing Status: lives with significant other Occupation Status: retired Current/Historical Medications Scheduled Calcium (Calcium), 500 MG PO QPM Cephalexin Monohydrate (Keflex), 500 MG PO BID Cholecalciferol (Vitamin D 1000 Unit), 2,000 INTER.UNIT PO QAM Cyanocobalamin (Vitamin B-12 1000 Mcg), 1,000 MCG PO BID Ferrous Sulfate (Iron), 325 MG PO QPM Gabapentin (Neurontin), 100 MG PO BID Home O2 Therapy (Oxygen), 2 LITERS NA HS Insulin Aspart (Novolog Flexpen), 10 UNITS SC TIDM Insulin Glargine (Lantus Solostar), 39 MG SC QPM Levothyroxine Sodium (Levothyroxine Sodium), 75 MCG PO QAM Magnesium Chloride (Slow-Mag Tab), 128 MG PO QPM Magnesium Chloride (Slow-Mag Tab), 192 MG PO QAM Mometasone Furoate-Formoterol (Dulera 100/5 Mcg), 2 PUFFS INH BID Montelukast Sod (Montelukast Sodium), 10 MG PO HS Nortriptyline HCl (Nortriptyline HCl), 25 MG PO HS Oseltamivir Phosphate (Tamiflu), 75 MG PO BID Pantoprazole (Pantoprazole Sodium), 40 MG PO QAM Prednisone (Prednisone), 3 TAB PO DAILY Ropinirole Hydrochloride (Requip), 4 MG PO HS Sennosides-Docusate Sodium (Stool Softener), 1 TAB PO DAILY Simvastatin (Simvastatin), 20 MG PO HS Sitagliptin-Metformin Hcl (Janumet), 1 TAB PO BID Warfarin Sod (Jantoven), 6 MG PO 2XWK Warfarin Sod (Jantoven), 4 MG PO 5XWK Scheduled PRN Albuterol Hfa (Ventolin Hfa), 2 PUFFS INH Q4H PRN for SOB/Wheezing Ipratropium-Albuterol (Combivent Respimat), 1 PUFF INH Q8-12H PRN for Shortness of Breath Torsemide (Demadex), 20 MG PO BID PRN for Fluid Retention Allergies Coded Allergies: Prochlorperazine (Verified Allergy, Severe, EXTRAPYRAMIDAL S/E, 12/31/17) LOSS OF MUSCLE CONTROL/MUSCLE SPASMS TROUBLE BREATHING "EYES WOULD FLY OPEN AND I COULDN'T CLOSE THEM" Zolpidem (Verified Allergy, Severe, CONFUSION/MEMORY LOSS, 12/31/17) "FOR THREE DAYS I WAS IN OUTER SPACE" Carbamazepine (Verified Allergy, Intermediate, CONFUSION, 12/31/17) Duloxetine (Verified Allergy, Intermediate, LIGHTHEADEDNESS/DIZZINESS, 12/31) Hydrochlorothiazide (Verified Allergy, Intermediate, LIGHTHEADEDNESS/ DIZZINESS, 12/31/17) Indigotindisulfonate (Verified Allergy, Intermediate, LIGHTHEADEDNESS/ DIZZINESS, 12/31/17) Levofloxacin (Verified Allergy, Mild, RASH, 12/31/17) also bloody diarrhea Clonazepam (Verified Allergy, Unknown, UNKNOWN, 12/31/17) Diclofenac (Verified Allergy, Unknown, NAUSEA AND VOMITING, 12/31/17) Losartan (Unverified Allergy, Unknown, ELEVATED CREATININE, 12/31/17) Hydromorphone (Verified Adverse Reaction, Intermediate, N/V AND NIGHTMARES , 12/31/17) Morphine (Verified Adverse Reaction, Intermediate, HYPOTENSION AND N/V, 12/31/17) Cyclobenzaprine (Verified Adverse Reaction, Mild, N/V, 12/31/17) Lisinopril (Verified Adverse Reaction, Mild, N/V, 12/31/17) Naproxen (Verified Adverse Reaction, Mild, N/V, 12/31/17) Oxycodone (Verified Adverse Reaction, Mild, N/V, 12/31/17) Tramadol (Verified Adverse Reaction, Unknown, N/V AND ITCHING, 12/31/17) Physical Exam Vital Signs Date Time Temp Pulse Resp B/P (MAP) Pulse Ox O2 Delivery O2 Flow Rate FiO2 12/31/17 13:44 84 18 145/91 95 Room Air 12/31/17 13:04 75 12/31/17 12:08 82 20 136/86 97 Room Air 12/31/17 10:40 73 18 178/98 98 Room Air 12/31/17 09:30 99 Room Air 12/31/17 09:16 77 12/31/17 08:47 36.7 83 18 150/85 96 Room Air Physical Exam GENERAL: Awake, alert, uncomfortable, in no distress HENT: Dry mucous membranes. Normocephalic, atraumatic. Oropharynx unremarkable. EYES: Normal conjunctiva. Sclera non-icteric. NECK: Supple. No nuchal rigidity. FROM. No JVD. RESPIRATORY: Diminished breath sounds at bases with isolated scant wheezes. CARDIAC: Regular rate, normal rhythm. Extremities warm and well perfused. Pulses equal. ABDOMEN: Soft, non-distended. No tenderness to palpation. No rebound or guarding. No masses. RECTAL: Deferred. MUSCULOSKELETAL: Chest examination reveals no tenderness. The back is symmetrical on inspection without obvious abnormality. There is no CVA tenderness to palpation. No joint edema. LOWER EXTREMITIES: Calves are equal size bilaterally and non-tender. No edema. No discoloration. NEURO: Normal sensorium. No sensory or motor deficits noted. SKIN: No rash or jaundice noted. Medical Decision & Procedures ER Provider Diagnostic Interpretation: Radiology results as stated below per my review and radiologist interpretation: CHEST ONE VIEW PORTABLE CLINICAL HISTORY: 72 years-old Female presenting with CHEST PAIN. TECHNIQUE: Portable upright AP view of the chest was obtained. COMPARISON: 12/04/2017. FINDINGS: Atherosclerosis of aortic arch. Cardiac silhouette enlarged. Lungs and pleural spaces clear. Osseous structures normal. Upper abdomen normal. IMPRESSION: 1. Cardiomegaly. Otherwise no acute cardiopulmonary disease. Electronically signed by: Jesús Lambert M.D. 12/31/2017 9:19 AM Dictated Date/Time: 12/31/2017 9:18 AM Laboratory Results 12/31/17 09:20 Red Blood Count 4.77, Mean Corpuscular Volume 91.4, Mean Corpuscular Hemoglobin 30.6, Mean Corpuscular Hemoglobin Concent 33.5, Mean Platelet Volume 10.6, Neutrophils (%) (Auto) 40.6, Lymphocytes (%) (Auto) 42.3, Monocytes (%) (Auto) 11.1, Eosinophils (%) (Auto) 5.1, Basophils (%) (Auto) 0.4, Neutrophils # (Auto ) 3.11, Lymphocytes # (Auto) 3.24, Monocytes # (Auto) 0.85, Eosinophils # (Auto ) 0.39, Basophils # (Auto) 0.03 12/31/17 09:20 Test 12/31/17 09:20 12/31/17 10:40 White Blood Count 7.66 K/uL (4.8-10.8) Red Blood Count 4.77 M/uL (4.2-5.4) Hemoglobin 14.6 g/dL (12.0-16.0) Hematocrit 43.6 % (37-47) Mean Corpuscular Volume 91.4 fL (80-100) Mean Corpuscular Hemoglobin 30.6 pg (25-34) Mean Corpuscular Hemoglobin Concent 33.5 g/dl (32-36) Platelet Count 201 K/uL (130-400) Mean Platelet Volume 10.6 fL (7.4-10.4) Neutrophils (%) (Auto) 40.6 % Lymphocytes (%) (Auto) 42.3 % Monocytes (%) (Auto) 11.1 % Eosinophils (%) (Auto) 5.1 % Basophils (%) (Auto) 0.4 % Neutrophils # (Auto) 3.11 K/uL (1.4-6.5) Lymphocytes # (Auto) 3.24 K/uL (1.2-3.4) Monocytes # (Auto) 0.85 K/uL (0.11-0.59) Eosinophils # (Auto) 0.39 K/uL (0-0.5) Basophils # (Auto) 0.03 K/uL (0-0.2) RDW Standard Deviation 47.6 fL (36.4-46.3) RDW Coefficient of Variation 14.3 % (11.5-14.5) Immature Granulocyte % (Auto) 0.5 % Immature Granulocyte # (Auto) 0.04 K/uL (0.00-0.02) Prothrombin Time 18.6 SECONDS (9.0-12.0) Prothromb Time International Ratio 1.8 (0.9-1.1) Anion Gap 7.0 mmol/L (3-11) Est Creatinine Clear Calc Drug Dose 56.7 ml/min Estimated GFR () 78.8 Estimated GFR (Non- 68.0 BUN/Creatinine Ratio 10.7 (10-20) Calcium Level 9.1 mg/dl (8.5-10.1) Total Bilirubin 0.5 mg/dl (0.2-1) Direct Bilirubin 0.2 mg/dl (0-0.2) Aspartate Amino Transf (AST/SGOT) 23 U/L (15-37) Alanine Aminotransferase (ALT/SGPT) 29 U/L (12-78) Alkaline Phosphatase 95 U/L (45-117) Troponin I < 0.015 ng/ml (0-0.045) Pro-B-Type Natriuretic Peptide 226 pg/ml (0-900) Total Protein 7.3 gm/dl (6.4-8.2) Albumin 3.5 gm/dl (3.4-5.0) Lipase 84 U/L (73-393) Influenza Type A Antigen Neg for Influ A (NEG) Influenza Type B Antigen Neg for Influ B (NEG) Urine Color YELLOW Urine Appearance CLOUDY (CLEAR) Urine pH 5.0 (4.5-7.5) Urine Specific [place] 1.022 (1.000-1.030) Urine Protein NEG (NEG) Urine Glucose (UA) 3+ (NEG) Urine Ketones NEG (NEG) Urine Occult Blood NEG (NEG) Urine Nitrite POS (NEG) Urine Bilirubin NEG (NEG) Urine Urobilinogen NEG (NEG) Urine Leukocyte Esterase SMALL (NEG) Urine WBC (Auto) 10-30 /hpf (0-5) Urine RBC (Auto) 0-4 /hpf (0-4) Urine Hyaline Casts (Auto) 1-5 /lpf (0-5) Urine Epithelial Cells (Auto) >30 /lpf (0-5) Urine Bacteria (Auto) 4+ (NEG) Laboratory results reviewed by me Medications Administered Medications (Trade) Dose Ordered Sig/Mick Route Start Time Stop Time Status Last Admin Dose Admin Albuterol/ Ipratropium (Duoneb) 3 ml NOW STAT INH 12/31/17 10:35 12/31/17 10:36 DC 12/31/17 10:53 3 ML Prednisone (PredniSONE TAB) 60 mg NOW STAT PO 12/31/17 10:35 12/31/17 10:36 DC 12/31/17 10:53 60 MG Ceftriaxone Sodium (Rocephin Inj) 1 gm NOW STAT IV 12/31/17 11:49 12/31/17 11:50 DC 12/31/17 12:08 1 GM Acetaminophen (Tylenol Tab) 1,000 mg NOW STAT PO 12/31/17 12:21 12/31/17 12:23 DC 12/31/17 12:33 1,000 MG Oseltamivir Phosphate (Tamiflu Cap) 75 mg NOW STAT PO 12/31/17 13:44 12/31/17 13:46 DC 12/31/17 13:52 75 MG ECG Indication: SOB/dyspnea Rate (beats per minute): 75 Rhythm: normal sinus Findings: no acute ischemic change, other (normal axis) Change: Patient's electrocardiogram as interpreted by me. ED Course 927: The patient was evaluated in room A4. A complete history and physical exam was performed. 1035: Ordered Prednisone 60mg PO and Duoneb 3ml INH. 1149: Ordered Rocephin Inj 1gm IV. 1221: Ordered Acetaminophen 1000mg PO. 1344: Ordered Tamiflu Cap 75mg PO. 1425: I reevaluated the patient. Discussed results and discharge instructions: She verbalized understanding and agreement. The patient is ready for discharge. Medical Decision I reviewed the patient's past medical history, medications, and the nursing notes as described above. Differential diagnosis: Etiologies such as viral syndrome, flu, infections, reactive airway disease, pneumonia, pneumothorax, COPD, CHF, cardiac ischemia, pulmonary embolism, musculoskeletal, gastrointestinal, as well as others were entertained. The patient is a 72-year-old woman with a past medical history of COPD on O2 at home as needed, DVT on Coumadin, who presents emergency Department with cough congestion over the past several days per hpi. On arrival the patient is in no acute distress, afebrile stable vital signs. On exam the patient has diminished breath sounds with scant scattered wheezes. Labs unremarkable including WBC, troponin, BNP within normal limits. Chest x-ray negative. UA consistent with UTI with positive nitrites. Patient feeling improved after nebs and prednisone. While flu is negative we'll treat empirically with Tamiflu given the prevalence in the community and the patient's comorbidities with COPD. Patient given dose of ceftriaxone for UTI with rx for keflex. Findings and plan for follow-up reviewed with patient. Patient agreeable and d/c 'd per discharge instructions. Medication Reconcilliation Current Medication List: was personally reviewed by me Blood Pressure Screening Patient's blood pressure: Elevated blood pressure Blood pressure disposition: Elevated BP felt to be situational Impression Primary Impression: COPD exacerbation Additional Impression: UTI (urinary tract infection) Scribe Attestation The scribe's documentation has been prepared under my direction and personally reviewed by me in its entirety. I confirm that the note above accurately reflects all work, treatment, procedures, and medical decision making performed by me. Departure Information Dispostion Home / Self-Care Prescriptions Oseltamivir Phosphate (Tamiflu) 75 Mg Cap 75 MG PO BID, #10 CAP Prov: Edwar Michelle M.D. 12/31/17 Prednisone (Prednisone) 20 Mg Tab 3 TAB PO DAILY for 4 Days, #12 TAB FOR 4 DAYS Prov: Edwar Michelle M.D. 12/31/17 Cephalexin Monohydrate (Keflex) 500 Mg Cap 500 MG PO BID for 7 Days, #14 CAP Prov: Edwar Michelle M.D. 12/31/17 Referrals Omar Joshi M.D. (PCP) Forms HOME CARE DOCUMENTATION FORM, IMPORTANT VISIT INFORMATION Patient Instructions ED COPD Flare, ED UTI Cystitis Female, My [facility] Additional Instructions Please follow up with your primary care physician in the next 1-3 days for re- evaluation. You likely have a bronchitis, which may have been provoked by the flu (although your test was negative today). You were also found to have a urinary tract infection. Otherwise, your exam, EKG, chest xray, and lab results did not show signs of an emergent condition at this time. Prednisone and Tamiflu as directed. Keflex as directed. Use your albuterol inhaler 2 puffs every 4 hours for the next 48 hours and then as needed thereafter. Return to the emergency department for worsening symptoms as described in the accompanying instructions. Problem Qualifiers
[2017-12-31 09:38] LABS: BASO % 0.4 %; BASO ABS # 0.03 K/uL (0-0.2); EOS % 5.1 %; EOS ABS # 0.39 K/uL (0-0.5); HEMATOCRIT 43.6 % (37-47); HEMOGLOBIN 14.6 g/dL (12.0-16.0); IG# 0.04 K/uL (0.00-0.02); LYMPH % 42.3 %; LYMPH ABS # 3.24 K/uL (1.2-3.4); MEAN CELL VOLUME 91.4 fL (80-100); MEAN CORPUSCULAR HEMOGLOBIN 30.6 pg (25-34); MEAN CORPUSCULAR HGB CONC 33.5 g/dl (32-36); MEAN PLATELET VOLUME 10.6 fL (7.4-10.4); MONO % 11.1 %; MONO ABS # 0.85 K/uL (0.11-0.59); NEUT % 40.6 %; NEUT ABS # 3.11 K/uL (1.4-6.5); PLATELET COUNT 201 K/uL (130-400); RED CELL DISTRIBUTION WIDTH CV 14.3 % (11.5-14.5); RED CELL DISTRIBUTION WIDTH SD 47.6 fL (36.4-46.3); WHITE BLOOD COUNT 7.66 K/uL (4.8-10.8)
[2017-12-31 09:46] LABS: INR 1.8 (0.9-1.1)
[2017-12-31 09:54] LABS: ALBUMIN 3.5 gm/dl (3.4-5.0); ALT/SGPT 29 U/L (12-78); BLOOD UREA NITROGEN 9 mg/dl (7-18); CALCIUM 9.1 mg/dl (8.5-10.1); CARBON DIOXIDE 26 mmol/L (21-32); CREATININE 0.85 mg/dl (0.60-1.20); GLUCOSE 247 mg/dl (70-99); LIPASE 84 U/L (73-393); POTASSIUM 3.7 mmol/L (3.5-5.1); SODIUM 141 mmol/L (136-145)
[2017-12-31 10:00] LABS: ALKALINE PHOSPHATASE 95 U/L (45-117); AST/SGOT 23 U/L (15-37); TOTAL PROTEIN 7.3 gm/dl (6.4-8.2)
[2017-12-31 10:04] LABS: INFLUENZA B ANTIGEN Neg for Influ B (NEG)
[2017-12-31] MEDS ORDERED: INSDGIPEN SC (10:11)
[2017-12-31] MEDS ORDERED: ALBUT/IPRATROP 3MG/0.5MG NEB 3 ML VIAL INH STA (10:35)
[2017-12-31] MEDS ORDERED: CEFTRIAXONE SOD INJ 1 GM ADDVIAL IV STA (11:49)
[2017-12-31] MEDS ORDERED: ACETAMINOPHEN 500 MG TAB PO STA (12:21)
[2017-12-31 13:44] VITALS: BP 145/91; PULSE 84; O2SAT 95
[2017-12-31] MEDS ORDERED: OSELTAMIVIR PHOSPHATE 75 MG CAP PO STA (13:44)
[2017-12-31] MEDS ORDERED: OSEL75CA23 PO (13:56)
[2017-12-31] MEDS ORDERED: PRED20TA PO (13:56)
[2017-12-31] MEDS ORDERED: CEPH500C PO (13:56)
--- NOTE | 2018-01-02 17:10 | Pharmacy Progress Note ---
ED Pharmacist Culture FollowUp Date of Service: Jan 02, 2018. After discussing with Dr. Mitchell, attempted to call patient to assess symptoms and clinical status. Left a voicemail to return call.
== END 2017-12-31 14:15 | disposition home or self-care (01) ==
LOC: C.EDB 08:41 → C.EDA 14:15
DX: J44.1 Chronic obstructive pulmonary disease with (acute) exacerbation (principal); N39.0 Urinary tract infection, site not specified; I10 Essential (primary) hypertension; E11.9 Type 2 diabetes mellitus without complications; E78.5 Hyperlipidemia, unspecified; G25.81 Restless legs syndrome; M35.00 Sjogren syndrome, unspecified; Z79.4 Long term (current) use of insulin; Z79.01 Long term (current) use of anticoagulants; Z86.718 Personal history of other venous thrombosis and embolism; Z86.711 Personal history of pulmonary embolism; Z83.3 Family history of diabetes mellitus; Z80.0 Family history of malignant neoplasm of digestive organs; Z83.79 Family history of other diseases of the digestive system; Z82.49 Family history of ischemic heart disease and other diseases of the circulatory system

== ENCOUNTER 2018-01-02 18:52 | Emergency (ER) | payer BC ==
[~2018-01-02] VITALS: Ht 149.9 cm; Wt 89.0 kg
[~2018-01-02 18:52] MED LIST changes: +CEPH500C PO; -HYDR2.5C37 TOP; +OSEL75CA23 PO; +PRED20TA PO
[2018-01-02 19:04] VITALS: Ht 149.9 cm; Wt 89.0 kg
--- NOTE | 2018-01-02 19:18 | EMERGENCY ROOM VISIT NOTE ---
History Report prepared by Chaitanya: Rodrigue Orozco Under the Supervision of: Dr. Alonso Louise M.D. First contact with patient: 19:09 Chief Complaint: LEG PAIN,LEG INJURY Stated Complaint: SWOLLEN R LEG WITH PAIN History of Present Illness The patient is a 72 year old female who presents to the Emergency Room with complaints of constant right leg edema beginning this morning. The patient states that she has had leg swelling before, but that her current symptoms are worse than they have ever been. She also complains of SOB, chills, and upper bilateral back pain that is worse on the right. She denies any CP, fever, nausea , vomiting, and trauma. She notes that she was here a few days ago and was diagnosed with bronchitis and a UTI. She reports that she is currently taking Coumadin, Tamiflu, and an antibiotic for her UTI. The patient states that she has a blood clot in her right leg in 2006. She notes that she also has a history of diabetes. She reports that she has been keeping up with her fluids. Source of History: patient Onset: this morning Position: leg (right) Quality: other (edema) Timing: constant Associated Symptoms: + chills, + SOB, + back pain (upper bilateral pain worse on the right side), No fevers, No chest pain, No nausea, No vomiting Note: She denies any trauma. Review of Systems See HPI for pertinent positives & negatives. A total of 10 systems reviewed and were otherwise negative. Past Medical & Surgical Medical Problems: (1) Acute bronchitis (2) Altered mental status (3) Altered mental status (4) Benign essential hypertension (5) Blood in stool (6) Cellulitis of right lower extremity (7) Chronic bronchitis (8) Chronic recurrent sinusitis (9) Chronic sinusitis (10) COPD exacerbation (11) Deep venous thrombosis of lower extremity (12) Diabetes mellitus type 2 (13) Dizziness (14) Dyspnea (15) Hyperglycemia (16) Hyperlipidemia (17) Laceration (18) Near syncope (19) Obstructive sleep apnea syndrome (20) Orthostatic hypotension (21) POSSIBLE SEIZURE (22) Pulmonary embolism (23) Restless legs (24) Rotator cuff tear (25) SJOGRENS (26) SOB (shortness of breath) (27) SUBTHERAPEAUTIC INR (28) Supratherapeutic INR (29) Supratherapeutic INR (30) Urinary tract infection (31) UTI (urinary tract infection) (32) Weakness Old medical records were reviewed. Nurse's notes were reviewed and I agree with. Family History Diabetes mellitus MOTHER Esophageal cancer FATHER FH: cancer FH: gallbladder disease Hypertension Myocardial infarction MOTHER Social History Smoking Status: Never Smoker Alcohol Use: none Drug Use: none Marital Status: Housing Status: lives with significant other Occupation Status: retired Current/Historical Medications Scheduled Calcium (Calcium), 500 MG PO QPM Cephalexin Monohydrate (Keflex), 500 MG PO BID Cholecalciferol (Vitamin D 1000 Unit), 2,000 INTER.UNIT PO QAM Cyanocobalamin (Vitamin B-12 1000 Mcg), 1,000 MCG PO BID Ferrous Sulfate (Iron), 325 MG PO QPM Gabapentin (Neurontin), 100 MG PO BID Home O2 Therapy (Oxygen), 2 LITERS NA HS Insulin Aspart (Novolog Flexpen), 10 UNITS SQ AC Insulin Glargine (Lantus Solostar), 39 MG SC QPM Levothyroxine Sodium (Levothyroxine Sodium), 75 MCG PO QAM Magnesium Chloride (Slow-Mag Tab), 128 MG PO QPM Magnesium Chloride (Slow-Mag Tab), 192 MG PO QAM Mometasone Furoate-Formoterol (Dulera 100/5 Mcg), 2 PUFFS INH BID Montelukast Sod (Montelukast Sodium), 10 MG PO HS Nortriptyline HCl (Nortriptyline HCl), 25 MG PO HS Oseltamivir Phosphate (Tamiflu), 75 MG PO BID Pantoprazole (Pantoprazole Sodium), 40 MG PO QAM Prednisone (Prednisone), 3 TAB PO DAILY Ropinirole Hydrochloride (Requip), 4 MG PO HS Sennosides-Docusate Sodium (Stool Softener), 1 TAB PO DAILY Simvastatin (Simvastatin), 20 MG PO HS Sitagliptin-Metformin Hcl (Janumet), 1 TAB PO BID Sulfa/Trimethoprim (Bactrim Ds 800MG/160MG), 1 TAB PO BID Warfarin Sod (Jantoven), MG PO UD Warfarin Sod (Jantoven), 4 MG PO 5XWK Scheduled PRN Albuterol Hfa (Ventolin Hfa), 2 PUFFS INH Q4H PRN for SOB/Wheezing Ipratropium-Albuterol (Combivent Respimat), 1 PUFF INH Q8-12H PRN for Shortness of Breath Torsemide (Demadex), 20 MG PO BID PRN for Fluid Retention Allergies Coded Allergies: Prochlorperazine (Verified Allergy, Severe, EXTRAPYRAMIDAL S/E, 12/31/17) LOSS OF MUSCLE CONTROL/MUSCLE SPASMS TROUBLE BREATHING "EYES WOULD FLY OPEN AND I COULDN'T CLOSE THEM" Zolpidem (Verified Allergy, Severe, CONFUSION/MEMORY LOSS, 12/31/17) "FOR THREE DAYS I WAS IN OUTER SPACE" Carbamazepine (Verified Allergy, Intermediate, CONFUSION, 12/31/17) Duloxetine (Verified Allergy, Intermediate, LIGHTHEADEDNESS/DIZZINESS, 12/31) Hydrochlorothiazide (Verified Allergy, Intermediate, LIGHTHEADEDNESS/ DIZZINESS, 12/31/17) Indigotindisulfonate (Verified Allergy, Intermediate, LIGHTHEADEDNESS/ DIZZINESS, 12/31/17) Levofloxacin (Verified Allergy, Mild, RASH, 12/31/17) also bloody diarrhea Clonazepam (Verified Allergy, Unknown, UNKNOWN, 12/31/17) Diclofenac (Verified Allergy, Unknown, NAUSEA AND VOMITING, 12/31/17) Losartan (Unverified Allergy, Unknown, ELEVATED CREATININE, 12/31/17) Hydromorphone (Verified Adverse Reaction, Intermediate, N/V AND NIGHTMARES , 12/31/17) Morphine (Verified Adverse Reaction, Intermediate, HYPOTENSION AND N/V, 12/31/17) Cyclobenzaprine (Verified Adverse Reaction, Mild, N/V, 12/31/17) Lisinopril (Verified Adverse Reaction, Mild, N/V, 12/31/17) Naproxen (Verified Adverse Reaction, Mild, N/V, 12/31/17) Oxycodone (Verified Adverse Reaction, Mild, N/V, 12/31/17) Tramadol (Verified Adverse Reaction, Unknown, N/V AND ITCHING, 12/31/17) Physical Exam Vital Signs Date Time Temp Pulse Resp B/P (MAP) Pulse Ox O2 Delivery O2 Flow Rate FiO2 01/02/18 22:21 80 18 126/65 93 Room Air 01/02/18 20:44 36.6 80 18 140/71 93 Room Air 01/02/18 19:04 36.7 92 18 151/87 93 Room Air Physical Exam General: Chronically ill appearing older female in no acute distress. HEENT: Normal cephalic atraumatic. Pupils are equal round and reactive to light. Extraocular movements are intact. Oropharynx is pink with moist mucous membranes. No swelling of the mouth lips or tongue. Neck: Supple with a midline trachea. No meningeal signs or stiffness, no JVD or bruits. No Stridor. Chest: Clear to auscultation bilaterally. No wheezes or rhonchi. No increased work of breathing. Heart: regular rate and rhythm. Abdomen: Soft nontender, nondistended without rebound guarding or rigidity. Extremities: No cyanosis clubbing. No calf tenderness or assymetry. Bilateral LE edema, right worse than left, no warmth or redness. Spine/Back. Non tender to palpation. No CVA tenderness Skin: Good turgor without rashes. Neurologic exam: Cranial nerves two through 12 are intact. Motor and sensation are intact and symmetrical throughout. Medical Decision & Procedures ER Provider Diagnostic Interpretation: Radiology results as stated below per my review and radiologist interpretation: R VENOUS DOPP LOWER EXT UNILAT HISTORY: 72 years-old Female eval for DVT swelling of the right lower extremity COMPARISON: Duplex venous Doppler study 03/13/2017 TECHNIQUE: Multiple real-time sonographic images of the right lower extremity deep venous structures were obtained assessing grayscale appearance, color and spectral flow FINDINGS: There is mild echogenic linear stranding seen within the popliteal vein without occlusive thrombus. The remaining deep venous structures are within normal limits without occlusive deep venous thrombosis. IMPRESSION: 1. No occlusive deep venous thrombosis identified. 2. Mild echogenic linear stranding within the patent popliteal vein suggests possible chronic thrombus with fibrin stranding. The above report was generated using voice recognition software. It may contain grammatical, syntax or spelling errors. Electronically signed by: Frankie Gaitan M.D. 01/02/2018 8:30 PM CHEST ONE VIEW PORTABLE HISTORY: 72 years-old Female CHEST PAIN acute atypical chest pain COMPARISON: Chest radiograph 12/31/2017 TECHNIQUE: Portable AP view of the chest FINDINGS: Cardiac silhouette is mildly enlarged, unchanged. Atherosclerosis of the aorta. No pneumothorax, pleural effusion, focal airspace consolidation or overt pulmonary edema. Bones of the chest appear grossly intact. Indeterminate radiodensity is again seen overlying the epigastric region. Degenerative changes are seen within the shoulders and spine. Mild levoscoliosis of the thoracic spine. IMPRESSION: No acute process. The above report was generated using voice recognition software. It may contain grammatical, syntax or spelling errors. Electronically signed by: Frankie Gaitan M.D. 01/02/2018 8:15 PM Laboratory Results 01/02/18 19:44 Red Blood Count 4.61, Mean Corpuscular Volume 91.3, Mean Corpuscular Hemoglobin 30.4, Mean Corpuscular Hemoglobin Concent 33.3, Mean Platelet Volume 10.4, Neutrophils (%) (Auto) 75.2, Lymphocytes (%) (Auto) 19.4, Monocytes (%) (Auto) 4.4, Eosinophils (%) (Auto) 0.0, Basophils (%) (Auto) 0.1, Neutrophils # (Auto) 7.12, Lymphocytes # (Auto) 1.84, Monocytes # (Auto) 0.42, Eosinophils # (Auto) 0.00, Basophils # (Auto) 0.01 01/02/18 19:44 Test 01/02/18 19:44 White Blood Count 9.48 K/uL (4.8-10.8) Red Blood Count 4.61 M/uL (4.2-5.4) Hemoglobin 14.0 g/dL (12.0-16.0) Hematocrit 42.1 % (37-47) Mean Corpuscular Volume 91.3 fL (80-100) Mean Corpuscular Hemoglobin 30.4 pg (25-34) Mean Corpuscular Hemoglobin Concent 33.3 g/dl (32-36) Platelet Count 219 K/uL (130-400) Mean Platelet Volume 10.4 fL (7.4-10.4) Neutrophils (%) (Auto) 75.2 % Lymphocytes (%) (Auto) 19.4 % Monocytes (%) (Auto) 4.4 % Eosinophils (%) (Auto) 0.0 % Basophils (%) (Auto) 0.1 % Neutrophils # (Auto) 7.12 K/uL (1.4-6.5) Lymphocytes # (Auto) 1.84 K/uL (1.2-3.4) Monocytes # (Auto) 0.42 K/uL (0.11-0.59) Eosinophils # (Auto) 0.00 K/uL (0-0.5) Basophils # (Auto) 0.01 K/uL (0-0.2) RDW Standard Deviation 47.4 fL (36.4-46.3) RDW Coefficient of Variation 14.2 % (11.5-14.5) Immature Granulocyte % (Auto) 0.9 % Immature Granulocyte # (Auto) 0.09 K/uL (0.00-0.02) Prothrombin Time 14.7 SECONDS (9.0-12.0) Prothromb Time International Ratio 1.4 (0.9-1.1) Activated Partial Thromboplast Time 30.3 SECONDS (21.0-31.0) Partial Thromboplastin Ratio 1.2 Anion Gap 12.0 mmol/L (3-11) Est Creatinine Clear Calc Drug Dose 40.9 ml/min Estimated GFR () 52.4 Estimated GFR (Non- 45.3 BUN/Creatinine Ratio 11.9 (10-20) Calcium Level 9.5 mg/dl (8.5-10.1) Total Bilirubin 0.5 mg/dl (0.2-1) Direct Bilirubin 0.1 mg/dl (0-0.2) Aspartate Amino Transf (AST/SGOT) 42 U/L (15-37) Alanine Aminotransferase (ALT/SGPT) 44 U/L (12-78) Alkaline Phosphatase 90 U/L (45-117) Total Creatine Kinase 109 U/L (26-192) Creatine Kinase MB 1.3 ng/ml (0.5-3.6) Creatine Kinase MB Ratio 1.2 (0-3.0) Pro-B-Type Natriuretic Peptide 135 pg/ml (0-900) Total Protein 7.4 gm/dl (6.4-8.2) Albumin 3.6 gm/dl (3.4-5.0) Lipase 69 U/L (73-393) Beta-Hydroxybutyric Acid 2.33 mg/dL (0.2-2.81) Laboratory studies as stated above per my review. Medications Administered Medications (Trade) Dose Ordered Sig/Mick Route Start Time Stop Time Status Last Admin Dose Admin Albuterol/ Ipratropium (Duoneb) 3 ml NOW STAT INH 01/02/18 19:19 2/6/18 19:21 DC 01/02/18 19:19 3 ML Insulin Human Regular (novoLIN-R U-100 PER UNIT) 5 units NOW STAT IV 01/02/18 21:40 01/02/18 21:42 DC 01/02/18 21:51 5 UNITS Trimethoprim/ Sulfamethoxazole (Septra Ds 800/ 160MG Tab) 1 tab NOW STAT PO 01/02/18 21:40 01/02/18 21:42 DC 01/02/18 21:53 1 TAB Trimethoprim/ Sulfamethoxazole (Sulfameth/ Trimeth Ds 800/ 160MG Home Pack) 1 homepack UD ONCE PO 01/02/18 22:30 01/02/18 22:31 DC 01/02/18 22:27 1 HOMEPACK ECG Indication: SOB/dyspnea Rate (beats per minute): 83 Rhythm: normal sinus Findings: no acute ischemic change, no ectopy Comparison ECG Date: 12/31/2017 Change: no significant change Change: Patient's electrocardiogram was interpreted by me. ED Course 1908: Past medical records reviewed. The patient was evaluated in room A2, and a complete history and physical examination were performed. 1918: Duoneb 3ml INH 0: I reevaluated and updated the patient. 2139: Trimethoprim/Sulfamethoxazole 1 tab PO, Insulin Human Regular 5 units IV 2149: I reevaluated and updated the patient. She is resting comfortably. 2229: Trimethoprim/Sulfamethoxazole 1 homepack PO 2240: Upon reevaluation, the patient is stable. I discussed the results and treatment plan with her. She verbalized agreement of the treatment plan. The patient was discharged home. Medical Decision Differential diagnoses include: DVT, CHF, UTI, and electrolyte/metabolic abnormalities. This patient comes in as described above. She was placed in room A2. She is here for treatment and evaluation of right leg swelling. She's recently treated and seen for UTI as well. They apparently tried to call her in reference her antibiotics. She still has some mild urinary symptoms but has no fever or flank tenderness and she is nontoxic. IV access established and multiple blood tests was obtained . she's given a DuoNeb and she looks well and is no respiratory distress. Chest x-ray does not show anything to suggest acute congestive heart failure, pneumonia, or pneumothorax. EKG shows no acute ischemic changes or significant ectopy. Her blood sugars in the low 400s however she's had no acidosis. She was given insulin 5 units IV here and this is coming down to 330. ultrasound shows no evidence of acute DVT. She feels good and would like to home go home. I did review the records and based so put on Bactrim for the UTI. She does have several allergies and additionally the culture is resistant to several other antibiotics. Her INR is so mildly subtherapeutic on encouraged her to get this rechecked and follow-up with her doctor next 1-2 days for recheck. Return if increasing pain, worsening of symptoms, fever or chills, any new problems or concerns. She was happy with the plan and was discharged to home. Medication Reconcilliation Current Medication List: was personally reviewed by me Blood Pressure Screening Patient's blood pressure: Normal blood pressure Blood pressure disposition: Did not require urgent referral Impression Primary Impression: Leg pain, right Additional Impressions: Urinary tract infection Hyperglycemia Scribe Attestation The scribe's documentation has been prepared under my direction and personally reviewed by me in its entirety. I confirm that the note above accurately reflects all work, treatment, procedures, and medical decision making performed by me. Departure Information Dispostion Home / Self-Care Prescriptions Sulfa/Trimethoprim (Bactrim Ds 800MG/160MG) Tab 1 TAB PO BID, #14 TAB Prov: Alonso Louise M.D. 01/02/18 Referrals Omar Joshi M.D. (PCP) Forms HOME CARE DOCUMENTATION FORM, IMPORTANT VISIT INFORMATION Patient Instructions My [facility] Additional Instructions Rest Return if: worsening of symptoms, fever, increasing pain or swelling, any new problems or concerns Use Batrim DS twice a day for 7 days replaces Keflex Check your blood sugar frequently including before bedtime Follow-up with your doctor in 1-2 days for recheck Problem Qualifiers
[2018-01-02] MEDS ORDERED: ALBUT/IPRATROP 3MG/0.5MG NEB 3 ML VIAL INH STA (19:19)
[2018-01-02 19:53] LABS: BASO % 0.1 %; BASO ABS # 0.01 K/uL (0-0.2); HEMATOCRIT 42.1 % (37-47); IG# 0.09 K/uL (0.00-0.02); LYMPH % 19.4 %; LYMPH ABS # 1.84 K/uL (1.2-3.4); MEAN CELL VOLUME 91.3 fL (80-100); MEAN CORPUSCULAR HEMOGLOBIN 30.4 pg (25-34); MEAN CORPUSCULAR HGB CONC 33.3 g/dl (32-36); MEAN PLATELET VOLUME 10.4 fL (7.4-10.4); MONO % 4.4 %; MONO ABS # 0.42 K/uL (0.11-0.59); NEUT % 75.2 %; NEUT ABS # 7.12 K/uL (1.4-6.5); PLATELET COUNT 219 K/uL (130-400); RED CELL DISTRIBUTION WIDTH CV 14.2 % (11.5-14.5); RED CELL DISTRIBUTION WIDTH SD 47.4 fL (36.4-46.3); WHITE BLOOD COUNT 9.48 K/uL (4.8-10.8)
[2018-01-02 20:10] LABS: INR 1.4 (0.9-1.1); PTT PATIENT 30.3 SECONDS (21.0-31.0)
--- NOTE | 2018-01-02 20:16 | DIAGNOSTIC IMAGING REPORT ---
CHEST ONE VIEW PORTABLE HISTORY: 72 years-old Female CHEST PAIN acute atypical chest pain COMPARISON: Chest radiograph 12/31/2017 TECHNIQUE: Portable AP view of the chest FINDINGS: Cardiac silhouette is mildly enlarged, unchanged. Atherosclerosis of the aorta. No pneumothorax, pleural effusion, focal airspace consolidation or overt pulmonary edema. Bones of the chest appear grossly intact. Indeterminate radiodensity is again seen overlying the epigastric region. Degenerative changes are seen within the shoulders and spine. Mild levoscoliosis of the thoracic spine. IMPRESSION: No acute process. The above report was generated using voice recognition software. It may contain grammatical, syntax or spelling errors. Electronically signed by: Frankie Gaitan M.D. 01/02/2018 8:15 PM Dictated Date/Time: 01/02/2018 8:14 PM
[2018-01-02 20:22] LABS: ALBUMIN 3.6 gm/dl (3.4-5.0); CALCIUM 9.5 mg/dl (8.5-10.1); CKMB 1.3 ng/ml (0.5-3.6); CREATININE 1.19 mg/dl (0.60-1.20); TOTAL PROTEIN 7.4 gm/dl (6.4-8.2)
--- NOTE | 2018-01-02 20:32 | DIAGNOSTIC IMAGING REPORT ---
R VENOUS DOPP LOWER EXT UNILAT HISTORY: 72 years-old Female eval for DVT swelling of the right lower extremity COMPARISON: Duplex venous Doppler study 03/13/2017 TECHNIQUE: Multiple real-time sonographic images of the right lower extremity deep venous structures were obtained assessing grayscale appearance, color and spectral flow FINDINGS: There is mild echogenic linear stranding seen within the popliteal vein without occlusive thrombus. The remaining deep venous structures are within normal limits without occlusive deep venous thrombosis. IMPRESSION: 1. No occlusive deep venous thrombosis identified. 2. Mild echogenic linear stranding within the patent popliteal vein suggests possible chronic thrombus with fibrin stranding. The above report was generated using voice recognition software. It may contain grammatical, syntax or spelling errors. Electronically signed by: Frankie Gaitan M.D. 01/02/2018 8:30 PM Dictated Date/Time: 01/02/2018 8:28 PM
[2018-01-02 20:44] VITALS: TEMP 36.6
[2018-01-02] MEDS ORDERED: SULFAMETHOXAZOLE/TRIMETHOPRIM DS 800/160MG TAB PO STA (21:40)
[2018-01-02] MEDS ORDERED: NovoLIN-R INSULIN PER UNIT CHARGE IV STA (21:40)
[2018-01-02] MEDS ORDERED: SULF800T23 PO (22:16)
[2018-01-02 22:21] VITALS: BP 126/65; PULSE 80; O2SAT 93
[2018-01-02] MEDS ORDERED: NVLGI/PEN SQ (22:27)
[2018-01-02] MEDS ORDERED: SEPTRA DS HOME PACK 1 EA VIAL PO ONE (22:30)
== END 2018-01-02 22:45 | disposition home or self-care (01) ==
LOC: C.EDB 18:55 → C.EDA 22:45
DX: M79.604 Pain in right leg (principal); N39.0 Urinary tract infection, site not specified; E11.65 Type 2 diabetes mellitus with hyperglycemia; Z79.01 Long term (current) use of anticoagulants; I10 Essential (primary) hypertension; Z86.718 Personal history of other venous thrombosis and embolism; G47.33 Obstructive sleep apnea (adult) (pediatric); Z86.711 Personal history of pulmonary embolism; G25.81 Restless legs syndrome; E78.5 Hyperlipidemia, unspecified; M35.00 Sjogren syndrome, unspecified; Z87.440 Personal history of urinary (tract) infections; Z83.3 Family history of diabetes mellitus; Z82.49 Family history of ischemic heart disease and other diseases of the circulatory system; Z80.0 Family history of malignant neoplasm of digestive organs; Z79.4 Long term (current) use of insulin; Z79.899 Other long term (current) drug therapy

== ENCOUNTER 2019-02-26 08:58 | Inpatient (IN) ==
[2019-02-26] MEDS ORDERED: ONDANSETRON INJ 2 MG/ML 2 ML VIAL IV STA (09:12)
[2019-02-26] MEDS ORDERED: SODIUM CHLORIDE 0.9% 500 ML IV SCH (09:15)
--- NOTE | 2019-02-26 09:23 | Emergency Department Note ---
Entered by Yaa Freire acting as a scribe for Jose Mckeon DO History of Present Illness General Chief complaint: Flank Pain Stated complaint: LEFT FLANK PAIN, BLOOD IN URINE Source: patient History of Present Illness Provider complaint: left flank pain Onset (ago): month(s) 1 Location: back, abdomen and left Pain Consistency: + constant Maximum Pain Intensity: 10 Quality: + other (pain) Associated symptoms: + headaches; no chest pain and no shortness of breath The patient is a 73-year-old female who presents to the emergency department for an evaluation of left flank pain. The patient has been noticing left flank pain for approximately 1 month. Initially the pain was intermittent but now it has become constant. The patient has been taking Tylenol with some relief but recently the Tylenol does not appear to be working as well as it used to in the beginning. The patient was seen in our facility approximately 3 days ago for similar complaints. At that time she was diagnosed with urinary tract infection. She did have a CAT scan of the abdomen and pelvis which did not show any acute disease. The patient was started on Macrobid for urinary tract infection and states that she has been taking this medication. She denies having any dysuria frequency or fever but does have pain and nausea. The patient was called yesterday by our facility to return to the emergency department for a urinary tract infection that was resistant to multiple antibiotics. It does not appear to be resistant to Macrobid however it does not appear to be clinically working. The patient has not seen her family doctor for these complaints. The patient's significant other comes to the emergency department with her and offer some of the history including that the fact the patient has been becoming more confused ever since this flank pain began approximately month ago. She does complain of mild headaches which are worse in the morning. She denies having any recent falls. She does have a history of venous thromboembolic disease but is not currently taking anticoagulations. She denies having any chest pain or shortness of breath. She does have swelling in her legs but she states that this is not new or increased compared to previous. Home Medications Home Medications Medication Instructions Recorded Confirmed Type calcium carbonate [Calcium 600] 600 mg PO DAILY 02/22/19 02/26/19 History cholecalciferol (vitamin D3) 2,000 unit PO DAILY 02/22/19 02/26/19 History [Vitamin D3] cyanocobalamin (vitamin B-12) 1,000 mcg PO DAILY 02/22/19 02/26/19 History [Vitamin B-12] docusate sodium [Stool Softener] 100 mg PO HS PRN 02/22/19 02/26/19 History ferrous sulfate [iron] 325 mg PO DAILY 02/22/19 02/26/19 History gabapentin 100 mg PO BID 02/22/19 02/26/19 History insulin aspart U-100 [Novolog 10 unit SUBCUT TIDM 02/22/19 02/26/19 History Flexpen U-100 Insulin] insulin glargine [Lantus U-100 23 unit SUBCUT HS 02/22/19 02/26/19 History Insulin] levothyroxine 75 mcg PO DAILY 02/22/19 02/26/19 History magnesium chloride [Mag 64] 120 mg PO QPM 02/22/19 02/26/19 History magnesium chloride [Mag 64] 192 mg PO QAM 02/22/19 02/26/19 History montelukast [Singulair] 10 mg PO DAILY 02/22/19 02/26/19 History nitrofurantoin monohyd/m-cryst 100 mg PO BID 7 Days #14 cap 02/22/19 02/26/19 Rx [Macrobid] nortriptyline 25 mg PO HS 02/22/19 02/26/19 History pantoprazole 40 mg PO DAILYBB 02/22/19 02/26/19 History rivaroxaban [Xarelto] 20 mg PO DAILY 02/22/19 02/26/19 History ropinirole 4 mg PO DAILY 02/22/19 02/26/19 History simvastatin 20 mg PO DAILY 02/22/19 02/26/19 History sitagliptin-metformin [Janumet] 1 tab PO BID 02/22/19 02/26/19 History Allergies Allergy/AdvReac Type Severity Reaction Status Date / Time prochlorperazine Allergy Severe EXTRAPYRAMIDAL Verified 02/22/19 15:17 S/E zolpidem Allergy Severe CONFUSION/MEMORY Verified 02/22/19 15:17 LOSS carbamazepine Allergy Intermediate CONFUSION Verified 02/22/19 15:17 duloxetine Allergy Intermediate LIGHTHEADED Verified 02/22/19 15:17 NESS/DIZZIN ESS hydrochlorothiazide Allergy Intermediate LIGHTHEADED Verified 02/22/19 15:17 NESS/DIZZIN ESS indigotindisulfonic acid Allergy Intermediate LIGHTHEADED Verified 02/22/19 15:17 NESS/DIZZIN ESS levofloxacin Allergy Mild RASH Verified 02/22/19 15:17 capsaicin Allergy Unknown NAUSEA AND Verified 02/22/19 13:44 VOMITING clonazepam Allergy Unknown UNKNOWN Verified 02/22/19 15:17 diclofenac Allergy Unknown NAUSEA AND Verified 02/22/19 15:17 VOMITING Diclopak Allergy Unknown NAUSEA AND Verified 07/27/18 14:21 VOMITING losartan Allergy Unknown ELEVATED Verified 02/22/19 15:17 CREATININE hydromorphone AdvReac Intermediate N/V AND Verified 02/22/19 15:17 NIGHTMARES morphine AdvReac Intermediate HYPOTENSION Verified 02/22/19 15:17 AND N/V nitrofurantoin AdvReac Intermediate DIARRHEA-MNPG Verified 02/22/19 15:17 LIST cyclobenzaprine AdvReac Mild N/V Verified 02/22/19 15:17 lisinopril AdvReac Mild N/V Verified 02/22/19 15:17 naproxen AdvReac Mild N/V Verified 02/22/19 15:17 oxycodone AdvReac Mild N/V Verified 02/22/19 15:17 tramadol AdvReac Unknown N/V AND Verified 02/22/19 15:17 ITCHING Past Med/Surg History Medical History COPD (chronic obstructive pulmonary disease) (Chronic) Pulmonary emboli (Resolved) Social History Preferred Language: Italian Feels Safe at Home: Yes Smoking Status: Never smoker Review of Systems See HPI for pertinent positives & negatives. and A total of 10 systems reviewed and were otherwise negative Physical Exam Vital Signs Vital Signs - 24 hr 02/26/19 09:00 02/26/19 09:37 02/26/19 10:39 Temperature 36.6 C Temperature Source Oral Sepsis Recent Fever Within 48 Hours No Sepsis New/Unexplained Change in Mental Status No Sepsis Action Taken by Nursing No Action Required Pulse Rate 65 Pulse Rate [Apical] 56 L Respiratory Rate 20 18 Respiratory Effort / Characteristics Non-Labored Non-Labored Respiratory Depth Normal Normal Blood Pressure 145/64 H Blood Pressure [Left Arm] 112/79 Blood Pressure Mean 91 Blood Pressure Mean [Left Arm] 90 Pulse Oximetry 97 97 96 Oxygen Delivery Method Room Air Room Air 02/26/19 11:04 Temperature Temperature Source Sepsis Recent Fever Within 48 Hours Sepsis New/Unexplained Change in Mental Status Sepsis Action Taken by Nursing Pulse Rate Pulse Rate [Apical] 59 L Respiratory Rate 18 Respiratory Effort / Characteristics Non-Labored Respiratory Depth Normal Blood Pressure Blood Pressure [Left Arm] 147/58 H Blood Pressure Mean Blood Pressure Mean [Left Arm] 87 Pulse Oximetry 97 Oxygen Delivery Method Room Air GENERAL: Patient is awake alert in no acute distress patient is resting comfortably and showing no signs of anxiety EYES: The conjunctivae are clear. The pupils are round and reactive. EARS, NOSE, MOUTH AND THROAT: The nose is without any evidence of any deformity. Mucous membranes are moist tongue is midline NECK: The neck is nontender and supple. RESPIRATORY: Normal respiratory effort is noted there is no evidence of wheezing rhonchi or rales CARDIOVASCULAR: Regular rate and rhythm noted there no murmurs rubs or gallops normal S1 normal S2 GASTROINTESTINAL: The abdomen is mildly distended and diffusely tender. There is tenderness in the left upper quadrant. There is no guarding or rigidity. BACK: No midline tenderness or or step-off noted range of motion in flexion extension as well as rotation no signs of muscle spasm noted MUSCULOSKELETAL/EXTREMITIES: There is no evidence of gross deformity full range of motion is noted in the hips and shoulders SKIN: Skin was cool and dry. There is pedal edema bilaterally. There is no calf tenderness. Pulses are symmetric. NEUROLOGIC: Patient is awake alert and oriented to person place but not situation. Patellar tendon reflexes are 1+ bilaterally. Course 0915: The patient was evaluated in room C1B, and a complete history and physical examination were performed. 1124: I updated the patient who verbalized agreement and understanding of the treatment plan. 1130: I discussed the patient's case with Dr. James Wong who will evaluate the patient for further management. Consultations Consultation #1: Dr. Stephanie Wong Time: 11:30 Administered Medications Fentanyl Citrate (Fentanyl Citrate) 50 mcg IV Q15M PRN PRN Reason: Pain Stop: 03/12/19 09:11 Last Admin: 02/26/19 11:43 Dose: 50 mcg Documented by: [id number] Admin: 02/26/19 10:38 Dose: 50 mcg Documented by: [id number] Admin: 02/26/19 09:51 Dose: 50 mcg Documented by: [id number] Sodium Chloride (Nss 1000ml) 500 mls @ 999 mls/hr IV .Q31M ONE Stop: 02/26/19 12:01 Last Admin: 02/26/19 11:40 Dose: 999 mls/hr Documented by: [id number] Ioversol (Optiray 320 100ml) 94 ml IV ONCE PRN PRN Reason: Interaction Checking Stop: 03/02/19 10:57 Last Admin: 02/26/19 10:58 Dose: 94 ml Documented by: [id number] Discontinued Medications Sodium Chloride (Nss) 500 mls @ 999 mls/hr IV .Q31M PRISCILLA Stop: 02/26/19 09:45 Last Infusion: 02/26/19 10:21 Dose: 0 mls/hr Documented by: [id number] Admin: 02/26/19 09:51 Dose: 999 mls/hr Documented by: [id number] Piperacillin Sod/Tazobactam Sod (Zosyn) 4.5 gm in 120 mls @ 240 mls/hr IV NOW ONE Stop: 02/26/19 10:49 Last Infusion: 02/26/19 11:33 Dose: 0 mls/hr Documented by: [id number] Admin: 02/26/19 11:01 Dose: 240 mls/hr Documented by: [id number] Ondansetron HCl (Zofran) 4 mg IV NOW STA Stop: 02/26/19 09:13 Last Admin: 02/26/19 09:51 Dose: 4 mg Documented by: [id number] Medical Decision Making Differential Diagnosis Differential diagnosis: Etiologies such as biliary colic, cholecystitis, hepatitis, perihepatitis, randall creatitis, cardiac disease, pancreatitis, gastritis, peptic ulcer disease, appendicitis, ovarian cyst, ovarian torsion, pelvic inflammatory disease, cystitis, diverticulitis, mesenteric ischemia, inflammatory bowel disease, ileus, bowel obstruction, aortic pathology, shingles, as well as others were considered. Medical Records Attestation: I reviewed the patient's medical records. Home Medications Current Medication List: was personally reviewed by me Laboratory Data Attestation: I reviewed the patient's lab results. Result diagrams: 02/26/19 09:24 02/26/19 10:00 Lab Results 02/26/19 02/26/19 02/26/19 Range/Units 09:24 09:24 09:24 WBC 11.78 H (4.8-10.8) K/uL RBC 5.36 (4.2-5.4) M/uL Hgb 17.0 H (12.0-16.0) g/dL Hct 48.7 H (37-47) % MCV 90.9 (80-100) fL MCH 31.7 (25-34) pg MCHC 34.9 (32-36) g/dL RDW Std Deviation 42.6 (36.4-46.3) fL RDW Coeff of Jayden 13.0 (11.5-14.5) % Plt Count 195 (130-400) K/uL MPV 11.2 H (7.4-10.4) fL Immature Gran % (Auto) 0.4 % Neut % (Auto) 65.4 % Lymph % (Auto) 24.4 % [place] % (Auto) 8.7 % Eos % (Auto) 1.0 % Baso % (Auto) 0.1 % Immature Gran # (Auto) 0.05 H (0.00-0.02) K/uL Neut # (Auto) 7.70 H (1.4-6.5) K/uL Lymph # (Auto) 2.87 (1.2-3.4) K/uL [place] # (Auto) 1.03 H (0.11-0.59) K/uL Eos # (Auto) 0.12 (0-0.5) K/uL Baso # (Auto) 0.01 (0-0.2) K/uL PT Cancelled INR Cancelled APTT Cancelled PTT Ratio Cancelled Sodium Cancelled Potassium Cancelled Chloride Cancelled Carbon Dioxide Cancelled Anion Gap Cancelled BUN Cancelled Creatinine Cancelled Est Cr Clr Drug Dosing Cancelled Est GFR ( Amer) Cancelled Est GFR (Non-Af Amer) Cancelled BUN/Creatinine Ratio Cancelled Glucose Cancelled Calcium Cancelled Magnesium Cancelled Total Bilirubin Cancelled AST Cancelled ALT Cancelled Alkaline Phosphatase Cancelled Troponin I Cancelled Total Protein Cancelled Albumin Cancelled Globulin Cancelled Albumin/Globulin Ratio Cancelled Lipase Cancelled Beta-Hydroxybutyric Acd (0.2-2.81) mg/dl TSH Cancelled Urine Color Urine Appearance (Clear) Urine pH (4.5-7.5) POC Urine pH (4.5-7.5) Ur Specific [place] (1.000-1.030) Urine Protein (Negative) POC Urine Protein (Negative) Urine Glucose (UA) (Negative) POC Ur Glucose (UA) (Normal) Urine Ketones (Negative) POC Urine Ketones (Negative) Urine Blood (Negative) POC Urine Blood (Negative) Urine Nitrite (Negative) POC Urine Nitrite (Negative) Urine Bilirubin (Negative) POC Urine Bilirubin (Negative) Urine Urobilinogen (Negative) POC Urine Urobilinogen (Normal) Ur Leukocyte Esterase (Negative) POC U Leukocyte Esteras (Negative) Urine WBC (Auto) (0-5) /hpf Urine RBC (Auto) (0-4) /hpf U Hyaline Cast (Auto) (0-5) /lpf U Epithel Cells (Auto) (0-5) /lpf Urine Bacteria (Auto) (Negative) 02/26/19 02/26/19 02/26/19 Range/Units 09:24 09:45 09:45 WBC (4.8-10.8) K/uL RBC (4.2-5.4) M/uL Hgb (12.0-16.0) g/dL Hct (37-47) % MCV (80-100) fL MCH (25-34) pg MCHC (32-36) g/dL RDW Std Deviation (36.4-46.3) fL RDW Coeff of Jayden (11.5-14.5) % Plt Count (130-400) K/uL MPV (7.4-10.4) fL Immature Gran % (Auto) % Neut % (Auto) % Lymph % (Auto) % [place] % (Auto) % Eos % (Auto) % Baso % (Auto) % Immature Gran # (Auto) (0.00-0.02) K/uL Neut # (Auto) (1.4-6.5) K/uL Lymph # (Auto) (1.2-3.4) K/uL [place] # (Auto) (0.11-0.59) K/uL Eos # (Auto) (0-0.5) K/uL Baso # (Auto) (0-0.2) K/uL PT INR APTT PTT Ratio Sodium Potassium Chloride Carbon Dioxide Anion Gap BUN Creatinine Est Cr Clr Drug Dosing Est GFR ( Amer) Est GFR (Non-Af Amer) BUN/Creatinine Ratio Glucose Calcium Magnesium Total Bilirubin AST ALT Alkaline Phosphatase Troponin I Total Protein Albumin Globulin Albumin/Globulin Ratio Lipase Beta-Hydroxybutyric Acd (0.2-2.81) mg/dl TSH 3.500 Urine Color Yellow Urine Appearance Cloudy H (Clear) Urine pH 5.0 (4.5-7.5) POC Urine pH 7 (4.5-7.5) Ur Specific [place] 1.040 H (1.000-1.030) Urine Protein Negative (Negative) POC Urine Protein Negative (Negative) Urine Glucose (UA) 3+ H (Negative) POC Ur Glucose (UA) Normal (Normal) Urine Ketones 2+ H (Negative) POC Urine Ketones 2+ (Moderate) H (Negative) Urine Blood Trace H (Negative) POC Urine Blood Trace H (Negative) Urine Nitrite Negative (Negative) POC Urine Nitrite Negative (Negative) Urine Bilirubin Negative (Negative) POC Urine Bilirubin Negative (Negative) Urine Urobilinogen Negative (Negative) POC Urine Urobilinogen Normal (Normal) Ur Leukocyte Esterase Trace H (Negative) POC U Leukocyte Esteras Negative (Negative) Urine WBC (Auto) >30 H (0-5) /hpf Urine RBC (Auto) 5-10 H (0-4) /hpf U Hyaline Cast (Auto) 1-5 (0-5) /lpf U Epithel Cells (Auto) >30 H (0-5) /lpf Urine Bacteria (Auto) 2+ H (Negative) 02/26/19 02/26/19 Range/Units 10:00 10:00 WBC (4.8-10.8) K/uL RBC (4.2-5.4) M/uL Hgb (12.0-16.0) g/dL Hct (37-47) % MCV (80-100) fL MCH (25-34) pg MCHC (32-36) g/dL RDW Std Deviation (36.4-46.3) fL RDW Coeff of Jayden (11.5-14.5) % Plt Count (130-400) K/uL MPV (7.4-10.4) fL Immature Gran % (Auto) % Neut % (Auto) % Lymph % (Auto) % [place] % (Auto) % Eos % (Auto) % Baso % (Auto) % Immature Gran # (Auto) (0.00-0.02) K/uL Neut # (Auto) (1.4-6.5) K/uL Lymph # (Auto) (1.2-3.4) K/uL [place] # (Auto) (0.11-0.59) K/uL Eos # (Auto) (0-0.5) K/uL Baso # (Auto) (0-0.2) K/uL PT 10.9 INR 1.1 APTT 27.6 PTT Ratio 1.0 Sodium 138 Potassium 3.9 Chloride 106 Carbon Dioxide 25 Anion Gap 8.0 BUN 13 Creatinine 0.95 Est Cr Clr Drug Dosing Not Reportable Est GFR ( Amer) 68.4 Est GFR (Non-Af Amer) 59.0 BUN/Creatinine Ratio 14.0 Glucose 320 H Calcium 9.8 Magnesium 1.8 Total Bilirubin 1.2 H AST 22 ALT 35 Alkaline Phosphatase 124 H Troponin I < 0.015 Total Protein 7.6 Albumin 3.7 Globulin 3.9 Albumin/Globulin Ratio 0.9 Lipase 57 L Beta-Hydroxybutyric Acd 7.48 H (0.2-2.81) mg/dl TSH Urine Color Urine Appearance (Clear) Urine pH (4.5-7.5) POC Urine pH (4.5-7.5) Ur Specific [place] (1.000-1.030) Urine Protein (Negative) POC Urine Protein (Negative) Urine Glucose (UA) (Negative) POC Ur Glucose (UA) (Normal) Urine Ketones (Negative) POC Urine Ketones (Negative) Urine Blood (Negative) POC Urine Blood (Negative) Urine Nitrite (Negative) POC Urine Nitrite (Negative) Urine Bilirubin (Negative) POC Urine Bilirubin (Negative) Urine Urobilinogen (Negative) POC Urine Urobilinogen (Normal) Ur Leukocyte Esterase (Negative) POC U Leukocyte Esteras (Negative) Urine WBC (Auto) (0-5) /hpf Urine RBC (Auto) (0-4) /hpf U Hyaline Cast (Auto) (0-5) /lpf U Epithel Cells (Auto) (0-5) /lpf Urine Bacteria (Auto) (Negative) Imaging Data Radiologist's Impression: Radiology results as stated below per my review and the radiologist's interpretation: XR chest 1V portable CLINICAL HISTORY: 73 years-old Female presenting with left flank pain. TECHNIQUE: Portable upright AP view of the chest was obtained. COMPARISON: 07/27/2018. FINDINGS: Atherosclerosis of the aortic arch. Cardiac silhouette top normal in size. Minimal basilar opacities. No pleural effusion or pneumothorax. Degenerative changes of the thoracic spine. Chronic widening of the right acromioclavicular joint. External leads and medical front desk specialist project over the thorax. IMPRESSION: 1. Minimal basilar opacities likely atelectasis or scarring. No convincing evidence of acute cardiopulmonary disease. Electronically signed by: Jesús Lambert M.D. 02/26/2019 9:[address] abd pelvis IV con only CLINICAL HISTORY: 73 years-old Female presenting with left flank pain, confusion. TECHNIQUE: Multidetector CT of the abdomen and pelvis was performed after the administration of intravenous contrast. IV contrast: 94 mL of Optiray 320. One or more dose lowering techniques were used consistent with the principles of ALARA (as low as reasonably achievable), including automatic exposure control, mA or kV adjustment to individual patient size, and/or use of iterative reconstruction. COMPARISON: 02/22/2019. CT DOSE (mGy.cm): The estimated cumulative dose is 1179.96. 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 Lung bases: Top normal heart size. Coronary artery and aortic valve calcification. No pericardial or pleural effusion. Minimal dependent changes likely atelectasis. Several solid fissural nodules are noted in the right lung measuring up to 6 mm (series 5 images 6, 15, and 19). These were present to some degree in 2017. Liver: Normal morphology. Well-defined hypodense lesions primarily in the left hepatic lobe, indeterminate though likely hepatic cysts. Patent hepatic vasculature. Due to the phase of contrast the hepatic veins are only partially opacified. Biliary: Mild biliary ductal prominence likely a reservoir effect in the post cholecystectomy state. Gallbladder surgically absent. Pancreas: Moderate parenchymal atrophy. Spleen: Normal. Adrenal glands: Normal. 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 Renal parenchyma otherwise normal. No hydronephrosis or nephrolithiasis. Ureters nondistended. Bladder: The configuration of the bladder suggests pelvic ligamentous laxity. Bladder otherwise normal. Pelvic organs: Uterus surgically absent. Bowel: Normal. No bowel obstruction. Small to moderate hiatal hernia. Peritoneal cavity: No free fluid or intraperitoneal gas. Lymph nodes: No enlarged lymph nodes in the abdomen or pelvis. Vasculature: Atherosclerosis of the normal caliber abdominal aorta. IVC patent. Abdominal wall: Postsurgical changes of the ventral midline abdomen. Musculoskeletal: Degenerative changes of the spine. Postsurgical changes of posterior transpedicular screw not fixation of L4-S1 with associated laminectomy defects. A catheter is in place with a medical implanted device within the right paraspinal musculature. Degenerative changes of the sacroiliac joints and pubic symphysis. Old injury or chronic degeneration of the hamstrings tendons, right greater than left. IMPRESSION: 1. No acute intra-abdominal pathology. 2. Chronic findings as above. Electronically signed by: Jesús Lambert M.D. 02/26/2019 11:[address] head/brain wo con CLINICAL HISTORY: 73 years-old Female presenting with confusion. TECHNIQUE: Multidetector CT imaging of the head was performed without the use of intravenous contrast. IV contrast: None. One or more dose lowering techniques were used consistent with the principles of ALARA (as low as reasonably achievable), including automatic exposure control, mA or kV adjustment to individual patient size, and/or use of iterative reconstruction. COMPARISON: 01/17/2014. CT DOSE (mGy.cm): The estimated cumulative dose is 1179.96 mGy.cm. 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 Ventricles and sulci normal in size. No hemorrhage. Brain parenchyma normal in appearance with preserved hester-white differentiation. No acute territorial infarct. No mass effect or midline shift. No extra-axial fluid collection. Paranasal sinuses and mastoid air cells clear. Calvarium intact. IMPRESSION: 1. No acute intracranial abnormality. Electronically signed by: Jesús Lambert M.D. 02/26/2019 11:13 AM ECG Data Attestation: I personally reviewed and interpreted this ECG as follows: Indication: abdominal pain Rate (beats per minute): 50 Rhythm: sinus bradycardia Findings: no PAC, no PVC and no ectopy Comparison ECG Date: from (07/27/18) Change: no significant change Blood Pressure Blood Pressure Findings: Elevated blood pressure Blood Pressure Disposition: further management by hospitalist MDM Narrative The patient is a 73-year-old female who presented to the emergency department for an evaluation of flank pain. The patient has had ongoing flank pain for the last few days which has been constant. She initially started having flank pain approximately 1 month ago. The patient was seen in our facility recently for similar complaints. At that time she was diagnosed with urinary tract infection. The patient was called yesterday and told to return to the emergency department because of a multidrug-resistant E. coli that was in her urine. She was treated with Zosyn and IV fluids in the emergency department. Further history was obtained from the patient's family members including her and daughter. It sounds that the patient has had worsening dementia recently. She is not taking her medications and appears to be noncompliant with most of her diabetic medications. I discussed the patient's laboratory and radiographic studies with her and her family members. She was treated with IV fluids IV pain medication as well as IV antibiotics in the emergency department. I discussed her case with the on-call [facility] hospitalist group. They have agreed to evaluate the patient in the emergency department for further management and disposition. Impression & Plan Pyelonephritis, Left flank pain, Confusion, Hyperglycemia Discharge Plan Visit Data Chief Complaint: Flank Pain Stated Complaint: LEFT FLANK PAIN, BLOOD IN URINE ED Provider: Jose Mckeon Discharge Problem: Pyelonephritis, Left flank pain, Confusion, Hyperglycemia Patient Disposition: Being Evaluated by Hospitalist Forms Stand Alone Forms: My [facility] Prescriptions Prescriptions: No Action nitrofurantoin monohyd/m-cryst [Macrobid] 100 mg capsule 100 mg PO BID 7 Days Qty: 14 RF: 0 Lantus U-100 Insulin 100 unit/mL Solution 23 unit SUBCUT HS RF: 0 levothyroxine 75 mcg Tablet 75 mcg PO DAILY RF: 0 nortriptyline 25 mg Capsule 25 mg PO HS RF: 0 calcium carbonate [Calcium 600] 600 mg calcium (1,500 mg) Tablet 600 mg PO DAILY RF: 0 pantoprazole 40 mg Tablet,Delayed Release (Dr/Ec) 40 mg PO DAILYBB RF: 0 ferrous sulfate [iron] 325 mg (65 mg iron) Tablet 325 mg PO DAILY RF: 0 montelukast [Singulair] 10 mg Tablet 10 mg PO DAILY RF: 0 gabapentin 100 mg Capsule 100 mg PO BID RF: 0 ropinirole 4 mg Tablet 4 mg PO DAILY RF: 0 Novolog Flexpen U-100 Insulin 100 unit/mL (3 mL) Insulin Pen 10 unit SUBCUT TIDM RF: 0 Janumet 50-1,000 mg Tablet 1 tab PO BID RF: 0 magnesium chloride [Mag 64] 64 mg Tablet,Delayed Release (Dr/Ec) 120 mg PO QPM RF: 0 magnesium chloride [Mag 64] 64 mg Tablet,Delayed Release (Dr/Ec) 192 mg PO QAM RF: 0 cyanocobalamin (vitamin B-12) [Vitamin B-12] 1,000 mcg Tablet 1,000 mcg PO DAILY RF: 0 simvastatin 20 mg Tablet 20 mg PO DAILY RF: 0 docusate sodium [Stool Softener] 100 mg Capsule 100 mg PO HS PRN (Reason: Constipation) RF: 0 cholecalciferol (vitamin D3) [Vitamin D3] 2,000 unit Capsule 2,000 unit PO DAILY RF: 0 Xarelto 20 mg Tablet 20 mg PO DAILY RF: 0 Referrals Referrals: PCP,NO [Primary Care Provider] - The scribe's documentation has been prepared under my direction and personally reviewed by me in its entirety. I confirm that the note above accurately reflects all work, treatment, procedures, and medical decision making performed by me.
[2019-02-26 09:39] LABS: Basophils # (auto) 0.01 K/uL (0-0.2); Basophils % (auto) 0.1 %; Eosinophils # (auto) 0.12 K/uL (0-0.5); Hematocrit (blood only) 48.7 % (37-47); Immature Granulocytes # (auto) 0.05 K/uL (0.00-0.02); Immature Granulocytes % (auto) 0.4 %; Lymphocytes # (auto) 2.87 K/uL (1.2-3.4); Lymphocytes % (auto) 24.4 %; Mean Corpuscular Hgb Conc 34.9 g/dL (32-36); Mean Corpuscular Volume 90.9 fL (80-100); Mean Platelet Volume 11.2 fL (7.4-10.4); Monocytes # (auto) 1.03 K/uL (0.11-0.59); Monocytes % (auto) 8.7 %; Neutrophils % (auto) 65.4 %; Platelet Count 195 K/uL (130-400); RDW Standard Deviation 42.6 fL (36.4-46.3); Red Blood Count 5.36 M/uL (4.2-5.4); White Blood Count 11.78 K/uL (4.8-10.8)
--- NOTE | 2019-02-26 09:47 | XRay Report ---
XR chest 1V portable CLINICAL HISTORY: 73 years-old Female presenting with left flank pain. TECHNIQUE: Portable upright AP view of the chest was obtained. COMPARISON: 07/27/2018. FINDINGS: Atherosclerosis of the aortic arch. Cardiac silhouette top normal in size. Minimal basilar opacities. No pleural effusion or pneumothorax. Degenerative changes of the thoracic spine. Chronic widening of the right acromioclavicular joint. External leads and medical claims assistant project over the thorax. IMPRESSION: 1. Minimal basilar opacities likely atelectasis or scarring. No convincing evidence of acute cardiop ulmonary disease. Electronically signed by: Jesús Lambert M.D. 02/26/2019 9:46 AM
[2019-02-26] MEDS: fentaNYL citrate 100 MCG/2 ML VIAL IV PRN ×3 (09:51→11:43)
[2019-02-26 10:12] LABS: Appearance Urine Cloudy (Clear); Bacteria Urine Automated 2+ (Negative); Bilirubin Urine Negative (Negative); Blood Urine Trace (Negative); Color Urine Yellow; Epithelial Cell Urine Auto >30 /lpf (0-5); Glucose Urine UA 3+ (Negative); Ketones Urine 2+ (Negative); Leukocyte Esterase Urine Trace (Negative); Nitrite Urine Negative (Negative); Protein Urine Negative (Negative); Urobilinogen Urine Negative (Negative); WBC Urine Automated >30 /hpf (0-5)
[2019-02-26] MEDS ORDERED: PIPERACILL/TAZOBAC CONSULT ACTIVE PRN (10:20)
[2019-02-26] MEDS ORDERED: PIPERACILLIN/TAZOBACTAM 4.5 GM/120 ML BAG IV ONE (10:20)
[2019-02-26 10:26] LABS: Alanine Aminotransferase 35 U/L (12-78); Albumin Level 3.7 gm/dl (3.4-5.0); Aspartate Aminotransferase 22 U/L (15-37); Blood Urea Nitrogen 13 mg/dl (7-18); Calcium 9.8 mg/dl (8.5-10.1); Carbon Dioxide 25 mmol/L (21-32); Chloride 106 mmol/L (98-107); Est GFR (African American) 68.4; Glucose 320 mg/dl (70-99); INR 1.1 (0.9-1.1); Magnesium 1.8 mg/dl (1.8-2.4); Partial Thromboplastin Time 27.6 Seconds (21.0-31.0); Potassium 3.9 mmol/L (3.5-5.1); Prothrombin Time 10.9 Seconds (9.0-12.0); Sodium 138 mmol/L (136-145)
[2019-02-26 10:28] LABS: Albumin Globulin Ratio 0.9 (0.9-2); Bilirubin,Total 1.2 mg/dl (0.2-1); Globulin 3.9 gm/dl (2.5-4.0); Total Protein 7.6 gm/dl (6.4-8.2)
[2019-02-26 10:36] LABS: Alkaline Phosphatase 124 U/L (45-117); Beta-Hydroxybutyrate 7.48 mg/dl (0.2-2.81); Troponin I < 0.015 ng/ml (0-0.045)
[2019-02-26] MEDS ORDERED: IOVERSOL 100ml IV PRN (10:58)
--- NOTE | 2019-02-26 11:14 | CT Scan Report ---
CT head/brain wo con CLINICAL HISTORY: 73 years-old Female presenting with confusion. TECHNIQUE: Multidetector CT imaging of the head was performed without the use of intravenous contrast . IV contrast: None. One or more dose lowering techniques were used consistent with the principles of ALARA (as low as reasonably achievable), including automatic exposure control, mA or kV adjustment t o individual patient size, and/or use of iterative reconstruction. COMPARISON: 01/17/2014. CT DOSE (mGy.cm): The estimated cumulative dose is 1179.96 mGy.cm. 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 Ventricles and sulci normal in size. No hemorrhage. Brain parenchyma normal in appearance with preser katie hester-white differentiation. No acute territorial infarct. No mass effect or midline shift. No ext ra-axial fluid collection. Paranasal sinuses and mastoid air cells clear. Calvarium intact. IMPRESSION: 1. No acute intracranial abnormality. Electronically signed by: Jesús Lambert M.D. 02/26/2019 11:13 AM
--- NOTE | 2019-02-26 11:26 | CT Scan Report ---
CT abd pelvis IV con only CLINICAL HISTORY: 73 years-old Female presenting with left flank pain, confusion. TECHNIQUE: Multidetector CT of the abdomen and pelvis was performed after the administration of intra venous contrast. IV contrast: 94 mL of Optiray 320. One or more dose lowering techniques were used co nsistent with the principles of ALARA (as low as reasonably achievable), including automatic exposure control, mA or kV adjustment to individual patient size, and/or use of iterative reconstruction. COMPARISON: 02/22/2019. CT DOSE (mGy.cm): The estimated cumulative dose is 1179.96. 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 Lung bases: Top normal heart size. Coronary artery and aortic valve calcification. No pericardial or pleural effusion. Minimal dependent changes likely atelectasis. Several solid fissural nodules are no angie in the right lung measuring up to 6 mm (series 5 images 6, 15, and 19). These were present to peterson e degree in 2017. Liver: Normal morphology. Well-defined hypodense lesions primarily in the left hepatic lobe, indeterm inate though likely hepatic cysts. Patent hepatic vasculature. Due to the phase of contrast the hepat ic veins are only partially opacified. Biliary: Mild biliary ductal prominence likely a reservoir effect in the post cholecystectomy state. Gallbladder surgically absent. Pancreas: Moderate parenchymal atrophy. Spleen: Normal. Adrenal glands: Normal. Kidneys and ureters: Cortical defect at the upper pole of the left kidney may represent changes relat ed to chronic reflux nephropathy. Renal parenchyma otherwise normal. No hydronephrosis or nephrolithi asis. Ureters nondistended. Bladder: The configuration of the bladder suggests pelvic ligamentous laxity. Bladder otherwise rebeka l. Pelvic organs: Uterus surgically absent. Bowel: Normal. No bowel obstruction. Small to moderate hiatal hernia. Peritoneal cavity: No free fluid or intraperitoneal gas. Lymph nodes: No enlarged lymph nodes in the abdomen or pelvis. Vasculature: Atherosclerosis of the normal caliber abdominal aorta. IVC patent. Abdominal wall: Postsurgical changes of the ventral midline abdomen. Musculoskeletal: Degenerative changes of the spine. Postsurgical changes of posterior transpedicular screw not fixation of L4-S1 with associated laminectomy defects. A catheter is in place with a medica l implanted device within the right paraspinal musculature. Degenerative changes of the sacroiliac giorgio ints and pubic symphysis. Old injury or chronic degeneration of the hamstrings tendons, right greater than left. IMPRESSION: 1. No acute intra-abdominal pathology. 2. Chronic findings as above. Electronically signed by: Jesús Lambert M.D. 02/26/2019 11:25 AM
[2019-02-26] MEDS ORDERED: SODIUM CHLORIDE 0.9% 1000ML 500 ML IV ONE (11:31)
--- NOTE | 2019-02-26 14:13 | History & Physical Report ---
Date of Service February 26, 2019 Assessment & Plan (1) Left flank pain: This is her actual, presenting reason for coming to the ED. Appears musculoskeletal to me with shallow point tenderness along the left paraspinal area. Has history of L4-S1 fixation. Doubt this is reflective of left kidney i nvolvement of her UTI or the chronic reflux uropathy seen on CT a/p on 02/26. - Heating pad - Tylenol PRN - Low-dose cyclobenzaprine PRN for muscle tightness/spasm - PT/OT (2) Confusion: Ongoing for >1 year as the patient reports short-term memory deficits, confusion, and not taking her medications. Family has concerns about her increasing confusion as well. Ddx includes hyperglycemia, infection, or dementia. - Control blood sugars - Patient has not been taking any DM meds for at least a year, including not taking her insulin - Treat her UTI, though I do not think this is the main causitive factor in her confusion - METALIZER cognitive evaluation (3) UTI (urinary tract infection): Urine culture on 02/22 grew multi-resistant E. coli. Pharmacy recommended treating with ertapenem. Does report dysuria, polyuria, and incomplete voiding sensation. I do not think this is more than a simple UTI. Low concern for kidney involvement and SIRS 0/4. - Ertapenem x 3 days (4) Hematuria: Patient and report intermittent, federica (more than just pinkish urine) hematuria since . Possibly due to intermittent bacteruria, but also concerning for bladder malignancy. CT a/p showed chronic reflux nephropathy. I am not sure if this could also cause intermittent hematuria. - Urology consult (5) Diabetes mellitus: Has been off insulin and all her DM meds for at least a year. Last A1c in the chart was 13.1% in 10/2017. - Sliding scale insulin - Glycemic pharmacist - Repeat A1c (6) Hypothyroidism: Has not been on Synthroid for at least a year; however, TSH 3.5 on admission. No prior TSHs are >5 which is fairly normal for older adult. No overt hypothyroid symptoms. - Hold Synthroid (7) B12 deficiency: Was on prior B12 supplement for unknown reason. Last level was 995 in 10/2017. Given significant body stores, less likely to have severe B12 deficiency at this point, but will recheck in the AM. - B12 level (8) HLD (hyperlipidemia): No longer on statin. - Hold for outpatient (9) Restless leg syndrome: Stopped ropinerole at least a year ago. - Monitor for symptoms and could consider restarting (10) GERD (gastroesophageal reflux disease): Not on any OTC PPI or H2 momo. - Monitor symptoms (11) COPD (chronic obstructive pulmonary disease): Not currently smoking. Breathing comfortably on exam. No wheezing or increased work of breathing. - DuoNebs PRN (12) Pulmonary emboli: Prior PE, and was on Xarelto. No signs/symptoms of DVT or PE at this time. - Lovenox 40mg daily for DVT ppx while in the hospital History of Present Illness Primary Care Provider: NO PCP 73-year-old female with a history of diabetes, hypothyroidism, restless leg syndrome who presents with left flank pain and confusion. Per the patient for several weeks, she has had increasing left-sided flank pain. When it initially presented she reports that it was mild, sharp, and intermittent and worsened with movement. Over the last few weeks it has become increasingly severe, sharper, and more constant. She reports the pain as an 8/10 at present. It is still worsened with movement and twisting. Is mildly improved with [id number] Tylenol. She denies radiation of the pain. She also reports episodic nausea with at least a few episodes of non-bloody emesis on Monday. She reports being more confused, especially with short-term memory over the last few months. She also notes some nausea and vomiting. She notes some dysuria, polyuria, and incomplete voiding as well. Of note, she reports intermittent hematuria since of last year. When she describes a urine she repor ts it is more than a pinkish color, more bright red. This will resolve from time to time, then recur. She reports some subjective "feeling cold", but denies objective fevers, chills, sweats. Allergies Allergy/AdvReac Type Severity Reaction Status Date / Time prochlorperazine Allergy Severe EXTRAPYRAMIDAL Verified 02/22/19 15:17 S/E zolpidem Allergy Severe CONFUSION/MEMORY Verified 02/22/19 15:17 LOSS carbamazepine Allergy Intermediate CONFUSION Verified 02/22/19 15:17 duloxetine Allergy Intermediate LIGHTHEADED Verified 02/22/19 15:17 NESS/DIZZIN ESS hydrochlorothiazide Allergy Intermediate LIGHTHEADED Verified 02/22/19 15:17 NESS/DIZZIN ESS indigotindisulfonic acid Allergy Intermediate LIGHTHEADED Verified 02/22/19 15:17 NESS/DIZZIN ESS levofloxacin Allergy Mild RASH Verified 02/22/19 15:17 capsaicin Allergy Unknown NAUSEA AND Verified 02/22/19 13:44 VOMITING clonazepam Allergy Unknown UNKNOWN Verified 02/22/19 15:17 diclofenac Allergy Unknown NAUSEA AND Verified 02/22/19 15:17 VOMITING Diclopak Allergy Unknown NAUSEA AND Verified 07/27/18 14:21 VOMITING losartan Allergy Unknown ELEVATED Verified 02/22/19 15:17 CREATININE hydromorphone AdvReac Intermediate N/V AND Verified 02/22/19 15:17 NIGHTMARES morphine AdvReac Intermediate HYPOTENSION Verified 02/22/19 15:17 AND N/V nitrofurantoin AdvReac Intermediate DIARRHEA-MNPG Verified 02/22/19 15:17 LIST cyclobenzaprine AdvReac Mild N/V Verified 02/22/19 15:17 lisinopril AdvReac Mild N/V Verified 02/22/19 15:17 naproxen AdvReac Mild N/V Verified 02/22/19 15:17 oxycodone AdvReac Mild N/V Verified 02/22/19 15:17 tramadol AdvReac Unknown N/V AND Verified 02/22/19 15:17 ITCHING Home Medications Home Medications Medication Instructions Recorded Confirmed Type calcium carbonate [Calcium 600] 600 mg PO DAILY 02/22/19 02/26/19 History cholecalciferol (vitamin D3) 2,000 unit PO DAILY 02/22/19 02/26/19 History [Vitamin D3] cyanocobalamin (vitamin B-12) 1,000 mcg PO DAILY 02/22/19 02/26/19 History [Vitamin B-12] docusate sodium [Stool Softener] 100 mg PO HS PRN 02/22/19 02/26/19 History ferrous sulfate [iron] 325 mg PO DAILY 02/22/19 02/26/19 History gabapentin 100 mg PO BID 02/22/19 02/26/19 History insulin aspart U-100 [Novolog 10 unit SUBCUT TIDM 02/22/19 02/26/19 History Flexpen U-100 Insulin] insulin glargine [Lantus U-100 23 unit SUBCUT HS 02/22/19 02/26/19 History Insulin] levothyroxine 75 mcg PO DAILY 02/22/19 02/26/19 History magnesium chloride [Mag 64] 120 mg PO QPM 02/22/19 02/26/19 History magnesium chloride [Mag 64] 192 mg PO QAM 02/22/19 02/26/19 History montelukast [Singulair] 10 mg PO DAILY 02/22/19 02/26/19 History nitrofurantoin monohyd/m-cryst 100 mg PO BID 7 Days #14 cap 02/22/19 02/26/19 Rx [Macrobid] nortriptyline 25 mg PO HS 02/22/19 02/26/19 History pantoprazole 40 mg PO DAILYBB 02/22/19 02/26/19 History rivaroxaban [Xarelto] 20 mg PO DAILY 02/22/19 02/26/19 History ropinirole 4 mg PO DAILY 02/22/19 02/26/19 History simvastatin 20 mg PO DAILY 02/22/19 02/26/19 History sitagliptin-metformin [Janumet] 1 tab PO BID 02/22/19 02/26/19 History Past Med/Surg History Medical History COPD (chronic obstructive pulmonary disease) (Chronic) Pulmonary emboli (Resolved) B12 deficiency Diabetes mellitus GERD (gastroesophageal reflux disease) HLD (hyperlipidemia) Hypothyroidism Restless leg syndrome Surgical History S/P appendectomy S/P cholecystectomy Family History Mother Diabetes Social History Preferred Language: Luxembourgish Feels Safe at Home: Yes Smoking Status: Never smoker Review of Systems Constitutional: + fatigue and + weakness; no fever, no chills and no sweats Eyes: no diplopia Ear, Nose, Mouth, Throat: no ear trauma, no nasal discharge and no dental pain Respiratory: no cough, no chest congestion and no dyspnea Cardiovascular: no chest pain, no dyspnea on exertion, no palpitations and no syncope Gastrointestinal: no abdominal pain, no belching, no constipation, no diarrhe a/loose stools, no blood in stools and no melena Musculoskeletal: no back pain, no joint pain and no muscle weakness Integumentary: no rash, no skin ulcer and no erythema Neurologic: + generalized weakness and + confusion; no loss of sensation, no numbness, no paresthesia and no headache(s) Psychiatric: no depression and no anxiety Endocrine: no fatigue, no polydipsia and no polyphagia Physical Exam Vital Signs (Past 24 Hours): Last Vital Signs Temp 36.6 C 02/26/19 09:00 Pulse 55 L 02/26/19 13:09 Resp 16 02/26/19 13:09 BP 123/70 02/26/19 13:09 Pulse Ox 95 02/26/19 13:09 Constitutional: WD/WN, vitals as above Eyes: EOM intact bilaterally; no conjunctival abnormality ENMT: external ear and nose normal, oropharynx normal Neck: trachea midline, no thyromegaly normal visual inspection Respiratory: normal respiratory effort, lungs clear to auscultation no respiratory distress Cardiovascular: RRR, no murmur, no edema Gastrointestinal (Abdomen): Inspection/Auscultation: abdomen normal to inspection; abdomen not distended Musculoskeletal: no cyanosis or clubbing, extremities motor strength 5/5 Skin: no rashes, warm and dry Neurologic: moves all extremities and awake Psychiatric: Orientation: alert, oriented to person and cooperative
[2019-02-26] MEDS ORDERED: GLUCAGON FOR INJ 1 MG VIAL SQ PRN (14:18)
[2019-02-26] MEDS ORDERED: IBUPROFEN 200 MG TAB PO PRN (14:18)
[2019-02-26] MEDS ORDERED: GLUCOSE 10 TABS/TUBE PO PRN (14:18)
[2019-02-26] MEDS ORDERED: GLUCOSE 40% GEL 15 GM TUBE PO PRN (14:18)
[2019-02-26] MEDS ORDERED: DEXTROSE 50% 50 ML SYRINGE IV PRN (14:18)
[2019-02-26] MEDS ORDERED: PHARMACY GLYCEMIC MGMT CONSULT PRN (14:22)
[2019-02-26] MEDS ORDERED: INSULIN ASPART 100 UNITS/ML 3 ML PEN SC ONE ×2 (15:00→16:30)
[2019-02-26] MEDS ORDERED: INSULIN GLARGINE SOLOSTAR 100 UNITS/ML 3 ML PEN SC ONE (15:00)
--- NOTE | 2019-02-26 15:39 | Urology Consultation ---
Date of Consultation February 26, 2019 Assessment & Plan (1) Hematuria: (2) Left flank pain: (3) Acute UTI: 73yo F with back pain, intermittent hematuria, and multi-drug resistant UTI. CT abd pelvis with IV contrast reviewed - no obstruction, hydro or stones. No for flank pain. On exam patient was exquisitely tender to point tenderness to L flank - agree with hospitalist assessment of msk origin. Cr within normal limits. UC&S positive for Ecoli ESBL - agree with treatment plan with ertapenem x3d. In chart review, appears she has had multiple nitrate positive UAs over the last year. Some dysuria, feels she is emptying her bladder well. Will add bladder scans PRN sensation of incomplete emptying. Pt will certainly require outpatient cystoscopy for evaluation of intermittent hematuria once UTI has cleared. Cytology ordered today. Will order a CT urogram with delayed images to r/o filling defect tomorrow. Patient also assessed by Dr. Tripathi today. Thank you for the consultation, we will continue to follow with primary service. Pt states she has had hematuria with UTIs for years . No current hematuria but pain over left 11th and 12th rib area in axillary line. Pain with movement. No flank pain to percussion. Reviewed ct from today and last Monday with radiologist and no hydronephrosis ,inflammation ,stone or renal mass seen . Collecting system not seen . Urogram w delayed films in AM . Pt has urge incontinence and wears one pad a day . Needs cysto pelvic to assess sling and bladder after uti treated Possible pain is musculoskeletal . History of Present Illness Reason for Consultation: hematuria, UTI Requesting Physician: Dr. Torrie Ramirez Attending Physician: Raymundo Ramirez MD History of Present Illness 73yo F with DM, Hypothyroidism presents with L flank pain and confusion. Flank pain worsening over the last few weeks, insidious in nature. Sharp, intermittent and worsens with movement. Not associated with voiding. Emesis x5 yesterday. Has noticed hematuria over the past several months, intermittent. Never evaluated previously. We were consulted to assist in evaluation for hematuria and ? reflux nephropathy. Has never had evaluation. Denies hx of stones, recurrent UTIs. relates patient having large volume incontinence episodes also worsening over the last few weeks. Wearing depends. Hx hysterectomy many years ago. Unsure of reason. Bladder sling in [facility] ~5-6 years ago. Denies hx of DE[employer]OR [employer] cancer, kidney or bladder cancer. Never a smoker. Allergies Allergy/AdvReac Type Severity Reaction Status Date / Time prochlorperazine Allergy Severe EXTRAPYRAMIDAL Verified 02/22/19 15:17 S/E zolpidem Allergy Severe CONFUSION/MEMORY Verified 02/22/19 15:17 LOSS carbamazepine Allergy Intermediate CONFUSION Verified 02/22/19 15:17 duloxetine Allergy Intermediate LIGHTHEADED Verified 02/22/19 15:17 NESS/DIZZIN ESS hydrochlorothiazide Allergy Intermediate LIGHTHEADED Verified 02/22/19 15:17 NESS/DIZZIN ESS indigotindisulfonic acid Allergy Intermediate LIGHTHEADED Verified 02/22/19 15:17 NESS/DIZZIN ESS levofloxacin Allergy Mild RASH Verified 02/22/19 15:17 capsaicin Allergy Unknown NAUSEA AND Verified 02/22/19 13:44 VOMITING clonazepam Allergy Unknown UNKNOWN Verified 02/22/19 15:17 diclofenac Allergy Unknown NAUSEA AND Verified 02/22/19 15:17 VOMITING Diclopak Allergy Unknown NAUSEA AND Verified 07/27/18 14:21 VOMITING losartan Allergy Unknown ELEVATED Verified 02/22/19 15:17 CREATININE hydromorphone AdvReac Intermediate N/V AND Verified 02/22/19 15:17 NIGHTMARES morphine AdvReac Intermediate HYPOTENSION Verified 02/22/19 15:17 AND N/V nitrofurantoin AdvReac Intermediate DIARRHEA-MNPG Verified 02/22/19 15:17 LIST cyclobenzaprine AdvReac Mild N/V Verified 02/22/19 15:17 lisinopril AdvReac Mild N/V Verified 02/22/19 15:17 naproxen AdvReac Mild N/V Verified 02/22/19 15:17 oxycodone AdvReac Mild N/V Verified 02/22/19 15:17 tramadol AdvReac Unknown N/V AND Verified 02/22/19 15:17 ITCHING Home Medications Home Medications Medication Instructions Recorded Confirmed Type calcium carbonate [Calcium 600] 600 mg PO DAILY 02/22/19 02/26/19 History cholecalciferol (vitamin D3) 2,000 unit PO DAILY 02/22/19 02/26/19 History [Vitamin D3] cyanocobalamin (vitamin B-12) 1,000 mcg PO DAILY 02/22/19 02/26/19 History [Vitamin B-12] docusate sodium [Stool Softener] 100 mg PO HS PRN 02/22/19 02/26/19 History ferrous sulfate [iron] 325 mg PO DAILY 02/22/19 02/26/19 History gabapentin 100 mg PO BID 02/22/19 02/26/19 History insulin aspart U-100 [Novolog 10 unit SUBCUT TIDM 02/22/19 02/26/19 History Flexpen U-100 Insulin] insulin glargine [Lantus U-100 23 unit SUBCUT HS 02/22/19 02/26/19 History Insulin] levothyroxine 75 mcg PO DAILY 02/22/19 02/26/19 History magnesium chloride [Mag 64] 120 mg PO QPM 02/22/19 02/26/19 History magnesium chloride [Mag 64] 192 mg PO QAM 02/22/19 02/26/19 History montelukast [Singulair] 10 mg PO DAILY 02/22/19 02/26/19 History nitrofurantoin monohyd/m-cryst 100 mg PO BID 7 Days #14 cap 02/22/19 02/26/19 Rx [Macrobid] nortriptyline 25 mg PO HS 02/22/19 02/26/19 History pantoprazole 40 mg PO DAILYBB 02/22/19 02/26/19 History rivaroxaban [Xarelto] 20 mg PO DAILY 02/22/19 02/26/19 History ropinirole 4 mg PO DAILY 02/22/19 02/26/19 History simvastatin 20 mg PO DAILY 02/22/19 02/26/19 History sitagliptin-metformin [Janumet] 1 tab PO BID 02/22/19 02/26/19 History Patient History Medical History COPD (chronic obstructive pulmonary disease) (Chronic) Pulmonary emboli (Resolved) B12 deficiency Diabetes mellitus GERD (gastroesophageal reflux disease) HLD (hyperlipidemia) Hypothyroidism Restless leg syndrome Surgical History H/O hysterectomy for benign disease S/P appendectomy S/P cholecystectomy Family History Mother Diabetes Social History Preferred Language: [place] Konger Communication Ability: Effective Cable Coverer Required: No Beliefs That Will Affect Care: None Current Living Situation: Spouse Other Information That Helps Us Care for You: No Feels Safe at Home: Yes Safety Concerns: Feels Safe At This Time Smoking Status: Never smoker Hx Alcohol Use: No Hx Substance Use: No Review of Systems Constitutional: no fever and no chills Eyes: no problem reported Ear, Nose, Mouth, Throat: no ear pain Respiratory: no cough and no dyspnea Cardiovascular: no chest pain Gastrointestinal: no abdominal pain, no nausea and no vomiting Physical Exam Vital Signs (Past 24 Hours): Last Vital Signs Temp 36.6 C 02/26/19 14:30 Pulse 58 L 02/26/19 14:30 Resp 20 02/26/19 14:30 BP 132/80 02/26/19 14:30 Pulse Ox 94 02/26/19 14:30 Constitutional: no acute distress Eyes: no nystagmus ENMT: Ears: no hearing impairment Neck: trachea midline, no thyromegaly Respiratory: no respiratory distress and does not use accessory muscles Cardiovascular: Vessels: no JVD Chest (Breasts): Chest: no mass Gastrointestinal (Abdomen): Inspection/Auscultation: abdomen not distended and no abdominal edema Percussion/Palpation: abdomen soft; abdomen nontender no suprapubic tenderness Musculoskeletal: Spine: + paraspinal tenderness (left) Skin: no rashes and no ulcers Neurologic: Motor/Sensory: no tremor Psychiatric: Orientation: alert and oriented x 3 Eye Contact: good eye contact Lymphatic: no cervical or axillary lymphadenopathy Results & Data Laboratory Results Laboratory Results - last 48 hr 02/26/19 02/26/19 02/26/19 09:24 09:24 09:24 WBC 11.78 H RBC 5.36 Hgb 17.0 H Hct 48.7 H MCV 90.9 MCH 31.7 MCHC 34.9 RDW Std Deviation 42.6 RDW Coeff of Jayden 13.0 Plt Count 195 MPV 11.2 H Immature Gran % (Auto) 0.4 Neut % (Auto) 65.4 Lymph % (Auto) 24.4 [place] % (Auto) 8.7 Eos % (Auto) 1.0 Baso % (Auto) 0.1 Immature Gran # (Auto) 0.05 H Neut # (Auto) 7.70 H Lymph # (Auto) 2.87 [place] # (Auto) 1.03 H Eos # (Auto) 0.12 Baso # (Auto) 0.01 PT Cancelled INR Cancelled APTT Cancelled PTT Ratio Cancelled Sodium Cancelled Potassium Cancelled Chloride Cancelled Carbon Dioxide Cancelled Anion Gap Cancelled BUN Cancelled Creatinine Cancelled Est Cr Clr Drug Dosing Cancelled Est GFR ( Amer) Cancelled Est GFR (Non-Af Amer) Cancelled BUN/Creatinine Ratio Cancelled Glucose Cancelled Calcium Cancelled Magnesium Cancelled Total Bilirubin Cancelled AST Cancelled ALT Cancelled Alkaline Phosphatase Cancelled Troponin I Cancelled Total Protein Cancelled Albumin Cancelled Globulin Cancelled Albumin/Globulin Ratio Cancelled Lipase Cancelled Beta-Hydroxybutyric Acd TSH Cancelled Urine Color Urine Appearance Urine pH POC Urine pH Ur Specific [place] Urine Protein POC Urine Protein Urine Glucose (UA) POC Ur Glucose (UA) Urine Ketones POC Urine Ketones Urine Blood POC Urine Blood Urine Nitrite POC Urine Nitrite Urine Bilirubin POC Urine Bilirubin Urine Urobilinogen POC Urine Urobilinogen Ur Leukocyte Esterase POC U Leukocyte Esteras Urine WBC (Auto) Urine RBC (Auto) U Hyaline Cast (Auto) U Epithel Cells (Auto) Urine Bacteria (Auto) 02/26/19 02/26/19 02/26/19 09:24 09:45 09:45 WBC RBC Hgb Hct MCV MCH MCHC RDW Std Deviation RDW Coeff of Jayden Plt Count MPV Immature Gran % (Auto) Neut % (Auto) Lymph % (Auto) [place] % (Auto) Eos % (Auto) Baso % (Auto) Immature Gran # (Auto) Neut # (Auto) Lymph # (Auto) [place] # (Auto) Eos # (Auto) Baso # (Auto) PT INR APTT PTT Ratio Sodium Potassium Chloride Carbon Dioxide Anion Gap BUN Creatinine Est Cr Clr Drug Dosing Est GFR ( Amer) Est GFR (Non-Af Amer) BUN/Creatinine Ratio Glucose Calcium Magnesium Total Bilirubin AST ALT Alkaline Phosphatase Troponin I Total Protein Albumin Globulin Albumin/Globulin Ratio Lipase Beta-Hydroxybutyric Acd TSH 3.500 Urine Color Yellow Urine Appearance Cloudy H Urine pH 5.0 POC Urine pH 7 Ur Specific [place] 1.040 H Urine Protein Negative POC Urine Protein Negative Urine Glucose (UA) 3+ H POC Ur Glucose (UA) Normal Urine Ketones 2+ H POC Urine Ketones 2+ (Moderate) H Urine Blood Trace H POC Urine Blood Trace H Urine Nitrite Negative POC Urine Nitrite Negative Urine Bilirubin Negative POC Urine Bilirubin Negative Urine Urobilinogen Negative POC Urine Urobilinogen Normal Ur Leukocyte Esterase Trace H POC U Leukocyte Esteras Negative Urine WBC (Auto) >30 H Urine RBC (Auto) 5-10 H U Hyaline Cast (Auto) 1-5 U Epithel Cells (Auto) >30 H Urine Bacteria (Auto) 2+ H 02/26/19 02/26/19 10:00 10:00 WBC RBC Hgb Hct MCV MCH MCHC RDW Std Deviation RDW Coeff of Jayden Plt Count MPV Immature Gran % (Auto) Neut % (Auto) Lymph % (Auto) [place] % (Auto) Eos % (Auto) Baso % (Auto) Immature Gran # (Auto) Neut # (Auto) Lymph # (Auto) [place] # (Auto) Eos # (Auto) Baso # (Auto) PT 10.9 INR 1.1 APTT 27.6 PTT Ratio 1.0 Sodium 138 Potassium 3.9 Chloride 106 Carbon Dioxide 25 Anion Gap 8.0 BUN 13 Creatinine 0.95 Est Cr Clr Drug Dosing Not Reportable Est GFR ( Amer) 68.4 Est GFR (Non-Af Amer) 59.0 BUN/Creatinine Ratio 14.0 Glucose 320 H Calcium 9.8 Magnesium 1.8 Total Bilirubin 1.2 H AST 22 ALT 35 Alkaline Phosphatase 124 H Troponin I < 0.015 Total Protein 7.6 Albumin 3.7 Globulin 3.9 Albumin/Globulin Ratio 0.9 Lipase 57 L Beta-Hydroxybutyric Acd 7.48 H TSH Urine Color Urine Appearance Urine pH POC Urine pH Ur Specific [place] Urine Protein POC Urine Protein Urine Glucose (UA) POC Ur Glucose (UA) Urine Ketones POC Urine Ketones Urine Blood POC Urine Blood Urine Nitrite POC Urine Nitrite Urine Bilirubin POC Urine Bilirubin Urine Urobilinogen POC Urine Urobilinogen Ur Leukocyte Esterase POC U Leukocyte Esteras Urine WBC (Auto) Urine RBC (Auto) U Hyaline Cast (Auto) U Epithel Cells (Auto) Urine Bacteria (Auto)
--- NOTE | 2019-02-26 15:48 | Pharmacy Report ---
Glycemic Control Consultation - Date of Service February 26, 2019 - Scope Scope: Glycemic Pharmacist consulted by Dr Courtney Ramirez on 02/26/19 for glycemic control and to write orders per [facility] inpatient glycemic control protocol - Objective Weight: 71.5 kg Accuchecks BSG (last 24hrs): 02/26/19 02/26/19 09:24 10:00 Glucose Cancelled 320 H Laboratory Data (last 24hrs): 02/26/19 02/26/19 09:24 10:00 Potassium Cancelled 3.9 Carbon Dioxide Cancelled 25 Anion Gap Cancelled 8.0 Creatinine Cancelled 0.95 Est Cr Clr Drug Dosing Cancelled Not Reportable Beta-Hydroxybutyric Acd 7.48 H - Recent Pertinent Medications Outpatient Anti-diabetic Regimen: * Lantus 23 units qHS * Novolog 10 units w/ meals * Note: patient has not taken any of her insulins for the past year * A1c = 13.1 % 11/07/17 Risk Factors for Insulin Resistance: * Infection: UTI - on Invanz * Diet: type 2 diabetes - Assessment & Plan Assessment & Plan: ASSESSMENT: * Ms. Bobby is a 73 y/o female with a history of uncontrolled diabetes, with non-compliance, not taking any insulin for the past year. BSG upon admission was 320 mg/dL (AG and bicarb WNL) at 10 am. More recent BSG not available at this time. Will initiate a basal/bolus insulin regimen now (based on wt/stress level of 2), being more aggressive initially due to higher BSGs. Will also add overnight accuchecks to assist with controlling BSGs and help with determining true basal needs. PLAN FOR INPATIENT GLYCEMIC CONTROL: * Basal insulin * Lantus 24 units SQ x 1 now, then * Lantus BID (starting tomorrow AM) per the following scale: * 5 units for BSG < 110 * 12 units for BSG 110 - 180 * 18 units for BSG > 180 * Bolus insulin * NovoLog per scale ACHS + 00,04 checks tonight * Goal Range: Low 110 mg/dL - High 140 mg/dL * Correction Factor: 30 mg/dL/unit * Nutritional / Prandial insulin per carb ratio of 1 unit per 10 grams CHO consumed * A1c w/ AM labs to obtain updated value * Please note that the plan above was derived based on current level of insulin resistance and hospital stress. These recommendations are appropriate for inpatient admission only. Plan of care upon discharge will need to be reassessed to avoid potential outpatient hypo/hyperglycemia. Thank you.
[2019-02-26] MEDS: ACETAMINOPHEN 325 MG TAB PO PRN (16:16)
[2019-02-26] MEDS: ERTAPENEM SODIUM 1,000 MG in SODIUM CHLORIDE 0.9% 50 ML IV SCH (16:17)
[2019-02-26] MEDS ORDERED: ENOXAPARIN INJ 40 MG/0.4 ML SYR SQ SCH (21:00)
[2019-02-26] MEDS: INSULIN ASPART 100 UNITS/ML 3 ML PEN SC SCH (21:22)
[2019-02-27] MEDS: INSULIN ASPART 100 UNITS/ML 3 ML PEN SC SCH ×6 (00:12→20:46)
[2019-02-27] MEDS: ACETAMINOPHEN 325 MG TAB PO PRN ×3 (00:15→21:00)
[2019-02-27] MEDS: CYCLOBENZAPRINE HCL 5 MG TAB PO PRN ×2 (02:10→20:50)
[2019-02-27] MEDS ORDERED: IOVERSOL 100ml IV PRN (06:27)
[2019-02-27 07:08] LABS: Hematocrit (blood only) 45.1 % (37-47); Hemoglobin 15.4 g/dL (12.0-16.0); Mean Corpuscular Hgb Conc 34.1 g/dL (32-36); Mean Corpuscular Volume 91.5 fL (80-100); Platelet Count 190 K/uL (130-400); RDW Coefficient of Variation 13.1 % (11.5-14.5); RDW Standard Deviation 43.4 fL (36.4-46.3); Red Blood Count 4.93 M/uL (4.2-5.4)
--- NOTE | 2019-02-27 07:18 | CT Scan Report ---
CT abdomen pelvis wo/w con CLINICAL HISTORY: 73 years-old Female presenting with recent confusion and left flank pain, urogram r equested with delayed images to assess for filling defects in the urinary collecting system, prior CT performed yesterday only single portal venous phase. TECHNIQUE: Multidetector CT of the abdomen and pelvis was performed before and after the administrati on of intravenous contrast. IV contrast: 93 mL of Optiray 320. One or more dose lowering techniques w ere used consistent with the principles of ALARA (as low as reasonably achievable), including automat ic exposure control, mA or kV adjustment to individual patient size, and/or use of iterative reconstr uction. COMPARISON: 02/26/2019. CT DOSE (mGy.cm): The estimated cumulative dose is 690.16 mGy.cm. FINDINGS: Manager Ob topogram: Posterior transpedicular screw and sarina fixation in the lower lumbar spine. Implanted medical insurance clerk projects over the spine. Lung bases: Normal heart size. No pericardial or pleural effusion. No focal infiltrate or nodule at t he lung bases. Liver: Normal morphology. Well-defined hypodensities in the left hepatic lobe likely hepatic cysts. P atent hepatic vasculature. Biliary: Mild biliary ductal prominence likely a reservoir effect in the post cholecystectomy state. Gallbladder surgically absent. Pancreas: Severe parenchymal atrophy. Spleen: Normal. Adrenal glands: Normal. Kidneys and ureters: Parenchymal defect at the upper pole the left kidney again noted, possibly indic ating scarring or chronic reflux nephropathy. No solid renal mass. No filling defect in the urinary c ollecting systems. No nephrolithiasis or hydronephrosis. No urothelial thickening is evident. Ureters nondistended. Bladder: Allowing for incomplete distention of the urinary bladder, no filling defect or focal polypo id wall thickening. Pelvic organs: Uterus surgically absent. No adnexal masses. Bowel: Mild stool burden throughout normal caliber colon grade appendix not visualized. No bowel obst ruction. Small hiatal hernia. Peritoneal cavity: No free fluid or intraperitoneal gas. Lymph nodes: Few prominent subcentimeter lymph nodes in the leti hepatis and portacaval regions, non specific. No pathologically enlarged lymph nodes by CT size criteria. Vasculature: Atherosclerosis of the normal caliber abdominal aorta. IVC patent. Calcification within the right gonadal vein suggested. Abdominal wall: Normal. Musculoskeletal: Postsurgical changes of lumbar fusion hardware from L4 to S1. Associated laminectomy defects at L4-5. Exaggerated lumbar lordosis. Scoliotic curvature of the lumbar spine. IMPRESSION: 1. No solid renal or urothelial mass. No nephrolithiasis or hydronephrosis. No CT evidence of pathol ogy in the urinary collecting system. This may not preclude the necessity of possible cystoscopy. Electronically signed by: Jesús Lambert M.D. 02/27/2019 7:17 AM
[2019-02-27 07:41] LABS: BUN Creatinine Ratio 16.3 (10-20); Creatinine Clr Calc Pharmacy 48.3 ml/min; Est GFR (Non-African American) 64.7; Magnesium 1.8 mg/dl (1.8-2.4); Potassium 3.5 mmol/L (3.5-5.1)
[2019-02-27 08:24] LABS: Estimated Average Glucose 321 mg/dl; Hemoglobin A1C 12.8 % (4.5-5.6)
[2019-02-27] MEDS: INSULIN GLARGINE SOLOSTAR 100 UNITS/ML 3 ML PEN SC SCH ×2 (08:35→20:46)
--- NOTE | 2019-02-27 09:44 | Pharmacy Report ---
Pharmacy Glycemic Short Note 2 - Date of Service February 27, 2019 - Glycemic Short BSG Results (Last 24 hours): 02/26/19 02/26/19 02/26/19 09:24 10:00 16:10 Glucose Cancelled 320 H POC Glucose 232 H 02/26/19 02/26/19 02/27/19 17:09 20:14 00:06 Glucose POC Glucose 232 H 189 H 179 H 02/27/19 02/27/19 02/27/19 04:00 06:50 07:41 Glucose 116 H POC Glucose 143 H 133 H OUTPATIENT ANTIDIABETIC REGIMEN: * Lantus 23 units qHS * Novolog 10 units w/ meals Note: patient has not taken any of her insulins for the past year * Updated A1c = 12.8% on 02/27/19 ASSESSMENT: 02/27 * Ms. Bobby received 32 units of insulin yesterday (24 of this was basal) * BSGs have come down nicely since admission. She will receive BID Lantus dosing today to allow for closer titration if necessary. * Now that BSGs have improved, will loosen correctional insulin to be more consistent with insulin dosing per patient's wt/stress level of 2 02/26 * Ms. Bobby is a 73 y/o female with a history of uncontrolled diabetes, with non-compliance, not taking any insulin for the past year. BSG upon admission was 320 mg/dL (AG and bicarb WNL) at 10 am. More recent BSG not available at this time. Will initiate a basal/bolus insulin regimen now (based on wt/stress level of 2), being more aggressive initially due to higher BSGs. Will also add overnight accuchecks to assist with controlling BSGs and help with determining true basal needs. PLAN FOR INPATIENT GLYCEMIC CONTROL: * Basal insulin - no change, will be split BID today * Lantus BID per the following scale: * 5 units for BSG < 110 * 12 units for BSG 110 - 180 * 18 units for BSG > 180 * Bolus insulin - loosen CF only * NovoLog per scale ACHS or Q6hrs while NPO * Goal Range: Low 110 mg/dL - High 140 mg/dL * Correction Factor: 35 mg/dL/unit * Nutritional / Prandial insulin per carb ratio of 1 unit per 10 grams CHO consumed PLAN FOR DISCHARGE: * Large issue with compliance. Inpatient insulin requirements at this point seem to be fairly consistent with ordered outpatient insulins. Will work with CDE to determine best plan for outpatient management.
--- NOTE | 2019-02-27 09:45 | Family Medicine Progress Note ---
Date of Service February 27, 2019 Assessment & Plan (1) Pyelonephritis: Landy Bobby is a 73 year old woman with a past medical history significant for diabetes, UTI ESBL E. Coli Day 2/3 of ertapenem. D/C home tomorrow after third dose Back Pain, Intercostal muscle spasm Diclofenac topical Lidocaine patch Stretching Dr. Bustamante performed some OMT at bedside. Confusion Patient appears completely lucid for me today Confusion reported on admission, most likely 2/2 UTI Diabetes Patient has not been taking her insulin or checking her blood sugars. Patient's insight into her disease process very limited, will continue to aggressively educate patient on her disease and the necessity of treatment. outreach educator consulted. Hematuria Urology will follow up as outpatient after infection cleared for cystoscopy Oral intake regular diet 4 [facility] med surg (2) Left flank pain: (3) Hematuria: (4) Confusion: (5) Hyperglycemia: (6) Acute UTI: Supervising Physician Co-Signing Physician Notes I personally examined the patient and verified all menjivar points of history and exam, discussed case, and agree with decision making with Dr Omer. Left-sided back pain, otherwise feeling better. She seems to be much more awake and alert than described at time of admission. present. Discussed diagnosis and plans and answered all questions to the best my ability. Vitals noted, in general she is awake and alert pleasant no distress. Occasionally she appears a little uncomfortable from her back pain. HEENT normocephalic atraumatic mucous membranes are moist. Breathing is unlabored no accessory muscle use. Musculoskeletal/osteopathic shows left lower rib cage (around the area of ribs 11 and 12 intercostally) high tone/tender/decreased range of motion. Balanced ligamentous tension and direct myofascial attempted, but patient was not really able to tolerate due to discomfort. Back painappears to be intercostal spasmunfortunately was unable to successfully do OMT due to discomfort. Will give trial of Voltaren gel 4 times daily/lidocaine patch at bedtime. Taught stretches and deep breathing exercises. Urinary tract infectionESBLseems to be improving on ertapenem, tomorrow would be day 3. Confusiongiven that her mental status seems to be improving, it is quite possible that she had a degree of delirium related to the UTI Subjective Ms. Bobby resting comfortably this morning, says pain is still present in her left flank but it is improved from yesterday. She tells me she had nausea and vomiting prior to admission but that has resolved. Discussed plan for the day and she expressed her understanding and asked appropriate questions. She has no complaints at this time and tells me she ate most of her breakfast with no lack of appetite. No fevers, felt cold overnight she's not sure if she actually had chills or was just cold Breathing comfortably, no SOB, no chest pain No nausea vomiting or issues with bowel motions per patient Some pain in her left side while moving or twisting her trunk. Physical Exam Vital Signs (Past 24 Hours): Last Vital Signs Temp 36.4 C L 02/27/19 07:15 Pulse 56 L 02/27/19 07:15 Resp 16 02/27/19 07:15 BP 117/73 02/27/19 07:15 Pulse Ox 95 02/27/19 07:15 Physical Exam: Reproducible tenderness to left flank just over ribs, No costovertebral angle tenderness bilaterally. Constitutional: WD/WN, vitals as above Respiratory: normal respiratory effort, lungs clear to auscultation Cardiovascular: RRR, no murmur, no edema Gastrointestinal (Abdomen): Inspection/Auscultation: abdomen normal to in spection and normal bowel sounds; abdomen not distended Percussion/Palpation: + abdomen tender (mildly uncomfortable) and abdomen soft; no guarding, abdomen not rigid and no hepatosplenomegaly Resident Activity Tracking Resident Involvement: Resident Care Provided Care Provided: Adult [facility] Medicine
--- NOTE | 2019-02-27 09:50 | Urology Progress Note ---
Date of Service February 27, 2019 Assessment & Plan (1) Hematuria: (2) Left flank pain: (3) Acute UTI: 73yo F with intermittent hematuria, L flank pain, multi-drug resistant E.coli ESBL UTI VSS, afebrile. Cr within normal limits. She continues to report L flank pain, pinpoint. Worsened with palpation and movement. May benefit from heating pad vs voltaren gel if no contraindications. CT urogram - negative for filling defects in collecting system. Urine Cytology- negative for high grade urothelial carcinoma. Continue abx per primary service for multi-drug resistant UTI. Will arrange for outpatient cystoscopy for evaluation of recurrent hematuria. No further intervention required at this time. Thank you for allowing us to participate in Ms. Bobby's acute care. Please reconsult with us with additional questions, concerns, or changes in patient status. Subjective 73yo F with multi-drug resistant UTI, L flank pain, intermittent gross hematuria. Offers no new complaints today. Denies n/v/f/c. Denies urinary symptoms, hematuria. Assisted to the bathroom to have a BM. Nursing made aware and given callbell when exiting room. Review of Systems All systems reviewed & are unremarkable except as noted in HPI & below Physical Exam Vital Signs (Past 24 Hours): Last Vital Signs Temp 36.4 C L 02/27/19 07:15 Pulse 56 L 02/27/19 07:15 Resp 16 02/27/19 07:15 BP 117/73 02/27/19 07:15 Pulse Ox 95 02/27/19 07:15 Physical Exam: A&Ox3 RRR Abd soft, nontender L flank - point tenderness on palpation. ambulating assist x1 Mild lower extremity edema Results & Data Laboratory Results Laboratory Results - last 48 hr 02/26/19 02/26/19 02/26/19 09:24 09:24 09:24 WBC 11.78 H RBC 5.36 Hgb 17.0 H Hct 48.7 H MCV 90.9 MCH 31.7 MCHC 34.9 RDW Std Deviation 42.6 RDW Coeff of Jayden 13.0 Plt Count 195 MPV 11.2 H Immature Gran % (Auto) 0.4 Neut % (Auto) 65.4 Lymph % (Auto) 24.4 [place] % (Auto) 8.7 Eos % (Auto) 1.0 Baso % (Auto) 0.1 Immature Gran # (Auto) 0.05 H Neut # (Auto) 7.70 H Lymph # (Auto) 2.87 [place] # (Auto) 1.03 H Eos # (Auto) 0.12 Baso # (Auto) 0.01 PT Cancelled INR Cancelled APTT Cancelled PTT Ratio Cancelled Sodium Cancelled Potassium Cancelled Chloride Cancelled Carbon Dioxide Cancelled Anion Gap Cancelled BUN Cancelled Creatinine Cancelled Est Cr Clr Drug Dosing Cancelled Est GFR ( Amer) Cancelled Est GFR (Non-Af Amer) Cancelled BUN/Creatinine Ratio Cancelled Glucose Cancelled POC Glucose Estimat Average Glucose Hemoglobin A1c Calcium Cancelled Magnesium Cancelled Total Bilirubin Cancelled AST Cancelled ALT Cancelled Alkaline Phosphatase Cancelled Troponin I Cancelled Total Protein Cancelled Albumin Cancelled Globulin Cancelled Albumin/Globulin Ratio Cancelled Lipase Cancelled Vitamin B12 Beta-Hydroxybutyric Acd TSH Cancelled Urine Color Urine Appearance Urine pH POC Urine pH Ur Specific Downey Urine Protein POC Urine Protein Urine Glucose (UA) POC Ur Glucose (UA) Urine Ketones POC Urine Ketones Urine Blood POC Urine Blood Urine Nitrite POC Urine Nitrite Urine Bilirubin POC Urine Bilirubin Urine Urobilinogen POC Urine Urobilinogen Ur Leukocyte Esterase POC U Leukocyte Esteras Urine WBC (Auto) Urine RBC (Auto) U Hyaline Cast (Auto) U Epithel Cells (Auto) Urine Bacteria (Auto) 02/26/19 02/26/19 02/26/19 09:24 09:45 09:45 WBC RBC Hgb Hct MCV MCH MCHC RDW Std Deviation RDW Coeff of Jayden Plt Count MPV Immature Gran % (Auto) Neut % (Auto) Lymph % (Auto) [place] % (Auto) Eos % (Auto) Baso % (Auto) Immature Gran # (Auto) Neut # (Auto) Lymph # (Auto) [place] # (Auto) Eos # (Auto) Baso # (Auto) PT INR APTT PTT Ratio Sodium Potassium Chloride Carbon Dioxide Anion Gap BUN Creatinine Est Cr Clr Drug Dosing Est GFR ( Amer) Est GFR (Non-Af Amer) BUN/Creatinine Ratio Glucose POC Glucose Estimat Average Glucose Hemoglobin A1c Calcium Magnesium Total Bilirubin AST ALT Alkaline Phosphatase Troponin I Total Protein Albumin Globulin Albumin/Globulin Ratio Lipase Vitamin B12 Beta-Hydroxybutyric Acd TSH 3.500 Urine Color Yellow Urine Appearance Cloudy H Urine pH 5.0 POC Urine pH 7 Ur Specific Downey 1.040 H Urine Protein Negative POC Urine Protein Negative Urine Glucose (UA) 3+ H POC Ur Glucose (UA) Normal Urine Ketones 2+ H POC Urine Ketones 2+ (Moderate) H Urine Blood Trace H POC Urine Blood Trace H Urine Nitrite Negative POC Urine Nitrite Negative Urine Bilirubin Negative POC Urine Bilirubin Negative Urine Urobilinogen Negative POC Urine Urobilinogen Normal Ur Leukocyte Esterase Trace H POC U Leukocyte Esteras Negative Urine WBC (Auto) >30 H Urine RBC (Auto) 5-10 H U Hyaline Cast (Auto) 1-5 U Epithel Cells (Auto) >30 H Urine Bacteria (Auto) 2+ H 02/26/19 02/26/19 02/26/19 10:00 10:00 16:10 WBC RBC Hgb Hct MCV MCH MCHC RDW Std Deviation RDW Coeff of Jayden Plt Count MPV Immature Gran % (Auto) Neut % (Auto) Lymph % (Auto) [place] % (Auto) Eos % (Auto) Baso % (Auto) Immature Gran # (Auto) Neut # (Auto) Lymph # (Auto) [place] # (Auto) Eos # (Auto) Baso # (Auto) PT 10.9 INR 1.1 APTT 27.6 PTT Ratio 1.0 Sodium 138 Potassium 3.9 Chloride 106 Carbon Dioxide 25 Anion Gap 8.0 BUN 13 Creatinine 0.95 Est Cr Clr Drug Dosing Not Reportable Est GFR ( Amer) 68.4 Est GFR (Non-Af Amer) 59.0 BUN/Creatinine Ratio 14.0 Glucose 320 H POC Glucose 232 H Estimat Average Glucose Hemoglobin A1c Calcium 9.8 Magnesium 1.8 Total Bilirubin 1.2 H AST 22 ALT 35 Alkaline Phosphatase 124 H Troponin I < 0.015 Total Protein 7.6 Albumin 3.7 Globulin 3.9 Albumin/Globulin Ratio 0.9 Lipase 57 L Vitamin B12 Beta-Hydroxybutyric Acd 7.48 H TSH Urine Color Urine Appearance Urine pH POC Urine pH Ur Specific Downey Urine Protein POC Urine Protein Urine Glucose (UA) POC Ur Glucose (UA) Urine Ketones POC Urine Ketones Urine Blood POC Urine Blood Urine Nitrite POC Urine Nitrite Urine Bilirubin POC Urine Bilirubin Urine Urobilinogen POC Urine Urobilinogen Ur Leukocyte Esterase POC U Leukocyte Esteras Urine WBC (Auto) Urine RBC (Auto) U Hyaline Cast (Auto) U Epithel Cells (Auto) Urine Bacteria (Auto) 02/26/19 02/26/19 02/27/19 17:09 20:14 00:06 WBC RBC Hgb Hct MCV MCH MCHC RDW Std Deviation RDW Coeff of Jayden Plt Count MPV Immature Gran % (Auto) Neut % (Auto) Lymph % (Auto) [place] % (Auto) Eos % (Auto) Baso % (Auto) Immature Gran # (Auto) Neut # (Auto) Lymph # (Auto) [place] # (Auto) Eos # (Auto) Baso # (Auto) PT INR APTT PTT Ratio Sodium Potassium Chloride Carbon Dioxide Anion Gap BUN Creatinine Est Cr Clr Drug Dosing Est GFR ( Amer) Est GFR (Non-Af Amer) BUN/Creatinine Ratio Glucose POC Glucose 232 H 189 H 179 H Estimat Average Glucose Hemoglobin A1c Calcium Magnesium Total Bilirubin AST ALT Alkaline Phosphatase Troponin I Total Protein Albumin Globulin Albumin/Globulin Ratio Lipase Vitamin B12 Beta-Hydroxybutyric Acd TSH Urine Color Urine Appearance Urine pH POC Urine pH Ur Specific Dow[place] Urine Protein POC Urine Protein Urine Glucose (UA) POC Ur Glucose (UA) Urine Ketones POC Urine Ketones Urine Blood POC Urine Blood Urine Nitrite POC Urine Nitrite Urine Bilirubin POC Urine Bilirubin Urine Urobilinogen POC Urine Urobilinogen Ur Leukocyte Esterase POC U Leukocyte Esteras Urine WBC (Auto) Urine RBC (Auto) U Hyaline Cast (Auto) U Epithel Cells (Auto) Urine Bacteria (Auto) 02/27/19 02/27/19 02/27/19 04:00 06:50 06:50 WBC 9.60 RBC 4.93 Hgb 15.4 Hct 45.1 MCV 91.5 MCH 31.2 MCHC 34.1 RDW Std Deviation 43.4 RDW Coeff of Jayden 13.1 Plt Count 190 MPV 11.0 H Immature Gran % (Auto) Neut % (Auto) Lymph % (Auto) [place] % (Auto) Eos % (Auto) Baso % (Auto) Immature Gran # (Auto) Neut # (Auto) Lymph # (Auto) [place] # (Auto) Eos # (Auto) Baso # (Auto) PT INR APTT PTT Ratio Sodium 139 Potassium 3.5 Chloride 106 Carbon Dioxide 26 Anion Gap 7.0 BUN 14 Creatinine 0.88 Est Cr Clr Drug Dosing 48.3 Est GFR ( Amer) 75.0 Est GFR (Non-Af Amer) 64.7 BUN/Creatinine Ratio 16.3 Glucose 116 H POC Glucose 143 H Estimat Average Glucose Hemoglobin A1c Calcium 9.0 Magnesium 1.8 Total Bilirubin AST ALT Alkaline Phosphatase Troponin I Total Protein Albumin Globulin Albumin/Globulin Ratio Lipase Vitamin B12 Beta-Hydroxybutyric Acd TSH Urine Color Urine Appearance Urine pH POC Urine pH Ur Specific Dow[place] Urine Protein POC Urine Protein Urine Glucose (UA) POC Ur Glucose (UA) Urine Ketones POC Urine Ketones Urine Blood POC Urine Blood Urine Nitrite POC Urine Nitrite Urine Bilirubin POC Urine Bilirubin Urine Urobilinogen POC Urine Urobilinogen Ur Leukocyte Esterase POC U Leukocyte Esteras Urine WBC (Auto) Urine RBC (Auto) U Hyaline Cast (Auto) U Epithel Cells (Auto) Urine Bacteria (Auto) 02/27/19 02/27/19 02/27/19 06:50 06:50 07:41 WBC RBC Hgb Hct MCV MCH MCHC RDW Std Deviation RDW Coeff of Jayden Plt Count MPV Immature Gran % (Auto) Neut % (Auto) Lymph % (Auto) [place] % (Auto) Eos % (Auto) Baso % (Auto) Immature Gran # (Auto) Neut # (Auto) Lymph # (Auto) [place] # (Auto) Eos # (Auto) Baso # (Auto) PT INR APTT PTT Ratio Sodium Potassium Chloride Carbon Dioxide Anion Gap BUN Creatinine Est Cr Clr Drug Dosing Est GFR ( Amer) Est GFR (Non-Af Amer) BUN/Creatinine Ratio Glucose POC Glucose 133 H Estimat Average Glucose 321 Hemoglobin A1c 12.8 H Calcium Magnesium Total Bilirubin AST ALT Alkaline Phosphatase Troponin I Total Protein Albumin Globulin Albumin/Globulin Ratio Lipase Vitamin B12 509 Beta-Hydroxybutyric Acd TSH Urine Color Urine Appearance Urine pH POC Urine pH Ur Specific Dow[place] Urine Protein POC Urine Protein Urine Glucose (UA) POC Ur Glucose (UA) Urine Ketones POC Urine Ketones Urine Blood POC Urine Blood Urine Nitrite POC Urine Nitrite Urine Bilirubin POC Urine Bilirubin Urine Urobilinogen POC Urine Urobilinogen Ur Leukocyte Esterase POC U Leukocyte Esteras Urine WBC (Auto) Urine RBC (Auto) U Hyaline Cast (Auto) U Epithel Cells (Auto) Urine Bacteria (Auto)
[2019-02-27] MEDS ORDERED: DOCUSATE SODIUM 100 MG CAP PO PRN (10:19)
[2019-02-27] MEDS: FERROUS SULFATE 325 MG TAB PO SCH (11:39)
[2019-02-27] MEDS: CALCIUM CARBONATE 1250MG TAB PO SCH (11:39)
[2019-02-27] MEDS: GABAPENTIN 100 MG CAP PO SCH ×2 (11:39→20:50)
[2019-02-27] MEDS: ROPINIROLE HCL 1 MG TABLET PO SCH (11:39)
[2019-02-27] MEDS: MAGNESIUM CHLORIDE 64MG DELAYED REL TAB PO SCH ×2 (11:40→20:50)
[2019-02-27] MEDS: MONTELUKAST SODIUM 10 MG TABLET PO SCH (11:40)
[2019-02-27] MEDS: CHOLECALCIFEROL 1,000 UNITS TAB PO SCH (11:41)
[2019-02-27] MEDS: RIVAROXABAN 20 MG TAB PO SCH (11:41)
[2019-02-27] MEDS: CYANOCOBALAMIN 500 MCG TABLET (VITAMIN B-12) PO SCH (11:41)
[2019-02-27] MEDS: SIMVASTATIN 20 MG TAB PO SCH (11:41)
[2019-02-27] MEDS: LEVOTHYROXINE SODIUM 75 MCG TABLET PO SCH (11:42)
[2019-02-27] MEDS ORDERED: DICLOFENAC SOD 1% GEL 100 GM TUBE EXT PRN (12:09)
[2019-02-27] MEDS: LIDOCAINE HCL 5% OINT 30 GM TUBE EXT PRN (17:39)
[2019-02-27] MEDS: ERTAPENEM SODIUM 1,000 MG in SODIUM CHLORIDE 0.9% 50 ML IV SCH (17:44)
[2019-02-27] MEDS: DICLOFENAC SOD 1% GEL 100 GM TUBE EXT SCH (20:45)
[2019-02-27] MEDS: NORTRIPTYLINE HCL 25 MG CAP PO SCH (20:51)
[2019-02-27] MEDS: LIDOCAINE 5% 1 PATCH TD SCH (21:00)
[2019-02-28] MEDS: DICLOFENAC SOD 1% GEL 100 GM TUBE EXT SCH ×3 (00:02→13:18)
[2019-02-28] MEDS: LEVOTHYROXINE SODIUM 75 MCG TABLET PO SCH (06:15)
[2019-02-28] MEDS: PANTOprazole 40 MG TAB PO SCH (06:15)
[2019-02-28] MEDS: CYCLOBENZAPRINE HCL 5 MG TAB PO PRN (06:32)
[2019-02-28] MEDS: SIMVASTATIN 20 MG TAB PO SCH (08:00)
[2019-02-28] MEDS: ROPINIROLE HCL 1 MG TABLET PO SCH (08:00)
[2019-02-28] MEDS: MAGNESIUM CHLORIDE 64MG DELAYED REL TAB PO SCH ×2 (08:01→22:09)
[2019-02-28] MEDS: CHOLECALCIFEROL 1,000 UNITS TAB PO SCH (08:01)
[2019-02-28] MEDS: CYANOCOBALAMIN 500 MCG TABLET (VITAMIN B-12) PO SCH (08:01)
[2019-02-28] MEDS: MONTELUKAST SODIUM 10 MG TABLET PO SCH (08:02)
[2019-02-28] MEDS: RIVAROXABAN 20 MG TAB PO SCH (08:02)
[2019-02-28] MEDS: FERROUS SULFATE 325 MG TAB PO SCH (08:02)
[2019-02-28] MEDS: CALCIUM CARBONATE 1250MG TAB PO SCH (08:02)
[2019-02-28] MEDS: GABAPENTIN 100 MG CAP PO SCH ×2 (08:02→22:10)
[2019-02-28] MEDS: ACETAMINOPHEN 325 MG TAB PO PRN (08:05)
[2019-02-28] MEDS: INSULIN GLARGINE SOLOSTAR 100 UNITS/ML 3 ML PEN SC SCH ×2 (08:50→21:43)
[2019-02-28] MEDS: INSULIN ASPART 100 UNITS/ML 3 ML PEN SC SCH ×4 (08:51→21:44)
--- NOTE | 2019-02-28 09:31 | Pharmacy Report ---
Pharmacy Glycemic Short Note 2 - Date of Service February 28, 2019 - Glycemic Short BSG Results (Last 24 hours): 02/27/19 02/27/19 02/27/19 11:23 16:57 20:27 POC Glucose 176 H 177 H 205 H 02/28/19 07:25 POC Glucose 128 H OUTPATIENT ANTIDIABETIC REGIMEN: * Lantus 23 units qHS * Novolog 10 units w/ meals * Also, CDE reports Janumet mg BID Note: patient has not taken any of her diabetes medications for the past year * Updated A1c = 12.8% on 02/27/19 ASSESSMENT: 02/28 * Ms. Bobby received 50 units of insulin yesterday (30 of this was basal since BSG was on higher side last night) * Fasting BSG = 128; anticipating that 28 units of basal should produce fastings at goal * Postprandial BSGs above goal (176, 177, 205); will wait to tighten CF/CR furth er since basal has been increased. Current CF/CR is in agreement with basal of 28 units 02/27 * Ms. Bobby received 32 units of insulin yesterday (24 of this was basal) * BSGs have come down nicely since admission. She will receive BID Lantus dosing today to allow for closer titration if necessary. * Now that BSGs have improved, will loosen correctional insulin to be more consistent with insulin dosing per patient's wt/stress level of 2 / * Ms. Bobby is a 73 y/o female with a history of uncontrolled diabetes, with non-compliance, not taking any insulin for the past year. BSG upon admission was 320 mg/dL (AG and bicarb WNL) at 10 am. More recent BSG not available at this time. Will initiate a basal/bolus insulin regimen now (based on wt/stress level of 2), being more aggressive initially due to higher BSGs. Will also add overnight accuchecks to assist with controlling BSGs and help with determining true basal needs. PLAN FOR INPATIENT GLYCEMIC CONTROL: * Basal insulin - adjust scale to provide 14 units BID for in range BSGs * Lantus BID per the following scale: * 10 units for BSG < 110 * 14 units for BSG 110 - 180 * 16 units for BSG > 180 * Bolus insulin - no change * NovoLog per scale ACHS or Q6hrs while NPO * Goal Range: Low 110 mg/dL - High 140 mg/dL * Correction Factor: 30 mg/dL/unit * Nutritional / Prandial insulin per carb ratio of 1 unit per 10 grams CHO consumed PLAN FOR DISCHARGE: * Large issue with compliance. Inpatient insulin requirements at this point seem to be fairly consistent with ordered outpatient insulins. CDE met with patient yesterday and discussed glycemic control. Issues with willingness to take diabetes medications, especially insulin, since does not feel comfortable with it. Will need a simplified regimen on discharge to help to enhance compliance; however, an A1c of 12.8% necessitates insulin. * Recommend: * Lantus 30 units qHS * Janumet BID
[2019-02-28] MEDS: ONDANSETRON 4 MG OD TAB PO PRN (10:58)
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
[2019-02-28] MEDS: ACETAMINOPHEN 325 MG TAB PO SCH ×2 (18:32→23:37)
[2019-02-28] MEDS: KETOROLAC TROMETHAMINE 10 MG TABLET PO PRN ×3 (18:33→22:11)
--- NOTE | 2019-02-28 20:01 | Family Medicine Progress Note ---
Date of Service February 28, 2019 Assessment & Plan (1) Acute UTI: Acute UTI * Adequately treated, 3 doses ertapenem * No further symptoms * No abdominal pain Flank Pain * Likely 2/2 to intercostal muscle spasm * Started scheduled tylenol and toradol prn Deconditioning * Difficulty moving around, will monitor tomorrow and may recommend SNF placement to improve independence * Will try to get pain adequately controlled to see if that is main contributor to her difficult mobility. Hematuria * Will follow up as outpatient with urology for cystoscopy * None on this admission. Confusion * Has been lucid entirety of her admission for mi Diabetes * Participated in diabetes education, tried to encourage importance of staying on top of diabetes. (2) Left flank pain: (3) Hyperglycemia: (4) Confusion: (5) Hematuria: Supervising Physician Co-Signing Physician Notes I personally examined the patient and verified all menjivar points of history and exam, discussed case, and agree with decision making with Dr Omer. Left-sided back pain, ongoing and not relaly changed. feels unsteady on feet due to pain too. Vitals noted, in general she is awake and alert pleasant no distress. Occasionally she appears a little uncomfortable from her back pain. HEENT normocephalic atraumatic mucous membranes are moist. Breathing is unlabored no accessory muscle use. Musculoskeletal/osteopathic shows left lower rib cage (around the area of ribs 11 and 12 intercostally) high tone/tender/decreased range of motion. unable to attempt OMt due to such exquisite tenderness. Back painappears to be intercostal spasmunfortunately was still unable to successfully do OMT due to discomfort. continue to work on symptomatic control Urinary tract infectionESBLseems to be improving on ertapenem, finish course. Confusiongiven that her mental status seems to be improving, it is quite possible that she had a degree of delirium related to the UTI, which could fit with a mild metabolic encephalopathy uncontrolled DM - needs ongoing education. control here reasonable. Subjective Ms Bobby is having a lot of pain in her left lower intercostal muscles unc hanged from yesterday. She denies any urinary symptoms, she has had difficulty walking to the bathroom due to the pain and she is not sure she will be able to go home without better pain control. She is not having any fevers, chills, urinary symptoms shortness of breath abdomina pain, but did endorse some nausea from the pain. Physical Exam Vital Signs (Past 24 Hours): Last Vital Signs Temp 36.4 C L 02/28/19 14:22 Pulse 64 02/28/19 14:22 Resp 20 02/28/19 14:22 BP 143/79 H 02/28/19 14:22 Pulse Ox 97 02/28/19 14:22 Constitutional: + frail appearing and cooperative; no acute distress and + uncomfortable Respiratory: normal respiratory effort, lungs clear to auscultation Cardiovascular: RRR, no murmur, no edema Gastrointestinal (Abdomen): normal bowel sounds, soft, nontender, no hepatosplenomegaly Musculoskeletal: 5-7 pain on left flank in intercostal muscles of 10-12 ribs. Very tender, worse with twisting, deep inhalation, or sitting up. Resident Activity Tracking Resident Involvement: Resident Care Provided Care Provided: Adult Hospital Medicine
[2019-02-28] MEDS: NORTRIPTYLINE HCL 25 MG CAP PO SCH (22:10)
[2019-02-28] MEDS: LIDOCAINE 5% 1 PATCH TD SCH (22:10)
[2019-02-28] MEDS: LIDOCAINE HCL 5% OINT 30 GM TUBE EXT PRN (23:35)
[2019-03-01] MEDS: LEVOTHYROXINE SODIUM 75 MCG TABLET PO SCH (04:25)
[2019-03-01] MEDS: KETOROLAC TROMETHAMINE 10 MG TABLET PO PRN ×4 (04:25→23:48)
[2019-03-01] MEDS: CYCLOBENZAPRINE HCL 5 MG TAB PO PRN ×2 (04:25→14:51)
[2019-03-01] MEDS: PANTOprazole 40 MG TAB PO SCH (04:26)
[2019-03-01] MEDS: ACETAMINOPHEN 325 MG TAB PO SCH ×4 (05:00→23:28)
[2019-03-01] MEDS: ONDANSETRON 4 MG OD TAB PO PRN (07:53)
[2019-03-01] MEDS: FERROUS SULFATE 325 MG TAB PO SCH (07:54)
[2019-03-01] MEDS: ROPINIROLE HCL 1 MG TABLET PO SCH (07:55)
[2019-03-01] MEDS: MAGNESIUM CHLORIDE 64MG DELAYED REL TAB PO SCH ×2 (07:56→20:27)
[2019-03-01] MEDS: CYANOCOBALAMIN 500 MCG TABLET (VITAMIN B-12) PO SCH (07:57)
[2019-03-01] MEDS: SIMVASTATIN 20 MG TAB PO SCH (07:58)
[2019-03-01] MEDS: CHOLECALCIFEROL 1,000 UNITS TAB PO SCH (07:58)
[2019-03-01] MEDS: RIVAROXABAN 20 MG TAB PO SCH (07:58)
[2019-03-01] MEDS: CALCIUM CARBONATE 1250MG TAB PO SCH (07:59)
[2019-03-01] MEDS: MONTELUKAST SODIUM 10 MG TABLET PO SCH (08:00)
[2019-03-01] MEDS: INSULIN GLARGINE SOLOSTAR 100 UNITS/ML 3 ML PEN SC SCH ×2 (08:34→20:24)
[2019-03-01] MEDS: INSULIN ASPART 100 UNITS/ML 3 ML PEN SC SCH ×4 (08:35→20:26)
[2019-03-01] MEDS: GABAPENTIN 100 MG CAP PO SCH ×2 (08:37→20:26)
[2019-03-01] MEDS ORDERED: BACLOFEN 10 MG TAB PO ONE (10:28)
--- NOTE | 2019-03-01 13:38 | Family Medicine Progress Note ---
Date of Service March 01, 2019 Assessment & Plan (1) Acute UTI: Acute UTI * Adequately treated, 3 doses ertapenem * No further symptoms * No abdominal pain Flank Pain * Likely 2/2 to intercostal muscle spasm * tylenol scheduled and toradol prn * Started baclofen for muscle spasm Deconditioning * Difficulty moving around, would likely benefit from SNF placement to improve strength * Continuing to try and get pain adequately controlled to see if that is main contributor to her difficult mobility. Hematuria * Will follow up as outpatient with urology for cystoscopy * No hematuria on this admission Confusion * Has been lucid entirety of her admission for ca Diabetes * Participated in diabetes education, tried to encourage importance of staying on top of diabetes. * She continues to have poor insight into her disease, will continue to try and motivate/educate (2) Left flank pain: (3) Hyperglycemia: (4) Confusion: (5) Hematuria: Supervising Physician Co-Signing Physician Notes I personally examined the patient and verified all menjivar points of history and exam, discussed case, and agree with decision making with Dr Omer. Left-sided back pain. No other new complaints. She definitely wants to go home not rehab. Vitals noted, in general she is awake and alert pleasant no distress. Occasionally she appears a little uncomfortable from her back pain. HEENT normocephalic atraumatic mucous membranes are moist. Breathing is unlabored no accessory muscle use. Musculoskeletal/osteopathic shows left lower rib cage (around the area of ribs 11 and 12 intercostally) high tone/tender/decreased range of motion. Post isometric relaxation done times approximately 4 repetitions with some improvement in range of motion. After this I was able to do a degree of direct myofascial release and balanced ligamentous tension. Back painappears to be intercostal spasmcontinue pain control/Voltaren gel/trial of baclofen. Somatic dysfunction ribsOMT as above Urinary tract infectionESBLfinished ertapenem for cystitis Confusiongiven that her mental status seems to be improving, it is quite possible that she had a degree of delirium related to the UTI, which could technically fit for a mild degree of metabolic encephalopathy Uncontrolled diabetesbetter control here in the hospital. Needs ongoing education. Otherwise as above Subjective Ms Bobby tells me the pain medication "Takes the edge off a little" but is still causing her extreme pain and affecting her ability to ambulate. She worked with PT and OT but struggled and felt unsteady on her feet. She does not know if she could function at home in this much pain. She is adamant she does not want to go to rehab upon discharge. She denies any fevers chills, abdominal pain, change in BM or urination. Physical Exam Vital Signs (Past 24 Hours): Last Vital Signs Temp 36.6 C 03/01/19 07:00 Pulse 64 03/01/19 07:00 Resp 20 03/01/19 07:00 BP 113/71 03/01/19 07:00 Pulse Ox 91 03/01/19 07:00 Constitutional: WD/WN, vitals as above + frail appearing and cooperative; no acute distress and + uncomfortable Respiratory: normal respiratory effort, lungs clear to auscultation Cardiovascular: RRR, no murmur, no edema Gastrointestinal (Abdomen): normal bowel sounds, soft, nontender, no hepatosplenomegaly Inspection/Auscultation: abdomen normal to inspection and normal bowel sounds; abdomen not distended Percussion/Palpation: + abdomen tender (mildly uncomfortable) and abdomen soft; no guarding, abdomen not rigid and no hepatosplenomegaly Resident Activity Tracking Resident Involvement: Resident Care Provided Care Provided: Adult Hospital Medicine
--- NOTE | 2019-03-01 14:24 | Pharmacy Report ---
Pharmacy Glycemic Short Note 2 - Date of Service March 01, 2019 - Glycemic Short BSG Results (Last 24 hours): 02/28/19 02/28/19 03/01/19 17:07 20:32 07:33 POC Glucose 108 H 97 108 H 03/01/19 11:36 POC Glucose 157 H OUTPATIENT ANTIDIABETIC REGIMEN: * Lantus 23 units qHS * Novolog 10 units w/ meals * Also, CDE reports Janumet mg BID Note: patient has not taken any of her diabetes medications for the past year * Updated A1c = 12.8% on 02/27/19 ASSESSMENT: 03/01 * Pt required 29 units of insulin yesterday: FBS and prandial BSGs look good over the preceding 24hrs: [id number]/dL. Yesterday's adjustments to insulin regimen seem to be yielding excellent BSGs, will continue with standing orders. No acute changes to insulin requirements are anticipated. 02/28 * Ms. Bobby received 50 units of insulin yesterday (30 of this was basal since BSG was on higher side last night) * Fasting BSG = 128; anticipating that 28 units of basal should produce fastings at goal * Postprandial BSGs above goal (176, 177, 205); will wait to tighten CF/CR further since basal has been increased. Current CF/CR is in agreement with basal of 28 units 02/27 * Ms. Bobby received 32 units of insulin yesterday (24 of this was basal) * BSGs have come down nicely since admission. She will receive BID Lantus dosing today to allow for closer titration if necessary. * Now that BSGs have improved, will loosen correctional insulin to be more consistent with insulin dosing per patient's wt/stress level of 2 02/26 * Ms. Bobby is a 73 y/o female with a history of uncontrolled diabetes, with non-compliance, not taking any insulin for the past year. BSG upon admission was 320 mg/dL (AG and bicarb WNL) at 10 am. More recent BSG not available at this time. Will initiate a basal/bolus insulin regimen now (based on wt/stress level of 2), being more aggressive initially due to higher BSGs. Will also add overnight accuchecks to assist with controlling BSGs and help with determining true basal needs. PLAN FOR INPATIENT GLYCEMIC CONTROL: * Basal insulin * Lantus BID per the following scale: * 10 units for BSG < 110 * 14 units for BSG 110 - 180 * 16 units for BSG > 180 * Bolus insulin * NovoLog per scale ACHS or Q6hrs while NPO * Goal Range: Low 110 mg/dL - High 140 mg/dL * Correction Factor: 30 mg/dL/unit * Nutritional / Prandial insulin per carb ratio of 1 unit per 10 grams CHO consumed PLAN FOR DISCHARGE: * Large issue with compliance. Inpatient insulin requirements at this point seem to be fairly consistent with ordered outpatient insulins. CDE met with patient yesterday and discussed glycemic control. Issues with willingness to take diabetes medications, especially insulin, since does not feel comfortable with it. Will need a simplified regimen on discharge to help to enhance compliance; however, an A1c of 12.8% necessitates insulin. * Recommend: * Lantus 30 units qHS * Janumet BID
[2019-03-01] MEDS: BACLOFEN 10 MG TAB PO PRN (19:39)
[2019-03-01] MEDS: LIDOCAINE 5% 1 PATCH TD SCH (20:25)
[2019-03-01] MEDS: NORTRIPTYLINE HCL 25 MG CAP PO SCH (20:27)
[2019-03-02] MEDS: ACETAMINOPHEN 325 MG TAB PO SCH ×4 (06:16→23:51)
[2019-03-02] MEDS: PANTOprazole 40 MG TAB PO SCH (06:16)
[2019-03-02] MEDS: LEVOTHYROXINE SODIUM 75 MCG TABLET PO SCH (06:16)
[2019-03-02] MEDS: BACLOFEN 10 MG TAB PO PRN (06:17)
[2019-03-02] MEDS: FERROUS SULFATE 325 MG TAB PO SCH (08:41)
[2019-03-02] MEDS: CALCIUM CARBONATE 1250MG TAB PO SCH (08:41)
[2019-03-02] MEDS: GABAPENTIN 100 MG CAP PO SCH ×2 (08:41→20:24)
[2019-03-02] MEDS: ROPINIROLE HCL 1 MG TABLET PO SCH (08:42)
[2019-03-02] MEDS: MAGNESIUM CHLORIDE 64MG DELAYED REL TAB PO SCH ×2 (08:43→20:24)
[2019-03-02] MEDS: MONTELUKAST SODIUM 10 MG TABLET PO SCH (08:43)
[2019-03-02] MEDS: CHOLECALCIFEROL 1,000 UNITS TAB PO SCH (08:44)
[2019-03-02] MEDS: CYANOCOBALAMIN 500 MCG TABLET (VITAMIN B-12) PO SCH (08:44)
[2019-03-02] MEDS: RIVAROXABAN 20 MG TAB PO SCH (08:45)
[2019-03-02] MEDS: SIMVASTATIN 20 MG TAB PO SCH (08:45)
[2019-03-02] MEDS: INSULIN ASPART 100 UNITS/ML 3 ML PEN SC SCH ×4 (09:06→20:25)
[2019-03-02] MEDS: INSULIN GLARGINE SOLOSTAR 100 UNITS/ML 3 ML PEN SC SCH ×2 (09:08→20:23)
[2019-03-02] MEDS: KETOROLAC TROMETHAMINE 10 MG TABLET PO PRN ×4 (09:20→22:55)
--- NOTE | 2019-03-02 10:07 | Pharmacy Report ---
Glycemic Control Progress Note - Date of Service March 02, 2019 - Scope Glycemic Pharmacist consulted for glycemic control to write orders per [facility] inpatient glycemic control protocol. - Objective Accuchecks BSG(last 24 hours):: 03/01/19 03/01/19 03/01/19 11:36 16:38 20:16 POC Glucose 157 H 121 H 128 H 03/02/19 07:39 POC Glucose 138 H HbA1c:: Hemoglobin A1c 12.8 % (4.5-5.6) H 02/27/19 06:50 - Recent Pertinent Medications The patient is currently receiving: * Basal insulin: Lantus 10-14 units every 12 hours * Correctional Insulin: Novolog Correction per scale ACHS Goal Range: Low 110 mg/dL - High 140 mg/dL Correction Factor: 30 mg/dL/unit * Prandial insulin: Per carb ratio of 1 unit per 10 grams CHO consumed - Outpatient Anti-Diabetic Meds Lantus 23 units at bedtime Novolog 10 units with meals - Assessment & Plan ASSESSMENT: * See progress note from 02/26/19 for more background info, in short: * Pt receiving SQ basal bolus insulin regimen for hyperglycemia secondary to baseline DM (outpatient regimen on hold),stress/infection (treatment for UTI). * Patient is currently receiving an average of 39 units of insulin per day * 24 units of basal insulin * 15 units of prandial/correctional insulin * BSGs ranging 108 - 157 mg/dl over the past 24hrs * Changes needed to insulin regimen: * AM Fasting BSG = 138 mg/dl. This is within goal range for patient based on inpatient targets and co-morbidities. Therefore Basal insulin will be continued. Will schedule a fixed dose of 12 units BID. * Post-prandial BSGs are in range therefore no changes needed to CF/CR. * Total daily dose = 40-50 units. PLAN FOR INPATIENT GLYCEMIC CONTROL: * Starting Lantus 12 units SQ BID * Continuing correction factor of 30 mg/dl/unit * Continuing carb ratio of 1 unit per 10 grams CHO consumed * Continuing goal range of Low 110 mg/dL - High 140 mg/dL RECOMMENDATIONS FOR DISCHARGE: * Simplified outpatient regimen: * Lantus 24 units daily * Novolog 5 units with largest meal. Thank you.
--- NOTE | 2019-03-02 13:11 | Family Medicine Progress Note ---
Date of Service March 02, 2019 Assessment & Plan (1) Somatic dysfunction of rib: Left sided rib dysfunction of bucket handle motion causing exhalation dysfunction/inhalation restriction OMT provided at bedside as mentioned in note above - ordered incentive spirometry to help to try to mobilize ribs and also to help protect from atelectasis/pneumonia (2) Left flank pain: Etiology likely to left sided Rib 8-12 dysfunction and/or intercostal muscle spasm tylenol scheduled and toradol prn Started baclofen for muscle spasm, but did not note improvement with medication (3) Hyperglycemia: - Education provided during admission and poor insight was noted. - holding home meds - insulin basal coverage with Lantus 12 units BID and Novolog bolus coverage provided per protocol (4) Confusion: - likely contributing to unreliable historian of subjective complaints as she is most likely unable to note daily improvement as she cannot recall previous day's pain to compare for improvement with current treatment. (5) Physical deconditioning: - Difficulty moving around, would likely benefit from SNF placement to improve strength - Continuing to try and get pain adequately controlled to see if that is main contributor to her difficult mobility. (6) Acute UTI: Acute UTI * Adequately treated, 3 doses ertapenem * No further symptoms * No abdominal pain (7) Hematuria: - Will follow up as outpatient with urology for cystoscopy - No hematuria on this admission Supervising Physician Co-Signing Physician Notes I personally examined the patient and verified all menjivar points of history and exam, discussed case, and agree with decision making with Dr Tello. Left-sided back pain ongoing Vitals noted, in general she is awake and alert pleasant no distress. Occasi onally she appears a little uncomfortable from her back pain. HEENT normocephalic atraumatic mucous membranes are moist. Breathing is unlabored no accessory muscle use. Musculoskeletal/osteopathic shows left lower rib cage (around the area of ribs 11 and 12 intercostally) high tone/tender/decreased range of motion. attempted myofascial release but she was unable to relax enough to allow meaningful traetment. unlike earlier in the week where it clearly seemed hyperacute/tender, this time it appeared more that it was the anticipation of tenderness with palpation that precluded her ability to relax enough to allow treatment. Back paincaused by intercostal spasm around ribs 11,12continue pain control/Voltaren gel/trial of baclofen, mobilization, incentive spirometry. Somatic dysfunction ribsOMT attempted as above Urinary tract infectionESBLfinished ertapenem for cystitis Confusiongiven that her mental status seems to be improving, it is quite possible that she had a degree of delirium related to the UTI, which could technically fit for a mild degree of metabolic encephalopathy Uncontrolled diabetesshowing better control here in the hospital. Needs ongoing education. Otherwise as above Subjective Landy states her left sided posterior rib pain is unchanged from yesterday. She states pain is worse with movement and improved with not moving. Otherwise, she had no acute events overnight. No complaints of fever, chills, chest pain, shortness of breath, nausea, vomiting. Physical Exam Vital Signs (Past 24 Hours): Last Vital Signs Temp 36.8 C 03/02/19 07:43 Pulse 62 03/02/19 07:43 Resp 18 03/02/19 07:43 BP 130/72 03/02/19 07:43 Pulse Ox 93 03/02/19 07:43 Constitutional: WD/WN, vitals as above cooperative and comfortable Eyes: + anicteric sclerae and EOM intact bilaterally Neck: normal visual inspection and trachea midline Respiratory: normal respiratory effort; no respiratory distress Auscultation: lungs clear to auscultation bilaterally Cardiovascular: Rate/Rhythm: regular rate and regular rhythm Extremities: no pedal edema Musculoskeletal: Head/Neck/Chest: normocephalic and head atraumatic She was able to move from supine to sitting on side of bed for examination cautiously but without significant pain. Osteopathic Exam: left sided rib Exhalation dysfunction/Inhalation restriction with bucket handle motion. left sided paraspinal soft tissue tenderness with TART changes over T7-T10. Elevated left first rib. TART changes noted: Tenderness noted to left paraspinal soft tissues of thoracic region diffusely; there is asymmetry noted; there is restriction on the left; tissue texture changes also noted on left thoracic region. Osteopathic Manipulative Treatment provided at bedside to treat somatic dysfunction of left ribs through both direct and indirect techniques using myofascial release, soft tissue techniques and balanced ligamentous changes. Treatment was aimed toward rib levels 8-12. Subjective unchanged with OMT, however release of myofascial tissue structures palpated showing improvement in exam findings of tissue restriction. Explanation of OMT was provided prior to performing OMT. Patient tolerated OMT well without complications. Skin: no rashes, warm and dry Neurologic: moves all extremities and awake Psychiatric: Orientation: alert and cooperative Eye Contact: good eye contact Results & Data Laboratory Results Laboratory Results - last 24 hr 03/01/19 03/01/19 03/02/19 16:38 20:16 07:39 POC Glucose 121 H 128 H 138 H 03/02/19 11:41 POC Glucose 128 H Medications Administered Acetaminophen (Tylenol) 650 mg PO Q6H [facility] Stop: 03/30/19 17:59 Last Admin: 03/02/19 11:56 Dose: 650 mg Documented by: [id number] Cosigned by: [id number] Admin: 03/02/19 06:16 Dose: 650 mg Documented by: [id number] Admin: 03/01/19 23:28 Dose: 650 mg Documented by: [id number] Admin: 03/01/19 17:51 Dose: 650 mg Documented by: [id number] Admin: 03/01/19 12:45 Dose: 650 mg Documented by: [id number] Admin: 03/01/19 05:00 Dose: 650 mg Documented by: [id number] Admin: 02/28/19 23:37 Dose: 650 mg Documented by: [id number] Admin: 02/28/19 18:32 Dose: 650 mg Documented by: [id number] Baclofen (Lioresal) 10 mg PO BID PRN PRN Reason: spasms Stop: 03/31/19 20:59 Last Admin: 03/02/19 06:17 Dose: 10 mg Documented by: [id number] Admin: 03/01/19 19:39 Dose: 10 mg Documented by: [id number] Calcium Carbonate (Os-Lalit 500) 1,250 mg PO DAILY [facility] Stop: 03/29/19 10:29 Last Admin: 03/02/19 08:41 Dose: 1,250 mg Documented by: [id number] Cosigned by: [id number] Admin: 03/01/19 07:59 Dose: 1,250 mg Documented by: [id number] Admin: 02/28/19 08:02 Dose: 1,250 mg Documented by: [id number] Admin: 02/27/19 11:39 Dose: 1,250 mg Documented by: [id number] Cyanocobalamin (Vitamin B-12) 1,000 mcg PO DAILY [facility] Stop: 03/29/19 10:29 Last Admin: 03/02/19 08:44 Dose: 1,000 mcg Documented by: [id number] Cosigned by: [id number] Admin: 03/01/19 07:57 Dose: 1,000 mcg Documented by: [id number] Admin: 02/28/19 08:01 Dose: 1,000 mcg Documented by: [id number] Admin: 02/27/19 11:41 Dose: 1,000 mcg Documented by: [id number] Cyclobenzaprine HCl (Flexeril) 5 mg PO BID PRN PRN Reason: Muscle Spasm Stop: 03/28/19 14:17 Last Admin: 03/01/19 14:51 Dose: 5 mg Documented by: [id number] Admin: 03/01/19 04:25 Dose: 5 mg Documented by: [id number] Admin: 02/28/19 06:32 Dose: 5 mg Documented by: [id number] Admin: 02/27/19 20:50 Dose: 5 mg Documented by: [id number] Admin: 02/27/19 02:10 Dose: 5 mg Documented by: [id number] Ferrous Sulfate (Feosol) 325 mg PO DAILY [facility] Stop: 03/29/19 10:29 Last Admin: 03/02/19 08:41 Dose: 325 mg Documented by: [id number] Cosigned by: [id number] Admin: 03/01/19 07:54 Dose: 325 mg Documented by: [id number] Admin: 02/28/19 08:02 Dose: 325 mg Documented by: [id number] Admin: 02/27/19 11:39 Dose: 325 mg Documented by: [id number] Gabapentin (Neurontin) 100 mg PO BID [facility] Stop: 03/29/19 10:29 Last Admin: 03/02/19 08:41 Dose: 100 mg Documented by: [id number] Cosigned by: [id number] Admin: 03/01/19 20:26 Dose: 100 mg Documented by: [id number] Admin: 03/01/19 08:37 Dose: 100 mg Documented by: [id number] Admin: 02/28/19 22:10 Dose: 100 mg Documented by: [id number] Admin: 02/28/19 08:02 Dose: 100 mg Documented by: [id number] Admin: 02/27/19 20:50 Dose: 100 mg Documented by: [id number] Admin: 02/27/19 11:39 Dose: 100 mg Documented by: [id number] Insulin Aspart (Novolog Flexpen) 0 units SC ACHS [facility]; Protocol Stop: 03/28/19 16:29 Last Admin: 03/02/19 12:59 Dose: 4 units Documented by: [id number] Cosigned by: [id number] Admin: 03/02/19 09:06 Dose: 2 units Documented by: [id number] Cosigned by: [id number] Admin: 03/01/19 20:26 Dose: 2 units Documented by: [id number] Cosigned by: [id number] Admin: 03/01/19 17:51 Dose: 4 units Documented by: [id number] Cosigned by: [id number] Admin: 03/01/19 12:46 Dose: 6 units Documented by: [id number] Cosigned by: [id number] Admin: 03/01/19 08:35 Dose: 3 units Documented by: [id number] Cosigned by: [id number] Admin: 02/28/19 21:44 Dose: Not Given Documented by: [id number] Cosigned by: [id number] Admin: 02/28/19 17:43 Dose: 3 units Documented by: [id number] Cosigned by: [id number] Admin: 02/28/19 13:15 Dose: 2 units Documented by: [id number] Cosigned by: [id number] Admin: 02/28/19 08:51 Dose: Not Given Documented by: [id number] Cosigned by: [id number] Admin: 02/27/19 20:46 Dose: 3 units Documented by: [id number] Cosigned by: [id number] Admin: 02/27/19 17:39 Dose: 3 units Documented by: [id number] Cosigned by: [id number] Admin: 02/27/19 12:24 Dose: 7 units Documented by: [id number] Cosigned by: [id number] Admin: 02/27/19 08:36 Dose: 6 units Documented by: [id number] Cosigned by: [id number] Admin: 02/26/19 21:22 Dose: 2 units Documented by: [id number] Cosigned by: [id number] Insulin Glargine (Lantus Solostar Pen) 12 units SC BID [facility]; Protocol Stop: 04/01/19 08:59 Last Admin: 03/02/19 09:08 Dose: 12 units Documented by: [id number] Cosigned by: [id number] Ioversol (Optiray 320 100ml) 93 ml IV ONCE PRN PRN Reason: Interaction Checking Stop: 03/03/19 06:26 Last Admin: 02/27/19 06:28 Dose: 93 ml Documented by: [id number] Ketorolac Tromethamine (Toradol) 10 mg PO Q4H PRN PRN Reason: Pain Stop: 03/05/19 15:07 Last Admin: 03/02/19 09:20 Dose: 10 mg Documented by: [id number] Cosigned by: [id number] Admin: 03/01/19 23:48 Dose: 10 mg Documented by: [id number] Admin: 03/01/19 15:55 Dose: 10 mg Documented by: [id number] Admin: 03/01/19 08:33 Dose: 10 mg Documented by: [id number] Admin: 03/01/19 04:25 Dose: 10 mg Documented by: [id number] Admin: 02/28/19 22:11 Dose: 10 mg Documented by: [id number] Admin: 02/28/19 18:33 Dose: 10 mg Documented by: [id number] Levothyroxine Sodium (Synthroid) 75 mcg PO DAILYBB [facility] Stop: 03/29/19 10:29 Last Admin: 03/02/19 06:16 Dose: 75 mcg Documented by: [id number] Admin: 03/01/19 04:25 Dose: 75 mcg Documented by: [id number] Admin: 02/28/19 06:15 Dose: 75 mcg Documented by: [id number] Admin: 02/27/19 11:42 Dose: 75 mcg Documented by: [id number] Lidocaine (Xylocaine 5%) 1 appln EXT HS PRN PRN Reason: Pain Stop: 03/29/19 12:34 Last Admin: 02/28/19 23:35 Dose: 1 appln Documented by: [id number] Admin: 02/27/19 17:39 Dose: 1 appln Documented by: [id number] Lidocaine (Lidoderm 5%) 1 patch TD HS [facility] Stop: 03/29/19 20:59 Last Admin: 03/01/19 20:25 Dose: 1 patch Documented by: [id number] Admin: 02/28/19 22:10 Dose: 1 patch Documented by: [id number] Admin: 02/27/19 21:00 Dose: 1 patch Documented by: [id number] Magnesium Chloride (Slow-Mag) 128 mg PO QPM [facility] Stop: 03/29/19 20:59 Last Admin: 03/01/19 20:27 Dose: 128 mg Documented by: [id number] Admin: 02/28/19 22:09 Dose: 128 mg Documented by: [id number] Admin: 02/27/19 20:50 Dose: 128 mg Documented by: [id number] Magnesium Chloride (Slow-Mag) 192 mg PO QAM [facility] Stop: 03/29/19 10:29 Last Admin: 03/02/19 08:43 Dose: 192 mg Documented by: [id number] Cosigned by: [id number] Admin: 03/01/19 07:56 Dose: 192 mg Documented by: [id number] Admin: 02/28/19 08:01 Dose: 192 mg Documented by: [id number] Admin: 02/27/19 11:40 Dose: 192 mg Documented by: [id number] Miscellaneous (Remove Lidoderm Patch) 1 ea N/A DAILY@0900 [facility] Stop: 03/30/19 08:59 Last Admin: 03/02/19 09:10 Dose: 1 ea Documented by: [id number] Admin: 03/01/19 08:00 Dose: 1 ea Documented by: [id number] Admin: 02/28/19 08:05 Dose: 1 ea Documented by: [id number] Montelukast Sodium (Singulair) 10 mg PO DAILY [facility] Stop: 03/29/19 10:29 Last Admin: 03/02/19 08:43 Dose: 10 mg Documented by: [id number] Cosigned by: [id number] Admin: 03/01/19 08:00 Dose: 10 mg Documented by: [id number] Admin: 02/28/19 08:02 Dose: 10 mg Documented by: [id number] Admin: 02/27/19 11:40 Dose: 10 mg Documented by: [id number] Nortriptyline HCl (Pamelor) 25 mg PO HS [facility] Stop: 03/29/19 20:59 Last Admin: 03/01/19 20:27 Dose: 25 mg Documented by: [id number] Admin: 02/28/19 22:10 Dose: 25 mg Documented by: [id number] Admin: 02/27/19 20:51 Dose: 25 mg Documented by: [id number] Ondansetron HCl (Zofran Odt) 4 mg PO Q4H PRN PRN Reason: Nausea Stop: 03/30/19 08:59 Last Admin: 03/01/19 07:53 Dose: 4 mg Documented by: [id number] Admin: 02/28/19 10:58 Dose: 4 mg Documented by: [id number] Pantoprazole Sodium (Protonix) 40 mg PO DAILYBB [facility] Stop: 03/30/19 06:29 Last Admin: 03/02/19 06:16 Dose: 40 mg Documented by: [id number] Admin: 03/01/19 04:26 Dose: 40 mg Documented by: [id number] Admin: 02/28/19 06:15 Dose: 40 mg Documented by: [id number] Rivaroxaban (Xarelto) 20 mg PO DAILY [facility] Stop: 03/29/19 10:29 Last Admin: 03/02/19 08:45 Dose: 20 mg Documented by: [id number] Cosigned by: [id number] Admin: 03/01/19 07:58 Dose: 20 mg Documented by: [id number] Admin: 02/28/19 08:02 Dose: 20 mg Documented by: [id number] Admin: 02/27/19 11:41 Dose: 20 mg Documented by: [id number] Ropinirole HCl (Requip) 4 mg PO DAILY [facility] Stop: 03/29/19 10:29 Last Admin: 03/02/19 08:42 Dose: 4 mg Documented by: [id number] Cosigned by: [id number] Admin: 03/01/19 07:55 Dose: 4 mg Documented by: [id number] Admin: 02/28/19 08:00 Dose: 4 mg Documented by: [id number] Admin: 02/27/19 11:39 Dose: 4 mg Documented by: [id number] Simvastatin (Zocor) 20 mg PO DAILY [facility] Stop: 03/29/19 10:29 Last Admin: 03/02/19 08:45 Dose: 20 mg Documented by: [id number] Cosigned by: [id number] Admin: 03/01/19 07:58 Dose: 20 mg Documented by: [id number] Admin: 02/28/19 08:00 Dose: 20 mg Documented by: [id number] Admin: 02/27/19 11:41 Dose: 20 mg Documented by: [id number] Vitamin D (Vitamin D3) 2,000 units PO DAILY [facility] Stop: 03/29/19 10:29 Last Admin: 03/02/19 08:44 Dose: 2,000 units Documented by: [id number] Cosigned by: [id number] Admin: 03/01/19 07:58 Dose: 2,000 units Documented by: [id number] Admin: 02/28/19 08:01 Dose: 2,000 units Documented by: [id number] Admin: 02/27/19 11:41 Dose: 2,000 units Documented by: [id number]
[2019-03-02] MEDS: LIDOCAINE 5% 1 PATCH TD SCH (20:23)
[2019-03-02] MEDS: NORTRIPTYLINE HCL 25 MG CAP PO SCH (20:24)
[2019-03-02] MEDS: MICONAZOLE NITRATE POWDER 43 GM EXT PRN (21:06)
[2019-03-03] MEDS: ACETAMINOPHEN 325 MG TAB PO SCH ×3 (06:03→17:59)
[2019-03-03] MEDS: PANTOprazole 40 MG TAB PO SCH (06:04)
[2019-03-03] MEDS: KETOROLAC TROMETHAMINE 10 MG TABLET PO PRN ×3 (06:04→20:03)
[2019-03-03] MEDS: LEVOTHYROXINE SODIUM 75 MCG TABLET PO SCH (06:04)
--- NOTE | 2019-03-03 07:48 | Family Medicine Progress Note ---
Date of Service March 03, 2019 Assessment & Plan (1) Somatic dysfunction of rib: Etiology likely to left sided Rib 8-12 dysfunction and/or intercostal muscle spasm tylenol scheduled and toradol prn Started baclofen for muscle spasm, but did not note improvement with medication Left sided rib pain continuing to affect her mobility and breathing. We have tried OMT, muscle relaxer (baclofen), Toradol, Voltaren gel, and topical lidocaine patches with some clinical progress but not much progress endorsed by patient. This is holding her back from giving effort at PT/OT, with her current status she appears unsafe to return home to self care. (2) Left flank pain: (3) Hyperglycemia: (4) Confusion: - likely contributing to unreliable historian of subjective complaints as she is most likely unable to note daily improvement as she cannot recall prev ious day's pain to compare for improvement with current treatment. - Remains oriented to person place and situation (5) Physical deconditioning: - Difficulty moving around, would likely benefit from SNF placement to improve strength - Continuing to try and get pain adequately controlled to see if that is main contributor to her difficult mobility. (6) Acute UTI: Acute UTI * Adequately treated, 3 doses ertapenem * No further symptoms * No abdominal pain (7) Hematuria: - Will follow up as outpatient with urology for cystoscopy - No hematuria on this admission Supervising Physician Co-Signing Physician Notes I personally examined the patient and verified all menjivar points of history and exam, discussed case, and agree with decision making with Dr Tello. Left-sided back pain ongoing, unsteady gait. Vitals noted, in general she is awake and alert pleasant no distress. Occasionally she appears a little uncomfortable from her back pain. HEENT normocephalic atraumatic mucous membranes are moist. Breathing is unlabored no accessory muscle use. MSK ongoing pain. Back paincaused by intercostal spasm around ribs 11,12continue pain control/Voltaren gel/trial of baclofen, mobilization, incentive spirometry. consult pain management re ?injections possibly help? Somatic dysfunction ribsOMT has been attempted several times through her course of illness with probably mild improvement (she does seem objectively better now than before) but without enough improvement. Urinary tract infectionESBLfinished ertapenem for cystitis Confusiongiven that her mental status seems to be improving, it is quite possible that she had a degree of delirium related to the UTI, which could technically fit for a mild degree of metabolic encephalopathy Uncontrolled diabetesshowing better control without much difficulty here in the hospital. Needs ongoing education. unsteady gait - right now would not be safe at home, but does not want to go to rehab. hopefully with imrpovement in pain, home could be a viable option Otherwise as above Subjective Ms. Bobby is resting comfortably today in her chair watching television, she continues to endorse 7-8/10 left sided rib pain, but tell me that it is bearable when she's not moving. She has no other complaints at this time and ROS was reviewed and negative aside from her rib pain and some shortness of breath related to not wanting to breathe deeply for fear of pain. Physical Exam Vital Signs (Past 24 Hours): Last Vital Signs Temp 36.6 C 03/03/19 07:24 Pulse 63 03/03/19 07:24 Resp 16 03/03/19 07:24 BP 133/85 03/03/19 07:24 Pulse Ox 93 03/03/19 07:24 Constitutional: WD/WN, vitals as above + frail appearing and cooperative; no acute distress and + uncomfortable Respiratory: normal respiratory effort, lungs clear to auscultation Cardiovascular: RRR, no murmur, no edema Gastrointestinal (Abdomen): normal bowel sounds, soft, nontender, no hepatosplenomegaly Inspection/Auscultation: abdomen normal to inspection and normal bowel sounds; abdomen not distended Percussion/Palpation: abdomen soft; abdomen nontender, no guarding, abdomen not rigid and no hepatosplenomegaly Resident Activity Tracking Resident Involvement: Resident Care Provided Care Provided: Adult Hospital Medicine
[2019-03-03] MEDS: FERROUS SULFATE 325 MG TAB PO SCH (07:58)
[2019-03-03] MEDS: RIVAROXABAN 20 MG TAB PO SCH (07:58)
[2019-03-03] MEDS: MAGNESIUM CHLORIDE 64MG DELAYED REL TAB PO SCH ×3 (07:59→20:03)
[2019-03-03] MEDS: MONTELUKAST SODIUM 10 MG TABLET PO SCH (07:59)
[2019-03-03] MEDS: SIMVASTATIN 20 MG TAB PO SCH (07:59)
[2019-03-03] MEDS: ROPINIROLE HCL 1 MG TABLET PO SCH (07:59)
[2019-03-03] MEDS: CHOLECALCIFEROL 1,000 UNITS TAB PO SCH (08:00)
[2019-03-03] MEDS: CYANOCOBALAMIN 500 MCG TABLET (VITAMIN B-12) PO SCH (08:00)
[2019-03-03] MEDS: CALCIUM CARBONATE 1250MG TAB PO SCH (08:00)
[2019-03-03] MEDS: GABAPENTIN 100 MG CAP PO SCH ×2 (08:00→20:04)
[2019-03-03] MEDS: MICONAZOLE NITRATE POWDER 43 GM EXT PRN (08:02)
[2019-03-03] MEDS: INSULIN ASPART 100 UNITS/ML 3 ML PEN SC SCH ×4 (08:50→20:15)
[2019-03-03] MEDS: INSULIN GLARGINE SOLOSTAR 100 UNITS/ML 3 ML PEN SC SCH ×2 (08:51→20:13)
--- NOTE | 2019-03-03 10:10 | Pharmacy Report ---
Glycemic Control Progress Note - Date of Service March 03, 2019 - Scope Glycemic Pharmacist consulted for glycemic control to write orders per [facility] inpatient glycemic control protocol. - Objective Accuchecks BSG(last 24 hours):: 03/02/19 03/02/19 03/02/19 11:41 17:16 19:59 POC Glucose 128 H 150 H 95 03/03/19 07:32 POC Glucose 116 H HbA1c:: Hemoglobin A1c 12.8 % (4.5-5.6) H 02/27/19 06:50 - Recent Pertinent Medications The patient is currently receiving: * Basal insulin: Lantus 12 units every 12 hours * Correctional Insulin: Novolog Correction per scale ACHS Goal Range: Low 110 mg/dL - High 140 mg/dL Correction Factor: 30 mg/dL/unit * Prandial insulin: Per carb ratio of 1 unit per 10 grams CHO consumed - Outpatient Anti-Diabetic Meds noncompliant - Assessment & Plan ASSESSMENT: * See progress note from 02/26/19 for more background info, in short: * Pt receiving SQ basal bolus insulin regimen for hyperglycemia secondary to background DM. * Patient is currently receiving an average of 36 units of insulin per day * 24 units of basal insulin * 12 units of prandial/correctional insulin * BSGs ranging 95 - 150 mg/dl over the past 24hrs * Changes needed to insulin regimen: * AM Fasting BSG = 116 mg/dl. This is in goal range for patient based on inpatient targets and co-morbidities. Therefore Basal insulin will be continued. Consider transition to daily Lantus once this dose is established. * Post-prandial BSGs are in range therefore no changes needed to CF/CR. Start metformin XR BIDM for outpatient management. Hopefully this will help mitigate patient requiring significant Novolog at this point. * Total daily dose = ~35 units. * Additional notes / comments: metformin XR 500 mg BIDM PLAN FOR INPATIENT GLYCEMIC CONTROL: * Continuing Lantus 12 units SQ BID * Continuing correction factor of 30 mg/dl/unit * Continuing carb ratio of 1 unit per 10 grams CHO consumed * Continuing goal range of Low 110 mg/dL - High 140 mg/dL RECOMMENDATIONS FOR DISCHARGE: * Simplified outpatient regimen: * Lantus 24 units daily * metformin XR 500 mg BIDM * Please note that the plan above was derived based on current level of insulin resistance and hospital stress. These recommendations are appropriate for inpatient admission only. Plan of care upon discharge will need to be reassessed to avoid potential outpatient hypo/hyperglycemia. Thank you.
[2019-03-03] MEDS: BACLOFEN 10 MG TAB PO PRN (15:59)
[2019-03-03] MEDS: METFORMIN HCL ER 500 MG TABCR PO SCH (17:59)
[2019-03-03] MEDS: LIDOCAINE 5% 1 PATCH TD SCH (20:03)
[2019-03-03] MEDS: NORTRIPTYLINE HCL 25 MG CAP PO SCH (20:03)
[2019-03-04] MEDS: ACETAMINOPHEN 325 MG TAB PO SCH ×3 (00:20→12:21)
[2019-03-04] MEDS: KETOROLAC TROMETHAMINE 10 MG TABLET PO PRN ×3 (00:21→15:42)
[2019-03-04] MEDS: CYCLOBENZAPRINE HCL 5 MG TAB PO PRN ×2 (00:21→08:16)
[2019-03-04] MEDS: BACLOFEN 10 MG TAB PO PRN (03:00)
[2019-03-04] MEDS: LEVOTHYROXINE SODIUM 75 MCG TABLET PO SCH (05:38)
[2019-03-04] MEDS: PANTOprazole 40 MG TAB PO SCH (05:38)
[2019-03-04] MEDS: MICONAZOLE NITRATE POWDER 43 GM EXT PRN (06:10)
--- NOTE | 2019-03-04 07:44 | Family Medicine Progress Note ---
Date of Service March 04, 2019 Assessment & Plan (1) Somatic dysfunction of rib: 73yo who was treated for UTI that has subsequently resolved and is being evaluated currently for LL back/flank pain. L flank pain - likely radicular -XR of the ribs shows no acute pathology, Xray of thoracic spine with considerable degenerative disease -D/C tylenol, flexeril, Toradol, lidocaine patch -Baclofen switched to TID scheduled -Voltaren gel BID -Increase Gabapentin - 300 BID -Continue nortriptyline - takes for sleep -Start on [place] 5/325 q6hrs for 4 doses then prn -Colace, miralax for stools -Pain management consult- will see in 2 weeks due to having been treated with abx for UTI. f/u in 2 weeks. Constipation -Could be contributing to some of the pain pain -Agressive bowel regimen UTI -resolved after 3 doses of ertapenem. Physical deconditioning -PT/OT Hematuria -F/u as outpt with urology for cystocopy Hyperglycemia -ISS Confusion -AAOx3 -possibly with mild underlying dementia. CODE STATUS: FULL DVT Prophylaxis: On Xarelto Supervising Physician Co-Signing Physician Notes Resident Physician Supervision Note: I independently interviewed and examined the patient and verified the menjivar history and physical, reviewed labs and image studies, discussed the case with the resident Dr. Chu and agree with the findings and care plan. Subjective Pt states she is doing well except for her left lower back pain. States it is abt 1 month in duration, no radiation, constant and tender to palpation. Denies leakage of urine, stool or retention of the same. Review of Systems All systems reviewed & are unremarkable except as noted in HPI & below Physical Exam Vital Signs (Past 24 Hours): Last Vital Signs Temp 36.4 C L 03/04/19 07:33 Pulse 60 03/04/19 07:33 Resp 16 03/04/19 07:33 BP 123/75 03/04/19 07:33 Pulse Ox 93 03/04/19 07:33 General: Alert, orientedx3. HEENT: NC/AT Chest: Nontender to palpation. CV: RRR, Normal s1, s2 Resp: Breath sounds clear bilaterally, no increased effort of breathing Abdomen: Soft, nontender, nondistended. No guarding. No organomegaly appreciated. Extremities: + edema MSK: Tight muscle spasm in left lower back, tender to palpation over left lower ribs Results & Data Laboratory Results Laboratory Results - last 24 hr 03/03/19 03/04/19 03/04/19 20:07 07:46 11:37 POC Glucose 93 99 102 H 03/04/19 16:57 POC Glucose 125 H Medications Administered Home Medications Janumet 1 tab PO BID 02/22/19 [History Confirmed 02/26/19] Lantus U-100 Insulin 23 unit SUBCUT HS 02/22/19 [History Confirmed 02/26/19] Novolog Flexpen U-100 Insulin 10 unit SUBCUT TIDM 02/22/19 [History Confirmed 02/26/19] Xarelto 20 mg PO DAILY 02/22/19 [History Confirmed 02/26/19] calcium carbonate [Calcium 600] 600 mg PO DAILY 02/22/19 [History Confirmed 02/26/19] cholecalciferol (vitamin D3) [Vitamin D3] 2,000 unit PO DAILY 02/22/19 [History Confirmed 02/26/19] cyanocobalamin (vitamin B-12) [Vitamin B-12] 1,000 mcg PO DAILY 02/22/19 [History Confirmed 02/26/19] docusate sodium [Stool Softener] 100 mg PO HS PRN 02/22/19 [History Confirmed 02/26/19] ferrous sulfate [iron] 325 mg PO DAILY 02/22/19 [History Confirmed 02/26/19] gabapentin 100 mg PO BID 02/22/19 [History Confirmed 02/26/19] levothyroxine 75 mcg PO DAILY 02/22/19 [History Confirmed 02/26/19] magnesium chloride [Mag 64] 120 mg PO QPM 02/22/19 [History Confirmed 02/26/19] magnesium chloride [Mag 64] 192 mg PO QAM 02/22/19 [History Confirmed 02/26/19] montelukast [Singulair] 10 mg PO DAILY 02/22/19 [History Confirmed 02/26/19] nortriptyline 25 mg PO HS 02/22/19 [History Confirmed 02/26/19] pantoprazole 40 mg PO DAILYBB 02/22/19 [History Confirmed 02/26/19] ropinirole 4 mg PO DAILY 02/22/19 [History Confirmed 02/26/19] simvastatin 20 mg PO DAILY 02/22/19 [History Confirmed 02/26/19] diclofenac sodium [Voltaren] 1 applic EXT Q6H #6 g 02/28/19 [Rx] Active Medications Hydrocodone Bitart/Acetaminophen ([place] 5/325) 1 tab PO Q6H [facility] Stop: 03/05/19 12:01 Last Admin: 03/04/19 18:36 Dose: 1 tab Documented by: Hydrocodone Bitart/Acetaminophen ([place] 5/325) 1 tab PO Q6H PRN PRN Reason: Pain Stop: 03/19/19 17:59 Baclofen (Lioresal) 10 mg PO TID [facility] Stop: 04/03/19 20:59 Calcium Carbonate (Os-Lalit 500) 1,250 mg PO DAILY [facility] Stop: 03/29/19 10:29 Last Admin: 03/04/19 08:18 Dose: 1,250 mg Documented by: Cyanocobalamin (Vitamin B-12) 1,000 mcg PO DAILY [facility] Stop: 03/29/19 10:29 Last Admin: 03/04/19 08:17 Dose: 1,000 mcg Documented by: Dextrose (Dextrose 50%) 25 - 50 ml IV UD PRN; Protocol PRN Reason: Hypoglycemia Protocol Stop: 03/28/19 14:17 Diclofenac Sodium (Voltaren 1% Top) 1 appln EXT BID [facility] Stop: 04/03/19 13:14 Last Admin: 03/04/19 15:04 Dose: 1 appln Documented by: Docusate Sodium (Colace) 100 mg PO BID [facility] Stop: 04/03/19 20:59 Ferrous Sulfate (Feosol) 325 mg PO DAILY [facility] Stop: 03/29/19 10:29 Last Admin: 03/04/19 08:18 Dose: 325 mg Documented by: Gabapentin (Neurontin) 300 mg PO BID [facility] Stop: 04/03/19 20:59 Glucagon (Glucagen) 1 mg SQ UD PRN; Protocol PRN Reason: Hypoglycemia Protocol Stop: 03/28/19 14:17 Glucose (Glucose 40%) 15 - 30 gm PO UD PRN; Protocol PRN Reason: Hypoglycemia Protocol Stop: 03/28/19 14:17 Glucose (Dex4 Glucose) 4 - 8 tabs PO UD PRN; Protocol PRN Reason: Hypoglycemia Protocol Stop: 03/28/19 14:17 Insulin Aspart (Novolog Flexpen) 0 units SC ACHS [facility]; Protocol Stop: 03/28/19 16:29 Last Admin: 03/04/19 17:32 Dose: Not Given Documented by: Insulin Glargine (Lantus Solostar Pen) 12 units SC BID [facility]; Protocol Stop: 03/04/19 23:59 Last Admin: 03/04/19 08:24 Dose: 12 units Documented by: Insulin Glargine (Lantus Solostar Pen) 6 units SC QAM [facility]; Protocol Stop: 03/05/19 11:00 Insulin Glargine (Lantus Solostar Pen) 18 units SC QDD [facility]; Protocol Stop: 03/05/19 18:00 Levothyroxine Sodium (Synthroid) 75 mcg PO DAILYBB [facility] Stop: 03/29/19 10:29 Last Admin: 03/04/19 05:38 Dose: 75 mcg Documented by: Lidocaine (Xylocaine 5%) 1 appln EXT HS PRN PRN Reason: Pain Stop: 03/29/19 12:34 Last Admin: 02/28/19 23:35 Dose: 1 appln Documented by: Magnesium Chloride (Slow-Mag) 128 mg PO QPM [facility] Stop: 03/29/19 20:59 Last Admin: 03/03/19 20:03 Dose: 128 mg Documented by: Magnesium Chloride (Slow-Mag) 192 mg PO QAM [facility] Stop: 03/29/19 10:29 Last Admin: 03/04/19 08:18 Dose: 192 mg Documented by: Metformin HCl (Glucophage Er) 500 mg PO BIDM [facility] Stop: 04/02/19 16:59 Last Admin: 03/04/19 18:33 Dose: 500 mg Documented by: Miconazole Nitrate (Desenex) 1 appln EXT PRN PRN PRN Reason: Affected Skin Folds Stop: 04/01/19 19:57 Last Admin: 03/04/19 06:10 Dose: 1 appln Documented by: Miscellaneous (Carbohydrates For Hypoglycemia) 15 - 30 gm PO UD PRN PRN Reason: Hypoglycemia Treatment Stop: 03/28/19 14:17 Miscellaneous (Remove Lidoderm Patch) 1 ea N/A DAILY@0900 [facility] Stop: 03/30/19 08:59 Last Admin: 03/04/19 08:27 Dose: 1 ea Documented by: Miscellaneous Information (Consult Glycemic Management Pharmacy) 1 ea N/A UD PRN; Protocol PRN Reason: consult Stop: 03/28/19 14:21 Montelukast Sodium (Singulair) 10 mg PO DAILY [facility] Stop: 03/29/19 10:29 Last Admin: 03/04/19 08:18 Dose: 10 mg Documented by: Nortriptyline HCl (Pamelor) 25 mg PO HS [facility] Stop: 03/29/19 20:59 Last Admin: 03/03/19 20:03 Dose: 25 mg Documented by: Ondansetron HCl (Zofran Odt) 4 mg PO Q4H PRN PRN Reason: Nausea Stop: 03/30/19 08:59 Last Admin: 03/01/19 07:53 Dose: 4 mg Documented by: Pantoprazole Sodium (Protonix) 40 mg PO DAILYBB [facility] Stop: 03/30/19 06:29 Last Admin: 03/04/19 05:38 Dose: 40 mg Documented by: Polyethylene Glycol (Miralax Powder Packet) 17 gm PO QID [facility] Stop: 03/05/19 13:01 Last Admin: 03/04/19 18:36 Dose: 17 gm Documented by: Rivaroxaban (Xarelto) 20 mg PO DAILY [facility] Stop: 03/29/19 10:29 Last Admin: 03/04/19 08:18 Dose: 20 mg Documented by: Ropinirole HCl (Requip) 4 mg PO DAILY [facility] Stop: 03/29/19 10:29 Last Admin: 03/04/19 08:17 Dose: 4 mg Documented by: Simvastatin (Zocor) 20 mg PO DAILY [facility] Stop: 03/29/19 10:29 Last Admin: 03/04/19 08:18 Dose: 20 mg Documented by: Vitamin D (Vitamin D3) 2,000 units PO DAILY [facility] Stop: 03/29/19 10:29 Last Admin: 03/04/19 08:17 Dose: 2,000 units Documented by: Resident Activity Tracking Resident Involvement: Resident Care Provided Care Provided: Adult Hospital Medicine
[2019-03-04] MEDS: ROPINIROLE HCL 1 MG TABLET PO SCH (08:17)
[2019-03-04] MEDS: GABAPENTIN 100 MG CAP PO SCH (08:17)
[2019-03-04] MEDS: CHOLECALCIFEROL 1,000 UNITS TAB PO SCH (08:17)
[2019-03-04] MEDS: CYANOCOBALAMIN 500 MCG TABLET (VITAMIN B-12) PO SCH (08:17)
[2019-03-04] MEDS: FERROUS SULFATE 325 MG TAB PO SCH (08:18)
[2019-03-04] MEDS: CALCIUM CARBONATE 1250MG TAB PO SCH (08:18)
[2019-03-04] MEDS: SIMVASTATIN 20 MG TAB PO SCH (08:18)
[2019-03-04] MEDS: MONTELUKAST SODIUM 10 MG TABLET PO SCH (08:18)
[2019-03-04] MEDS: MAGNESIUM CHLORIDE 64MG DELAYED REL TAB PO SCH (08:18)
[2019-03-04] MEDS: RIVAROXABAN 20 MG TAB PO SCH (08:18)
[2019-03-04] MEDS: METFORMIN HCL ER 500 MG TABCR PO SCH ×2 (08:19→18:33)
[2019-03-04] MEDS: INSULIN ASPART 100 UNITS/ML 3 ML PEN SC SCH ×4 (08:23→20:52)
[2019-03-04] MEDS: INSULIN GLARGINE SOLOSTAR 100 UNITS/ML 3 ML PEN SC SCH ×2 (08:24→20:53)
--- NOTE | 2019-03-04 10:32 | Pharmacy Report ---
Pharmacy Glycemic Short Note 2 - Date of Service March 04, 2019 - Glycemic Short BSG Results (Last 24 hours): 03/03/19 03/03/19 03/03/19 11:41 16:55 20:07 POC Glucose 133 H 114 H 93 03/04/19 07:46 POC Glucose 99 OUTPATIENT ANTIDIABETIC REGIMEN: * Lantus 23 units qHS * Novolog 10 units w/ meals * Also, CDE reports Janumet mg BID Note: patient has not taken any of her diabetes medications for the past year * A1c = 12.8% on 02/27/19 ASSESSMENT: * Patient is currently receiving an average of 37 units of insulin per day * 24 units of basal insulin * 13 units of prandial/correctional insulin * BSGs ranging 93 - 133mg/dl over the past 24hrs * Changes needed to insulin regimen: * AM Fasting BSG = 99 mg/dl. Will continue current Lantus dose for today and start transitioning to once daily dosing on 03/05. * Post-prandial BSGs are in range and trending downward throughout the day. Yesterday, the patient was started on metformin ER BID. I will loosen carb ratio. May be able to d/c carb ratio in near future. PLAN FOR INPATIENT GLYCEMIC CONTROL: * Metformin ER 500 mg PO BIDM * Basal insulin * Lantus 12 units SQ BID - transition to qHS dosing on 03/05 * Bolus insulin - loosen carb ratio * NovoLog per scale ACHS or Q6hrs while NPO * Goal Range: Low 110 mg/dL - High 140 mg/dL * Correction Factor: 30 mg/dL/unit * Nutritional / Prandial insulin per carb ratio of 1 unit per 15 grams CHO consumed RECOMMENDATIONS FOR DISCHARGE: * Simplified outpatient regimen: * Lantus 24 units daily * metformin XR 500 mg BIDM
--- NOTE | 2019-03-04 12:08 | XRay Report ---
XR thoracic spine 3V routine HISTORY: Pain flank pain COMPARISON: 08/09/2016 FINDINGS: There is no fracture. No subluxation. Significant degenerative disc change throughout the entire thoracic region. No evidence for compression deformity. Stable scoliosis. IMPRESSION: 1. No acute process. 2. Scoliosis. 3. Considerable degenerative disc change. The above report was generated using voice recognition software. It may contain grammatical, syntax or spelling errors. Electronically signed by: Iván Cuevas M.D. 03/04/2019 12:07 PM
[2019-03-04] MEDS ORDERED: DICLOFENAC SOD 1% GEL 100 GM TUBE EXT ONE (13:00)
[2019-03-04] MEDS: DICLOFENAC SOD 1% GEL 100 GM TUBE EXT SCH ×2 (15:04→20:53)
[2019-03-04] MEDS: HYDROCODONE/ACETAMOPHEN 5/325MG TAB PO SCH (18:36)
[2019-03-04] MEDS: POLYETHYLENE (MIRALAX) 17 GM PACK PO SCH ×2 (18:36→20:51)
[2019-03-04] MEDS: NORTRIPTYLINE HCL 25 MG CAP PO SCH (20:49)
[2019-03-04] MEDS: GABAPENTIN 300 MG CAP PO SCH (20:50)
[2019-03-04] MEDS: BACLOFEN 10 MG TAB PO SCH (20:51)
[2019-03-04] MEDS: DOCUSATE SODIUM 100 MG CAP PO SCH (20:51)
[2019-03-05] MEDS: HYDROCODONE/ACETAMOPHEN 5/325MG TAB PO SCH ×2 (00:02→06:27)
[2019-03-05] MEDS: PANTOprazole 40 MG TAB PO SCH (06:27)
[2019-03-05] MEDS: LEVOTHYROXINE SODIUM 75 MCG TABLET PO SCH (06:28)
[2019-03-05] MEDS ORDERED: POLYETHYLENE (MIRALAX) 17 GM PACK PO SCH (09:00)
[2019-03-05] MEDS ORDERED: INSULIN GLARGINE SOLOSTAR 100 UNITS/ML 3 ML PEN SC SCH ×2 (09:00→16:30)
--- NOTE | 2019-03-05 09:06 | Pharmacy Report ---
Pharmacy Glycemic Short Note 2 - Date of Service March 05, 2019 - Glycemic Short BSG Results (Last 24 hours): 03/04/19 03/04/19 03/04/19 11:37 16:57 20:41 POC Glucose 102 H 125 H 122 H 03/05/19 07:35 POC Glucose 99 OUTPATIENT ANTIDIABETIC REGIMEN: * Lantus 23 units qHS * Novolog 10 units w/ meals * Also, CDE reports Janumet mg BID Note: patient has not taken any of her diabetes medications for the past year * A1c = 12.8% on 02/27/19 ASSESSMENT: * Patient is currently receiving an average of 25 units of insulin per day * 24 units of basal insulin * 1 units of prandial/correctional insulin * BSGs ranging 99 - 125 mg/dl over the past 24hrs * Changes needed to insulin regimen: * AM Fasting BSG = 99 mg/dl. Total daily dose of Lantus 24 units appears to be appropriate for patient. She is currently on BID Lantus. I will start transition to once daily dosing today. * Post prandial BSGs are at goal. Carb coverage was removed yesterday. PLAN FOR INPATIENT GLYCEMIC CONTROL: * Metformin ER 500 mg PO BIDM * Basal insulin - transition to once daily * 03/05: Lantus 6 units SQ qAM, Lantus 18 units SQ with dinner * 03/06: Lantus 24 units SQ with dinner * 03/07: Lantus 24 units SQ qHS * Bolus insulin * NovoLog per scale ACHS or Q6hrs while NPO * Goal Range: Low 110 mg/dL - High 140 mg/dL * Correction Factor: 30 mg/dL/unit RECOMMENDATIONS FOR DISCHARGE: * Simplified outpatient regimen: * Lantus 24 units daily * metformin XR 500 mg BIDM
--- NOTE | 2019-03-05 09:27 | Family Medicine Progress Note ---
Date of Service March 05, 2019 Assessment & Plan (1) Somatic dysfunction of rib: 73yo who was treated for UTI that has subsequently resolved and is being evaluated currently for LL back/flank pain. L flank pain - likely radicular -still in significant pain but norco helped somewhat -continue current regimen with switch to percocet instead of [place]. -XR of the ribs shows no acute pathology, Xray of thoracic spine with considerable degenerative disease -D/C tylenol, flexeril, Toradol, lidocaine patch -Baclofen switched to TID scheduled -Voltaren gel BID -Increase Gabapentin - 300 BID -Continue nortriptyline - takes for sleep -Colace, miralax for stools -Pain management consult- appreciate recs to have PCP make a referral as outpt. Constipation/Bloody stools -Could be contributing to some of the pain -Aggressive bowel regimen -now with blood in stools, hx of hemorrhoids per outpt records. -CBC ordered UTI -resolved after 3 doses of ertapenem. Physical deconditioning -PT/OT Hematuria -F/u as outpt with urology for cystocopy Hyperglycemia -ISS -Per pharmacy discharge home with Lantus 24U daily, Metformin XR 500mg Confusion -AAOx3 -possibly with mild underlying dementia. CODE STATUS: FULL DVT Prophylaxis: On Xarelto Supervising Physician Co-Signing Physician Notes Resident Physician Supervision Note: I independently interviewed and examined the patient and verified the menjivar history and physical, reviewed labs and image studies, discussed the case with the resident Dr. Chu and agree with the findings and care plan. Subjective Ms. Bobby states her pain is minimally better. Also complains of some blood in the stools which has been a chronic problem. Has a hx of hemrrhoids. States she is dizzy when she stands up but that has also been a chronic problem. Denies SOB, chest pain currently. Review of Systems All systems reviewed & are unremarkable except as noted in HPI & below Physical Exam Vital Signs (Past 24 Hours): Last Vital Signs Temp 36.9 C 03/05/19 07:27 Pulse 59 L 03/05/19 07:27 Resp 18 03/05/19 07:27 BP 104/68 03/05/19 07:27 Pulse Ox 93 03/05/19 07:27 General: Alert, oriented, resting in bed. HEENT: NC/AT Chest: Nontender to palpation. CV: RRR, Normal s1, s2 Resp: Breath sounds clear bilaterally, no increased effort of breathing Abdomen: Soft, nontender, nondistended. No guarding. No organomegaly appreciated. Extremities: + edema MSK: incubator tender to palpation over left lower ribs and left flank. Results & Data Laboratory Results Laboratory Results - last 24 hr 03/04/19 03/04/19 03/05/19 16:57 20:41 07:35 POC Glucose 125 H 122 H 99 03/05/19 11:52 POC Glucose 127 H Medications Administered Home Medications Janumet 1 tab PO BID 02/22/19 [History Confirmed 02/26/19] Lantus U-100 Insulin 23 unit SUBCUT HS 02/22/19 [History Confirmed 02/26/19] Novolog Flexpen U-100 Insulin 10 unit SUBCUT TIDM 02/22/19 [History Confirmed 02/26/19] Xarelto 20 mg PO DAILY 02/22/19 [History Confirmed 02/26/19] calcium carbonate [Calcium 600] 600 mg PO DAILY 02/22/19 [History Confirmed 02/26/19] cholecalciferol (vitamin D3) [Vitamin D3] 2,000 unit PO DAILY 02/22/19 [History Confirmed 02/26/19] cyanocobalamin (vitamin B-12) [Vitamin B-12] 1,000 mcg PO DAILY 02/22/19 [History Confirmed 02/26/19] docusate sodium [Stool Softener] 100 mg PO HS PRN 02/22/19 [History Confirmed 02/26/19] ferrous sulfate [iron] 325 mg PO DAILY 02/22/19 [History Confirmed 02/26/19] gabapentin 100 mg PO BID 02/22/19 [History Confirmed 02/26/19] levothyroxine 75 mcg PO DAILY 02/22/19 [History Confirmed 02/26/19] magnesium chloride [Mag 64] 120 mg PO QPM 02/22/19 [History Confirmed 02/26/19] magnesium chloride [Mag 64] 192 mg PO QAM 02/22/19 [History Confirmed 02/26/19] montelukast [Singulair] 10 mg PO DAILY 02/22/19 [History Confirmed 02/26/19] nortriptyline 25 mg PO HS 02/22/19 [History Confirmed 02/26/19] pantoprazole 40 mg PO DAILYBB 02/22/19 [History Confirmed 02/26/19] ropinirole 4 mg PO DAILY 02/22/19 [History Confirmed 02/26/19] simvastatin 20 mg PO DAILY 02/22/19 [History Confirmed 02/26/19] diclofenac sodium [Voltaren] 1 applic EXT Q6H #6 g 02/28/19 [Rx] Active Medications Baclofen (Lioresal) 10 mg PO TID [facility] Stop: 04/03/19 20:59 Last Admin: 03/05/19 13:18 Dose: 10 mg Documented by: Calcium Carbonate (Os-Lalit 500) 1,250 mg PO DAILY [facility] Stop: 03/29/19 10:29 Last Admin: 03/05/19 09:39 Dose: 1,250 mg Documented by: Cyanocobalamin (Vitamin B-12) 1,000 mcg PO DAILY [facility] Stop: 03/29/19 10:29 Last Admin: 03/05/19 09:28 Dose: 1,000 mcg Documented by: Dextrose (Dextrose 50%) 25 - 50 ml IV UD PRN; Protocol PRN Reason: Hypoglycemia Protocol Stop: 03/28/19 14:17 Diclofenac Sodium (Voltaren 1% Top) 1 appln EXT BID [facility] Stop: 04/03/19 13:14 Last Admin: 03/05/19 09:34 Dose: 1 appln Documented by: Docusate Sodium (Colace) 100 mg PO BID [facility] Stop: 04/03/19 20:59 Last Admin: 03/05/19 09:28 Dose: 100 mg Documented by: Ferrous Sulfate (Feosol) 325 mg PO DAILY [facility] Stop: 03/29/19 10:29 Last Admin: 03/05/19 09:31 Dose: 325 mg Documented by: Gabapentin (Neurontin) 300 mg PO BID [facility] Stop: 04/03/19 20:59 Last Admin: 03/05/19 09:31 Dose: 300 mg Documented by: Glucagon (Glucagen) 1 mg SQ UD PRN; Protocol PRN Reason: Hypoglycemia Protocol Stop: 03/28/19 14:17 Glucose (Glucose 40%) 15 - 30 gm PO UD PRN; Protocol PRN Reason: Hypoglycemia Protocol Stop: 03/28/19 14:17 Glucose (Dex4 Glucose) 4 - 8 tabs PO UD PRN; Protocol PRN Reason: Hypoglycemia Protocol Stop: 03/28/19 14:17 Insulin Aspart (Novolog Flexpen) 0 units SC ACHS [facility]; Protocol Stop: 03/28/19 16:29 Last Admin: 03/05/19 12:31 Dose: Not Given Documented by: Insulin Glargine (Lantus Solostar Pen) 18 units SC QDD [facility]; Protocol Stop: 03/05/19 18:00 Insulin Glargine (Lantus Solostar Pen) 24 units SC HS [facility]; Protocol Stop: 04/05/19 16:29 Levothyroxine Sodium (Synthroid) 75 mcg PO DAILYBB [facility] Stop: 03/29/19 10:29 Last Admin: 03/05/19 06:28 Dose: 75 mcg Documented by: Lidocaine (Xylocaine 5%) 1 appln EXT HS PRN PRN Reason: Pain Stop: 03/29/19 12:34 Last Admin: 02/28/19 23:35 Dose: 1 appln Documented by: Magnesium Chloride (Slow-Mag) 128 mg PO QPM [facility] Stop: 03/29/19 20:59 Last Admin: 03/03/19 20:03 Dose: 128 mg Documented by: Magnesium Chloride (Slow-Mag) 192 mg PO QAM [facility] Stop: 03/29/19 10:29 Last Admin: 03/05/19 09:30 Dose: 192 mg Documented by: Metformin HCl (Glucophage Er) 500 mg PO BIDM [facility] Stop: 04/02/19 16:59 Last Admin: 03/05/19 09:32 Dose: 500 mg Documented by: Miconazole Nitrate (Desenex) 1 appln EXT PRN PRN PRN Reason: Affected Skin Folds Stop: 04/01/19 19:57 Last Admin: 03/05/19 09:39 Dose: 1 appln Documented by: Miscellaneous (Carbohydrates For Hypoglycemia) 15 - 30 gm PO UD PRN PRN Reason: Hypoglycemia Treatment Stop: 03/28/19 14:17 Miscellaneous (Remove Lidoderm Patch) 1 ea N/A DAILY@0900 [facility] Stop: 03/30/19 08:59 Last Admin: 03/05/19 09:34 Dose: 1 ea Documented by: Miscellaneous Information (Consult Glycemic Management Pharmacy) 1 ea N/A UD PRN; Protocol PRN Reason: consult Stop: 03/28/19 14:21 Montelukast Sodium (Singulair) 10 mg PO DAILY [facility] Stop: 03/29/19 10:29 Last Admin: 03/05/19 09:29 Dose: 10 mg Documented by: Nortriptyline HCl (Pamelor) 25 mg PO HS [facility] Stop: 03/29/19 20:59 Last Admin: 03/04/19 20:49 Dose: 25 mg Documented by: Ondansetron HCl (Zofran Odt) 4 mg PO Q4H PRN PRN Reason: Nausea Stop: 03/30/19 08:59 Last Admin: 03/01/19 07:53 Dose: 4 mg Documented by: Oxycodone/Acetaminophen (Percocet 5mg/325mg) 1 tab PO Q4H PRN PRN Reason: Pain Stop: 03/19/19 11:38 Last Admin: 03/05/19 13:17 Dose: 1 tab Documented by: [facility]: 03/30/19 06:29 Last Admin: 03/05/19 06:27 Dose: 40 mg Documented by: Rivaroxaban (Xarelto) 20 mg PO DAILY [facility] Stop: 03/29/19 10:29 Last Admin: 03/05/19 09:31 Dose: 20 mg Documented by: Ropinirole HCl (Requip) 4 mg PO DAILY [facility] Stop: 03/29/19 10:29 Last Admin: 03/05/19 09:31 Dose: 4 mg Documented by: Simvastatin (Zocor) 20 mg PO DAILY [facility] Stop: 03/29/19 10:29 Last Admin: 03/05/19 09:31 Dose: 20 mg Documented by: Vitamin D (Vitamin D3) 2,000 units PO DAILY [facility] Stop: 03/29/19 10:29 Last Admin: 03/05/19 09:28 Dose: 2,000 units Documented by: Resident Activity Tracking Resident Involvement: Resident Care Provided Care Provided: Adult Hospital Medicine
[2019-03-05] MEDS: CYANOCOBALAMIN 500 MCG TABLET (VITAMIN B-12) PO SCH (09:28)
[2019-03-05] MEDS: CHOLECALCIFEROL 1,000 UNITS TAB PO SCH (09:28)
[2019-03-05] MEDS: DOCUSATE SODIUM 100 MG CAP PO SCH ×2 (09:28→20:54)
[2019-03-05] MEDS: MONTELUKAST SODIUM 10 MG TABLET PO SCH (09:29)
[2019-03-05] MEDS: BACLOFEN 10 MG TAB PO SCH ×3 (09:29→20:53)
[2019-03-05] MEDS: MAGNESIUM CHLORIDE 64MG DELAYED REL TAB PO SCH ×2 (09:30→20:53)
[2019-03-05] MEDS: FERROUS SULFATE 325 MG TAB PO SCH (09:31)
[2019-03-05] MEDS: GABAPENTIN 300 MG CAP PO SCH ×2 (09:31→20:54)
[2019-03-05] MEDS: ROPINIROLE HCL 1 MG TABLET PO SCH (09:31)
[2019-03-05] MEDS: RIVAROXABAN 20 MG TAB PO SCH (09:31)
[2019-03-05] MEDS: SIMVASTATIN 20 MG TAB PO SCH (09:31)
[2019-03-05] MEDS: METFORMIN HCL ER 500 MG TABCR PO SCH ×2 (09:32→17:34)
[2019-03-05] MEDS: INSULIN ASPART 100 UNITS/ML 3 ML PEN SC SCH ×4 (09:33→20:56)
[2019-03-05] MEDS: DICLOFENAC SOD 1% GEL 100 GM TUBE EXT SCH ×2 (09:34→20:57)
[2019-03-05] MEDS: POLYETHYLENE (MIRALAX) 17 GM PACK PO SCH ×2 (09:39→12:34)
[2019-03-05] MEDS: CALCIUM CARBONATE 1250MG TAB PO SCH (09:39)
[2019-03-05] MEDS: MICONAZOLE NITRATE POWDER 43 GM EXT PRN (09:39)
--- NOTE | 2019-03-05 10:02 | Pain Management Consultation ---
Date of Consultation March 05, 2019 Assessment & Plan (1) UTI (urinary tract infection): I spoke with Dr. Mercer yesterday about this patient. Patient is on optimal medical management at this time and not a candidate for any type of injections due to recent urinary tract infection. The patient still has pain after discharge a consult may be placed through her primary care physician for outpatient evaluation. History of Present Illness Attending Physician: Monisha Mercer MD Allergies Allergy/AdvReac Type Severity Reaction Status Date / Time prochlorperazine Allergy Severe EXTRAPYRAMIDAL Verified 02/22/19 15:17 S/E zolpidem Allergy Severe CONFUSION/MEMORY Verified 02/22/19 15:17 LOSS carbamazepine Allergy Intermediate CONFUSION Verified 02/22/19 15:17 duloxetine Allergy Intermediate LIGHTHEADED Verified 02/22/19 15:17 NESS/DIZZIN ESS hydrochlorothiazide Allergy Intermediate LIGHTHEADED Verified 02/22/19 15:17 NESS/DIZZIN ESS indigotindisulfonic acid Allergy Intermediate LIGHTHEADED Verified 02/22/19 15:17 NESS/DIZZIN ESS levofloxacin Allergy Mild RASH Verified 02/22/19 15:17 capsaicin Allergy Unknown NAUSEA AND Verified 02/22/19 13:44 VOMITING clonazepam Allergy Unknown UNKNOWN Verified 02/22/19 15:17 diclofenac Allergy Unknown NAUSEA AND Verified 02/22/19 15:17 VOMITING Diclopak Allergy Unknown NAUSEA AND Verified 07/27/18 14:21 VOMITING losartan Allergy Unknown ELEVATED Verified 02/22/19 15:17 CREATININE hydromorphone AdvReac Intermediate N/V AND Verified 02/22/19 15:17 NIGHTMARES morphine AdvReac Intermediate HYPOTENSION Verified 02/22/19 15:17 AND N/V nitrofurantoin AdvReac Intermediate DIARRHEA-MNPG Verified 02/22/19 15:17 LIST cyclobenzaprine AdvReac Mild N/V Verified 02/22/19 15:17 lisinopril AdvReac Mild N/V Verified 02/22/19 15:17 naproxen AdvReac Mild N/V Verified 02/22/19 15:17 oxycodone AdvReac Mild N/V Verified 02/22/19 15:17 tramadol AdvReac Unknown N/V AND Verified 02/22/19 15:17 ITCHING Home Medications Home Medications Medication Instructions Recorded Confirmed Type Janumet 1 tab PO BID 02/22/19 02/26/19 History Lantus U-100 Insulin 23 unit SUBCUT HS 02/22/19 02/26/19 History Novolog Flexpen U-100 Insulin 10 unit SUBCUT TIDM 02/22/19 02/26/19 History Xarelto 20 mg PO DAILY 02/22/19 02/26/19 History calcium carbonate [Calcium 600] 600 mg PO DAILY 02/22/19 02/26/19 History cholecalciferol (vitamin D3) 2,000 unit PO DAILY 02/22/19 02/26/19 History [Vitamin D3] cyanocobalamin (vitamin B-12) 1,000 mcg PO DAILY 02/22/19 02/26/19 History [Vitamin B-12] docusate sodium [Stool Softener] 100 mg PO HS PRN 02/22/19 02/26/19 History ferrous sulfate [iron] 325 mg PO DAILY 02/22/19 02/26/19 History gabapentin 100 mg PO BID 02/22/19 02/26/19 History levothyroxine 75 mcg PO DAILY 02/22/19 02/26/19 History magnesium chloride [Mag 64] 120 mg PO QPM 02/22/19 02/26/19 History magnesium chloride [Mag 64] 192 mg PO QAM 02/22/19 02/26/19 History montelukast [Singulair] 10 mg PO DAILY 02/22/19 02/26/19 History nortriptyline 25 mg PO HS 02/22/19 02/26/19 History pantoprazole 40 mg PO DAILYBB 02/22/19 02/26/19 History ropinirole 4 mg PO DAILY 02/22/19 02/26/19 History simvastatin 20 mg PO DAILY 02/22/19 02/26/19 History diclofenac sodium [Voltaren] 1 applic EXT Q6H #6 g 02/28/19 Rx Patient History Medical History COPD (chronic obstructive pulmonary disease) (Chronic) Pulmonary emboli (Resolved) B12 deficiency Diabetes mellitus GERD (gastroesophageal reflux disease) HLD (hyperlipidemia) Hypothyroidism Restless leg syndrome Surgical History H/O hysterectomy for benign disease S/P appendectomy S/P cholecystectomy Family History Mother Diabetes Social History Communication Ability: Effective Beliefs That Will Affect Care: None Current Living Situation: Spouse Other Information That Helps Us Care for You: No Feels Safe at Home: Yes Safety Concerns: Feels Safe At This Time Smoking Status: Never smoker Hx Alcohol Use: No Hx Substance Use: No Physical Exam Vital Signs (Past 24 Hours): Last Vital Signs Temp 36.9 C 03/05/19 07:27 Pulse 59 L 03/05/19 07:27 Resp 18 03/05/19 07:27 BP 104/68 03/05/19 07:27 Pulse Ox 93 03/05/19 07:27
[2019-03-05] MEDS: OXYCODONE/ACETAMINOPHEN 5mg/325mg TAB PO PRN ×2 (13:17→17:37)
[2019-03-05 15:34] LABS: Basophils # (auto) 0.02 K/uL (0-0.2); Basophils % (auto) 0.2 %; Eosinophils # (auto) 0.28 K/uL (0-0.5); Eosinophils % (auto) 2.8 %; Hematocrit (blood only) 44.9 % (37-47); Hemoglobin 15.2 g/dL (12.0-16.0); Immature Granulocytes # (auto) 0.02 K/uL (0.00-0.02); Immature Granulocytes % (auto) 0.2 %; Lymphocytes # (auto) 3.44 K/uL (1.2-3.4); Lymphocytes % (auto) 34.3 %; Mean Corpuscular Hgb Conc 33.9 g/dL (32-36); Mean Platelet Volume 11.2 fL (7.4-10.4); Neutrophils # (auto) 5.37 K/uL (1.4-6.5); Neutrophils % (auto) 53.5 %; Platelet Count 205 K/uL (130-400); RDW Coefficient of Variation 13.3 % (11.5-14.5); RDW Standard Deviation 45.4 fL (36.4-46.3); Red Blood Count 4.83 M/uL (4.2-5.4); White Blood Count 10.03 K/uL (4.8-10.8)
[2019-03-05] MEDS ORDERED: HYDROCODONE/ACETAMOPHEN 5/325MG TAB PO PRN (18:00)
[2019-03-05] MEDS: ONDANSETRON 4 MG OD TAB PO PRN (18:47)
[2019-03-05] MEDS: NORTRIPTYLINE HCL 25 MG CAP PO SCH (20:54)
[2019-03-06] MEDS: OXYCODONE/ACETAMINOPHEN 5mg/325mg TAB PO PRN (02:28)
[2019-03-06] MEDS: LEVOTHYROXINE SODIUM 75 MCG TABLET PO SCH (05:41)
[2019-03-06] MEDS: PANTOprazole 40 MG TAB PO SCH (05:41)
[2019-03-06 06:23] LABS: Hematocrit (blood only) 46.7 % (37-47); Hemoglobin 15.7 g/dL (12.0-16.0); Mean Corpuscular Hgb Conc 33.6 g/dL (32-36); Mean Corpuscular Volume 93.2 fL (80-100); Mean Platelet Volume 10.7 fL (7.4-10.4); Platelet Count 215 K/uL (130-400); RDW Coefficient of Variation 13.3 % (11.5-14.5); RDW Standard Deviation 45.3 fL (36.4-46.3); Red Blood Count 5.01 M/uL (4.2-5.4); White Blood Count 14.71 K/uL (4.8-10.8)
[2019-03-06] MEDS: ONDANSETRON 4 MG OD TAB PO PRN (06:23)
[2019-03-06 06:43] LABS: BUN Creatinine Ratio 20.8 (10-20); Creatinine Clr Calc Pharmacy 36.9 ml/min; Est GFR (African American) 54.3; Est GFR (Non-African American) 46.8; Potassium 4.3 mmol/L (3.5-5.1)
[2019-03-06 07:30] LABS: Basophils # (auto) 0.04 K/uL (0-0.2); Basophils % (auto) 0.3 %; Eosinophils # (auto) 0.44 K/uL (0-0.5); Immature Granulocytes # (auto) 0.03 K/uL (0.00-0.02); Immature Granulocytes % (auto) 0.2 %; Lymphocytes # (auto) 7.52 K/uL (1.2-3.4); Lymphocytes % (auto) 51.1 %; Monocytes # (auto) 1.14 K/uL (0.11-0.59); Monocytes % (auto) 7.7 %; Neutrophils # (auto) 5.54 K/uL (1.4-6.5); Neutrophils % (auto) 37.7 %; RBC Morphology Unremarkable
[2019-03-06] MEDS: DOCUSATE SODIUM 100 MG CAP PO SCH ×2 (07:47→20:13)
[2019-03-06] MEDS: GABAPENTIN 300 MG CAP PO SCH ×2 (07:47→20:14)
[2019-03-06] MEDS: BACLOFEN 10 MG TAB PO SCH ×3 (07:48→20:14)
[2019-03-06] MEDS: CALCIUM CARBONATE 1250MG TAB PO SCH (07:48)
[2019-03-06] MEDS: CHOLECALCIFEROL 1,000 UNITS TAB PO SCH (07:48)
[2019-03-06] MEDS: MONTELUKAST SODIUM 10 MG TABLET PO SCH (07:49)
[2019-03-06] MEDS: ROPINIROLE HCL 1 MG TABLET PO SCH (07:49)
[2019-03-06] MEDS: FERROUS SULFATE 325 MG TAB PO SCH (07:50)
[2019-03-06] MEDS: MAGNESIUM CHLORIDE 64MG DELAYED REL TAB PO SCH ×2 (07:50→20:13)
[2019-03-06] MEDS: RIVAROXABAN 20 MG TAB PO SCH (07:50)
[2019-03-06] MEDS: CYANOCOBALAMIN 500 MCG TABLET (VITAMIN B-12) PO SCH (07:51)
[2019-03-06] MEDS: SIMVASTATIN 20 MG TAB PO SCH (07:51)
[2019-03-06] MEDS: METFORMIN HCL ER 500 MG TABCR PO SCH ×2 (07:51→17:44)
[2019-03-06] MEDS: DICLOFENAC SOD 1% GEL 100 GM TUBE EXT SCH ×2 (07:52→20:15)
[2019-03-06] MEDS: INSULIN ASPART 100 UNITS/ML 3 ML PEN SC SCH ×4 (07:52→20:59)
--- NOTE | 2019-03-06 10:43 | Pharmacy Report ---
Pharmacy Glycemic Short Note 2 - Date of Service March 06, 2019 - Glycemic Short BSG Results (Last 24 hours): 03/05/19 03/05/19 03/05/19 11:52 16:53 20:01 Glucose POC Glucose 127 H 144 H 138 H 03/06/19 03/06/19 06:06 07:44 Glucose 123 H POC Glucose 104 H OUTPATIENT ANTIDIABETIC REGIMEN: * Lantus 23 units qHS * Novolog 10 units w/ meals * Also, CDE reports Janumet mg BID Note: patient has not taken any of her diabetes medications for the past year * A1c = 12.8% on 02/27/19 ASSESSMENT: * Patient is currently receiving an average of 25 units of insulin per day with excellent glycemic control: * 24 units of basal insulin * 1 units of prandial/correctional insulin * BSGs ranging 99-144 mg/dl over the past 24hrs * Changes needed to insulin regimen: * AM Fasting BSG = 99 mg/dl. Total daily dose of Lantus 24 units appears to be appropriate for patient. Patient has been transitioned to once daily Lantus. * Post prandial BSGs are at goal. PLAN FOR INPATIENT GLYCEMIC CONTROL: * Metformin ER 500 mg PO BIDM * Basal insulin * 03/06: Lantus 24 units SQ with dinner * 03/07: Lantus 24 units SQ qHS * Bolus insulin * NovoLog per scale ACHS or Q6hrs while NPO * Goal Range: Low 110 mg/dL - High 140 mg/dL * Correction Factor: 30 mg/dL/unit RECOMMENDATIONS FOR DISCHARGE: * Simplified outpatient regimen: * Lantus 24 units daily at bedtime * Metformin XR 500 mg BIDM
--- NOTE | 2019-03-06 11:58 | Family Medicine Progress Note ---
Date of Service March 06, 2019 Assessment & Plan (1) Somatic dysfunction of rib: 73yo who was treated for UTI that has subsequently resolved and is being evaluated currently for LL back/flank pain. L flank pain - likely radicular -Significantly improved with Percocet however N/V with use. Will replace with [place] 10mg qid and assess effect. -XR of the ribs shows no acute pathology, Xray of thoracic spine with considerable degenerative disease -D/C tylenol, flexeril, Toradol, lidocaine patch -Baclofen switched to TID scheduled -Voltaren gel BID -Increase Gabapentin - 300 BID -Continue nortriptyline - takes for sleep -Colace, miralax for stools -Pain management consult- appreciate recs to have PCP make a referral as outpt. Constipation/Bloody stools -Could be contributing to some of the pain -Aggressive bowel regimen -now with blood in stools, hx of hemorrhoids per outpt records. -CBC ordered and H/H within normal limits -continue bowel regimen as pt on opioids. UTI -WBC increased today with some mild dysuria. -UA ordered today to rule out UTI cause once more. -Previously resolved this hospitalization after 3 doses of ertapenem. Physical deconditioning -PT/OT Hematuria -F/u UA as outpatient Hyperglycemia -ISS -Per pharmacy discharge home with Lantus 24U daily, Metformin XR 500mg Confusion -AAOx3 -possibly with mild underlying dementia. CODE STATUS: FULL DVT Prophylaxis: On Xarelto Supervising Physician Co-Signing Physician Notes Resident Physician Supervision Note: I independently interviewed and examined the patient and verified the menjivar history and physical, reviewed labs and image studies, discussed the case with the resident Dr. Chu and agree with the findings and care plan. Subjective Pt states that her pain is better today except the percocet med that seems to help made her throw up twice. Also episodes of bloody stools yesterday (hx of hemrrhoids) but denies SOB, tachycardia, palpitations. No further bowel movement since last episode of bloody stool yesterday. Denies fevers, chills night sweats. Review of Systems All systems reviewed & are unremarkable except as noted in HPI & below Physical Exam Vital Signs (Past 24 Hours): Last Vital Signs Temp 36.4 C L 03/06/19 07:47 Pulse 59 L 03/06/19 07:47 Resp 16 03/06/19 07:47 BP 99/65 L 03/06/19 07:47 Pulse Ox 96 03/06/19 07:47 General: Alert, oriented, resting in bed. Not actively throwing up. HEENT: NC/AT Chest: Nontender to palpation. CV: RRR, Normal s1, s2 Resp: Breath sounds clear bilaterally, no increased effort of breathing Abdomen: Soft, nontender, nondistended. No guarding. No organomegaly appreciated. Extremities: + edema MSK: Tender to palpation over left lower ribs and left flank. Results & Data Laboratory Results Laboratory Results - last 24 hr 03/05/19 03/05/19 03/05/19 14:56 16:53 20:01 WBC 10.03 RBC 4.83 Hgb 15.2 Hct 44.9 MCV 93.0 MCH 31.5 MCHC 33.9 RDW Std Deviation 45.4 RDW Coeff of Jayden 13.3 Plt Count 205 MPV 11.2 H Immature Gran % (Auto) 0.2 Neut % (Auto) 53.5 Lymph % (Auto) 34.3 Lawrence % (Auto) 9.0 Eos % (Auto) 2.8 Baso % (Auto) 0.2 Immature Gran # (Auto) 0.02 Neut # (Auto) 5.37 Lymph # (Auto) 3.44 H Lawrence # (Auto) 0.90 H Eos # (Auto) 0.28 Baso # (Auto) 0.02 RBC Morphology Sodium Potassium Chloride Carbon Dioxide Anion Gap BUN Creatinine Est Cr Clr Drug Dosing Est GFR ( Amer) Est GFR (Non-Af Amer) BUN/Creatinine Ratio Glucose POC Glucose 144 H 138 H Calcium 03/06/19 03/06/19 03/06/19 06:06 06:06 07:44 WBC 14.71 H RBC 5.01 Hgb 15.7 Hct 46.7 MCV 93.2 MCH 31.3 MCHC 33.6 RDW Std Deviation 45.3 RDW Coeff of Jayden 13.3 Plt Count 215 MPV 10.7 H Immature Gran % (Auto) 0.2 Neut % (Auto) 37.7 Lymph % (Auto) 51.1 Lawrence % (Auto) 7.7 Eos % (Auto) 3.0 Baso % (Auto) 0.3 Immature Gran # (Auto) 0.03 H Neut # (Auto) 5.54 Lymph # (Auto) 7.52 H Lawrence # (Auto) 1.14 H Eos # (Auto) 0.44 Baso # (Auto) 0.04 RBC Morphology Unremarkable Sodium 141 Potassium 4.3 Chloride 111 H Carbon Dioxide 21 Anion Gap 9.0 BUN 24 H Creatinine 1.15 Est Cr Clr Drug Dosing 36.9 Est GFR ( Amer) 54.3 Est GFR (Non-Af Amer) 46.8 BUN/Creatinine Ratio 20.8 H Glucose 123 H POC Glucose 104 H Calcium 10.0 03/06/19 11:29 WBC RBC Hgb Hct MCV MCH MCHC RDW Std Deviation RDW Coeff of Jayden Plt Count MPV Immature Gran % (Auto) Neut % (Auto) Lymph % (Auto) Lawrence % (Auto) Eos % (Auto) Baso % (Auto) Immature Gran # (Auto) Neut # (Auto) Lymph # (Auto) Lawrence # (Auto) Eos # (Auto) Baso # (Auto) RBC Morphology Sodium Potassium Chloride Carbon Dioxide Anion Gap BUN Creatinine Est Cr Clr Drug Dosing Est GFR ( Amer) Est GFR (Non-Af Amer) BUN/Creatinine Ratio Glucose POC Glucose 108 H Calcium Medications Administered Home Medications Janumet 1 tab PO BID 02/22/19 [History Confirmed 02/26/19] Lantus U-100 Insulin 23 unit SUBCUT HS 02/22/19 [History Confirmed 02/26/19] Novolog Flexpen U-100 Insulin 10 unit SUBCUT TIDM 02/22/19 [History Confirmed 02/26/19] Xarelto 20 mg PO DAILY 02/22/19 [History Confirmed 02/26/19] calcium carbonate [Calcium 600] 600 mg PO DAILY 02/22/19 [History Confirmed 02/26/19] cholecalciferol (vitamin D3) [Vitamin D3] 2,000 unit PO DAILY 02/22/19 [History Confirmed 02/26/19] cyanocobalamin (vitamin B-12) [Vitamin B-12] 1,000 mcg PO DAILY 02/22/19 [History Confirmed 02/26/19] docusate sodium [Stool Softener] 100 mg PO HS PRN 02/22/19 [History Confirmed 02/26/19] ferrous sulfate [iron] 325 mg PO DAILY 02/22/19 [History Confirmed 02/26/19] gabapentin 100 mg PO BID 02/22/19 [History Confirmed 02/26/19] levothyroxine 75 mcg PO DAILY 02/22/19 [History Confirmed 02/26/19] magnesium chloride [Mag 64] 120 mg PO QPM 02/22/19 [History Confirmed 02/26/19] magnesium chloride [Mag 64] 192 mg PO QAM 02/22/19 [History Confirmed 02/26/19] montelukast [Singulair] 10 mg PO DAILY 02/22/19 [History Confirmed 02/26/19] nortriptyline 25 mg PO HS 02/22/19 [History Confirmed 02/26/19] pantoprazole 40 mg PO DAILYBB 02/22/19 [History Confirmed 02/26/19] ropinirole 4 mg PO DAILY 02/22/19 [History Confirmed 02/26/19] simvastatin 20 mg PO DAILY 02/22/19 [History Confirmed 02/26/19] diclofenac sodium [Voltaren] 1 applic EXT Q6H #6 g 02/28/19 [Rx] Active Medications Baclofen (Lioresal) 10 mg PO TID PRISCILLA Stop: 04/03/19 20:59 Last Admin: 03/06/19 07:48 Dose: 10 mg Documented by: Calcium Carbonate (Os-Lalit 500) 1,250 mg PO DAILY PRISCILLA Stop: 03/29/19 10:29 Last Admin: 03/06/19 07:48 Dose: 1,250 mg Documented by: Cyanocobalamin (Vitamin B-12) 1,000 mcg PO DAILY PRISCILLA Stop: 03/29/19 10:29 Last Admin: 03/06/19 07:51 Dose: 1,000 mcg Documented by: Dextrose (Dextrose 50%) 25 - 50 ml IV UD PRN; Protocol PRN Reason: Hypoglycemia Protocol Stop: 03/28/19 14:17 Diclofenac Sodium (Voltaren 1% Top) 1 appln EXT BID PRISCILLA Stop: 04/03/19 13:14 Last Admin: 03/06/19 07:52 Dose: 1 appln Documented by: Docusate Sodium (Colace) 100 mg PO BID PRISCILLA Stop: 04/03/19 20:59 Last Admin: 03/06/19 07:47 Dose: 100 mg Documented by: Ferrous Sulfate (Feosol) 325 mg PO DAILY PRISCILLA Stop: 03/29/19 10:29 Last Admin: 03/06/19 07:50 Dose: 325 mg Documented by: Gabapentin (Neurontin) 300 mg PO BID [facility] Stop: 04/03/19 20:59 Last Admin: 03/06/19 07:47 Dose: 300 mg Documented by: Glucagon (Glucagen) 1 mg SQ UD PRN; Protocol PRN Reason: Hypoglycemia Protocol Stop: 03/28/19 14:17 Glucose (Glucose 40%) 15 - 30 gm PO UD PRN; Protocol PRN Reason: Hypoglycemia Protocol Stop: 03/28/19 14:17 Glucose (Dex4 Glucose) 4 - 8 tabs PO UD PRN; Protocol PRN Reason: Hypoglycemia Protocol Stop: 03/28/19 14:17 Insulin Aspart (Novolog Flexpen) 0 units SC [facility]; Protocol Stop: 03/28/19 16:29 Last Admin: 03/06/19 07:52 Dose: Not Given Documented by: Insulin Glargine (Lantus Solostar Pen) 24 units SC [facility]; Protocol Stop: 04/05/19 16:29 [facility] Stop: 03/29/19 10:29 Last Admin: 03/06/19 05:41 Dose: 75 mcg Documented by: Lidocaine (Xylocaine 5%) 1 appln EXT HS PRN PRN Reason: Pain Stop: 03/29/19 12:34 Last Admin: 02/28/19 23:35 Dose: 1 appln Documented by: Magnesium Chloride (Slow-Mag) 128 mg PO QPM [facility] Stop: 03/29/19 20:59 Last Admin: 03/05/19 20:53 Dose: 128 mg Documented by: Magnesium Chloride (Slow-Mag) 192 mg PO QAM [facility] Stop: 03/29/19 10:29 Last Admin: 03/06/19 07:50 Dose: 192 mg Documented by: Metformin HCl (Glucophage Er) 500 mg PO BIDM [facility] Stop: 04/02/19 16:59 Last Admin: 03/06/19 07:51 Dose: 500 mg Documented by: Miconazole Nitrate (Desenex) 1 appln EXT PRN PRN PRN Reason: Affected Skin Folds Stop: 04/01/19 19:57 Last Admin: 03/05/19 09:39 Dose: 1 appln Documented by: Miscellaneous (Carbohydrates For Hypoglycemia) 15 - 30 gm PO UD PRN PRN Reason: Hypoglycemia Treatment Stop: 03/28/19 14:17 Miscellaneous (Remove Lidoderm Patch) 1 ea N/A DAILY@0900 [facility] Stop: 03/30/19 08:59 Last Admin: 03/06/19 07:52 Dose: 1 ea Documented by: Miscellaneous Information (Consult Glycemic Management Pharmacy) 1 ea N/A UD PRN; Protocol PRN Reason: consult Stop: 03/28/19 14:21 Montelukast Sodium (Singulair) 10 mg PO DAILY [facility] Stop: 03/29/19 10:29 Last Admin: 03/06/19 07:49 Dose: 10 mg Documented by: Nortriptyline HCl (Pamelor) 25 mg PO HS [facility] Stop: 03/29/19 20:59 Last Admin: 03/05/19 20:54 Dose: 25 mg Documented by: Ondansetron HCl (Zofran Odt) 4 mg PO Q4H PRN PRN Reason: Nausea Stop: 03/30/19 08:59 Last Admin: 03/06/19 06:23 Dose: 4 mg Documented by: Oxycodone/Acetaminophen (Percocet 5mg/325mg) 1 tab PO Q4H PRN PRN Reason: Pain Stop: 03/19/19 11:38 Last Admin: 03/06/19 02:28 Dose: 1 tab Documented by: Pantoprazole Sodium (Protonix) 40 mg PO DAILYBB [facility] Stop: 03/30/19 06:29 Last Admin: 03/06/19 05:41 Dose: 40 mg Documented by: Rivaroxaban (Xarelto) 20 mg PO DAILY [facility] Stop: 03/29/19 10:29 Last Admin: 03/06/19 07:50 Dose: 20 mg Documented by: Ropinirole HCl (Requip) 4 mg PO DAILY [facility] Stop: 03/29/19 10:29 Last Admin: 03/06/19 07:49 Dose: 4 mg Documented by: Simvastatin (Zocor) 20 mg PO DAILY [facility] Stop: 03/29/19 10:29 Last Admin: 03/06/19 07:51 Dose: 20 mg Documented by: Vitamin D (Vitamin D3) 2,000 units PO DAILY [facility] Stop: 03/29/19 10:29 Last Admin: 03/06/19 07:48 Dose: 2,000 units Documented by:
[2019-03-06] MEDS: HYDROCODONE/ACETAMINOPHEN 10/325 TAB PO SCH ×3 (12:39→20:17)
[2019-03-06 14:27] LABS: Appearance Urine Clear (Clear); Bacteria Urine Automated 2+ (Negative); Bilirubin Urine Negative (Negative); Blood Urine 2+ (Negative); Color Urine Yellow; Epithelial Cell Urine Auto >30 /lpf (0-5); Glucose Urine UA Negative (Negative); Ketones Urine Negative (Negative); Leukocyte Esterase Urine 1+ (Negative); Nitrite Urine Negative (Negative); Protein Urine Negative (Negative); Specific Gravity Urine 1.022 (1.000-1.030); Urobilinogen Urine Negative (Negative)
[2019-03-06] MEDS ORDERED: INSULIN GLARGINE SOLOSTAR 100 UNITS/ML 3 ML PEN SC SCH (16:30)
[2019-03-06] MEDS: NORTRIPTYLINE HCL 25 MG CAP PO SCH (20:14)
[2019-03-07] MEDS: LIDOCAINE HCL 5% OINT 30 GM TUBE EXT PRN ×2 (01:27→23:47)
[2019-03-07] MEDS: PANTOprazole 40 MG TAB PO SCH (05:47)
[2019-03-07] MEDS: LEVOTHYROXINE SODIUM 75 MCG TABLET PO SCH (05:47)
[2019-03-07 06:04] LABS: Basophils # (auto) 0.03 K/uL (0-0.2); Basophils % (auto) 0.3 %; Eosinophils # (auto) 0.42 K/uL (0-0.5); Eosinophils % (auto) 3.6 %; Hematocrit (blood only) 41.5 % (37-47); Hemoglobin 13.8 g/dL (12.0-16.0); Immature Granulocytes # (auto) 0.02 K/uL (0.00-0.02); Immature Granulocytes % (auto) 0.2 %; Lymphocytes # (auto) 4.16 K/uL (1.2-3.4); Lymphocytes % (auto) 35.8 %; Mean Corpuscular Hgb Conc 33.3 g/dL (32-36); Mean Corpuscular Volume 93.7 fL (80-100); Mean Platelet Volume 10.8 fL (7.4-10.4); Monocytes # (auto) 1.15 K/uL (0.11-0.59); Monocytes % (auto) 9.9 %; Neutrophils # (auto) 5.84 K/uL (1.4-6.5); Neutrophils % (auto) 50.2 %; Platelet Count 175 K/uL (130-400); RDW Coefficient of Variation 13.2 % (11.5-14.5); RDW Standard Deviation 45.3 fL (36.4-46.3); Red Blood Count 4.43 M/uL (4.2-5.4); White Blood Count 11.62 K/uL (4.8-10.8)
[2019-03-07 06:39] LABS: BUN Creatinine Ratio 24.4 (10-20); Calcium 8.9 mg/dl (8.5-10.1); Est GFR (African American) 57.9
[2019-03-07] MEDS: CALCIUM CARBONATE 1250MG TAB PO SCH (07:50)
[2019-03-07] MEDS: CHOLECALCIFEROL 1,000 UNITS TAB PO SCH (07:50)
[2019-03-07] MEDS: METFORMIN HCL ER 500 MG TABCR PO SCH ×2 (07:50→17:56)
[2019-03-07] MEDS: GABAPENTIN 300 MG CAP PO SCH ×2 (07:50→21:21)
[2019-03-07] MEDS: BACLOFEN 10 MG TAB PO SCH ×3 (07:50→21:22)
[2019-03-07] MEDS: MONTELUKAST SODIUM 10 MG TABLET PO SCH (07:51)
[2019-03-07] MEDS: MAGNESIUM CHLORIDE 64MG DELAYED REL TAB PO SCH ×2 (07:51→21:20)
[2019-03-07] MEDS: CYANOCOBALAMIN 500 MCG TABLET (VITAMIN B-12) PO SCH (07:51)
[2019-03-07] MEDS: RIVAROXABAN 20 MG TAB PO SCH (07:52)
[2019-03-07] MEDS: SIMVASTATIN 20 MG TAB PO SCH (07:52)
[2019-03-07] MEDS: ROPINIROLE HCL 1 MG TABLET PO SCH (07:52)
[2019-03-07] MEDS: DOCUSATE SODIUM 100 MG CAP PO SCH ×2 (07:53→21:21)
[2019-03-07] MEDS: DICLOFENAC SOD 1% GEL 100 GM TUBE EXT SCH ×2 (07:53→21:22)
[2019-03-07] MEDS: FERROUS SULFATE 325 MG TAB PO SCH (07:53)
[2019-03-07] MEDS: POLYETHYLENE (MIRALAX) 17 GM PACK PO SCH (07:53)
[2019-03-07] MEDS: HYDROCODONE/ACETAMINOPHEN 10/325 TAB PO SCH ×2 (07:57→12:52)
[2019-03-07] MEDS: INSULIN ASPART 100 UNITS/ML 3 ML PEN SC SCH ×4 (08:00→21:22)
--- NOTE | 2019-03-07 13:11 | Family Medicine Progress Note ---
Date of Service March 07, 2019 Assessment & Plan (1) Somatic dysfunction of rib: 73yo who was treated for UTI that has subsequently resolved and is being evaluated currently for LL back/flank pain. Pt with multiple episodes of vomitting today. Has been accepted to [facility] in [place]. Episode of dizziness with N/V, confusion, HTN, abnormal eye movements, abdominal pain. -CT Head rules out acute changes or stroke -Likely related to Hays use. Dose and scheduling readjusted. -Resolving -Will continue to monitor. L flank pain - likely radicular -Cut Hays dose down to 5mg/325 q6hr. -XR of the ribs shows no acute pathology, Xray of thoracic spine with considerable degenerative disease -Baclofen TID scheduled -Voltaren gel BID -Increase Gabapentin - 300 BID -Continue nortriptyline - takes for sleep -Colace, miralax for stools -Pain management consult- appreciate recs to have PCP make a referral as outpt. Recently treated UTI -WBC increased currently, with historically some mild dysuria. -UA ordered to rule out UTI cause once more. Shows an asymptomatic UTI. Urine Cx-grew out E coli. Sensitivities to follow. -Previously resolved this hospitalization after 3 doses of ertapenem. -Since asymptomatic currently, will not treat. -Will continue to monitor. Constipation/Bloody stools--CURRENTLY RESOLVED -Could be contributing to some of the pain -Aggressive bowel regimen -now with blood in stools, hx of hemorrhoids per outpt records. -CBC ordered and H/H within normal limits -continue bowel regimen as pt on opioids. Physical deconditioning -PT/OT Hematuria -F/u UA as outpatient Hyperglycemia -ISS -Per pharmacy discharge home with Lantus 24U daily, Metformin XR 500mg Confusion -AAOx3 -possibly with mild underlying dementia. CODE STATUS: FULL DVT Prophylaxis: On Xarelto Supervising Physician Co-Signing Physician Notes Resident Physician Supervision Note: I independently interviewed and examined the patient and verified the menjivar history and physical, reviewed labs and image studies, discussed the case with the resident Dr. Chu and agree with the findings and care plan. Subjective Pt stated this AM that her pain was not well controlled. Around midday, had an episode of presyncope while using the bathroom. States she felt dizzy and had multiple episodes of dark brown emesis assocaited with an increase in BP to the 200s, and what nursing describes as abnormal eye movements. Nursing also states that she has some somnolence and confusion afterwards. Review of Systems All systems reviewed & are unremarkable except as noted in HPI & below Physical Exam Vital Signs (Past 24 Hours): Last Vital Signs Temp 36.6 C 03/07/19 07:26 Pulse 80 03/07/19 12:42 Resp 18 03/07/19 07:26 BP 118/78 03/07/19 12:42 Pulse Ox 94 03/07/19 12:42 General: Alert, orientedx3. ACTIVELY throwing up. Neuro: CNII-XII grossly intact. 5/5 UE and LE strength bilaterally. HEENT: NC/AT, symmetrical face, no facial drooping, EOMI grossly. Chest: Nontender to palpation. CV: RRR, Normal s1, s2 Resp: Breath sounds clear bilaterally, no increased effort of breathing Abdomen: Soft, tender to palpation in LLQ, nondistended. No guarding. No organomegaly appreciated. Extremities: + edema MSK: Tender to palpation over left lower ribs and left flank. Results & Data Laboratory Results Laboratory Results - last 24 hr 03/06/19 03/06/19 03/06/19 14:10 16:50 16:54 WBC RBC Hgb Hct MCV MCH MCHC RDW Std Deviation RDW Coeff of Jayden Plt Count MPV Immature Gran % (Auto) Neut % (Auto) Lymph % (Auto) [place] % (Auto) Eos % (Auto) Baso % (Auto) Immature Gran # (Auto) Neut # (Auto) Lymph # (Auto) [place] # (Auto) Eos # (Auto) Baso # (Auto) Sodium Potassium Chloride Carbon Dioxide Anion Gap BUN Creatinine Est Cr Clr Drug Dosing Est GFR ( Amer) Est GFR (Non-Af Amer) BUN/Creatinine Ratio Glucose POC Glucose 124 H 126 H Calcium Urine Color Yellow Urine Appearance Clear Urine pH 5.0 Ur Specific [place] 1.022 Urine Protein Negative Urine Glucose (UA) Negative Urine Ketones Negative Urine Blood 2+ H Urine Nitrite Negative Urine Bilirubin Negative Urine Urobilinogen Negative Ur Leukocyte Esterase 1+ H Urine WBC (Auto) 10-30 H Urine RBC (Auto) 10-30 H U Hyaline Cast (Auto) 1-5 U Epithel Cells (Auto) >30 H Urine Bacteria (Auto) 2+ H 03/06/19 03/07/19 03/07/19 20:11 05:42 05:42 WBC 11.62 H RBC 4.43 Hgb 13.8 Hct 41.5 MCV 93.7 MCH 31.2 MCHC 33.3 RDW Std Deviation 45.3 RDW Coeff of Jayden 13.2 Plt Count 175 MPV 10.8 H Immature Gran % (Auto) 0.2 Neut % (Auto) 50.2 Lymph % (Auto) 35.8 [place] % (Auto) 9.9 Eos % (Auto) 3.6 Baso % (Auto) 0.3 Immature Gran # (Auto) 0.02 Neut # (Auto) 5.84 Lymph # (Auto) 4.16 H [place] # (Auto) 1.15 H Eos # (Auto) 0.42 Baso # (Auto) 0.03 Sodium 141 Potassium 4.0 Chloride 110 H Carbon Dioxide 27 Anion Gap 4.0 BUN 27 H Creatinine 1.09 Est Cr Clr Drug Dosing 39.0 Est GFR ( Amer) 57.9 Est GFR (Non-Af Amer) 50.0 BUN/Creatinine Ratio 24.4 H Glucose 79 POC Glucose 104 H Calcium 8.9 Urine Color Urine Appearance Urine pH Ur Specific [employer] [place] Urine Protein Urine Glucose (UA) Urine Ketones Urine Blood Urine Nitrite Urine Bilirubin Urine Urobilinogen Ur Leukocyte Esterase Urine WBC (Auto) Urine RBC (Auto) U Hyaline Cast (Auto) U Epithel Cells (Auto) Urine Bacteria (Auto) 03/07/19 03/07/19 03/07/19 07:44 11:19 12:31 WBC RBC Hgb Hct MCV MCH MCHC RDW Std Deviation RDW Coeff of [place] Plt Count MPV Immature Gran % (Auto) Neut % (Auto) Lymph % (Auto) [place] % (Auto) Eos % (Auto) Baso % (Auto) Immature Gran # (Auto) Neut # (Auto) Lymph # (Auto) [place] # (Auto) Eos # (Auto) Baso # (Auto) Sodium Potassium Chloride Carbon Dioxide Anion Gap BUN Creatinine Est Cr Clr Drug Dosing Est GFR ( Amer) Est GFR (Non-Af Amer) BUN/Creatinine Ratio Glucose POC Glucose 102 H 152 H 147 H Calcium Urine Color Urine Appearance Urine pH Ur Specific [employer] Urine Protein Urine Glucose (UA) Urine Ketones Urine Blood Urine Nitrite Urine Bilirubin Urine Urobilinogen Ur Leukocyte Esterase Urine WBC (Auto) Urine RBC (Auto) U Hyaline Cast (Auto) U Epithel Cells (Auto) Urine Bacteria (Auto) Medications Administered Home Medications Janumet 1 tab PO BID 02/22/19 [History Confirmed 02/26/19] Lantus U-100 Insulin 23 unit SUBCUT HS 02/22/19 [History Confirmed 02/26/19] Novolog Flexpen U-100 Insulin 10 unit SUBCUT TIDM 02/22/19 [History Confirmed 02/26/19] Xarelto 20 mg PO DAILY 02/22/19 [History Confirmed 02/26/19] calcium carbonate [Calcium 600] 600 mg PO DAILY 02/22/19 [History Confirmed 02/26/19] cholecalciferol (vitamin D3) [Vitamin D3] 2,000 unit PO DAILY 02/22/19 [History Confirmed 02/26/19] cyanocobalamin (vitamin B-12) [Vitamin B-12] 1,000 mcg PO DAILY 02/22/19 [History Confirmed 02/26/19] docusate sodium [Stool Softener] 100 mg PO HS PRN 02/22/19 [History Confirmed 02/26/19] ferrous sulfate [iron] 325 mg PO DAILY 02/22/19 [History Confirmed 02/26/19] gabapentin 100 mg PO BID 02/22/19 [History Confirmed 02/26/19] levothyroxine 75 mcg PO DAILY 02/22/19 [History Confirmed 02/26/19] magnesium chloride [Mag 64] 120 mg PO QPM 02/22/19 [History Confirmed 02/26/19] magnesium chloride [Mag 64] 192 mg PO QAM 02/22/19 [History Confirmed 02/26/19] montelukast [Singulair] 10 mg PO DAILY 02/22/19 [History Confirmed 02/26/19] nortriptyline 25 mg PO HS 02/22/19 [History Confirmed 02/26/19] pantoprazole 40 mg PO DAILYBB 02/22/19 [History Confirmed 02/26/19] ropinirole 4 mg PO DAILY 02/22/19 [History Confirmed 02/26/19] simvastatin 20 mg PO DAILY 02/22/19 [History Confirmed 02/26/19] diclofenac sodium [Voltaren] 1 applic EXT Q6H #6 g 02/28/19 [Rx] Active Medications Hydrocodone Bitart/Acetaminophen ([place] 10/325) 1 tab PO Q6H [facility] Stop: 03/21/19 18:02 Baclofen (Lioresal) 10 mg PO TID [facility] Stop: 04/03/19 20:59 Last Admin: 03/07/19 13:10 Dose: Not Given Documented by: Calcium Carbonate (Os-Lalit 500) 1,250 mg PO DAILY [facility] Stop: 03/29/19 10:29 Last Admin: 03/07/19 07:50 Dose: 1,250 mg Documented by: Cyanocobalamin (Vitamin B-12) 1,000 mcg PO DAILY [facility] Stop: 03/29/19 10:29 Last Admin: 03/07/19 07:51 Dose: 1,000 mcg Documented by: Dextrose (Dextrose 50%) 25 - 50 ml IV UD PRN; Protocol PRN Reason: Hypoglycemia Protocol Stop: 03/28/19 14:17 Diclofenac Sodium (Voltaren 1% Top) 1 appln EXT BID [facility] Stop: 04/03/19 13:14 Last Admin: 03/07/19 07:53 Dose: 1 appln Documented by: Docusate Sodium (Colace) 100 mg PO BID [facility] Stop: 04/03/19 20:59 Last Admin: 03/07/19 07:53 Dose: 100 mg Documented by: Ferrous Sulfate (Feosol) 325 mg PO DAILY [facility] Stop: 03/29/19 10:29 Last Admin: 03/07/19 07:53 Dose: 325 mg Documented by: Gabapentin (Neurontin) 300 mg PO BID [facility] Stop: 04/03/19 20:59 Last Admin: 03/07/19 07:50 Dose: 300 mg Documented by: Glucagon (Glucagen) 1 mg SQ UD PRN; Protocol PRN Reason: Hypoglycemia Protocol Stop: 03/28/19 14:17 Glucose (Glucose 40%) 15 - 30 gm PO UD PRN; Protocol PRN Reason: Hypoglycemia Protocol Stop: 03/28/19 14:17 Glucose (Dex4 Glucose) 4 - 8 tabs PO UD PRN; Protocol PRN Reason: Hypoglycemia Protocol Stop: 03/28/19 14:17 Insulin Aspart (Novolog Flexpen) 0 units SC ACHS [facility]; Protocol Stop: 03/28/19 16:29 Last Admin: 03/07/19 13:02 Dose: Not Given Documented by: Insulin Glargine (Lantus Solostar Pen) 0 units SC HS [facility]; Protocol Stop: 04/06/19 20:59 Levothyroxine Sodium (Synthroid) 75 mcg PO DAILYBB [facility] Stop: 03/29/19 10:29 Last Admin: 03/07/19 05:47 Dose: 75 mcg Documented by: Lidocaine (Xylocaine 5%) 1 appln EXT HS PRN PRN Reason: Pain Stop: 03/29/19 12:34 Last Admin: 03/07/19 01:27 Dose: 1 appln Documented by: Magnesium Chloride (Slow-Mag) 128 mg PO QPM [facility] Stop: 03/29/19 20:59 Last Admin: 03/06/19 20:13 Dose: 128 mg Documented by: Magnesium Chloride (Slow-Mag) 192 mg PO QAM [facility] Stop: 03/29/19 10:29 Last Admin: 03/07/19 07:51 Dose: 192 mg Documented by: Metformin HCl (Glucophage Er) 500 mg PO BIDM [facility] Stop: 04/02/19 16:59 Last Admin: 03/07/19 07:50 Dose: 500 mg Documented by: Miconazole Nitrate (Desenex) 1 appln EXT PRN PRN PRN Reason: Affected Skin Folds Stop: 04/01/19 19:57 Last Admin: 03/05/19 09:39 Dose: 1 appln Documented by: Miscellaneous (Carbohydrates For Hypoglycemia) 15 - 30 gm PO UD PRN PRN Reason: Hypoglycemia Treatment Stop: 03/28/19 14:17 Miscellaneous Information (Consult Glycemic Management Pharmacy) 1 ea N/A UD PRN; Protocol PRN Reason: consult Stop: 03/28/19 14:21 Montelukast Sodium (Singulair) 10 mg PO DAILY [facility] Stop: 03/29/19 10:29 Last Admin: 03/07/19 07:51 Dose: 10 mg Documented by: Nortriptyline HCl (Pamelor) 25 mg PO HS [facility] Stop: 03/29/19 20:59 Last Admin: 03/06/19 20:14 Dose: 25 mg Documented by: Ondansetron HCl (Zofran Odt) 4 mg PO Q4H PRN PRN Reason: Nausea Stop: 03/30/19 08:59 Last Admin: 03/06/19 06:23 Dose: 4 mg Documented by: Oxycodone/Acetaminophen (Percocet 5mg/325mg) 1 tab PO Q4H PRN PRN Reason: Pain Stop: 03/19/19 11:38 Last Admin: 03/06/19 02:28 Dose: 1 tab Documented by: [facility]oprazole [facility] ([facility]ix) [facility]: 03/30/19 06:29 Last Admin: 03/07/19 05:47 Dose: 40 mg Documented by: Polyethylene Glycol (Miralax Powder Packet) 17 gm PO DAILY [facility] Stop: 04/06/19 08:59 Last Admin: 03/07/19 07:53 Dose: 17 gm Documented by: Rivaroxaban (Xarelto) 20 mg PO DAILY [facility] Stop: 03/29/19 10:29 Last Admin: 03/07/19 07:52 Dose: 20 mg Documented by: Ropinirole HCl (Requip) 4 mg PO DAILY [facility] Stop: 03/29/19 10:29 Last Admin: 03/07/19 07:52 Dose: 4 mg Documented by: Simvastatin (Zocor) 20 mg PO DAILY [facility] Stop: 03/29/19 10:29 Last Admin: 03/07/19 07:52 Dose: 20 mg Documented by: Vitamin D (Vitamin D3) 2,000 units PO DAILY [facility] Stop: 03/29/19 10:29 Last Admin: 03/07/19 07:50 Dose: 2,000 units Documented by:
--- NOTE | 2019-03-07 13:14 | Pharmacy Report ---
Pharmacy Glycemic Short Note 2 - Date of Service March 07, 2019 - Glycemic Short BSG Results (Last 24 hours): 03/06/19 03/06/19 03/06/19 16:50 16:54 20:11 Glucose POC Glucose 124 H 126 H 104 H 03/07/19 03/07/19 03/07/19 05:42 07:44 11:19 Glucose 79 POC Glucose 102 H 152 H 03/07/19 12:31 Glucose POC Glucose 147 H OUTPATIENT ANTIDIABETIC REGIMEN: * Lantus 23 units qHS * Novolog 10 units w/ meals * Also, CDE reports Janumet mg BID Note: patient has not taken any of her diabetes medications for the past year * A1c = 12.8% on 02/27/19 ASSESSMENT: 03-07: * Patient received total of 24 units of insulin yesterday, all of which was basal insulin - also continues with metformin 500 bidm * Fasting BSG this AM slightly lower at 79 mg/dL ; POC check up to 102 mg/dL - feel that 24 units of Lantus appropriate however patient continues with nausea/vomiting therefore will scale back slightly with Lantus dosing this evening. 03-06 * Patient is currently receiving an average of 25 units of insulin per day with excellent glycemic control: * 24 units of basal insulin * 1 units of prandial/correctional insulin * BSGs ranging 99-144 mg/dl over the past 24hrs * Changes needed to insulin regimen: * AM Fasting BSG = 99 mg/dl. Total daily dose of Lantus 24 units appears to be appropriate for patient. Patient has been transitioned to once daily Lantus. * Post prandial BSGs are at goal. PLAN FOR INPATIENT GLYCEMIC CONTROL: * Metformin ER 500 mg PO BIDM * Basal insulin * 03/07: Lantus scale for tonight due to nausea/vomiting For BSG less than 120 mg/dL - give Lantus 21 units (~13% decrease in dose) For BSG 120 mg/dL or greater - give Lantus 24 units * 03/06: Lantus 24 units SQ with dinner * 03/07: Lantus 24 units SQ qHS * Bolus insulin * NovoLog per scale ACHS or Q6hrs while NPO * Goal Range: Low 110 mg/dL - High 140 mg/dL * Correction Factor: 30 mg/dL/unit
--- NOTE | 2019-03-07 13:38 | CT Scan Report ---
CT head/brain wo con CT DOSE: 537.48 mGy.cm HISTORY: Mental status change rule out stroke, n/v HTN, abnormal eye movements TECHNIQUE: Multiaxial CT images of the head were performed without the use of intravenous contrast. A dose lowering technique was utilized adhering to the principles of ALARA. Comparison: 02/26/2019 Findings: The paranasal sinuses and mastoid air cells are clear. The calvarium and skull base are int act. The ventricles and sulci are within normal limits. There is no mass, hematoma, midline shift, or acute infarct. Mild frontal atrophy. Mild chronic small vessel change. Impression: No acute intracranial abnormality. Chronic changes noted The above report was generated using voice recognition software. It may contain grammatical, syntax or spelling errors. Electronically signed by: Iván Cuevas M.D. 03/07/2019 1:36 PM
[2019-03-07] MEDS ORDERED: HYDROCODONE/ACETAMINOPHEN 10/325 TAB PO SCH (18:00)
[2019-03-07] MEDS ORDERED: INSULIN GLARGINE SOLOSTAR 100 UNITS/ML 3 ML PEN SC SCH (21:00)
[2019-03-07] MEDS: NORTRIPTYLINE HCL 25 MG CAP PO SCH (21:21)
[2019-03-07] MEDS: HYDROCODONE/ACETAMOPHEN 5/325MG TAB PO PRN (21:25)
[2019-03-07] MEDS: ONDANSETRON 4 MG OD TAB PO PRN (23:53)
[2019-03-08 05:45] LABS: Basophils # (auto) 0.03 K/uL (0-0.2); Basophils % (auto) 0.4 %; Eosinophils # (auto) 0.33 K/uL (0-0.5); Eosinophils % (auto) 3.9 %; Hematocrit (blood only) 44.4 % (37-47); Hemoglobin 14.6 g/dL (12.0-16.0); Immature Granulocytes # (auto) 0.01 K/uL (0.00-0.02); Immature Granulocytes % (auto) 0.1 %; Lymphocytes % (auto) 46.2 %; Mean Corpuscular Hgb Conc 32.9 g/dL (32-36); Mean Corpuscular Volume 95.1 fL (80-100); Mean Platelet Volume 10.7 fL (7.4-10.4); Monocytes # (auto) 0.88 K/uL (0.11-0.59); Monocytes % (auto) 10.4 %; Platelet Count 186 K/uL (130-400); RDW Coefficient of Variation 13.3 % (11.5-14.5); RDW Standard Deviation 45.7 fL (36.4-46.3); Red Blood Count 4.67 M/uL (4.2-5.4); White Blood Count 8.45 K/uL (4.8-10.8)
[2019-03-08 06:16] LABS: BUN Creatinine Ratio 22.6 (10-20); Calcium 9.3 mg/dl (8.5-10.1); Creatinine Clr Calc Pharmacy 45.7 ml/min; Est GFR (African American) 70.2; Est GFR (Non-African American) 60.5; Potassium 3.8 mmol/L (3.5-5.1)
[2019-03-08] MEDS: PANTOprazole 40 MG TAB PO SCH (06:16)
[2019-03-08] MEDS: LEVOTHYROXINE SODIUM 75 MCG TABLET PO SCH (06:16)
[2019-03-08] MEDS: CARBOHYDRATES FOR HYPOGLYCEMIA PO PRN (07:50)
[2019-03-08] MEDS: INSULIN ASPART 100 UNITS/ML 3 ML PEN SC SCH ×2 (07:54→13:02)
[2019-03-08] MEDS: CALCIUM CARBONATE 1250MG TAB PO SCH (08:10)
[2019-03-08] MEDS: ROPINIROLE HCL 1 MG TABLET PO SCH (08:10)
[2019-03-08] MEDS: CYANOCOBALAMIN 500 MCG TABLET (VITAMIN B-12) PO SCH (08:10)
[2019-03-08] MEDS: CHOLECALCIFEROL 1,000 UNITS TAB PO SCH (08:10)
[2019-03-08] MEDS: SIMVASTATIN 20 MG TAB PO SCH (08:10)
[2019-03-08] MEDS: HYDROCODONE/ACETAMOPHEN 5/325MG TAB PO PRN (08:10)
[2019-03-08] MEDS: GABAPENTIN 300 MG CAP PO SCH (08:11)
[2019-03-08] MEDS: MAGNESIUM CHLORIDE 64MG DELAYED REL TAB PO SCH (08:11)
[2019-03-08] MEDS: DOCUSATE SODIUM 100 MG CAP PO SCH (08:11)
[2019-03-08] MEDS: BACLOFEN 10 MG TAB PO SCH ×2 (08:11→13:02)
[2019-03-08] MEDS: FERROUS SULFATE 325 MG TAB PO SCH (08:12)
[2019-03-08] MEDS: RIVAROXABAN 20 MG TAB PO SCH (08:12)
[2019-03-08] MEDS: DICLOFENAC SOD 1% GEL 100 GM TUBE EXT SCH (08:12)
[2019-03-08] MEDS: MONTELUKAST SODIUM 10 MG TABLET PO SCH (08:12)
[2019-03-08] MEDS: POLYETHYLENE (MIRALAX) 17 GM PACK PO SCH (08:12)
[2019-03-08] MEDS: METFORMIN HCL ER 500 MG TABCR PO SCH (08:12)
--- NOTE | 2019-03-08 11:31 | Discharge Summary ---
Date of Service March 08, 2019 Admission HPI Per Admitting Provider 73-year-old female with a history of diabetes, hypothyroidism, restless leg syndrome who presents with left flank pain and confusion. Per the patient for several weeks, she has had increasing left-sided flank pain. When it initially presented she reports that it was mild, sharp, and intermittent and worsened with movement. Over the last few weeks it has become increasingly severe, sharper, and more constant. She reports the pain as an 8/10 at present. It is still worsened with movement and twisting. Is mildly improved with [id number] Tylenol. She denies radiation of the pain. She also reports episodic nausea with at least a few episodes of non-bloody emesis on Monday. She reports being more confused, especially with short-term memory over the last few months. She also notes some nausea and vomiting. She notes some dysuria, polyuria, and incomplete voiding as well. Of note, she reports intermittent hematuria since of last year. When she describes a urine she reports it is more than a pinkish color, more bright red. This will resolve from time to time, then recur. She reports some subjective "feeling cold", but denies objective fevers, chills, sweats. Admission Exam Per Admitting Provider Constitutional: WD/WN, vitals as above Eyes: EOM intact bilaterally; no conjunctival abnormality ENMT: external ear and nose normal, oropharynx normal Neck: trachea midline, no thyromegaly normal visual inspection Respiratory: normal respiratory effort, lungs clear to auscultation no resp iratory distress Cardiovascular: RRR, no murmur, no edema Gastrointestinal (Abdomen): Inspection/Auscultation: abdomen normal to inspection; abdomen not distended Musculoskeletal: no cyanosis or clubbing, extremities motor strength 5/5 Skin: no rashes, warm and dry Neurologic: moves all extremities and awake Psychiatric: Orientation: alert, oriented to person and cooperative Principal Diagnosis Urinary Tract Infection with ESBL E. Coli Painless Hematuria Intercostal muscle pain Uncontrolled Diabetes Discharge Exam General: Alert, orientedx3. Sitting comfortably in chair at bedside. HEENT: NC/AT Chest: Nontender to palpation. CV: RRR, Normal s1, s2 Resp: Breath sounds clear bilaterally, no increased effort of breathing Abdomen: Soft, nontender to palpation, nondistended. No guarding. No organomegaly appreciated. Extremities: + edema in lower extremities. MSK: Some tenderness to palpation over left lower ribs and left flank Discharge Data Allergies Allergy/AdvReac Type Severity Reaction Status Date / Time prochlorperazine Allergy Severe EXTRAPYRAMIDAL Verified 02/22/19 15:17 S/E zolpidem Allergy Severe CONFUSION/MEMORY Verified 02/22/19 15:17 LOSS carbamazepine Allergy Intermediate CONFUSION Verified 02/22/19 15:17 duloxetine Allergy Intermediate LIGHTHEADED Verified 02/22/19 15:17 NESS/DIZZIN ESS hydrochlorothiazide Allergy Intermediate LIGHTHEADED Verified 02/22/19 15:17 NESS/DIZZIN ESS indigotindisulfonic acid Allergy Intermediate LIGHTHEADED Verified 02/22/19 15:17 NESS/DIZZIN ESS levofloxacin Allergy Mild RASH Verified 02/22/19 15:17 capsaicin Allergy Unknown NAUSEA AND Verified 02/22/19 13:44 VOMITING clonazepam Allergy Unknown UNKNOWN Verified 02/22/19 15:17 diclofenac Allergy Unknown NAUSEA AND Verified 02/22/19 15:17 VOMITING Diclopak Allergy Unknown NAUSEA AND Verified 07/27/18 14:21 VOMITING losartan Allergy Unknown ELEVATED Verified 02/22/19 15:17 CREATININE hydromorphone AdvReac Intermediate N/V AND Verified 02/22/19 15:17 NIGHTMARES morphine AdvReac Intermediate HYPOTENSION Verified 02/22/19 15:17 AND N/V nitrofurantoin AdvReac Intermediate DIARRHEA-MNPG Verified 02/22/19 15:17 LIST cyclobenzaprine AdvReac Mild N/V Verified 02/22/19 15:17 lisinopril AdvReac Mild N/V Verified 02/22/19 15:17 naproxen AdvReac Mild N/V Verified 02/22/19 15:17 oxycodone AdvReac Mild N/V Verified 02/22/19 15:17 tramadol AdvReac Unknown N/V AND Verified 02/22/19 15:17 ITCHING Consultations 02/26/19 11:32 ED Decision to Admit Stat 02/26/19 14:18 Consult Urology Routine Ordered Studies 02/26/19 09:12 CT head/brain wo con Stat 02/26/19 09:23 CT abd pelvis IV con only Stat 02/27/19 06:00 CT abdomen pelvis wo/w con Routine 03/07/19 13:06 CT head/brain wo con Stat Hospital Course (1) Somatic dysfunction of rib: Ms. Landy Bobby is a 73yo who was treated for UTI that has subsequently symptomatically resolved but was further evaluated for continued left flank/back pain. She was admitted on February 26 and [facility] Her hospital course during that time is as follows according to problems treated: L flank pain - likely radicular. -Pt was worked up with an xray of the ribs, thoracic spine and CT of abdomen/pelvis -Rib XR showed no fracture -Thoracic XR- showed scoliosis, no acute process. -CT Abdomen/pelvis showed degenerative changes of the spine, SI joints, pubic symphysis. "Post surgical changes of post transpedicular screw NOT fixation of L4-S1 with associated laminectomy defects." -She was previously treated with tylenol, Flexeril, toradol and a lidocaine patch which have all been discontinued as they provided no relief. -Current pain management includes the combination of Gabapentin 300mg BID, Baclofen 10mg TID and Florissant 5/325mg q6h prn currently. -Above regimen took pain from an 8/10 to 5/10. -Of note, use of percocet or higher doses of Florissant have resulted in bouts of nausea/vomitting. -She is continuing her home nortriptyline that she takes for sleep -Advise continued use of home Colace with miralax for stools, given use of opioids for pain. -Pain management consult was placed and they recommended that her PCP put in a pain management consult if her pain was still not well controlled upon discharge. Recently treated UTI -Pt presented and was admitted for a symptomatic UTI with dysuria, flank pain, subjective fevers, N/V and altered mental status. -Her urine culture grew ESBL E.coli and she was treated with 3 doses of Ertapenem. -It appears that she is a chronic carrier as another recent UA done for increased WBC with mild dysuria shows presence of ESBL E. coli still sensitive to ertapenem. -Pt upon discharge DENIES DYSURIA, has a normal wbc and is afebrile so no further treatment will be administered. Diabetes -Pt with Hemoglobin A1C of 12.8 on admission. -Apparently she had not been taking her home diabetic meds for a year before this. -Glucose levels fluctuating while hospitalized. -Upon discharge to SNF, continue Lantus 20-24Units before bedtime along with Metformin XR 500mg BID. Recommend this as a simplified home regimen for this pt with compliance issues. -Please note, LANTUS Dose might need to be adjusted based on pt's glucose levels. -Oversight by a PCP/Diabetes coordinators strongly recommended. Hematuria -Described by the patient as a chronic problem, waxing and waning. -Usually pink urine, rather than federica blood. -Advised to followup with Urology as an outpatient for a cystoscopy. -PCP oversight of this is strongly recommended. Bloody stools -Resolved on discharge. -Pt has a chronic hx of this according to her outpatient records. -Has hx of hemorrhoids. -One episode while hospitalized. -CBC done at that time showed normal H/H and continued to be normal afterwards. Constipation -Pt has been treated with home colace and Miralax while hospitalized. -Waxing and waning course. -Advised continued use upon discharge especially with opioid use for pain. One episode of Presyncope -Pt became dizzy with N/V, confusion, HTN, abnormal eye movements, abdominal pain. -CT Head ordered to rule out stroke-showed no acute changes. -Episode was likely related to increased Florissant dose. Dose and scheduling readjusted and it seemed to help with symptoms . -Resolved on discharge. Confusion -Upon discharge, AAOx3. -However there is a question of underlying mild dementia. -Followup with a PCP upon discharge is strongly recommended. Physical deconditioning -Pt received PT/OT services while hospitalized. -She was [facility] to a jail facility for continued support. History of PE -Pt has a history of PE and is currently on Xarelto 20mg. -Questionable duration of treatment and possible transition to a lower dose (10mg) might be needed. -Follow-up with PCP is strongly recommended. Total Time Total Time Spent Total Time Spent (In Minutes): 60 Discharge Plan Discharge Items Patient Disposition: Transfer [facility] Fac Reason For Visit: LEFT FLANK PAIN, BLOOD IN URINE Discharge Diagnosis: Urinary Tract Infection with ESBL E. Coli Painless Hematuria Intercostal muscle pain Uncontrolled Diabetes Condition: Good Discharge Goals: Decrease discomfort and Diagnostic testing Activity: Resume your previous activity Non-emergency contact: Primary Care Provider Call non-emergency contact if: you have any medication questions, your symptoms worsen, your pain is not controlled and your temperature is above 100.5 Follow-up/Referrals: Lincoln Ramirez, DO [Primary Care Provider] - 03/06/19 10:00 am Diet: Carb Consistent or DM2 Addtl Provider Instructions: Ms. Landy Bobby is a 73yo who was treated for UTI that has subsequently symptomatically resolved but was further evaluated for continued left flank/back pain. She was admitted on February 26 and [facility] to a [facility] on March [facility]. Back/Flank pain * Appears musculoskeletal, may benefit from OMT follow up with Dr. Erick Ramirez, . * Please continue to take pain medications as directed (Baclofen, Gabapentin, with the Florissant) *Please followup with a primary care physician in the next week for continued assessment of back pain and for refills of the medications being discharged with. *Miralax is prescribed and should be used in addition to home Colace since patient will be taking the opioid Florissant. Please emphasize the following to the patient: Diabetes * Very poorly controlled over past several months. * As we have continued to emphasize to you it is VITALLY important to work at getting your blood sugars under control * Not controlling the blood sugars WILL lead to complications which could include but are not limited to neuropathy, vision changes or blindness, heart attacks, strokes, kidney failure and dialysis. *We are discharging you to the facility with Lantus 24U daily and Metformin XR 500mg BID. The Lantus might need to be adjusted based on your blood sugars. *Please do take the medications and take them as directed. *Please STOP taking your previously prescribed home diabetes medications. * It will be very important to work with your primary care physician to improve your diabetes control *Please follow up with your primary care physician in the next week. *Please go to the nearest emergency room or ask for help if you suddenly feel faint and get sweaty or have an episode of passing out. UTI * You were treated with ertapenem for your urinary tract infection with a full three day course * If symptoms return (burning, frequency etc) return to your primary care doctor. *Please followup with your primary care physician in the next week upon discharge. Hematuria * We are concerned for your federica hematuria that you say comes and goes every so often * Now that your infection has cleared and you can go home, Urology will schedule you for an outpatient cystoscopy which is a procedure to insert a camera into your bladder to look for any lesions that may be bleeding. Prescriptions: New baclofen 10 mg tablet 10 mg PO TID 7 Days Qty: 21 RF: 0 gabapentin 300 mg capsule 300 mg PO BID 7 Days Qty: 14 RF: 0 hydrocodone-acetaminophen [Florissant] 5-325 mg tablet 1 tab PO Q6H PRN (Reason: pain) 5 Days Qty: 20 RF: 0 Lantus Solostar U-100 Insulin 100 unit/mL (3 mL) insulin pen 24 units SQ .daily at bedtime Qty: 15 RF: 0 metformin 500 mg tablet extended release 24hr 500 mg PO BID 7 Days Qty: 14 RF: 0 polyethylene glycol 3350 [Miralax] 17 gram powder in packet 17 gm PO DAILY Qty: 10 RF: 0 Continued levothyroxine 75 mcg Tablet 75 mcg PO DAILY RF: 0 nortriptyline 25 mg Capsule 25 mg PO HS RF: 0 calcium carbonate [Calcium 600] 600 mg calcium (1,500 mg) Tablet 600 mg PO DAILY RF: 0 pantoprazole 40 mg Tablet,Delayed Release (Dr/Ec) 40 mg PO DAILYBB RF: 0 ferrous sulfate [iron] 325 mg (65 mg iron) Tablet 325 mg PO DAILY RF: 0 montelukast [Singulair] 10 mg Tablet 10 mg PO DAILY RF: 0 ropinirole 4 mg Tablet 4 mg PO DAILY RF: 0 magnesium chloride [Mag 64] 64 mg Tablet,Delayed Release (Dr/Ec) 120 mg PO QPM RF: 0 magnesium chloride [Mag 64] 64 mg Tablet,Delayed Release (Dr/Ec) 192 mg PO QAM RF: 0 cyanocobalamin (vitamin B-12) [Vitamin B-12] 1,000 mcg Tablet 1,000 mcg PO DAILY RF: 0 simvastatin 20 mg Tablet 20 mg PO DAILY RF: 0 docusate sodium [Stool Softener] 100 mg Capsule 100 mg PO HS PRN (Reason: Constipation) RF: 0 cholecalciferol (vitamin D3) [Vitamin D3] 2,000 unit Capsule 2,000 unit PO DAILY RF: 0 Xarelto 20 mg Tablet 20 mg PO DAILY RF: 0 Discontinued nitrofurantoin monohyd/m-cryst [Macrobid] 100 mg capsule 100 mg PO BID 7 Days Qty: 14 RF: 0 Lantus U-100 Insulin 100 unit/mL Solution 23 unit SUBCUT HS RF: 0 gabapentin 100 mg Capsule 100 mg PO BID RF: 0 Novolog Flexpen U-100 Insulin 100 unit/mL (3 mL) Insulin Pen 10 unit SUBCUT TIDM RF: 0 Janumet 50-1,000 mg Tablet 1 tab PO BID RF: 0 Stand-Alone Forms: [facility] [employer] [facility]/Other Patient Handouts: Hematuria, UTI, Diabetes Taking Meds, ED Flank Pain Uncertain Cause Discharge Orders: Discharge Order (Routine); Ordered 03/08/19 Ordered By: Amanda Chu Skilled Items Patient informed of condition?: Yes DNR: No Discharge Level of Care: Skilled Communicable Disease: No Discharge Prognosis: Stable Admission Data Admit Date/Time: 02/26/19 13:06 Attending Provider: Monisha Mercer Admit Provider: Raymundo Ramirez Primary Care Provider: Lincoln Ramirez Other Providers: Raymundo Ramirez ; Naldo Tripathi ; Leonidas Bustamante Service: Medical Other Interventions: Discharge Summary Assessment (RN) Last Done: 03/08/19 11:26
--- NOTE | 2019-03-10 20:41 | Discharge Summary ---
Date of Service March 10, 2019 Admission HPI Per Admitting Provider 73-year-old female with a history of diabetes, hypothyroidism, restless leg syndrome who presents with left flank pain and confusion. Per the patient for several weeks, she has had increasing left-sided flank pain. When it initially presented she reports that it was mild, sharp, and intermittent and worsened with movement. Over the last few weeks it has become increasingly severe, sharper, and more constant. She reports the pain as an 8/10 at present. It is still worsened with movement and twisting. Is mildly improved with [id number] Tylenol. She denies radiation of the pain. She also reports episodic nausea with at least a few episodes of non-bloody emesis on Monday. She reports being more confused, especially with short-term memory over the last few months. She also notes some nausea and vomiting. She notes some dysuria, polyuria, and incomplete voiding as well. Of note, she reports intermittent hematuria since of last year. When she describes a urine she reports it is more than a pinkish color, more bright red. This will resolve from time to time, then recur. She reports some subjective "feeling cold", but denies objective fevers, chills, sweats. Admission Exam Per Admitting Provider Constitutional: WD/WN, vitals as above Eyes: EOM intact bilaterally; no conjunctival abnormality ENMT: external ear and nose normal, oropharynx normal Neck: trachea midline, no thyromegaly normal visual inspection Respiratory: normal respiratory effort, lungs clear to auscultation no resp iratory distress Cardiovascular: RRR, no murmur, no edema Gastrointestinal (Abdomen): Inspection/Auscultation: abdomen normal to inspection; abdomen not distended Musculoskeletal: no cyanosis or clubbing, extremities motor strength 5/5 Skin: no rashes, warm and dry Neurologic: moves all extremities and awake Psychiatric: Orientation: alert, oriented to person and cooperative Principal Diagnosis Urinary Tract Infection with ESBL E. Coli Painless Hematuria Intercostal muscle pain Uncontrolled Diabetes Discharge Exam General: Alert, orientedx3. HEENT: NC/AT Chest: Nontender to palpation. CV: RRR, Normal s1, s2 Resp: Breath sounds clear bilaterally, no increased effort of breathing Abdomen: Soft, nondistended. No guarding. No organomegaly appreciated. Extremities: + edema MSK: Tender to palpation over left lower ribs and left flank. Discharge Data Allergies Allergy/AdvReac Type Severity Reaction Status Date / Time prochlorperazine Allergy Severe EXTRAPYRAMIDAL Verified 02/22/19 15:17 S/E zolpidem Allergy Severe CONFUSION/MEMORY Verified 02/22/19 15:17 LOSS carbamazepine Allergy Intermediate CONFUSION Verified 02/22/19 15:17 duloxetine Allergy Intermediate LIGHTHEADED Verified 02/22/19 15:17 NESS/DIZZIN ESS hydrochlorothiazide Allergy Intermediate LIGHTHEADED Verified 02/22/19 15:17 NESS/DIZZIN ESS indigotindisulfonic acid Allergy Intermediate LIGHTHEADED Verified 02/22/19 15:17 NESS/DIZZIN ESS levofloxacin Allergy Mild RASH Verified 02/22/19 15:17 capsaicin Allergy Unknown NAUSEA AND Verified 02/22/19 13:44 VOMITING clonazepam Allergy Unknown UNKNOWN Verified 02/22/19 15:17 diclofenac Allergy Unknown NAUSEA AND Verified 02/22/19 15:17 VOMITING Diclopak Allergy Unknown NAUSEA AND Verified 07/27/18 14:21 VOMITING losartan Allergy Unknown ELEVATED Verified 02/22/19 15:17 CREATININE hydromorphone AdvReac Intermediate N/V AND Verified 02/22/19 15:17 NIGHTMARES morphine AdvReac Intermediate HYPOTENSION Verified 02/22/19 15:17 AND N/V nitrofurantoin AdvReac Intermediate DIARRHEA-MNPG Verified 02/22/19 15:17 LIST cyclobenzaprine AdvReac Mild N/V Verified 02/22/19 15:17 lisinopril AdvReac Mild N/V Verified 02/22/19 15:17 naproxen AdvReac Mild N/V Verified 02/22/19 15:17 oxycodone AdvReac Mild N/V Verified 02/22/19 15:17 tramadol AdvReac Unknown N/V AND Verified 02/22/19 15:17 ITCHING Consultations 02/26/19 11:32 ED Decision to Admit Stat 02/26/19 14:18 Consult Urology Routine Ordered Studies 02/26/19 09:12 CT head/brain wo con Stat 02/26/19 09:23 CT abd pelvis IV con only Stat 02/27/19 06:00 CT abdomen pelvis wo/w con Routine 03/07/19 13:06 CT head/brain wo con Stat Hospital Course (1) Somatic dysfunction of rib: 73yo who was treated for UTI that has subsequently resolved and is being evaluated currently for LL back/flank pain. Pt was discharged to [facility] in [place]. L flank pain - likely radicular -Pain better controlled on discharge. 5/10 vx 10/10 at worst. -Pt discharged with combination of Gabapentin 300mg, baclofen tid and Aiken 5mg/325mg -XR of the ribs- showed no radiographic evidence of acute/distracted left-sided rib fracture -Xray of thoracic spine showed "There is no fracture. No subluxation. Significant degenerative disc change throughout the entire thoracic region. No evidence for compression deformity. Stable scoliosis." -CT abdomen/pelvis showed MSK changes as follows: "Postsurgical changes of lumbar fusion hardware from L4 to S1. Associated laminectomy defects at L4-5. Exaggerated lumbar lordosis. Scoliotic curvature of the lumbar spine." -Colace, miralax for stools given pt use of opioids. -Pain management consult-advised PCP to make pain referral upon discharge if pt still in need of pain management due to considerable pain. UTI -Pt admitted with UTI with symptoms of dysuria, hematuria and AMS -Treated with 3 doses of ertapenem -Seemingly colonized with ESBL E. coli as repeat urinary cx done for increased WBC with some mild dysuria showed E.Coli still present. -Dysuria subsequently resolved, and pt was afebrile with normalized WBC count, so no repeat treatment initiated. Episode of dizziness with N/V, confusion, HTN, abnormal eye movements, abdominal pain. -RESOLVED ON DISCHARGE -CT Head ruled out acute changes or stroke -Likely related to Aiken use. Dose and scheduling readjusted. Constipation/Bloody stools--CURRENTLY RESOLVED on discharge -Hx of hemorrhoids per outpt records, chronic problem. -CBC and H/H continually within normal limits -f/u with PCP recommended upon discharge. Physical deconditioning -PT/OT done while hospitalized -Discharged to SNF Hematuria -Pt states it is a chronic problem, comes and goes. Mostly pink hematuria rather than grossly red. -F/u as outpatient per urology recs for outpatient cystoscopy. Hyperglycemia -Hemoglobin A1C of 12.5 with pt stating she has not used diabetic meds for at least a year. -ISS while hospitalized. -Per pharmacy, discharge home with Lantus 24U daily, Metformin XR 500mg to ensure compliance. -PLEASE NOTE LANTUS DOSES MIGHT NEED TO BE ADJUSTED BASED ON MORNING GLUCOSE LEVELS Confusion -AAOx3 while hospitalized. -However suspicion of some mild underlying dementia based on longterm memory. -Followup with PCP strongly recommended upon discharge. Hx of PE -Pt on Xarelto 20mg. -Followup with PCP strongly recommended for switch to Xarelto 10mg based on duration of use. Total Time Total Time Spent Total Time Spent (In Minutes): 60 Discharge Plan Discharge Items Patient Disposition: Transfer Detention Fac Reason For Visit: LEFT FLANK PAIN, BLOOD IN URINE Discharge Diagnosis: Urinary Tract Infection with ESBL E. Coli Painless Hematuria Intercostal muscle pain Uncontrolled Diabetes Condition: Good Discharge Goals: Decrease discomfort and Diagnostic testing Activity: Resume your previous activity Non-emergency contact: Primary Care Provider Call non-emergency contact if: you have any medication questions, your symptoms worsen, your pain is not controlled and your temperature is above 100.5 Follow-up/Referrals: Lincoln Ramirez, [Primary Care Provider] - 03/06/19 10:00 am Diet: Carb Consistent or DM2 Addtl Provider Instructions: Ms. Landy Bobby is a 73yo who was treated for UTI that has subsequently symptomatically resolved but was further evaluated for continued left flank/back pain. She was admitted on February 26 and discharged to a intermediate facility on March 08. Back/Flank pain * Appears musculoskeletal, may benefit from OMT follow up with Dr. Erick Ramirez, . * Please continue to take pain medications as directed (Baclofen, Gabapentin, with the Aiken) *Please followup with a primary care physician in the next week for continued assessment of back pain and for refills of the medications being discharged with. *Miralax is prescribed and should be used in addition to home Colace since patient will be taking the opioid Aiken. Please emphasize the following to the patient: Diabetes * Very poorly controlled over past several months. * As we have continued to emphasize to you it is VITALLY important to work at getting your blood sugars under control * Not controlling the blood sugars WILL lead to complications which could include but are not limited to neuropathy, vision changes or blindness, heart attacks, strokes, kidney failure and dialysis. *We are discharging you to the facility with Lantus 24U daily and Metformin XR 500mg BID. The Lantus might need to be adjusted based on your blood sugars. *Please do take the medications and take them as directed. *Please STOP taking your previously prescribed home diabetes medications. * It will be very important to work with your primary care physician to improve your diabetes control *Please follow up with your primary care physician in the next week. *Please go to the nearest emergency room or ask for help if you suddenly feel f aint and get sweaty or have an episode of passing out. UTI * You were treated with ertapenem for your urinary tract infection with a full three day course * If symptoms return (burning, frequency etc) return to your primary care doctor. *Please followup with your primary care physician in the next week upon discharge. Hematuria * We are concerned for your federica hematuria that you say comes and goes every so often * Now that your infection has cleared and you can go home, Urology will schedule you for an outpatient cystoscopy which is a procedure to insert a camera into your bladder to look for any lesions that may be bleeding. *Please followup with your PCP in the next week. Prescriptions: New baclofen 10 mg tablet 10 mg PO TID 7 Days Qty: 21 RF: 0 gabapentin 300 mg capsule 300 mg PO BID 7 Days Qty: 14 RF: 0 hydrocodone-acetaminophen [Aiken] 5-325 mg tablet 1 tab PO Q6H PRN (Reason: pain) 5 Days Qty: 20 RF: 0 Lantus Solostar U-100 Insulin 100 unit/mL (3 mL) insulin pen 24 units SQ .daily at bedtime Qty: 15 RF: 0 metformin 500 mg tablet extended release 24hr 500 mg PO BID 7 Days Qty: 14 RF: 0 polyethylene glycol 3350 [Miralax] 17 gram powder in packet 17 gm PO DAILY Qty: 10 RF: 0 Continued levothyroxine 75 mcg Tablet 75 mcg PO DAILY RF: 0 nortriptyline 25 mg Capsule 25 mg PO HS RF: 0 calcium carbonate [Calcium 600] 600 mg calcium (1,500 mg) Tablet 600 mg PO DAILY RF: 0 pantoprazole 40 mg Tablet,Delayed Release (Dr/Ec) 40 mg PO DAILYBB RF: 0 ferrous sulfate [iron] 325 mg (65 mg iron) Tablet 325 mg PO DAILY RF: 0 montelukast [Singulair] 10 mg Tablet 10 mg PO DAILY RF: 0 ropinirole 4 mg Tablet 4 mg PO DAILY RF: 0 magnesium chloride [Mag 64] 64 mg Tablet,Delayed Release (Dr/Ec) 120 mg PO QPM RF: 0 magnesium chloride [Mag 64] 64 mg Tablet,Delayed Release (Dr/Ec) 192 mg PO QAM RF: 0 cyanocobalamin (vitamin B-12) [Vitamin B-12] 1,000 mcg Tablet 1,000 mcg PO DAILY RF: 0 simvastatin 20 mg Tablet 20 mg PO DAILY RF: 0 docusate sodium [Stool Softener] 100 mg Capsule 100 mg PO HS PRN (Reason: Constipation) RF: 0 cholecalciferol (vitamin D3) [Vitamin D3] 2,000 unit Capsule 2,000 unit PO DAILY RF: 0 Xarelto 20 mg Tablet 20 mg PO DAILY RF: 0 Discontinued nitrofurantoin monohyd/m-cryst [Macrobid] 100 mg capsule 100 mg PO BID 7 Days Qty: 14 RF: 0 Lantus U-100 Insulin 100 unit/mL Solution 23 unit SUBCUT HS RF: 0 gabapentin 100 mg Capsule 100 mg PO BID RF: 0 Novolog Flexpen U-100 Insulin 100 unit/mL (3 mL) Insulin Pen 10 unit SUBCUT TIDM RF: 0 Janumet 50-1,000 mg Tablet 1 tab PO BID RF: 0 Stand-Alone Forms: [facility]/Other Patient Handouts: Hematuria, UTI, Diabetes Taking Meds, ED Flank Pain Uncertain Cause Discharge Orders: Discharge Order (Routine); Ordered 03/08/19 Ordered By: Amanda Chu Skilled Items Patient informed of condition?: Yes DNR: No Discharge Level of Care: Skilled Communicable Disease: No Discharge Prognosis: Stable Admission Data Admit Date/Time: 02/26/19 13:06 Attending Provider: Monisah Mercer Admit Provider: Raymundo Ramirez Primary Care Provider: Lincoln Ramirez Other Providers: Raymundo Ramirez ; Naldo Tripathi ; Leonidas Bustamante Service: Medical Other Interventions: Discharge Summary Assessment (RN) Last Done: 03/08/19 11:26 DC Date/Time DO NOT enter until pt leaves facility: 03/08/19 15:00 Supervising Physician Co-Signing Physician Notes Resident Physician Supervision Note: I independently interviewed and examined the patient and verified the menjivar history and physical, reviewed labs and image studies, discussed the case with the resident Dr. Chu and agree with the findings and care plan. Time spent in discharge 35 min
== END 2019-03-08 15:00 | DRG 689 ==
LOC: ED 08:58 → SUATTDRO 13:06 → 4E 13:06
DX: E53.8 Deficiency of other specified B group vitamins; G25.81 Restless legs syndrome; F03.90 Unspecified dementia, unspecified severity, without behavioral disturbance, psychotic disturbance, mood disturbance, and anxiety; G93.41 Metabolic encephalopathy; B96.20 Unspecified Escherichia coli [E. coli] as the cause of diseases classified elsewhere; Z91.14 Patient's other noncompliance with medication regimen; K21.9 Gastro-esophageal reflux disease without esophagitis; E11.65 Type 2 diabetes mellitus with hyperglycemia; Z86.711 Personal history of pulmonary embolism; N39.0 Urinary tract infection, site not specified; R42 Dizziness and giddiness; J44.9 Chronic obstructive pulmonary disease, unspecified; K59.00 Constipation, unspecified; M99.08 Segmental and somatic dysfunction of rib cage; E03.9 Hypothyroidism, unspecified; Z79.4 Long term (current) use of insulin; Z79.01 Long term (current) use of anticoagulants; Z79.899 Other long term (current) drug therapy; R31.9 Hematuria, unspecified; K92.1 Melena

== ENCOUNTER 2020-01-13 16:59 | Observation (INO) ==
[2020-01-13 18:52] LABS: Basophils # (auto) 0.03 K/uL (0-0.2); Basophils % (auto) 0.3 %; Eosinophils # (auto) 0.17 K/uL (0-0.5); Eosinophils % (auto) 1.4 %; Hematocrit (blood only) 47.1 % (37-47); Hemoglobin 15.9 g/dL (12.0-16.0); Immature Granulocytes # (auto) 0.03 K/uL (0.00-0.02); Immature Granulocytes % (auto) 0.3 %; Lymphocytes % (auto) 33.6 %; Mean Corpuscular Hemoglobin 30.9 pg (25-34); Mean Corpuscular Hgb Conc 33.8 g/dL (32-36); Mean Corpuscular Volume 91.5 fL (80-100); Mean Platelet Volume 10.6 fL (7.4-10.4); Monocytes # (auto) 1.32 K/uL (0.11-0.59); Monocytes % (auto) 11.1 %; Neutrophils # (auto) 6.37 K/uL (1.4-6.5); Neutrophils % (auto) 53.3 %; Platelet Count 188 K/uL (130-400); RDW Coefficient of Variation 13.1 % (11.5-14.5); RDW Standard Deviation 43.1 fL (36.4-46.3); Red Blood Count 5.15 M/uL (4.2-5.4); White Blood Count 11.92 K/uL (4.8-10.8)
--- NOTE | 2020-01-13 18:53 | XRay Report ---
XR chest 1V portable CLINICAL HISTORY: 74 years-old Female presenting with lightheaded. TECHNIQUE: Portable upright AP view of the chest was obtained. COMPARISON: 05/16/2019. FINDINGS: Atherosclerosis of the aortic arch. Cardiac silhouette normal in size. No focal opacity. No large eff usion or pneumothorax. Degenerative changes of the thoracic spine. Medical implanted device projects over the epigastrium. Partially visualized lumbar fusion hardware. Upper abdomen normal. IMPRESSION: 1. No acute cardiopulmonary disease. ACT 112: Negative or not required by law. Electronically signed by: Jesús Lambert M.D. 01/13/2020 6:52 PM
[2020-01-13] MEDS: SODIUM CHLORIDE 0.9% 1000ML 1,000 ML IV SCH ×2 (19:08→23:18)
[2020-01-13 19:09] LABS: Alanine Aminotransferase 38 U/L (12-78); Albumin Level 3.8 gm/dl (3.4-5.0); Aspartate Aminotransferase 31 U/L (15-37); BUN Creatinine Ratio 15.1 (10-20); Blood Urea Nitrogen 17 mg/dl (7-18); Calcium 9.8 mg/dl (8.5-10.1); Carbon Dioxide 24 mmol/L (21-32); Chloride 111 mmol/L (98-107); Creatinine Clr Calc Pharmacy 39.9 ml/min; Est GFR (African American) 57.5; Est GFR (Non-African American) 49.6; Glucose 143 mg/dl (70-99); Lipase 59 U/L (73-393); Magnesium 1.7 mg/dl (1.8-2.4); Potassium 3.7 mmol/L (3.5-5.1); Sodium 142 mmol/L (136-145)
[2020-01-13 19:18] LABS: Appearance Urine Cloudy (Clear); Bacteria Urine Automated Negative (Negative); Blood Urine Negative (Negative); Color Urine Dark Yellow; Epithelial Cell Urine Auto >30 /lpf (0-5); Glucose Urine UA Negative (Negative); Ketones Urine 1+ (Negative); Leukocyte Esterase Urine Trace (Negative); Nitrite Urine Negative (Negative); Protein Urine Trace (Negative); Specific Gravity Urine 1.032 (1.000-1.030); Urobilinogen Urine Negative (Negative); WBC Urine Automated >30 /hpf (0-5)
[2020-01-13 19:20] LABS: Alkaline Phosphatase 98 U/L (45-117); Bilirubin,Total 1.9 mg/dl (0.2-1); Globulin 3.9 gm/dl (2.5-4.0); Total Protein 7.7 gm/dl (6.4-8.2); Troponin I < 0.015 ng/ml (0-0.045)
[2020-01-13 19:32] LABS: Bilirubin Urine Negative (Negative); Ictotest Urine Negative (Negative)
[2020-01-13 19:36] LABS: Cast Urine Automated 0 /lpf (0-5)
[2020-01-13] MEDS ORDERED: OPTIRAY 320 125ml IV PRN (20:10)
--- NOTE | 2020-01-13 20:28 | CT Scan Report ---
CT head/brain wo con CLINICAL HISTORY: 74 years-old Female presenting with dizziness. TECHNIQUE: Multidetector CT imaging of the head was performed without the use of intravenous contrast . IV contrast: None. One or more dose lowering techniques were used consistent with the principles of ALARA (as low as reasonably achievable), including automatic exposure control, mA or kV adjustment t o individual patient size, and/or use of iterative reconstruction. COMPARISON: 03/07/2019. CT DOSE (mGy.cm): The estimated cumulative dose is 1048.86 mGy.cm. FINDINGS: Pan Washer Hand topogram: Unremarkable. Ventricles and sulci normal in size. No hemorrhage. Prominent perivascular space in the left basal ga nglia as on prior exam. Brain parenchyma otherwise normal in appearance with preserved hester-white dif ferentiation. No acute territorial infarct. No mass effect or midline shift. No extra-axial fluid col lection. Paranasal sinuses and mastoid air cells clear. Calvarium intact. IMPRESSION: 1. No acute intracranial abnormality. ACT 112: Negative or not required by law. Electronically signed by: Jesús Lambert M.D. 01/13/2020 8:27 PM
--- NOTE | 2020-01-13 20:32 | CT Scan Report ---
CT angio head w con CLINICAL HISTORY: 74 years-old Female presenting with dizziness. TECHNIQUE: Multidetector CT angiography of the head was performed after the administration of intrave nous contrast. 3-D volumetric and/or maximum intensity projection (MIP) images were subsequently prince nstructed for review. IV contrast: 119 mL of Optiray 320. One or more dose lowering techniques were u sed consistent with the principles of ALARA (as low as reasonably achievable), including automatic ex posure control, mA or kV adjustment to individual patient size, and/or use of iterative reconstructio n. COMPARISON: None. CT DOSE (mGy.cm): The estimated cumulative dose is 1048.86. FINDINGS: Stranding Supervisor topogram: Unremarkable. Anterior circulation: Atherosclerosis of the cavernous segments of the internal carotid arteries. Int racranial portions of the internal carotid arteries patent to the level of the termini. Anterior cere bral arteries patent. Middle cerebral arteries patent. Anterior communicating artery patent. Posterior circulation: Codominant vertebral arteries. Intradural portions of the vertebral arteries p atent. Posterior inferior cerebellar arteries patent. Basilar artery patent. Anterior inferior cerebe llar arteries poorly visualized. Superior cerebellar arteries patent. Posterior cerebral arteries pat ent. Posterior communicating arteries patent. Dural venous sinuses: Patent. Other: Allowing for the phase of contrast, brain parenchyma within normal limits. Calvarium intact. IMPRESSION: 1. No evidence of aneurysm, focal vessel occlusion, or significant stenosis of the intracranial zuleika lisandra. ACT 112: Negative or not required by law. Electronically signed by: Jesús Lambert M.D. 01/13/2020 8:31 PM
--- NOTE | 2020-01-13 20:36 | CT Scan Report ---
CT angio neck with con CLINICAL HISTORY: 74 years-old Female presenting with dizziness. TECHNIQUE: Multidetector CT angiography of the neck was performed after the administration of intrave nous contrast. 3-D volumetric and/or maximum intensity projection (MIP) images were subsequently prince nstructed for review. IV contrast: 119 mL of Optiray 320. One or more dose lowering techniques were u sed consistent with the principles of ALARA (as low as reasonably achievable), including automatic ex posure control, mA or kV adjustment to individual patient size, and/or use of iterative reconstructio n. Stenosis measurements were based on NASCET-like criteria (distal lumen diameter as the denominator for stenosis measurement). COMPARISON: None. CT DOSE (mGy.cm): The estimated cumulative dose is 1048.86. FINDINGS: Film Tests Checker topogram: Unremarkable. Aortic arch: Atherosclerosis of the three-vessel aortic arch with patent origins of the branch vessel s. Innominate artery: Patent. Right subclavian artery: Patent. Right common carotid artery: Patent. Right internal and external carotid arteries: Right carotid bifurcation with mild calcified atheroscl erotic plaque. Right internal and external carotid arteries widely patent. Left common carotid artery: Patent. Left internal and external carotid arteries: Left carotid bifurcation with mild calcified atheroscler otic plaque. Left internal and external carotid arteries widely patent. Left subclavian artery: Patent. Vertebral arteries: Codominant vertebral arteries. Origins and courses of the bilateral vertebral art eries patent. Other: Limited intracranial evaluation within normal limits. Soft tissues of the neck normal allowing for the phase of contrast. Degenerative changes of the cervical spine. 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 Lung apices clear. IMPRESSION: 1. No evidence of dissection, focal vessel occlusion, or significant stenosis of the cervical arteri es. ACT 112: Negative or not required by law. Electronically signed by: Jesús Lambert M.D. 01/13/2020 8:34 PM
[2020-01-13] MEDS ORDERED: MECLIZINE HCL 25 MG TAB PO STA (20:45)
--- NOTE | 2020-01-13 21:26 | History & Physical Report ---
Date of Service January 13, 2020 Assessment & Plan (1) Dizziness: The patient presents with primary symptom of uncontrolled dizziness, and appeared to have confusion and some suspected underlying dementia. The patient will be admitted to telemetry for serial cardiac enzymes, serial EKG's, cardiac rhythm monitoring and a 2-D echocardiogram with Dopplers. CTA of head and neck was negative. CT of head is negative. Order MRI of brain without contrast. (2) Confusion: No signs of metabolic causes. Further work-up with MRI as above. May be secondary to dehydration. Present on Admission?: Yes (3) Vision changes: Patient does report vague symptoms of vision changes, but is not able to clarify. Present on Admission?: Yes (4) Dehydration: Continue with IV fluid rehydration. Present on Admission?: Yes (5) Pulmonary embolism: Reported history of DVT and PE, with medicine review not taking any anticoagulation. No signs of lower extremity edema or respiratory distress. Present on Admission?: Yes (6) B12 deficiency: Continue 1000 mcg p.o. daily supplement. Check a vitamin B12 level Present on Admission?: Yes (7) COPD (chronic obstructive pulmonary disease): No active symptoms, and no notation of inhalers being used. Continue montelukast 10 mg p.o. daily Present on Admission?: Yes (8) Diabetes mellitus: Hold metformin. Check hemoglobin A1c Present on Admission?: Yes (9) Hypothyroidism: Continue levothyroxine sodium 75 mcg p.o. daily Present on Admission?: Yes (10) HLD (hyperlipidemia): Continue simvastatin 20 mg daily Check a fasting lipid panel Present on Admission?: Yes (11) Deep venous thrombosis of lower extremity: As noted above Present on Admission?: Yes (12) Peripheral neuropathy: Continue gabapentin 300 mg p.o. twice daily Present on Admission?: Yes History of Present Illness Chief Complaint: The patient presents to the emergency department with complaint of dizziness, which is primarily when she is upright, and has been worsening over the past week, make it difficult to ambulate. Primary Care Provider: Alonso Radford, The patient is a 74-year-old female with a past medical history including orthostatic hypotension, pulmonary embolism, obstructive sleep apnea, recurrent sinusitis and bronchitis, hypertension, DVT of lower extremity, pyelonephritis, diabetes mellitus, COPD, hypothyroidism, hyperlipidemia, bilateral lower extremity edema and UTI. She presents to the emergency department with inability to ambulate due to progressively worsening dizziness. She denies any focal weakness in arms or legs. Allergies Allergy/AdvReac Type Severity Reaction Status Date / Time prochlorperazine Allergy Severe EXTRAPYRAMIDAL Verified 01/13/20 15:37 S/E zolpidem Allergy Severe CONFUSION/MEMORY Verified 01/13/20 15:37 LOSS carbamazepine Allergy Intermediate CONFUSION Verified 01/13/20 15:37 duloxetine Allergy Intermediate LIGHTHEADED Verified 01/13/20 15:37 NESS/DIZZIN ESS hydrochlorothiazide Allergy Intermediate LIGHTHEADED Verified 01/13/20 15:37 NESS/DIZZIN ESS indigotindisulfonic acid Allergy Intermediate LIGHTHEADED Verified 01/13/20 15:37 NESS/DIZZIN ESS levofloxacin Allergy Mild RASH Verified 01/13/20 15:37 capsaicin Allergy Unknown NAUSEA AND Verified 01/13/20 15:37 VOMITING clonazepam Allergy Unknown UNKNOWN Verified 01/13/20 15:37 diclofenac Allergy Unknown NAUSEA AND Verified 01/13/20 15:37 VOMITING Diclopak Allergy Unknown NAUSEA AND Verified 07/27/18 14:21 VOMITING losartan Allergy Unknown ELEVATED Verified 01/13/20 15:37 CREATININE hydromorphone AdvReac Intermediate N/V AND Verified 01/13/20 15:37 NIGHTMARES morphine AdvReac Intermediate HYPOTENSION Verified 01/13/20 15:37 AND N/V nitrofurantoin AdvReac Intermediate DIARRHEA-MNPG Verified 01/13/20 15:37 LIST cyclobenzaprine AdvReac Mild N/V Verified 01/13/20 15:37 lisinopril AdvReac Mild N/V Verified 01/13/20 15:37 naproxen AdvReac Mild N/V Verified 01/13/20 15:37 oxycodone AdvReac Mild N/V Verified 01/13/20 15:37 tramadol AdvReac Unknown N/V AND Verified 01/13/20 15:37 ITCHING Home Medications Home Medications Medication Instructions Recorded Confirmed Type calcium carbonate [Calcium 600] 600 mg PO DAILY 02/22/19 01/13/20 History cholecalciferol (vitamin D3) 2,000 unit PO DAILY 02/22/19 01/13/20 History [Vitamin D3] cyanocobalamin (vitamin B-12) 1,000 mcg PO DAILY 02/22/19 01/13/20 History [Vitamin B-12] ferrous sulfate [iron] 325 mg PO DAILY 02/22/19 01/13/20 History metformin 500 mg tablet,extended 1,000 mg PO QPM #180 tab 07/02/19 01/13/20 Rx release 24 hr montelukast 10 mg tablet 10 mg PO DAILY #90 tab 07/02/19 01/13/20 Rx pantoprazole 40 mg tablet,delayed 40 mg PO DAILY #90 tab 07/02/19 01/13/20 Rx release gabapentin 300 mg capsule 300 mg PO BID #60 cap 07/10/19 01/13/20 History levothyroxine 75 mcg tablet 75 mcg PO DAILY #30 tab 08/08/19 01/13/20 Rx simvastatin 20 mg tablet 20 mg PO DAILY #90 tab 10/28/19 01/13/20 Rx sitagliptin 50 mg-metformin 500 mg 1 tab PO BID #180 tab 12/12/19 01/13/20 Rx tablet lysine 1,000 mg tablet 1,000 mg PO DAILY 01/13/20 01/13/20 History melatonin 5 mg capsule 5 mg PO HS cap 01/13/20 01/13/20 History Past Med/Surg History Medical History (Updated 01/14/20 @ 01:53 by Hector Lainez MD) Anticoagulant long-term use (Acute) B12 deficiency Benign essential hypertension (Chronic 06/08/11) Chronic bronchitis (Chronic 06/08/11) Chronic recurrent sinusitis (Chronic 06/08/11) COPD (chronic obstructive pulmonary disease) (Chronic) Deep venous thrombosis of lower extremity (Resolved 07/10/11) Diabetes mellitus GERD (gastroesophageal reflux disease) HLD (hyperlipidemia) Hypothyroidism Obstructive sleep apnea syndrome (Chronic 06/08/11) Orthostatic hypotension (Resolved 07/31/11) Peripheral neuropathy Pulmonary emboli (Resolved) Pulmonary embolism (Resolved 07/10/11) Pyelonephritis (Acute) Restless leg syndrome SOB (shortness of breath) (Resolved) Supratherapeutic INR (Resolved) UTI (urinary tract infection) (Resolved 01/15/14) Surgical History H/O hysterectomy for benign disease S/P appendectomy S/P cholecystectomy Family History Mother Diabetes Social History Preferred Language: Citizen Of [place] Communication Ability: Effective Medical Customer Service Representative Required: No Beliefs That Will Affect Care: None Current Living Situation: Alone Feels Safe at Home: Yes Safety Concerns: Feels Safe At This Time Smoking Status: Never smoker Do You Dip or Chew Tobacco: No ; Second Hand Exposure: No ; Tobacco Cessation Education Requested by Patient: No Hx Alcohol Use: No Hx Substance Use: No Review of Systems Review of Systems: The patient denies chest pain, palpitations, shortness of breath, dyspnea on exertion, cough, lower extremity swelling, sore throat, fevers, chills, sweats, weight change, fatigue, nausea, vomiting, diarrhea , constipation, abdominal pain, pelvic pain, blood in urine or stool, dysuria, urinary frequency or urgency, loss of consciousness, rash, abnormal bruising or bleeding, focal weakness, numbness or tingling in arms or legs, generalized arthralgias or myalgias, back or neck pain, or night sweats. The review of systems is otherwise negative other than for that already noted above, and at least 10 systems have been reviewed. Physical Exam Physical Exam: The patient is awake, alert, well developed and well nourished, normocephalic and atraumatic, lying in bed and in no acute distress. HEENT--PERRL, EOMI, mucous membranes and oropharynx dry. Neck--supple. No JVD. No bruits. Thyroid normal, trachea midline, no adenopathy. Heart--normal S1 and S2. No murmurs, rubs or gallops. Lungs--clear bilaterally, no respiratory distress, no accessory muscle use. Abdomen--normal bowel sounds and soft. Nontender. Nondistended. Extremities--no cyanosis or clubbing. No edema. There are good distal pulses b/ l. Dermatologic--normal skin turgor, normal color, no abnormal lymph nodes, no rash. Neurologic--cranial nerves II through XII grossly intact. Rheumatologic--normal range of motion. Psychiatric--normal affect. Results & Data Vital Signs (Past 12 Hours) Vital Signs Temp Pulse Pulse Resp BP BP Pulse Ox 01/13/20 19:33 71 19 148/75 H 94 01/13/20 19:00 70 23 149/73 H 92 01/13/20 17:37 97.7 F 79 20 145/84 H 94 Laboratory Results Laboratory Results WBC 11.92 K/uL (4.8-10.8) H 01/13/20 18:42 RBC 5.15 M/uL (4.2-5.4) 01/13/20 18:42 Hgb 15.9 g/dL (12.0-16.0) 01/13/20 18:42 Hct 47.1 % (37-47) H 01/13/20 18:42 MCV 91.5 fL (80-100) 01/13/20 18:42 MCH 30.9 pg (25-34) 01/13/20 18:42 MCHC 33.8 g/dL (32-36) 01/13/20 18:42 RDW Std Deviation 43.1 fL (36.4-46.3) 01/13/20 18:42 RDW Coeff of Jayden 13.1 % (11.5-14.5) 01/13/20 18:42 Plt Count 188 K/uL (130-400) 01/13/20 18:42 MPV 10.6 fL (7.4-10.4) H 01/13/20 18:42 Immature Gran % (Auto) 0.3 % 01/13/20 18:42 Neut % (Auto) 53.3 % 01/13/20 18:42 Lymph % (Auto) 33.6 % 01/13/20 18:42 [place] % (Auto) 11.1 % 01/13/20 18:42 Eos % (Auto) 1.4 % 01/13/20 18:42 Baso % (Auto) 0.3 % 01/13/20 18:42 Immature Gran # (Auto) 0.03 K/uL (0.00-0.02) H 01/13/20 18:42 Neut # (Auto) 6.37 K/uL (1.4-6.5) 01/13/20 18:42 Lymph # (Auto) 4.00 K/uL (1.2-3.4) H 01/13/20 18:42 [place] # (Auto) 1.32 K/uL (0.11-0.59) H 01/13/20 18:42 Eos # (Auto) 0.17 K/uL (0-0.5) 01/13/20 18:42 Baso # (Auto) 0.03 K/uL (0-0.2) 01/13/20 18:42 Sodium 142 mmol/L (136-145) 01/13/20 18:42 Potassium 3.7 mmol/L (3.5-5.1) 01/13/20 18:42 Chloride 111 mmol/L (98-107) H 01/13/20 18:42 Carbon Dioxide 24 mmol/L (21-32) 01/13/20 18:42 Anion Gap 7.0 (3-11) 01/13/20 18:42 BUN 17 mg/dl (7-18) 01/13/20 18:42 Creatinine 1.09 mg/dl (0.6-1.2) 01/13/20 18:42 Est Cr Clr Drug Dosing 39.9 ml/min 01/13/20 18:42 Est GFR ( Amer) 57.5 01/13/20 18:42 Est GFR (Non-Af Amer) 49.6 01/13/20 18:42 BUN/Creatinine Ratio 15.1 (10-20) 01/13/20 18:42 Glucose 143 mg/dl (70-99) H 01/13/20 18:42 POC Glucose 130 mg/dl (70-99) H 01/14/20 00:27 Calcium 9.8 mg/dl (8.5-10.1) 01/13/20 18:42 Magnesium 1.7 mg/dl (1.8-2.4) L 01/13/20 18:42 Total Bilirubin 1.9 mg/dl (0.2-1) H 01/13/20 18:42 AST 31 U/L (15-37) 01/13/20 18:42 ALT 38 U/L (12-78) 01/13/20 18:42 Alkaline Phosphatase 98 U/L (45-117) 01/13/20 18:42 Troponin I < 0.015 ng/ml (0-0.045) 01/13/20 18:42 Total Protein 7.7 gm/dl (6.4-8.2) 01/13/20 18:42 Albumin 3.8 gm/dl (3.4-5.0) 02/17/20 18:42 Globulin 3.9 gm/dl (2.5-4.0) 01/13/20 18:42 Albumin/Globulin Ratio 1.0 (0.9-2) 01/13/20 18:42 Lipase 59 U/L (73-393) L 01/13/20 18:42 TSH 2.820 uIu/ml (0.300-4.500) 01/13/20 18:42 Urine Color Dark Yellow 01/13/20 19:10 Urine Appearance Cloudy (Clear) A 01/13/20 19:10 Urine pH 5.0 (4.5-7.5) 01/13/20 19:10 Ur Specific Fackler 1.032 (1.000-1.030) H 01/13/20 19:10 Urine Protein Trace (Negative) H 01/13/20 19:10 Urine Glucose (UA) Negative (Negative) 01/13/20 19:10 Urine Ketones 1+ (Negative) H 01/13/20 19:10 Urine Blood Negative (Negative) 01/13/20 19:10 Urine Nitrite Negative (Negative) 01/13/20 19:10 Urine Bilirubin Negative (Negative) 01/13/20 19:10 Urine Urobilinogen Negative (Negative) 01/13/20 19:10 Ur Leukocyte Esterase Trace (Negative) H 01/13/20 19:10 Urine WBC (Auto) >30 /hpf (0-5) H 01/13/20 19:10 Urine RBC (Auto) 10-30 /hpf (0-4) H 01/13/20 19:10 U Hyaline Cast (Auto) 0 /lpf (0-5) 01/13/20 19:10 U Epithel Cells (Auto) >30 /lpf (0-5) H 01/13/20 19:10 Urine Bacteria (Auto) Negative (Negative) 01/13/20 19:10 Diagnostic Findings [facility] [place], [place] [phone] CT Scan Report Patient: QUENTIN BUTT Date: 01/13/20 MR#: [id number]: [address] Acct ID:[id number]: Date: 1945[facility] [place] [facility] [address] Age: 74Location: ED Sex: F Room/Bed: Att Phy:Diagnosis: DIZZY - BLURRED VISION - LIGHT HEADED Jenny Phy: Alonso Radford, DOService Date: 01/13/20 [facility] Phy:Interpreting Phy: Jesús Lambert MD Admit Phy: Ordering Phy: Debbie Coles, cc: ~ CT angio head w con CLINICAL HISTORY: 74 years-old Female presenting with dizziness. TECHNIQUE: Multidetector CT angiography of the head was performed after the administration of intravenous contrast. 3-D volumetric and/or maximum intensity projection (MIP) images were subsequently reconstructed for review. IV contrast: 119 mL of Optiray 320. One or more dose lowering techniques were used consistent with the principles of ALARA (as low as reasonably achievable), including automatic exposure control, mA or kV adjustment to individual patient size, and/or use of iterative reconstruction. COMPARISON: None. CT DOSE (mGy.cm): The estimated cumulative dose is 1048.86. FINDINGS: Safe Deposit Attendant topogram: Unremarkable. Anterior circulation: Atherosclerosis of the cavernous segments of the internal carotid arteries. Intracranial portions of the internal carotid arteries patent to the level of the termini. Anterior cerebral arteries patent. Middle cerebral arteries patent. Anterior communicating artery patent. Posterior circulation: Codominant vertebral arteries. Intradural portions of the vertebral arteries patent. Posterior inferior cerebellar arteries patent. Basilar artery patent. Anterior inferior cerebellar arteries poorly visualized. Superior cerebellar arteries patent. Posterior cerebral arteries patent. Po sterior communicating arteries patent. Dural venous sinuses: Patent. Other: Allowing for the phase of contrast, brain parenchyma within normal limits. Calvarium intact. IMPRESSION: 1. No evidence of aneurysm, focal vessel occlusion, or significant stenosis of the intracranial arteries. ACT 112: Negative or not required by law. Electronically signed by: Jesús Lambert M.D. 01/13/2020 8:31 PM Dictated: 01/13/202026 Transcribed: 01/13/202026 [place], [place] [phone] CT Scan Report Patient: QUENTIN BUTT Date: 01/13/20 MR#: [id number]: [address] [facility] Acct ID:[id number]: Date: 1945[facility] Zip: [place] [address] Age: 74Location: ED Sex: F Room/Bed: Att Phy:Diagnosis: DIZZY - BLURRED VISION - LIGHT HEADED Jenny Phy: Alonso Radford, DOService Date: 01/13/20 [facility] Phy:Interpreting Phy: Jesús Lambert MD Admit Phy: Ordering Phy: Debbie Coles, cc: ~ CT angio neck with con CLINICAL HISTORY: 74 years-old Female presenting with dizziness. TECHNIQUE: Multidetector CT angiography of the neck was performed after the administration of intravenous contrast. 3-D volumetric and/or maximum intensity projection (MIP) images were subsequently reconstructed for review. IV contrast: 119 mL of Optiray 320. One or more dose lowering techniques were used consistent with the principles of ALARA (as low as reasonably achievable), including automatic exposure control, mA or kV adjustment to individual patient size, and/or use of iterative reconstruction. Stenosis measurements were based on NASCET-like criteria (distal lumen diameter as the denominator for stenosis measurement). COMPARISON: None. CT DOSE (mGy.cm): The estimated cumulative dose is 1048.86. FINDINGS: Safe Deposit Attendant topogram: Unremarkable. Aortic arch: Atherosclerosis of the three-vessel aortic arch with patent origins of the branch vessels. Innominate artery: Patent. Right subclavian artery: Patent. Right common carotid artery: Patent. Right internal and external carotid arteries: Right carotid bifurcation with mild calcified atherosclerotic plaque. Right internal and external carotid arteries widely patent. Left common carotid artery: Patent. Left internal and external carotid arteries: Left carotid bifurcation with mild calcified atherosclerotic plaque. Left internal and external carotid arteries widely patent. Left subclavian artery: Patent. Vertebral arteries: Codominant vertebral arteries. Origins and courses of the bilateral vertebral arteries patent. Other: Limited intracranial evaluation within normal limits. Soft tissues of the neck normal allowing for the phase of contrast. Degenerative changes of the cervical spine. 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 Lung apices clear. IMPRESSION: 1. No evidence of dissection, focal vessel occlusion, or significant stenosis of the cervical arteries. ACT 112: Negative or not required by law. Electronically signed by: Jesús Lambert M.D. 01/13/2020 8:34 PM Dictated: 01/13/202030 Transcribed: 01/13/202030 [facility], [place] [phone] XRay Report Patient: QUENTIN BUTT Date: 01/13/20 MR#: [id number]: [address] [facility] Acct ID:[id number]: Date: [facility] [address] Zip: [place] [address] Age: 74Location: ED Sex: F Room/Bed: Att Phy:Diagnosis: DIZZY - BLURRED VISION - LIGHT HEADED Jenny Phy: Alonso Radford, DOService Date: 01/13/20 Fam Phy:Interpreting Phy: Jesús Lambert MD Admit Phy: Ordering Phy: Debbie Coles, DO cc: ~ XR chest 1V portable CLINICAL HISTORY: 74 years-old Female presenting with lightheaded. TECHNIQUE: Portable upright AP view of the chest was obtained. COMPARISON: 05/16/2019. FINDINGS: Atherosclerosis of the aortic arch. Cardiac silhouette normal in size. No focal opacity. No large effusion or pneumothorax. Degenerative changes of the thoracic spine. Medical implanted device projects over the epigastrium. Partially visualized lumbar fusion hardware. Upper abdomen normal. IMPRESSION: 1. No acute cardiopulmonary disease. ACT 112: Negative or not required by law. Electronically signed by: Jesús Lambert M.D. 01/13/2020 6:52 PM Dictated: 01/13/201850 Transcribed: 01/13/201850 [facility], [place] [phone] CT Scan Report Patient: QUENTIN BUTT [facility] Date: 01/13/20 MR#: [id number]: [address] [facility] Acct ID:[id number]: Date: [facility] [address] Zip: [place] [address] Age: 74Location: ED Sex: F Room/Bed: Att Phy:Diagnosis: DIZZY - BLURRED VISION - LIGHT HEADED Jenny Phy: Alonso Radford, DOService Date: 01/13/20 Fam Phy:Interpreting Phy: Jesús Lambert MD Admit Phy: Ordering Phy: Debbie Coles, DO cc: ~ CT head/brain wo con CLINICAL HISTORY: 74 years-old Female presenting with dizziness. TECHNIQUE: Multidetector CT imaging of the head was performed without the use of intravenous contrast. IV contrast: None. One or more dose lowering techniques were used consistent with the principles of ALARA (as low as reasonably achievable), including automatic exposure control, mA or kV adjustment to individual patient size, and/or use of iterative reconstruction. COMPARISON: 03/07/2019. CT DOSE (mGy.cm): The estimated cumulative dose is 1048.86 mGy.cm. FINDINGS: Safe Deposit Attendant topogram: Unremarkable. Ventricles and sulci normal in size. No hemorrhage. Prominent perivascular space in the left basal ganglia as on prior exam. Brain parenchyma otherwise normal in appearance with preserved hester-white differentiation. No acute territorial infarct. No mass effect or midline shift. No extra-axial fluid collection. Paranasal sinuses and mastoid air cells clear. Calvarium intact. IMPRESSION: 1. No acute intracranial abnormality. ACT 112: Negative or not required by law. Electronically signed by: Jesús Lambert M.D. 01/13/2020 8:27 PM Dictated: 01/13/202024 Transcribed: 01/13/202024 Code Status & VTE Plan Code Status Full code VTE Prophylaxis Plan VTE Prophylaxis will be ordered: Yes PG Care Time/CCT Total # of Minutes Spent Total Time Spent with Patient: Total time spent is greater than 50% in coordination of care (as documented) at patient's floor/unit and/or counseling patient: Coding Level of Care Code 36307 Initial Inpt Care Lvl 3 Diagnoses Dizziness R42 Confusion R41.0 Vision changes H53.9 Dehydration E86.0 Pulmonary embolism I26.99 B12 deficiency E53.8 COPD (chronic obstructive pulmonary disease) J44.9 Diabetes mellitus E11.9 Hypothyroidism E03.9 HLD (hyperlipidemia) E78.5 Deep venous thrombosis of lower extremity I82.409 Peripheral neuropathy G62.9
[2020-01-13] MEDS ORDERED: ALUMINUM/MAGNESIUM SUSP 30 ML UDC PO PRN (22:56)
[2020-01-13] MEDS ORDERED: GLUCOSE 10 TABS/TUBE PO PRN (22:56)
[2020-01-13] MEDS ORDERED: ONDANSETRON INJ 2 MG/ML 2 ML VIAL IV PRN (22:56)
[2020-01-13] MEDS ORDERED: GLUCAGON FOR INJ 1 MG VIAL SQ PRN (22:56)
[2020-01-13] MEDS ORDERED: MAGNESIUM HYDROXIDE SUSP 30 ML UDC PO PRN (22:56)
[2020-01-13] MEDS ORDERED: DEXTROSE 50% 50 ML SYRINGE IV PRN (22:56)
[2020-01-13] MEDS ORDERED: CARBOHYDRATES FOR HYPOGLYCEMIA PO PRN (22:56)
[2020-01-13] MEDS ORDERED: ACETAMINOPHEN 325 MG TAB PO PRN (22:56)
[2020-01-13] MEDS ORDERED: GLUCOSE 40% GEL 15 GM TUBE PO PRN (22:56)
[2020-01-13] MEDS ORDERED: POLYETHYLENE (MIRALAX) 17 GM PACK PO PRN (22:56)
[2020-01-14] MEDS: GABAPENTIN 300 MG CAP PO SCH ×3 (00:07→20:30)
[2020-01-14] MEDS: INSULIN ASPART 100 UNITS/ML 3 ML PEN SC SCH ×5 (01:20→20:47)
[2020-01-14] MEDS: LEVOTHYROXINE SODIUM 75 MCG TABLET PO SCH (05:36)
[2020-01-14 06:18] LABS: Chol HDL Ratio 3; Cholesterol 131 mg/dl (0-200); HDL Cholesterol 42 mg/dl; LDL Cholesterol Calculated 65 mg/dl; Triglycerides 121 mg/dl (0-150); VLDL Cholesterol 24 mg/dl
[2020-01-14 06:29] LABS: Estimated Average Glucose 223 mg/dl; Hemoglobin A1C 9.4 % (4.5-5.6)
--- NOTE | 2020-01-14 07:21 | Magnetic Resonance Report ---
MRI OF THE BRAIN WITHOUT IV CONTRAST CLINICAL HISTORY: Dizziness. Headache. COMPARISON STUDY: CT of the brain dated 01/13/2020. TECHNIQUE: MRI of the brain was performed utilizing various T1 and T2-weighted sequences in the axial , sagittal, and coronal planes. IV contrast was not administered for this examination. FINDINGS: Brain parenchyma: There is age-related involutional change noting minimal microscopic radiographic di sease. There is no hemorrhage or mass effect. There is no restricted diffusion to suggest acute ische kemi. Small chronic lacunar infarcts are noted in both cerebellar hemispheres. Hernandez-white matter diffe rentiation is preserved. No extra-axial fluid collection is seen. The cerebellar tonsils are normal i n configuration. Ventricles, sulci, and cisterns: Prominent secondary to involutional change. Pituitary and sella: Unremarkable. Intracranial vasculature: Normal flow voids are maintained at the skull base. Orbits: The bony orbits are grossly intact. Orbital contents are normal in appearance. Sinuses and mastoids: Clear. Calvarium: Unremarkable. Cervical cord: Partially visualized cervical spinal cord is normal in morphology and signal intensity . IMPRESSION: No acute intracranial abnormality. ACT 112: Negative or not required by law. Electronically signed by: Taz Guzman M.D. 01/14/2020 7:19 AM
[2020-01-14] MEDS: CHOLECALCIFEROL 1,000 UNITS 25 MCG TAB PO SCH (08:58)
[2020-01-14] MEDS: PANTOprazole 40 MG TAB PO SCH (08:58)
[2020-01-14] MEDS: SIMVASTATIN 20 MG TAB PO SCH (08:58)
[2020-01-14] MEDS: MONTELUKAST SODIUM 10 MG TABLET PO SCH (08:59)
[2020-01-14] MEDS: CYANOCOBALAMIN 500 MCG TABLET (VITAMIN B-12) PO SCH (08:59)
[2020-01-14] MEDS: CALCIUM 600MG + VIT D 400 IU TAB PO SCH (08:59)
[2020-01-14] MEDS: FERROUS SULFATE 325 MG TAB PO SCH (08:59)
[2020-01-14] MEDS ORDERED: NON-FORMULARY MEDICATION (Lysine 1,000 MG) PO SCH (09:00)
--- NOTE | 2020-01-14 14:16 | Hospitalist Progress Note ---
Date of Service January 14, 2020 Assessment & Plan (1) Dizziness: The patient presents with primary symptom of uncontrolled dizziness. - CTA head/neck on 01/13 was without any dissection, stenoses, or other issues. 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 - PT/OT for vestibular testing - Echo pending (2) Confusion: No signs of metabolic causes. Likely dementia process. 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 She reports that she has vision "spinning." It is unclear if this is vertigo vs. actual vision issue. Normal vision exam. - Discuss with neurology (4) B12 deficiency: Prior levels were good. Last one in 2019. - Continue 1000 mcg p.o. daily supplement. - Check a vitamin B12 level (5) COPD (chronic obstructive pulmonary disease): No active symptoms and no notation of inhalers being used. - Continue montelukast 10 mg p.o. daily - DuoNebs PRN (6) Diabetes mellitus: A1c was 9.4%. - Hold metformin. - Sliding scale insulin - Consider Lantus if high blood sugars (7) Hypothyroidism: TSH was 2.8 this admission. - Continue levothyroxine 75 mcg p.o. daily (8) HLD (hyperlipidemia): - Continue simvastatin 20 mg daily (9) Deep venous thrombosis of lower extremity: As noted above (10) Peripheral neuropathy: Continue gabapentin 300 mg p.o. twice daily (11) Pulmonary embolism: Reported history of DVT and PE with medicine review not taking any anticoagulation. No signs of lower extremity edema or respiratory distress. - Normal VTE prophylaxis with Lovenox 40mg daily Admission and Anticipated Discharge Date Admission Date: January 13, 2020 Subjective Still feels like her vision is flicking from side to side. Otherwise, she also reports sadness at the passing of her . Reports no fevers/chills, chest pain, shortness of breath, abdominal pain, nausea, or vomiting. Physical Exam Constitutional: WD/WN, vitals as above Eyes: EOM intact bilaterally; no conjunctival abnormality ENMT: external ear and nose normal, oropharynx normal Neck: trachea midline, no thyromegaly normal visual inspection Respiratory: normal respiratory effort, lungs clear to auscultation no respiratory distress Cardiovascular: RRR, no murmur, no edema Gastrointestinal (Abdomen): Inspection/Auscultation: abdomen normal to inspection; abdomen not distended Musculoskeletal: no cyanosis or clubbing, extremities motor strength 5/5 Skin: no rashes, warm and dry Neurologic: CN's II-XI intact bilaterally, moves all extremities and awake Cranial Nerves: PERRL, normal accommodation, EOM intact bilaterally, normal facial strength, tongue midline, able to rotate head bilaterally, no nystagmus and symmetric palate elevation Psychiatric: Orientation: alert, oriented to person and cooperative Results & Data ([facility]) Vital Signs (Past 12 Hours) Vital Signs Temp Pulse Pulse Resp BP BP Pulse Ox 01/14/20 12:02 36.9 C 60 18 147/75 H 95 01/14/20 07:52 36.6 C 57 L 18 142/81 H 94 01/14/20 07:20 53 L 01/14/20 03:09 36.4 C L 60 20 104/65 95 01/14/20 02:34 69 PG Care Time/CCT Total # of Minutes Spent Total Time Spent with Patient: Total time spent is greater than 50% in coordination of care (as documented) at patient's floor/unit and/or counseling patient: Coding Level of Care Code 67552 Subseq Hosp Care Lvl 3 Diagnoses Dizziness R42 Confusion R41.0 Vision changes H53.9 B12 deficiency E53.8 COPD (chronic obstructive pulmonary disease) J44.9 Diabetes mellitus E11.9 Hypothyroidism E03.9 HLD (hyperlipidemia) E78.5 Deep venous thrombosis of lower extremity I82.409 Peripheral neuropathy G62.9 Pulmonary embolism I26.99
[2020-01-14] MEDS ORDERED: NON-FORMULARY MEDICATION (Melatonin 5 MG) PO SCH (21:00)
--- NOTE | 2020-01-14 21:25 | Electrocardiogram Report ---
Test Reason : Blood Pressure : / mmHG Vent. Rate : 065 BPM Atrial Rate : 065 BPM P-R Int : 152 ms QRS Dur : 088 ms QT Int : 426 ms P-R-T Axes : 031 004 057 degrees QTc Int : 443 ms Normal sinus rhythm Normal ECG When compared with ECG of 26-FEB-2019 10:07, No significant change was found Confirmed by David Lowry ([id number]) on 01/14/2020 9:25:20 PM Referred By: REFERRED SELF Confirmed By:David Lowry
--- NOTE | 2020-01-15 02:55 | Emergency Department Note ---
Entered by Corrina Nguyen acting as a scribe for History of Present Illness General Chief complaint: Dizziness Stated complaint: DIZZY - BLURRED VISION - LIGHT HEADED Time Seen by Provider: 01/13/20 17:58 Source: patient History of Present Illness Onset (ago): week(s) 1 Location: head Pain Consistency: + other (persistent ) Quality: + other (dizziness) Exacerbated By: + movement Associated symptoms: + denies other symptoms (negative slurred speech; negative trouble finding words; negative facial droop; negative urinary symptoms; ), + confusion, + headaches, + loss of appetite and + other (positive feels off balance; positive feels like things are spinning; positive blurry vision; positive stumbling when walking; positive decreased memory; positive hoarse voice; positive intermittent diarrhea); no chest pain, no cough, no fever/chills, no nausea/vomiting and no shortness of breath Treatments prior to arrival: none The patient is a 74 year old female who presents to the Emergency Room with complaints of persistent dizziness that began 1 week prior to arrival. The patient describes intermittently feeling off balance and like things are spinning around her. She states that this is exacerbated with movement. The patient's daughter reports that the patient has recently been complaining of blurry vision. The patient states that she has been stumbling while walking during this time. The patient's daughter reports that the patient has been more confused over the past month and states that the patient's memory is decreasing. Per the patient's daughter, the patient has been forgetting what day it is, when she ate, and when and if she took her medicine. The patient denies any recent headaches, but states that today she has had a headache. Per the patient's daughter, the patient's voice has been hoarse during this time, but the patient's daughter denies slurred speech and trouble finding words. The patient's daughter denies facial droop. The patient denies any treatments prior to arrival for her symptoms. The patient's daughter reports that the patient has a history of UTIs with similar symptoms, but the patient denies urinary symptoms. The patient reports that she has a history of dizziness episodes but states that she does not know what caused these. The patient reports that she has had recent intermittent episodes of diarrhea. She states that when she does not have diarrhea she has some episodes of blood in her stool due to straining. The patient reports a history of hemorrhoids. The patient denies any recent medication changes. She denies any recent cough, fever, chills, nausea, chest pain, and shortness of breath. The patient states that at baseline she has a racing heartbeat and denies any recent changes in this. The patient reports worsening swelling in her right leg but states that this intermittently happens at baseline. The patient reports a history of sinus infections but denies any recent problems with this in the past month. The patient's daughter states that the patient does not drink enough water throughout the day. Home Medications Home Medications Medication Instructions Recorded Confirmed Type calcium carbonate [Calcium 600] 600 mg PO DAILY 02/22/19 01/13/20 History cholecalciferol (vitamin D3) 2,000 unit PO DAILY 02/22/19 01/13/20 History [Vitamin D3] cyanocobalamin (vitamin B-12) 1,000 mcg PO DAILY 02/22/19 01/13/20 History [Vitamin B-12] ferrous sulfate [iron] 325 mg PO DAILY 02/22/19 01/13/20 History metformin 500 mg tablet,extended 1,000 mg PO QPM #180 tab 07/02/19 01/13/20 Rx release 24 hr montelukast 10 mg tablet 10 mg PO DAILY #90 tab 07/02/19 01/13/20 Rx pantoprazole 40 mg tablet,delayed 40 mg PO DAILY #90 tab 07/02/19 01/13/20 Rx release gabapentin 300 mg capsule 300 mg PO BID #60 cap 07/10/19 01/13/20 History levothyroxine 75 mcg tablet 75 mcg PO DAILY #30 tab 08/08/19 01/13/20 Rx simvastatin 20 mg tablet 20 mg PO DAILY #90 tab 10/28/19 01/13/20 Rx sitagliptin 50 mg-metformin 500 mg 1 tab PO BID #180 tab 12/12/19 01/13/20 Rx tablet lysine 1,000 mg tablet 1,000 mg PO DAILY 01/13/20 01/13/20 History melatonin 5 mg capsule 5 mg PO HS cap 01/13/20 01/13/20 History Allergies Allergy/AdvReac Type Severity Reaction Status Date / Time levofloxacin Allergy Mild RASH Verified 01/13/20 15:37 clonazepam Allergy Unknown UNKNOWN Verified 01/13/20 15:37 diclofenac Allergy Unknown NAUSEA AND Verified 01/13/20 15:37 VOMITING Diclopak Allergy Unknown NAUSEA AND Verified 07/27/18 14:21 VOMITING prochlorperazine AdvReac Severe EXTRAPYRAMIDAL Verified 01/14/20 08:54 S/E zolpidem AdvReac Severe CONFUSION/MEMORY Verified 01/14/20 08:54 LOSS carbamazepine AdvReac Intermediate CONFUSION Verified 01/14/20 08:54 duloxetine AdvReac Intermediate LIGHTHEADED Verified 01/14/20 08:54 NESS/DIZZIN ESS hydrochlorothiazide AdvReac Intermediate LIGHTHEADED Verified 01/14/20 08:54 NESS/DIZZIN ESS hydromorphone AdvReac Intermediate N/V AND Verified 01/13/20 15:37 NIGHTMARES indigotindisulfonic acid AdvReac Intermediate LIGHTHEADED Verified 01/14/20 08:54 NESS/DIZZIN ESS morphine AdvReac Intermediate HYPOTENSION Verified 01/13/20 15:37 AND N/V nitrofurantoin AdvReac Intermediate DIARRHEA-MNPG Verified 01/13/20 15:37 LIST cyclobenzaprine AdvReac Mild N/V Verified 01/13/20 15:37 lisinopril AdvReac Mild N/V Verified 01/13/20 15:37 naproxen AdvReac Mild N/V Verified 01/13/20 15:37 oxycodone AdvReac Mild N/V Verified 01/13/20 15:37 capsaicin AdvReac Unknown NAUSEA AND Verified 01/14/20 08:54 VOMITING losartan AdvReac Unknown ELEVATED Verified 01/14/20 08:54 CREATININE tramadol AdvReac Unknown N/V AND Verified 01/13/20 15:37 ITCHING Past Med/Surg History Medical History (Updated 01/14/20 @ 14:11 by Raymundo Ramirez MD) Anticoagulant long-term use (Acute) B12 deficiency Benign essential hypertension (Chronic 06/08/11) Chronic bronchitis (Chronic 06/08/11) Chronic recurrent sinusitis (Chronic 06/08/11) COPD (chronic obstructive pulmonary disease) (Chronic) Deep venous thrombosis of lower extremity (Resolved 07/10/11) Diabetes mellitus GERD (gastroesophageal reflux disease) HLD (hyperlipidemia) Hypothyroidism Obstructive sleep apnea syndrome (Chronic 06/08/11) Orthostatic hypotension (Resolved 07/31/11) Peripheral neuropathy Pulmonary emboli (Resolved) Pulmonary embolism (Resolved 07/10/11) Pyelonephritis (Acute) Restless leg syndrome SOB (shortness of breath) (Resolved) Supratherapeutic INR (Resolved) UTI (urinary tract infection) (Resolved 01/15/14) Surgical History H/O hysterectomy for benign disease S/P appendectomy S/P cholecystectomy Family History Mother Diabetes Social History Preferred Language: Turkish Communication Ability: Effective Guide Plant Required: No Beliefs That Will Affect Care: None Current Living Situation: Alone Feels Safe at Home: Yes Safety Concerns: Feels Safe At This Time Smoking Status: Never smoker Do You Dip or Chew Tobacco: No ; Second Hand Exposure: No ; Tobacco Cessation Education Requested by Patient: No Hx Alcohol Use: No Hx Substance Use: No Review of Systems See HPI for pertinent positives & negatives. and A total of 10 systems reviewed and were otherwise negative Physical Exam Vital Signs Vital Signs - 24 hr 01/13/20 17:37 01/13/20 19:00 01/13/20 19:30 Temperature 97.7 F Temperature Source Oral Pulse Rate 79 64 Pulse Rate [Apical] 70 Pulse Rate from SpO2 Sensor 58 L Pulse Rhythm [Apical] Regular Pulse Strength [Apical] Normal Respiratory Rate 20 23 16 Respiratory Effort / Characteristics Non-Labored Spontaneous Respiratory Depth Normal Respiratory Pattern Regular Blood Pressure 145/84 H 148/75 H Blood Pressure [Right Arm] 149/73 H Blood Pressure Mean 104 116 Blood Pressure Mean [Right Arm] 98 Blood Pressure Position Sitting Blood Pressure Position [Right Arm] Lying Pulse Oximetry 94 92 92 Oxygen Delivery Method Room Air Sepsis Recent Fever Within 48 Hours No Sepsis New/Unexplained Change in Mental Status No Sepsis Action Taken by Nursing No Action Required 01/13/20 19:33 01/13/20 20:00 01/13/20 20:30 Temperature Temperature Source Pulse Rate 60 61 Pulse Rate [Apical] 71 Pulse Rate from SpO2 Sensor 59 L 62 Pulse Rhythm [Apical] Pulse Strength [Apical] Respiratory Rate 19 20 22 Respiratory Effort / Characteristics Non-Labored Respiratory Depth Normal Respiratory Pattern Blood Pressure 152/89 H 141/70 H Blood Pressure [Right Arm] 148/75 H Blood Pressure Mean 115 91 Blood Pressure Mean [Right Arm] 99 Blood Pressure Position Blood Pressure Position [Right Arm] Lying Pulse Oximetry 94 94 95 Oxygen Delivery Method Room Air Sepsis Recent Fever Within 48 Hours Sepsis New/Unexplained Change in Mental Status Sepsis Action Taken by Nursing 01/13/20 21:00 01/13/20 21:30 01/13/20 22:00 Temperature Temperature Source Pulse Rate 62 60 58 L Pulse Rate [Apical] Pulse Rate from SpO2 Sensor 60 57 L 58 L Pulse Rhythm [Apical] Pulse Strength [Apical] Respiratory Rate 21 21 19 Respiratory Effort / Characteristics Respiratory Depth Respiratory Pattern Blood Pressure 135/67 130/74 149/73 H Blood Pressure [Right Arm] Blood Pressure Mean 79 109 99 Blood Pressure Mean [Right Arm] Blood Pressure Position Blood Pressure Position [Right Arm] Pulse Oximetry 92 95 97 Oxygen Delivery Method Room Air Sepsis Recent Fever Within 48 Hours Sepsis New/Unexplained Change in Mental Status Sepsis Action Taken by Nursing GENERAL: alert, well appearing, well nourished, no distress, non-toxic EYE EXAM: normal conjunctiva, PERRL and EOM's grossly intact OROPHARYNX: no exudate, no erythema, lips, buccal mucosa, and tongue normal and mucous membranes are moist NECK: supple, no nuchal rigidity, no adenopathy, non-tender LUNGS: Clear to auscultation. Normal chest wall mechanics, no w/r/r HEART: no murmurs, S1 normal and S2 normal ABDOMEN: abdomen soft, non-tender, normo-active bowel sounds, no masses, no rebound or guarding. BACK: Back is symmetrical on inspection and there is no deformity, no midline tenderness, no CVA tenderness. SKIN: no rashes and no bruising UPPER EXTREMITIES: upper extremities are grossly normal. FROM, nml pulses b/l. LOWER EXTREMITIES: No pitting edema. FROM, nml pulses b/l. NEURO EXAM: Normal sensorium, cranial nerves II-XII intact, normal speech, no weakness of arms, no weakness of legs. No drift. Finger to nose intact, with the exception of mild difficulty with right finger to nose testing. Gross sensation intact. Course Course 1800: Past medical records reviewed. The patient was evaluated in room C10. A complete history and physical exam was performed. 2055: I checked on and updated the patient. The trimming caser is looking into options for the patient. 2159: [facility] for further evaluation. 2205: I updated the patient's daughter on the patient's results and the plan over the phone. Administered Medications Cyanocobalamin (Vitamin B-12) 1,000 mcg PO DAILY [facility] Stop: 02/13/20 08:59 Last Admin: 01/14/20 08:59 Dose: 1,000 mcg Documented by: [id number] Ferrous Sulfate (Feosol) 325 mg PO DAILY [facility] Stop: 02/13/20 08:59 Last Admin: 01/14/20 08:59 Dose: 325 mg Documented by: [id number] Gabapentin (Neurontin) 300 mg PO BID [facility] Stop: 02/12/20 22:55 Last Admin: 01/14/20 20:30 Dose: 300 mg Documented by: [id number] Admin: 01/14/20 08:59 Dose: 300 mg Documented by: [id number] Admin: 01/14/20 00:07 Dose: 300 mg Documented by: [id number] Insulin Aspart (Novolog Flexpen) 0 units SC ACHS [facility] Stop: 02/13/20 07:29 Last Admin: 01/14/20 20:47 Dose: Not Given Documented by: [id number] Cosigned by: [id number] Admin: 01/14/20 17:26 Dose: 5 units Documented by: [id number] Cosigned by: [id number] Admin: 01/14/20 12:14 Dose: 1 units Documented by: [id number] Cosigned by: [id number] Admin: 01/14/20 08:59 Dose: 4 units Documented by: [id number] Cosigned by: [id number] Admin: 01/14/20 01:20 Dose: 4 units Documented by: [id number] Cosigned by: [id number] Ioversol (Optiray 320 125ml) 117 ml IV ONCE PRN PRN Reason: Interaction Checking Stop: 01/17/20 20:09 Last Admin: 01/13/20 20:13 Dose: 117 ml Documented by: [id number] Levothyroxine Sodium (Synthroid) 75 mcg PO DAILYBB [facility] Stop: 02/13/20 06:29 Last Admin: 01/14/20 05:36 Dose: 75 mcg Documented by: [id number] Montelukast Sodium (Singulair) 10 mg PO DAILY [facility] Stop: 02/13/20 08:59 Last Admin: 01/14/20 08:59 Dose: 10 mg Documented by: [id number] Multivitamins/Minerals (Caltrate Plus) 1 tab PO DAILY [facility] Stop: 02/13/20 08:59 Last Admin: 01/14/20 08:59 Dose: 1 tab Documented by: [id number] Pantoprazole Sodium (Protonix) 40 mg PO DAILY [facility] Stop: 02/13/20 08:59 Last Admin: 01/14/20 08:58 Dose: 40 mg Documented by: [id number] Simvastatin (Zocor) 20 mg PO DAILY [facility] Stop: 02/13/20 08:59 Last Admin: 01/14/20 08:58 Dose: 20 mg Documented by: [id number] Vitamin D (Vitamin D3) 2,000 units PO DAILY [facility] Stop: 02/13/20 08:59 Last Admin: 01/14/20 08:58 Dose: 2,000 units Documented by: [id number] Discontinued Medications Sodium Chloride (Nss 1000ml) 1,000 mls @ 250 mls/hr IV .Q4H [facility] Stop: 02/12/20 18:29 Last Admin: 01/13/20 23:18 Dose: Not Given Documented by: [id number] Infusion: 01/13/20 23:10 Dose: 0 mls/hr Documented by: [id number] Admin: 01/13/20 19:08 Dose: 250 mls/hr Documented by: [id number] Meclizine HCl (Antivert) 25 mg PO NOW [facility] Stop: 01/13/20 20:46 Last Admin: 01/13/20 21:33 Dose: 25 mg Documented by: [id number] Medical Decision Making Differential Diagnosis Differential diagnosis includes etiologies such as benign positional vertigo, dehydration, hypovolemia, anemia, tumor, infection, hypoglycemia, electrolyte abnormalities, cardiac sources, intracerebral event, toxicologic, neurologic, as well as others were entertained. Medical Records Attestation: I reviewed the patient's medical records. Home Medications Current Medication List: was personally reviewed by me Laboratory Data Attestation: I reviewed the patient's lab results. Result diagrams: 01/13/20 18:42 01/13/20 18:42 Lab Results 01/13/20 01/13/20 01/13/20 Range/Units 18:42 18:42 19:10 WBC 11.92 H (4.8-10.8) K/uL RBC 5.15 (4.2-5.4) M/uL Hgb 15.9 (12.0-16.0) g/dL Hct 47.1 H (37-47) % MCV 91.5 (80-100) fL MCH 30.9 (25-34) pg MCHC 33.8 (32-36) g/dL RDW Std Deviation 43.1 (36.4-46.3) fL RDW Coeff of Jayden 13.1 (11.5-14.5) % Plt Count 188 (130-400) K/uL MPV 10.6 H (7.4-10.4) fL Immature Gran % (Auto) 0.3 % Neut % (Auto) 53.3 % Lymph % (Auto) 33.6 % [place]ady % (Auto) 11.1 % Eos % (Auto) 1.4 % Baso % (Auto) 0.3 % Immature Gran # (Auto) 0.03 H (0.00-0.02) K/uL Neut # (Auto) 6.37 (1.4-6.5) K/uL Lymph # (Auto) 4.00 H (1.2-3.4) K/uL Grady # (Auto) 1.32 H (0.11-0.59) K/uL Eos # (Auto) 0.17 (0-0.5) K/uL Baso # (Auto) 0.03 (0-0.2) K/uL Sodium 142 (136-145) mmol/L Potassium 3.7 (3.5-5.1) mmol/L Chloride 111 H (98-107) mmol/L Carbon Dioxide 24 (21-32) mmol/L Anion Gap 7.0 (3-11) BUN 17 (7-18) mg/dl Creatinine 1.09 (0.6-1.2) mg/dl Est Cr Clr Drug Dosing 39.9 ml/min Est GFR ( Amer) 57.5 Est GFR (Non-Af Amer) 49.6 BUN/Creatinine Ratio 15.1 (10-20) Glucose 143 H (70-99) mg/dl Calcium 9.8 (8.5-10.1) mg/dl Magnesium 1.7 L (1.8-2.4) mg/dl Total Bilirubin 1.9 H (0.2-1) mg/dl AST 31 (15-37) U/L ALT 38 (12-78) U/L Alkaline Phosphatase 98 (45-117) U/L Troponin I < 0.015 (0-0.045) ng/ml Total Protein 7.7 (6.4-8.2) gm/dl Albumin 3.8 (3.4-5.0) gm/dl Globulin 3.9 (2.5-4.0) gm/dl Albumin/Globulin Ratio 1.0 (0.9-2) Lipase 59 L (73-393) U/L TSH 2.820 (0.300-4.500) uIu/ml Urine Color Dark Yellow Urine Appearance Cloudy A (Clear) Urine pH 5.0 (4.5-7.5) Ur Specific [place] 1.032 H (1.000-1.030) Urine Protein Trace H (Negative) Urine Glucose (UA) Negative (Negative) Urine Ketones 1+ H (Negative) Urine Blood Negative (Negative) Urine Nitrite Negative (Negative) Urine Bilirubin Negative (Negative) Urine Urobilinogen Negative (Negative) Ur Leukocyte Esterase Trace H (Negative) Urine WBC (Auto) >30 H (0-5) /hpf Urine RBC (Auto) 10-30 H (0-4) /hpf U Hyaline Cast (Auto) 0 (0-5) /lpf U Epithel Cells (Auto) >30 H (0-5) /lpf Urine Bacteria (Auto) Negative (Negative) Imaging Data Radiologist's Impression: Radiology results as stated below per my review and the radiologist's interpretation: XR chest 1V portable CLINICAL HISTORY: 74 years-old Female presenting with lightheaded. TECHNIQUE: Portable upright AP view of the chest was obtained. COMPARISON: 05/16/2019. FINDINGS: Atherosclerosis of the aortic arch. Cardiac silhouette normal in size. No focal opacity. No large effusion or pneumothorax. Degenerative changes of the thoracic spine. Medical implanted device projects over the epigastrium. Partially visualized lumbar fusion hardware. Upper abdomen normal. IMPRESSION: 1. No acute cardiopulmonary disease. ACT 112: Negative or not required by law. Electronically signed by: Jesús Lambert M.D. 01/13/2020 6:[address] head/brain wo con CLINICAL HISTORY: 74 years-old Female presenting with dizziness. TECHNIQUE: Multidetector CT imaging of the head was performed without the use of intravenous contrast. IV contrast: None. One or more dose lowering techniques were used consistent with the principles of ALARA (as low as reasonably achievable), including automatic exposure control, mA or kV adjustment to individual patient size, and/or use of iterative reconstruction. COMPARISON: 03/07/2019. CT DOSE (mGy.cm): The estimated cumulative dose is 1048.86 mGy.cm. FINDINGS: Patient Assessment Coordinator topogram: Unremarkable. Ventricles and sulci normal in size. No hemorrhage. Prominent perivascular space in the left basal ganglia as on prior exam. Brain parenchyma otherwise normal in appearance with preserved hester-white differentiation. No acute territorial infarct. No mass effect or midline shift. No extra-axial fluid collection. Paranasal sinuses and mastoid air cells clear. Calvarium intact. IMPRESSION: 1. No acute intracranial abnormality. ACT 112: Negative or not required by law. Electronically signed by: Jesús Lambert M.D. 01/13/2020 8:[address] angio head w con CLINICAL HISTORY: 74 years-old Female presenting with dizziness. TECHNIQUE: Multidetector CT angiography of the head was performed after the administration of intravenous contrast. 3-D volumetric and/or maximum intensity projection (MIP) images were subsequently reconstructed for review. IV contrast: 119 mL of Optiray 320. One or more dose lowering techniques were used consistent with the principles of ALARA (as low as reasonably achievable), including automatic exposure control, mA or kV adjustment to individual patient size, and/or use of iterative reconstruction. COMPARISON: None. CT DOSE (mGy.cm): The estimated cumulative dose is 1048.86. FINDINGS: Patient Assessment Coordinator topogram: Unremarkable. Anterior circulation: Atherosclerosis of the cavernous segments of the internal carotid arteries. Intracranial portions of the internal carotid arteries patent to the level of the termini. Anterior cerebral arteries patent. Middle cerebral arteries patent. Anterior communicating artery patent. Posterior circulation: Codominant vertebral arteries. Intradural portions of the vertebral arteries patent. Posterior inferior cerebellar arteries patent. Basilar artery patent. Anterior inferior cerebellar arteries poorly visualized. Superior cerebellar arteries patent. Posterior cerebral arteries patent. Posterior communicating arteries patent. Dural venous sinuses: Patent. Other: Allowing for the phase of contrast, brain parenchyma within normal limits. Calvarium intact. IMPRESSION: 1. No evidence of aneurysm, focal vessel occlusion, or significant stenosis of the intracranial arteries. ACT 112: Negative or not required by law. Electronically signed by: Jesús Lambert M.D. 01/13/2020 8:[address] angio neck with con CLINICAL HISTORY: 74 years-old Female presenting with dizziness. TECHNIQUE: Multidetector CT angiography of the neck was performed after the administration of intravenous contrast. 3-D volumetric and/or maximum intensity projection (MIP) images were subsequently reconstructed for review. IV contrast: 119 mL of Optiray 320. One or more dose lowering techniques were used consistent with the principles of ALARA (as low as reasonably achievable), including automatic exposure control, mA or kV adjustment to individual patient size, and/or use of iterative reconstruction. Stenosis measurements were based on NASCET-like criteria (distal lumen diameter as the denominator for stenosis measurement). COMPARISON: None. CT DOSE (mGy.cm): The estimated cumulative dose is 1048.86. FINDINGS: Patient Assessment Coordinator topogram: Unremarkable. Aortic arch: Atherosclerosis of the three-vessel aortic arch with patent origins of the branch vessels. Innominate artery: Patent. Right subclavian artery: Patent. Right common carotid artery: Patent. Right internal and external carotid arteries: Right carotid bifurcation with mild calcified atherosclerotic plaque. Right internal and external carotid arteries widely patent. Left common carotid artery: Patent. Left internal and external carotid arteries: Left carotid bifurcation with mild calcified atherosclerotic plaque. Left internal and external carotid arteries widely patent. Left subclavian artery: Patent. Vertebral arteries: Codominant vertebral arteries. Origins and courses of the bilateral vertebral arteries patent. Other: Limited intracranial evaluation within normal limits. Soft tissues of the neck normal allowing for the phase of contrast. Degenerative changes of the cervical spine. 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 Lung apices clear. IMPRESSION: 1. No evidence of dissection, focal vessel occlusion, or significant stenosis of the cervical arteries. ACT 112: Negative or not required by law. Electronically signed by: Jesús Lambert M.D. 01/13/2020 8:34 PM ECG Data Attestation: I personally reviewed and interpreted this ECG as follows: Indication: + weakness Rate (beats per minute): 65 Rhythm: + sinus rhythm ECG [place]: + Normal ECG ST segments: no ST depression and no ST elevation ECG Findings: + Other (normal intervals ); no PACs and no PVCs Blood Pressure Blood Pressure Findings: Elevated blood pressure Blood Pressure Disposition: further management by hospitalist MDM Narrative Patient here well-appearing in no acute distress, however concerning recent symptoms as described by both her and daughter bedside. It seems that patient's memory has been getting worse over at least the course of the last month according to daughter, and over the last week patient has been more unsteady, dizziness, headaches, as well as even forgetting to eat or drink. Daughter is uncertain if she is taking her medications daily. Patient with no obvious focal neuro deficit, very slight difficulty on the right during finger-nose testing, however no overt weakness, dysarthria, or facial droop. NIH stroke score 0. No ectopy or dysrhythmia noted on telemetry while monitored. Patient's labs reassuring, and CT as well as CT angiography of the head and neck were unremarkable. I am concerned the patient is unable to care for self and given family cannot stay with her to help assure her safety, feel this is a contributing factor and patient needing additional inpatient care. I do feel patient would benefit from additional neurologic evaluation and possibly additional stroke work-up. At this time I do not suspect occult infectious etiology. Patient does have elevated white blood cell count in the urine, however has significant epithelials as well. At this time I do not suspect overt UTI. Patient kept aware of all results and was in agreement with plan. Daughter also kept updated on results even after she left. Impression & Plan Dizziness, Dehydration, Confusion, Vision changes Discharge Plan Visit Data *Final* Discharge Date/Time: 01/13/20 22:22 Chief Complaint: Dizziness Stated Complaint: DIZZY - BLURRED VISION - LIGHT HEADED ED Provider: Debbie Coles Discharge Problem: Dizziness, Dehydration, Confusion, Vision changes Patient Disposition: Admitted As Inpatient Discharge Instructions Interventions: ED Discharge Assessment Last Done: 01/13/20 22:22 The scribe's documentation has been prepared under my direction and personally reviewed by me in its entirety. I confirm that the note above accurately reflects all work, treatment, procedures, and medical decision making performed by me.
[2020-01-15] MEDS: LEVOTHYROXINE SODIUM 75 MCG TABLET PO SCH (05:48)
[2020-01-15 06:25] LABS: Hematocrit (blood only) 43.4 % (37-47); Hemoglobin 14.5 g/dL (12.0-16.0); Mean Corpuscular Hemoglobin 30.4 pg (25-34); Mean Corpuscular Hgb Conc 33.4 g/dL (32-36); Mean Platelet Volume 10.4 fL (7.4-10.4); Platelet Count 168 K/uL (130-400); RDW Coefficient of Variation 13.2 % (11.5-14.5); RDW Standard Deviation 43.7 fL (36.4-46.3); Red Blood Count 4.77 M/uL (4.2-5.4)
[2020-01-15 07:10] LABS: BUN Creatinine Ratio 15.7 (10-20); Creatinine Clr Calc Pharmacy 47.5 ml/min; Est GFR (African American) 70.6; Est GFR (Non-African American) 60.9; Magnesium 1.7 mg/dl (1.8-2.4); Phosphorus 3.2 mg/dl (2.5-4.9); Potassium 3.6 mmol/L (3.5-5.1)
[2020-01-15] MEDS: INSULIN ASPART 100 UNITS/ML 3 ML PEN SC SCH ×4 (08:23→21:16)
[2020-01-15] MEDS: SIMVASTATIN 20 MG TAB PO SCH (08:27)
[2020-01-15] MEDS: FERROUS SULFATE 325 MG TAB PO SCH (08:27)
[2020-01-15] MEDS: GABAPENTIN 300 MG CAP PO SCH (08:27)
[2020-01-15] MEDS: PANTOprazole 40 MG TAB PO SCH (08:27)
[2020-01-15] MEDS: CHOLECALCIFEROL 1,000 UNITS 25 MCG TAB PO SCH (08:28)
[2020-01-15] MEDS: MONTELUKAST SODIUM 10 MG TABLET PO SCH (08:28)
[2020-01-15] MEDS: CYANOCOBALAMIN 500 MCG TABLET (VITAMIN B-12) PO SCH (08:28)
[2020-01-15] MEDS: CALCIUM 600MG + VIT D 400 IU TAB PO SCH (08:28)
[2020-01-15] MEDS: INSULIN GLARGINE SOLOSTAR 100 UNITS/ML 3 ML PEN SC SCH (08:30)
--- NOTE | 2020-01-15 12:06 | Hospitalist Progress Note ---
Date of Service January 15, 2020 Assessment & Plan (1) Dizziness: Difficult to tell whether this is vertigo vs. general dizziness. To me, she describes some vertigo symptoms such as room spinning sensation. She denied these symptoms to the PT who worked with her on 01/14. - CTA head/neck on 01/13 was without any dissection, stenoses, or other issues. 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 - Will trial meclizine for dizziness. - She also reports about 1 week of sinusitis symptoms. Will give Augmentin for a bacterial sinusitis, though I do not think this will really change the course of her vertigo/dizziness symptoms. (2) Confusion: No signs of metabolic causes. Likely dementia process. This was explored in 02/2019 during a prior admission where she had trouble with executive function and delayed recall. MOCA was . - [employer] cognitive evaluation (3) Vision changes: Patient does report vague symptoms of vision changes, but is not able to clarify. She reports that she has vision "spinning." It is unclear if this is vertigo vs. actual vision issue. Normal vision exam. - Symptoms had resolved by 01/15/2020 -> [place] to be an aspect of vertigo for her. (4) B12 deficiency: B12 was 1600 this admission. - Hold supplement (5) COPD (chronic obstructive pulmonary disease): No active symptoms and no notation of inhalers being used. - Continue montelukast 10 mg p.o. daily - DuoNebs PRN (6) Diabetes mellitus: A1c was 9.4%. Priors have been as high as 13%. - Hold metformin. - Sliding scale insulin - Consider Lantus if high blood sugars continue -> Today, sugars are mostly under control. (7) Hypothyroidism: TSH was 2.8 this admission. - Continue levothyroxine 75 mcg p.o. daily (8) HLD (hyperlipidemia): - Continue simvastatin 20 mg daily (9) Deep venous thrombosis of lower extremity: As noted above (10) Peripheral neuropathy: Patient is unsure when her gabapentin was increased, but this can contribute to dizziness. - Lower gabapentin to 100 BID (11) Pulmonary embolism: Reported history of DVT and PE with medicine review not taking any anticoagulation. No signs of lower extremity edema or respiratory distress. - Normal VTE prophylaxis with Lovenox 40mg daily Admission and Anticipated Discharge Date Admission Date: January 13, 2020 Subjective Somewhat improved vertigo/dizziness symptoms today, but largely feels similar to yesterday. Reports no fevers/chills, chest pain, shortness of breath, abdominal pain, nausea, or vomiting. Physical Exam Constitutional: WD/WN, vitals as above Eyes: EOM intact bilaterally; no conjunctival abnormality ENMT: external ear and nose normal, oropharynx normal Neck: trachea midline, no thyromegaly normal visual inspection Respiratory: normal respiratory effort, lungs clear to auscultation no respiratory distress Cardiovascular: RRR, no murmur, no edema Gastrointestinal (Abdomen): Inspection/Auscultation: abdomen normal to inspection; abdomen not distended Musculoskeletal: no cyanosis or clubbing, extremities motor strength 5/5 Skin: no rashes, warm and dry Neurologic: CN's II-XI intact bilaterally, moves all extremities and awake Cranial Nerves: PERRL, normal accommodation, EOM intact bilaterally, normal facial strength, tongue midline, able to rotate head bilaterally, no nystagmus and symmetric palate elevation Psychiatric: Orientation: alert, oriented to person and cooperative Results & Data ([facility]) Vital Signs (Past 12 Hours) Vital Signs Temp Pulse Pulse Resp BP Pulse Ox 01/15/20 07:29 36.6 C 60 18 92 01/15/20 07:15 63 01/15/20 02:39 36.5 C 59 L 18 122/76 95 01/15/20 00:21 56 L PG Care Time/CCT Total # of Minutes Spent Total Time Spent with Patient: Total time spent is greater than 50% in coordination of care (as documented) at patient's floor/unit and/or counseling patient: Coding Level of Care Code 82226 Subseq Hosp Care Lvl 3 Diagnoses Dizziness R42 Confusion R41.0 Vision changes H53.9 B12 deficiency E53.8 COPD (chronic obstructive pulmonary disease) J44.9 Diabetes mellitus E11.9 Hypothyroidism E03.9 HLD (hyperlipidemia) E78.5 Deep venous thrombosis of lower extremity I82.409 Peripheral neuropathy G62.9 Pulmonary embolism I26.99
[2020-01-15] MEDS: AMOXICILLIN/CLAVULANATE 875 MG TAB PO SCH (16:28)
[2020-01-15] MEDS: GABAPENTIN 100 MG CAP PO SCH (20:24)
[2020-01-15] MEDS: MECLIZINE 12.5 MG TAB PO PRN (20:29)
[2020-01-16] MEDS: LEVOTHYROXINE SODIUM 75 MCG TABLET PO SCH (05:51)
[2020-01-16] MEDS: MECLIZINE 12.5 MG TAB PO PRN (08:22)
[2020-01-16] MEDS: CHOLECALCIFEROL 1,000 UNITS 25 MCG TAB PO SCH (08:22)
[2020-01-16] MEDS: GABAPENTIN 100 MG CAP PO SCH (08:22)
[2020-01-16] MEDS: SIMVASTATIN 20 MG TAB PO SCH (08:23)
[2020-01-16] MEDS: CALCIUM 600MG + VIT D 400 IU TAB PO SCH (08:23)
[2020-01-16] MEDS: FERROUS SULFATE 325 MG TAB PO SCH (08:24)
[2020-01-16] MEDS: INSULIN ASPART 100 UNITS/ML 3 ML PEN SC SCH ×3 (08:24→17:26)
[2020-01-16] MEDS: PANTOprazole 40 MG TAB PO SCH (08:24)
[2020-01-16] MEDS: MONTELUKAST SODIUM 10 MG TABLET PO SCH (08:24)
[2020-01-16] MEDS: AMOXICILLIN/CLAVULANATE 875 MG TAB PO SCH ×2 (08:24→17:27)
[2020-01-16] MEDS: INSULIN GLARGINE SOLOSTAR 100 UNITS/ML 3 ML PEN SC SCH (09:23)
--- NOTE | 2020-01-16 15:43 | Discharge Summary ---
Date of Service January 16, 2020 Admission HPI Per Admitting Provider The patient is a 74-year-old female with a past medical history including orthostatic hypotension, pulmonary embolism, obstructive sleep apnea, recurrent sinusitis and bronchitis, hypertension, DVT of lower extremity, pyelonephritis, diabetes mellitus, COPD, hypothyroidism, hyperlipidemia, bilateral lower extremity edema and UTI. She presents to the emergency department with inability to ambulate due to progressively worsening dizziness. She denies any focal weakness in arms or legs. Principal Diagnosis Labyrinthitis Very likely dementia -> Alzheimer's vs. vascular dementia most likely Discharge Exam Constitutional WD/WN, vitals as above Eyes EOM intact bilaterally; no conjunctival abnormality ENMT external ear and nose normal, oropharynx normal Neck trachea midline, no thyromegaly normal visual inspection Respiratory normal respiratory effort, lungs clear to auscultation no respiratory distress Cardiovascular RRR, no murmur, no edema Gastrointestinal (Abdomen) Inspection/Auscultation: abdomen normal to inspection; abdomen not distended Musculoskeletal no cyanosis or clubbing, extremities motor strength 5/5 Skin no rashes, warm and dry Neurologic CN's II-XI intact bilaterally, moves all extremities and awake Cranial Nerves: PERRL, normal accommodation, EOM intact bilaterally, normal facial strength, tongue midline, able to rotate head bilaterally, no nystagmus and symmetric palate elevation Psychiatric Orientation: alert, oriented to person and cooperative Discharge Data Allergies Allergy/AdvReac Type Severity Reaction Status Date / Time levofloxacin Allergy Mild RASH Verified 01/13/20 15:37 clonazepam Allergy Unknown UNKNOWN Verified 01/13/20 15:37 diclofenac Allergy Unknown NAUSEA AND Verified 01/13/20 15:37 VOMITING Diclopak Allergy Unknown NAUSEA AND Verified 07/27/18 14:21 VOMITING prochlorperazine AdvReac Severe EXTRAPYRAMIDAL Verified 01/14/20 08:54 S/E zolpidem AdvReac Severe CONFUSION/MEMORY Verified 01/14/20 08:54 LOSS carbamazepine AdvReac Intermediate CONFUSION Verified 01/14/20 08:54 duloxetine AdvReac Intermediate LIGHTHEADED Verified 01/14/20 08:54 NESS/DIZZIN ESS hydrochlorothiazide AdvReac Intermediate LIGHTHEADED Verified 01/14/20 08:54 NESS/DIZZIN ESS hydromorphone AdvReac Intermediate N/V AND Verified 02/17/20 15:37 NIGHTMARES indigotindisulfonic acid AdvReac Intermediate LIGHTHEADED Verified 01/14/20 08:54 NESS/DIZZIN ESS morphine AdvReac Intermediate HYPOTENSION Verified 01/13/20 15:37 AND N/V nitrofurantoin AdvReac Intermediate DIARRHEA-MNPG Verified 01/13/20 15:37 LIST cyclobenzaprine AdvReac Mild N/V Verified 01/13/20 15:37 lisinopril AdvReac Mild N/V Verified 01/13/20 15:37 naproxen AdvReac Mild N/V Verified 01/13/20 15:37 oxycodone AdvReac Mild N/V Verified 01/13/20 15:37 capsaicin AdvReac Unknown NAUSEA AND Verified 01/14/20 08:54 VOMITING losartan AdvReac Unknown ELEVATED Verified 01/14/20 08:54 CREATININE tramadol AdvReac Unknown N/V AND Verified 01/13/20 15:37 ITCHING Consultations 01/13/20 21:31 ED Decision to Admit Stat 01/13/20 22:56 Consult Case Management - Discharge Planning Routine Ordered Studies 01/13/20 18:19 CT angio head w con Stat CT angio neck with con Stat 01/13/20 18:20 CT head/brain wo con Stat 01/14/20 01:09 MR brain wo con Stat Hospital Course (1) Dizziness: Difficult to tell whether this is vertigo vs. general dizziness. To me, she describes some vertigo symptoms such as room spinning sensation. She denied these symptoms to the PT who worked with her on 01/14. They did BPPV maneuvers without any symptoms, so they feel BPPV is unlikely. - CTA head/neck on 01/13 was without any dissection, stenoses, or other issues. 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 Not a stroke or TIA. She also reports about 1 week of sinusitis symptoms. Will give Augmentin x 5 days for a bacterial sinusitis, though I do not think this will really change the course of her vertigo/dizziness symptoms. This most likely appears to be labyrinthitis. Will hopefully resolve in 1-2 weeks, though ENT follow up was recommended if not. (2) Confusion: No signs of metabolic causes. Likely dementia process. This was explored in 02/2019 during a prior admission where she had trouble with executive function and delayed recall. MOCA was 21/30. Daughter has significant concerns about her mother's memory. 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 - [employer] cognitive evaluation felt this was stable from prior exam in 02/2019. - Referral to [facility] Neuro[facility]ognitive/Psychology department given. (3) Vision changes: Patient does report vague symptoms of vision changes, but is not able to clarify. She reports that she has vision "spinning." It is unclear if this is vertigo vs. actual vision issue. Normal vision exam. - Symptoms had resolved by 01/15/2020 -> [place] to be an aspect of vertigo for her. (4) B12 deficiency: B12 was 1600 this admission. - Held supplement on discharge. (5) COPD (chronic obstructive pulmonary disease): No active symptoms and no notation of inhalers being used. - Continue montelukast 10 mg p.o. daily - DuoNebs PRN (6) Diabetes mellitus: A1c was 9.4%. Priors have been as high as 13%. - Held metformin while inpatient. Return to oral meds on discharge. - Sliding scale insulin while inpatient. (7) Hypothyroidism: TSH was 2.8 this admission. - Continue levothyroxine 75 mcg p.o. daily (8) HLD (hyperlipidemia): - Continue simvastatin 20 mg daily (9) Deep venous thrombosis of lower extremity: As noted above (10) Peripheral neuropathy: Patient is unsure when her gabapentin was increased, but this can contribute to dizziness. - Held gabapentin on discharge -> Daughter wasn't sure when she was even taking it. (11) Pulmonary embolism: Reported history of DVT and PE with medicine review not taking any anticoagulation. No signs of lower extremity edema or respiratory distress. - Monitored. No signs of DVT. Total Time Total Time Spent Total Time Spent (In Minutes): 35 Discharge Plan Discharge Items Patient Disposition: Home - Home Health Services Reason For Visit: DIZZYNESS Discharge Diagnosis: Dizziness - Inner ear issues Activity: Resume your previous activity Non-emergency contact: Primary Care Provider Call non-emergency contact if: your symptoms worsen and your temperature is above 101 Follow-up/Referrals: [facility] [Outside] (Please call this number to arrange further neuro-cognitive testing.) Alonso Radford DO [Primary Care Provider] - 01/20/20 10:30 am Diet: Carb Consistent or DM2 Addtl Attending Provider Instructions: Ms. Bucio, You were in the hospital for dizziness. Fortunately, we did not see any sign of a stroke. We believe the dizziness may have been caused by an inner ear infection/inflammation. We are treating you for a sinus infection with a 5-day course of an antibiotic. We are also sending meclizine to the pharmacy for you which can sometimes help with dizziness. Please follow up with an ENT doctor (we have included the number to the [facility] group) if it does not improve in 1-2 weeks. Additionally, please follow up with your eye doctor as you did report that you felt your vision was blurry. Our eye exam in the hospital was normal, but we cannot do as thorough an exam in the hospital as they do in the office. Please follow your blood sugars up. We are arranging for home health to help manage the blood sugars. Pending Studies at Discharge: No Stand-Alone Forms: [facility], Smoking Cessation Medications and DC Order Prescriptions: New amoxicillin-pot clavulanate [Augmentin] 875-125 mg Tablet 1 tab PO BIDM Qty: 8 RF: 0 meclizine 12.5 mg Tablet 12.5 mg PO TID PRN (Reason: dizziness) Qty: 20 RF: 0 Continued pantoprazole 40 mg tablet,delayed release (DR/EC) 40 mg PO DAILY Qty: 90 RF: 3 montelukast [Singulair] 10 mg tablet 10 mg PO DAILY Qty: 90 RF: 3 metformin 500 mg tablet extended release 24 hr 1,000 mg PO QPM Qty: 180 RF: 2 levothyroxine 75 mcg tablet 75 mcg PO DAILY Qty: 30 RF: 3 simvastatin 20 mg tablet 20 mg PO DAILY Qty: 90 RF: 3 Janumet 50-500 mg tablet 1 tab PO BID Qty: 180 RF: 3 melatonin 5 mg capsule 5 mg PO HS RF: 0 Discontinued gabapentin 300 mg capsule 300 mg PO BID Qty: 60 RF: 0 lysine 1,000 mg tablet 1,000 mg PO DAILY RF: 0 calcium carbonate [Calcium 600] 600 mg calcium (1,500 mg) Tablet 600 mg PO DAILY RF: 0 ferrous sulfate [iron] 325 mg (65 mg iron) Tablet 325 mg PO DAILY RF: 0 cyanocobalamin (vitamin B-12) [Vitamin B-12] 1,000 mcg Tablet 1,000 mcg PO DAILY RF: 0 cholecalciferol (vitamin D3) [Vitamin D3] 2,000 unit Capsule 2,000 unit PO DAILY RF: 0 Discharge Orders: Discharge Order (Routine); Ordered 01/16/20 Ordered By: Raymundo Ramirez Admission Data Admit Date/Time: 01/13/20 21:25 Attending Provider: Raymundo Ramirez Admit Provider: Hector Lainez Primary Care Provider: Alonso Radford Other Providers: Raymundo Ramirez ; [facility] Other Interventions: Discharge Summary Assessment (RN) Last Done: 01/16/20 10:50 Coding Level of Care Code D/C Day Management >30 mins Diagnoses Dizziness R42 Confusion R41.0 Vision changes H53.9 B12 deficiency E53.8 COPD (chronic obstructive pulmonary disease) J44.9 Diabetes mellitus E11.9 Hypothyroidism E03.9 HLD (hyperlipidemia) E78.5 Deep venous thrombosis of lower extremity I82.409 Peripheral neuropathy G62.9 Pulmonary embolism I26.99
== END 2020-01-16 18:20 | disposition home health service (06) ==
LOC: ED 16:59 → 2N 21:25 → INTOOBSV 21:25 → SUATTDRO 21:25 → 2N 22:22